=== PATIENT | female | born 1935 | race Caucasian/White ===

== ENCOUNTER 2017-09-11 10:07 | Observation (INO) ==
[2017-09-11] MEDS ORDERED: *HR* Atropine Sulfate 1 MG/10 ML SYRINGE IVP ONE (10:23)
[2017-09-11] MEDS ORDERED: *HR* Atropine Sulfate 1 MG/10 ML SYRINGE ONE (10:23)
[2017-09-11] MEDS ORDERED: 0.9 % Sodium Chloride 1,000 ML IVC ONE (10:27)
--- NOTE | 2017-09-11 10:33 | Emergency Department Note ---
Disposition Clinical Impression: Symptomatic bradycardia, Elevated serum creatinine, Transaminitis Disposition: Admitted As Inpatient Condition: Fair Referrals: Ray Finley Jr, MD [Primary Care Provider] - Forms: ED Satisfaction Letter Time of Disposition: 16:34 Weakness HPI - General Chief complaint: ED Weakness Stated complaint: weakness Time Seen by Provider: 09/11/17 10:11 Source: patient, EMS Mode of arrival: EMS Limitations: no limitations Nursing Notes Reviewed: Yes Vital Signs Reviewed: Yes - History of Present Illness HPI Narrative: Alert and oriented 82-year-old female arrives by EMS for evaluation of generalized fatigue/weakness and shortness of breath. Symptoms began earlier this morning and gradually worsened. She denies any associated chest pain, fever, abdominal pain, nausea, or vomiting. Pt Subjective Complaint: generalized weakness/fatigue Onset (ago): hour(s) Duration: gradually worsening Pain Scale: 0 Associated symptoms: Reports: shortness of breath - Related Data Home Medications Medication Instructions Recorded Confirmed Allopurinol [Zyloprim 100 MG] 100 mg PO DAILY 09/11/17 09/11/17 Dabigatran [Pradaxa] 75 mg PO BID 09/11/17 09/11/17 Diltiazem HCl [Diltiazem 24Hr Cd] 360 mg PO DAILY 09/11/17 09/11/17 Esomeprazole Magnesium [Nexium] 40 mg PO DAILY 09/11/17 09/11/17 Fluticasone Propionate Nasal 2 spr NS DAILY 09/11/17 09/11/17 [Flonase] Furosemide [Lasix] 40 mg PO BID 09/11/17 09/11/17 Insulin Glargine,Hum.rec.anlog 14 unit SQ DAILY 09/11/17 09/11/17 [Lantus Solostar] Isosorbide MONOnitrate [Isosorbide 120 mg PO QAM 09/11/17 09/11/17 Mononitrate ER] Linagliptin [Tradjenta] 5 mg PO DAILY 09/11/17 09/11/17 Lisinopril [Zestril] 20 mg PO DAILY 09/11/17 09/11/17 Metoprolol Succinate 100 mg PO BID 09/11/17 09/11/17 Rosuvastatin [Crestor] 20 mg PO HS 09/11/17 09/11/17 Allergies Allergy/AdvReac Type Severity Reaction Status Date / Time morphine Allergy Drowsy Verified 09/11/17 10:22 All systems ED: reviewed and negative except as stated. Constitutional: Reports: as per HPI, weakness (Generalized). Denies: fever, chills, weight change Eyes: Denies: eye pain, eye discharge, vision change ENT ED: Denies: ear pain, throat pain, dental pain, hearing loss, epistaxis, congestion, dysphagia Cardiovascular: Denies: chest pain, palpitations, dyspnea on exertion, edema, syncope Respiratory: Reports: as per HPI, dyspnea. Denies: cough, wheezes, hemoptysis, stridor Gastrointestinal: Denies: abdominal pain, nausea, vomiting, diarrhea, constipation, hematemesis, melena, hematochezia Genitourinary: Denies: dysuria, frequency, hematuria, discharge Musculoskeletal: Denies: back pain, neck pain, arthralgia, myalgia Integumentary: Denies: rash, abrasion, lesions Neurological: Denies: headache, weakness, numbness, paresthesias, confusion, abnormal gait, vertigo Psychiatric: Denies: anxiety, depression, suicidal thoughts, homicidal thoughts , auditory hallucinations, visual hallucinations Endocrine: Denies: fatigue Hematological/Lymphatic: Denies: easy bleeding, easy bruising Allergic/Immunologic: Denies: facial swelling, urticaria Past Medical History - Past Medical History Attestation: Yes The following information was validated with the patient. Source: patient, nursing notes reviewed Medical history: Reports: atrial fibrillation, diabetes, hypertension Psychiatric history: Reports: no psych history - Social History Smoking Status: Never smoker Alcohol use: Reports: none Drug use: Reports: none Physical Exam - General Limitations: no limitations General appearance: alert, in no apparent distress - Head Head exam: atraumatic, normocephalic, normal inspection - Eye Eye exam: Present: normal appearance, PERRL, EOMI. Absent: nystagmus - ENT ENT exam: mucous membranes moist - Neck Neck exam: Present: normal inspection, full ROM, trachea midline - Chest Chest inspection: Present: normal inspection, symmetric chest wall rise - Respiratory Respiratory exam: Present: normal lung sounds bilaterally. Absent: respiratory distress, wheezes, stridor, accessory muscle use, prolonged expiratory phase - Cardiovascular Cardiovascular exam: Present: bradycardia, irregular rhythm, normal heart sounds - Abdominal Exam Abdominal exam: Present: soft, Non-Tender, normal bowel sounds - Extremities Exam Extremities exam: Present: normal inspection, full ROM. Absent: tenderness, pedal edema - Neurological Exam Neurological exam: Present: alert, oriented X3 - Psychiatric Psychiatric exam: Present: normal affect, normal mood - Skin Skin exam: Present: warm, dry, intact, normal color Course Course Narrative: Dr. Covington, ED attending was at bedside during this patient's arrival. He recommends consultation with cardiology on-call regarding her bradycardia in the low 30s. The patient is on 100 mg of metoprolol twice a day. She is also on diltiazem, which was recently increased in dosage approximately one week ago. This was confirmed by calling the patient's pharmacy. She had originally been on 240 mg of diltiazem and this was increased to 360 mg daily. - Consultations Consultation #1: I spoke with Dr. Tressa Jones, cardiology military professional regarding this patient's bradycardia and EKG that shows atrial fibrillation with slow ventricular response and a right bundle-branch block. She recommends IV fluid hydration withholding glucagon at this time as long as the patient is maintaining normotensive pressure. She does state that she will review the patient's EKG was faxed to the Alternative Dispute Resolution Mediator. She also states that she was sent a it sales representative from the senior warehouse clerk to the emergency department to evaluate the patient at bedside. Time: 10:25 Consultation #2: Quirino Nagel METALWORKING INSTRUCTOR with [facility] at the patient's bedside. She recommends withholding the patient's metoprolol and Cardizem. The patient's heart rate has improved to 50 bpm after 0.5 mg of IV atropine. Quirino recommends admission to the hospitalist service with cardiology consultation for further monitoring and evaluation. Time: 10:40 Consultation #3: Per Dr. Covington's request, I consulted with Dr. Tressa Jones regarding laboratory results that show kidney dysfunction, abnormal liver enzymes, and elevated potassium levels. Dr. Jones recommends immediate correction of the patient's potassium. She states that the patient does have documented baseline renal dysfunction. She states that she still feels that there is no need for emergent pacemaker placement at this time. Time: 12:41 Additional Consultation(s): 1300: I spoke with Dr. Christina, assistant professor of surgery military professional. He recommends that the patient was heart rate be better stabilized prior to accepting the patient for admission into the ICU. He recommends the administration of IV glucagon in an attempt to correct her bradycardia. I discussed that this was against the senior warehouse clerk's recommendations however he requested to be given at this time. We will obtain an ultrasound of the right upper quadrant to evaluate the gallbladder in light of her elevated AST, ALT, and alkaline phosphatase. 1610: I spoke with Dr. Land, resident physician working with Dr. Christina in the ICU. I have notified Dr. Land at the patient's vital signs are much improved. Heart rate is now 72 bpm. Blood pressure 127/59. Her potassium has normalized to 5.1. I will contact the hospitalist for admission to the hospitalist service rather than ICU admission at this time. I discussed this plan with Dr. Covington as well as G agrees with this plan. 1630: I spoke with Dr. Garcia of the Hospital services accepted the patient under his services at this time. Vital Signs Temperature 94.5 F L 09/11/17 10:11 Pulse Rate 42 09/11/17 10:11 Respiratory Rate 14 09/11/17 10:11 Blood Pressure 119/46 09/11/17 10:11 O2 Sat by Pulse Oximetry 95 09/11/17 10:11 Temperature 96.8 F L 09/11/17 10:43 Pulse Rate 72 09/11/17 15:12 Respiratory Rate 22 09/11/17 15:12 Blood Pressure 127/59 09/11/17 15:12 O2 Sat by Pulse Oximetry 94 09/11/17 15:12 Oxygen Delivery Oxygen Delivery Room Air Weakness - Medical Records Medical records reviewed: Yes I reviewed the patient's medical records. - Lab Data Lab results reviewed: Yes I reviewed the patient's lab results. Lab results narrative: Laboratory Last Values WBC 15.8 K/mcL (4.3-11.1) H 09/11/17 11:12 RBC 3.37 M/mcL (3.82-4.97) L 09/11/17 11:12 Hgb 10.5 g/dL (11.5-15.4) L 09/11/17 11:12 Hct 33.8 % (35.3-44.9) L 09/11/17 11:12 MCV 100.3 fL (83.0-100.0) H 09/11/17 11:12 MCH 31.2 pg (28.0-33.3) 09/11/17 11:12 MCHC 31.1 g/dL (31.6-35.5) L 09/11/17 11:12 RDW 15.5 % (11.5-14.5) H 09/11/17 11:12 Plt Count 248 K/mcL (140-400) 09/11/17 11:12 MPV 12.1 fL (9.4-12.4) 09/11/17 11:12 Immature Gran % 2.5 % (0-4) 09/11/17 11:12 Seg Neutrophils % 86.2 % 09/11/17 11:12 Lymphocytes % 5.1 % 09/11/17 11:12 Monocytes % 5.8 % 09/11/17 11:12 Eosinophils % 0.1 % 09/11/17 11:12 Basophils % 0.3 % 09/11/17 11:12 Neutrophils # 13.6 K/mcL (1.6-8.9) H 09/11/17 11:12 Lymphocytes # 0.8 K/mcL (0.6-4.6) 09/11/17 11:12 Monocytes # 0.9 K/mcL (0.0-1.3) 09/11/17 11:12 Eosinophils # 0.0 K/mcL (0.0-0.6) 09/11/17 11:12 Basophils # 0.1 K/mcL (0.0-0.2) 09/11/17 11:12 Nucleated RBCs/100 WBC 0.8 /100 WBC (0) H 09/11/17 11:12 PT 16.0 Seconds (9.4-12.1) H 09/11/17 11:12 INR 1.5 09/11/17 11:12 APTT 48.7 Seconds (26.0-36.0) H 09/11/17 11:12 VBG pH 7.26 pH Units (7.32-7.42) L 09/11/17 13:19 VBG pCO2 41 mmHg (41-51) 09/11/17 13:19 VBG pO2 42 mmHg (25-50) 09/11/17 13: VBG HCO3 18 mEq/L (21-27) L 09/11/17 13:19 Sodium 136 mEq/L (136-145) 09/11/17 11:12 Potassium 5.1 mEq/L (3.5-5.1) 09/11/17 15:32 Chloride 110 mEq/L (98-107) H 09/11/17 11:12 Carbon Dioxide 16 mEq/L (23-29) L 09/11/17 11:12 BUN 69 mg/dL (8-23) H 09/11/17 11:12 Creatinine 3.61 mg/dL (0.60-1.20) H 09/11/17 11:12 Est GFR ( Amer) 15 (> 60) L 09/11/17 11:12 Est GFR (Non-Af Amer) 12 (> 60) L 09/11/17 11:12 BUN/Creatinine Ratio 19 (6-26) 09/11/17 11:12 Glucose 361 mg/dL (70-105) H 09/11/17 11:12 Calculated Osmolality 317 (280-300) H 09/11/17 11:12 Calcium 8.7 mg/dL (8.6-10.3) 09/11/17 11:12 Total Bilirubin 0.4 mg/dL (0.3-1.0) 09/11/17 11:12 AST 285 Units/L (13-39) H 09/11/17 11:12 ALT 156 Units/L (7-52) H 09/11/17 11:12 Alkaline Phosphatase 138 Units/L (34-104) H 09/11/17 11:12 Creatine Kinase 79 Units/L (30-223) 09/11/17 11:12 Troponin I < 0.03 ng/mL (< 0.04) 09/11/17 11:12 Serum Total Protein 6.7 g/dL (6.4-8.9) 09/11/17 11:12 Albumin 3.3 g/dL (3.5-5.7) L 09/11/17 11:12 Globulin 3.4 g/dL (2.4-3.5) 09/11/17 11:12 Albumin/Globulin Ratio 1.0 (1.1-2.2) L 09/11/17 11:12 Beta-Hydroxybutyric Acd 0.17 mmol/L (0.02-0.27) 09/11/17 13:09 Ur Specimen Adequacy See below A 09/11/17 10:57 Urine Color Yellow (Yellow) 09/11/17 10:57 Urine Clarity Slightly Hazy (Clear) 09/11/17 10:57 Urine pH 5.0 pH Units (5.0-8.0) 09/11/17 10:57 Ur Specific [place] 1.026 (1.010-1.025) H 09/11/17 10:57 Urine Protein 30 mg/dL (Neg-Trace) H 09/11/17 10:57 Urine Glucose (UA) Normal mg/dL (Normal) 09/11/17 10:57 Urine Ketones Negative mg/dL (Negative) 09/11/17 10:57 Urine Blood Negative (Negative) 09/11/17 10:57 Urine Nitrite Negative (Negative) 09/11/17 10:57 Urine Bilirubin Negative (Negative) 09/11/17 10:57 Urine Urobilinogen Normal mg/dL (Normal) 09/11/17 10:57 Ur Leukocyte Esterase Negative (Negative) 09/11/17 10:57 Urine Microscopic RBC 0-3 per hpf (0-3) 09/11/17 10:57 Urine Microscopic WBC 0-3 per hpf (0-3) 09/11/17 10:57 Ur Squamous Epith Cells Many per lpf (None-Few) H 09/11/17 10:57 Urine Bacteria None Seen per hpf (None-Few) 09/11/17 10:57 Hyaline Casts None Seen per lpf (None-Few) 09/11/17 10:57 Ur Culture Indicated? NO (NO) 09/11/17 10:57 Result diagrams: 09/11/17 11:12 09/11/17 15:32 Lab Results 09/11/17 09/11/17 09/11/17 Range/Units 10:57 11:12 11:12 WBC 15.8 H (4.3-11.1) K/mcL RBC 3.37 L (3.82-4.97) M/mcL Hgb 10.5 L (11.5-15.4) g/dL Hct 33.8 L (35.3-44.9) % MCV 100.3 H (83.0-100.0) fL MCH 31.2 (28.0-33.3) pg MCHC 31.1 L (31.6-35.5) g/dL RDW 15.5 H (11.5-14.5) % Plt Count 248 (140-400) K/mcL MPV 12.1 (9.4-12.4) fL Immature Gran % 2.5 (0-4) % Seg Neutrophils % 86.2 % Lymphocytes % 5.1 % Monocytes % 5.8 % Eosinophils % 0.1 % Basophils % 0.3 % Neutrophils # 13.6 H (1.6-8.9) K/mcL Lymphocytes # 0.8 (0.6-4.6) K/mcL Monocytes # 0.9 (0.0-1.3) K/mcL Eosinophils # 0.0 (0.0-0.6) K/mcL Basophils # 0.1 (0.0-0.2) K/mcL Nucleated RBCs/100 WBC 0.8 H (0) /100 WBC PT 16.0 H (9.4-12.1) Seconds INR 1.5 APTT 48.7 H (26.0-36.0) Seconds VBG pH (7.32-7.42) pH Units VBG pCO2 (41-51) mmHg VBG pO2 (25-50) mmHg VBG HCO3 (21-27) mEq/L Sodium (136-145) mEq/L Potassium (3.5-5.1) mEq/L Chloride (98-107) mEq/L Carbon Dioxide (23-29) mEq/L BUN (8-23) mg/dL Creatinine (0.60-1.20) mg/dL Est GFR ( Amer) (> 60) Est GFR (Non-Af Amer) (> 60) BUN/Creatinine Ratio (6-26) Glucose (70-105) mg/dL Calculated Osmolality (280-300) Calcium (8.6-10.3) mg/dL Total Bilirubin (0.3-1.0) mg/dL AST (13-39) Units/L ALT (7-52) Units/L Alkaline Phosphatase (34-104) Units/L Creatine Kinase (30-223) Units/L Troponin I (< 0.04) ng/mL Serum Total Protein (6.4-8.9) g/dL Albumin (3.5-5.7) g/dL Globulin (2.4-3.5) g/dL Albumin/Globulin Ratio (1.1-2.2) Beta-Hydroxybutyric Acd (0.02-0.27) mmol/L Ur Specimen Adequacy See below A Urine Color Yellow (Yellow) Urine Clarity Slightly Hazy (Clear) Urine pH 5.0 (5.0-8.0) pH Units Ur Specific [place] 1.026 H (1.010-1.025) Urine Protein 30 H (Neg-Trace) mg/dL Urine Glucose (UA) Normal (Normal) mg/dL Urine Ketones Negative (Negative) mg/dL Urine Blood Negative (Negative) Urine Nitrite Negative (Negative) Urine Bilirubin Negative (Negative) Urine Urobilinogen Normal (Normal) mg/dL Ur Leukocyte Esterase Negative (Negative) Urine Microscopic RBC 0-3 (0-3) per hpf Urine Microscopic WBC 0-3 (0-3) per hpf Ur Squamous Epith Cells Many H (None-Few) per lpf Urine Bacteria None Seen (None-Few) per hpf Hyaline Casts None Seen (None-Few) per lpf Ur Culture Indicated? NO (NO) 09/11/17 09/11/17 09/11/17 Range/Units 11:12 13:09 13:19 WBC (4.3-11.1) K/mcL RBC (3.82-4.97) M/mcL Hgb (11.5-15.4) g/dL Hct (35.3-44.9) % MCV (83.0-100.0) fL MCH (28.0-33.3) pg MCHC (31.6-35.5) g/dL RDW (11.5-14.5) % Plt Count (140-400) K/mcL MPV (9.4-12.4) fL Immature Gran % (0-4) % Seg Neutrophils % % Lymphocytes % % Monocytes % % Eosinophils % % Basophils % % Neutrophils # (1.6-8.9) K/mcL Lymphocytes # (0.6-4.6) K/mcL Monocytes # (0.0-1.3) K/mcL Eosinophils # (0.0-0.6) K/mcL Basophils # (0.0-0.2) K/mcL Nucleated RBCs/100 WBC (0) /100 WBC PT (9.4-12.1) Seconds INR APTT (26.0-36.0) Seconds VBG pH 7.26 L (7.32-7.42) pH Units VBG pCO2 41 (41-51) mmHg VBG pO2 42 (25-50) mmHg VBG HCO3 18 L (21-27) mEq/L Sodium 136 (136-145) mEq/L Potassium 6.1 H (3.5-5.1) mEq/L Chloride 110 H (98-107) mEq/L Carbon Dioxide 16 L (23-29) mEq/L BUN 69 H (8-23) mg/dL Creatinine 3.61 H (0.60-1.20) mg/dL Est GFR ( Amer) 15 L (> 60) Est GFR (Non-Af Amer) 12 L (> 60) BUN/Creatinine Ratio 19 (6-26) Glucose 361 H (70-105) mg/dL Calculated Osmolality 317 H (280-300) Calcium 8.7 (8.6-10.3) mg/dL Total Bilirubin 0.4 (0.3-1.0) mg/dL AST 285 H (13-39) Units/L ALT 156 H (7-52) Units/L Alkaline Phosphatase 138 H (34-104) Units/L Creatine Kinase 79 (30-223) Units/L Troponin I < 0.03 (< 0.04) ng/mL Serum Total Protein 6.7 (6.4-8.9) g/dL Albumin 3.3 L (3.5-5.7) g/dL Globulin 3.4 (2.4-3.5) g/dL Albumin/Globulin Ratio 1.0 L (1.1-2.2) Beta-Hydroxybutyric Acd 0.17 (0.02-0.27) mmol/L Ur Specimen Adequacy Urine Color (Yellow) Urine Clarity (Clear) Urine pH (5.0-8.0) pH Units Ur Specific [place] (1.010-1.025) Urine Protein (Neg-Trace) mg/dL Urine Glucose (UA) (Normal) mg/dL Urine Ketones (Negative) mg/dL Urine Blood (Negative) Urine Nitrite (Negative) Urine Bilirubin (Negative) Urine Urobilinogen (Normal) mg/dL Ur Leukocyte Esterase (Negative) Urine Microscopic RBC (0-3) per hpf Urine Microscopic WBC (0-3) per hpf Ur Squamous Epith Cells (None-Few) per lpf Urine Bacteria (None-Few) per hpf Hyaline Casts (None-Few) per lpf Ur Culture Indicated? (NO) 09/11/17 Range/Units 15:32 WBC (4.3-11.1) K/mcL RBC (3.82-4.97) M/mcL Hgb (11.5-15.4) g/dL Hct (35.3-44.9) % MCV (83.0-100.0) fL MCH (28.0-33.3) pg MCHC (31.6-35.5) g/dL RDW (11.5-14.5) % Plt Count (140-400) K/mcL MPV (9.4-12.4) fL Immature Gran % (0-4) % Seg Neutrophils % % Lymphocytes % % Monocytes % % Eosinophils % % Basophils % % Neutrophils # (1.6-8.9) K/mcL Lymphocytes # (0.6-4.6) K/mcL Monocytes # (0.0-1.3) K/mcL Eosinophils # (0.0-0.6) K/mcL Basophils # (0.0-0.2) K/mcL Nucleated RBCs/100 WBC (0) /100 WBC PT (9.4-12.1) Seconds INR APTT (26.0-36.0) Seconds VBG pH (7.32-7.42) pH Units VBG pCO2 (41-51) mmHg VBG pO2 (25-50) mmHg VBG HCO3 (21-27) mEq/L Sodium (136-145) mEq/L Potassium 5.1 (3.5-5.1) mEq/L Chloride (98-107) mEq/L Carbon Dioxide (23-29) mEq/L BUN (8-23) mg/dL Creatinine (0.60-1.20) mg/dL Est GFR ( Amer) (> 60) Est GFR (Non-Af Amer) (> 60) BUN/Creatinine Ratio (6-26) Glucose (70-105) mg/dL Calculated Osmolality (280-300) Calcium (8.6-10.3) mg/dL Total Bilirubin (0.3-1.0) mg/dL AST (13-39) Units/L ALT (7-52) Units/L Alkaline Phosphatase (34-104) Units/L Creatine Kinase (30-223) Units/L Troponin I (< 0.04) ng/mL Serum Total Protein (6.4-8.9) g/dL Albumin (3.5-5.7) g/dL Globulin (2.4-3.5) g/dL Albumin/Globulin Ratio (1.1-2.2) Beta-Hydroxybutyric Acd (0.02-0.27) mmol/L Ur Specimen Adequacy Urine Color (Yellow) Urine Clarity (Clear) Urine pH (5.0-8.0) pH Units Ur Specific [place] (1.010-1.025) Urine Protein (Neg-Trace) mg/dL Urine Glucose (UA) (Normal) mg/dL Urine Ketones (Negative) mg/dL Urine Blood (Negative) Urine Nitrite (Negative) Urine Bilirubin (Negative) Urine Urobilinogen (Normal) mg/dL Ur Leukocyte Esterase (Negative) Urine Microscopic RBC (0-3) per hpf Urine Microscopic WBC (0-3) per hpf Ur Squamous Epith Cells (None-Few) per lpf Urine Bacteria (None-Few) per hpf Hyaline Casts (None-Few) per lpf Ur Culture Indicated? (NO) - EKG Data EKG attestation: Yes I reviewed and interpreted this EKG. EKG results narrative: EKG reviewed by Dr. Covington as well. EKG shows atrial fibrillation with slow ventricular response and a right bundle-branch block at a rate of 34 bpm. QRS duration 121, QT/QTc interval 5-3/416. No ectopy noted. No appreciable ST elevation. EKG pending cardiology review at this time. Attestation Statement - Attestation Attestation: I examined this patient and my medical decision-making was reviewed with the Resident Physician. I agree with the documented findings, disposition and treatment plan as described except to the extent set forth below. I saw this patient in conjunction with the nurse practitioner. Patient has symptomatic bradycardia. Patient was given atropine on arrival. There is not an underlying heart block that I can decipher at this time. The mems integration engineer was paged immediately on the patient's arrival and recommended further monitoring and they would send 70 down to evaluate the patient. Her blood pressure is stable at this time. The weakness I do believe is stemming from her underlying heart rate. We will see her response from atropine, reevaluate, we did discuss the possibility of giving glucagon to reverse underlying beta maria elena but this was not recommended by the senior warehouse clerk. Patient will be admitted for further evaluation the intensive care unit. I spent greater than 35 minutes of critical care time resuscitating this acutely ill patient suffering from symptomatic bradycardia. This was excluding billable procedures.
--- NOTE | 2017-09-11 10:57 | Electrophysiology Consult Note ---
<Quirino Nagel R - Last Filed: 09/11/17 10:50> Date of Encounter: 09/11/17 Time of Encounter: 10:50 Assessment and Plan (1) Symptomatic bradycardia Current Visit: Yes Status: Acute Presented with new onset fatigue, weakness, dyspnea and chest pressure that started this AM. HR found to be 30s on presentation. Given atropine 0.5mg, HR now 40s-50s at bedside. Rhythm unclear due to artifact. Obtain another EKG. Cardizem was increased from 240mg daily to 360mg daily 5 days ago. Also on Lopressor 100mg BID. Last doses of both medications was last night. Stop BB and CCB. Will avoid AV rogers blockers at this time given her bradycardia. No urgent indication for temporary pacemaker or PPM. Continuous telemetry to monitor HR. TTE to evaluate structure and function. Will also request records from Dr. Hawkins' s office. Awaiting labs to result as well. Will monitor electrolytes. Check TSH. Further recommendations to follow once labs and TTE result. (2) PAF (paroxysmal atrial fibrillation) Current Visit: Yes Status: Acute Known PAF. As above, will hold AV rogers blockers given her bradycardia. Anticoagulated on Pradaxa. [id number] (Age, HTN, CAD, Female, DM). Pt does report rectal bleeding from frequent diarrhea secondary to reaction to colchicine. Will monitor H&H. Management per hospitalist team. Consider stool guaiac. (3) CAD (coronary artery disease) Current Visit: Yes Status: Chronic Per pt, known CAD, but no hx of PCI or CABG. Reports [facility] "somewhat recently" but unsure when. [place] Will request records. ASA, statin. No BB due to bradycardia. Qualifiers: Coronary Disease-Associated Artery/Lesion type: [place] artery [place] vs. transplanted heart: [place] heart Associated angina: without angina Qualified Code(s): I25.10 - Atherosclerotic heart disease of [place] coronary artery without angina pectoris Discussion w patient/family: The assessment and plan as outlined above was discussed with the patient and/or family members who expressed understanding and agreement. All questions were answered. Thank you for involving us in the care of your patient. Please call with any questions. I will discuss all the above with Dr. Victorino Jones and make changes as necessary. History of Present Illness Consult date: 03/13/18 Requesting physician: Renato Gill Consult reason: symptomatic bradycardia Chief complaint: dyspnea, fatigue, weakness History of present illness: Ms. Burciaga is a 82 year old female with PMH of CAD, HTN, PAF on Pradaxa, HLD, Type 2 DM, GERD, CKD stage 4, gout that presented to ED this AM with complaints of new onset of fatigue, weakness, dyspnea and chest pressure that started this AM. Per family at bedside, BP at home was 66/46 and they were unable to get a reading on HR. Upon presentation to ED HR was found to be in the 30s. EP consulted to determine if temporary PPM needs placed. Atropine 0.5mg was given. HR at bedside currently 40s-low 50s. Pt reports continued dyspnea and chest pressure, but has improved from this AM. Records reviewed from outside facility/ PCP office. She is on Lopressor 100mg BID and Cardizem 360mg daily at home. Her cardizem was increased from 240 to 360mg 5 days ago, last dose of BB and CCB was last night. PCP office visit reviewed from yesterday and HR was 73 at that time. She also reports being started on colchicine for gout recently, developed significant diarrhea and has had bright red bleeding per rectum since having frequent diarrhea. Aside from chest pressure starting this AM, denies chest pain. Reports hx of CAD with [facility] in recent years, but has never had PCI or CABG. Also reports knowing there is something abnormal with her mitral valve. She follows with Dr. Hawkins in [place] for her critical care specialist. No prior cardiac testing on file at [facility]. Labs still pending. Past Med Surg Social Fam HX - Past Medical History Medical history: atrial fibrillation, coronary artery disease, diabetes, hypertension Psychiatric history: no psych history - Social History Smoking Status: Never smoker Alcohol use: none Drug use: none Medications and Allergies Allopurinol [Zyloprim 100 MG] 100 mg PO DAILY 09/11/17 [History] Dabigatran [Pradaxa] 75 mg PO BID 09/11/17 [History] Diltiazem HCl [Diltiazem 24Hr Cd] 360 mg PO DAILY 09/11/17 [History] Esomeprazole Magnesium [Nexium] 40 mg PO DAILY 09/11/17 [History] Fluticasone Propionate Nasal [Flonase] 2 spr NS DAILY 09/11/17 [History] Furosemide [Lasix] 40 mg PO BID 09/11/17 [History] Insulin Glargine,Hum.rec.anlog [Lantus Solostar] 14 unit SQ DAILY 09/11/17 [ History] Isosorbide MONOnitrate [Isosorbide Mononitrate ER] 120 mg PO QAM 09/11/17 [ History] Linagliptin [Tradjenta] 5 mg PO DAILY 09/11/17 [History] Lisinopril [Zestril] 20 mg PO DAILY 09/11/17 [History] Metoprolol Succinate 100 mg PO BID 09/11/17 [History] Rosuvastatin [Crestor] 20 mg PO HS 09/11/17 [History] 3 Allergy/AdvReac Type Severity Reaction Status Date / Time morphine Allergy Drowsy Verified 09/11/17 10:22 All Systems Review: The remainder of the systems were reviewed and are negative - Constitutional Constitutional: fatigue, weakness - Cardiovascular Cardiovascular: as per HPI, chest pain at rest, dyspnea at rest, dyspnea on exertion, slow heart rate - Respiratory Respiratory: dyspnea Physical Examination Vital Signs, Last 4 Hours Temp Pulse Resp BP Pulse Ox 09/11/17 10:43 96.8 F L 48 20 112/85 97 09/11/17 10:28 31 20 107/57 97 09/11/17 10:11 94.5 F L 42 14 119/46 95 Vital Signs Temp Pulse Resp BP Pulse Ox 09/11/17 10:43 96.8 F L 48 20 112/85 97 09/11/17 10:28 31 20 107/57 97 09/11/17 10:11 94.5 F L 42 14 119/46 95 Intake and Output 09/10/17 09/11/17 09/11/17 23:59 07:59 15:59 Other: Stool Characteristics Normal for Patient Weight 74.843 kg Patient Weight 09/11/17 23:59 Weight 74.843 kg General: Conversant, No Apparent Distress HEENT: Atraumatic, Normocephaly, Mucus Membranes Moist Neck: No JVD, Normal carotid pulses Cardiac: Reg Rate and Rhythm, Other (2/6 murmur) Lungs: Other (diminished) Neuro: Alert and responsive, No focal deficits noted Abdomen: Soft, Non-Tender Skin: No rashes noted on visualized skin Musculoskeletal: No Chest Wall Tenderness Extremities: No Clubbing, No Cyanosis, No Edema, Normal Pulses Results - EKG Interpretation EKG results cardiology: personally reviewed (HR 34) Consult Discharge Plan - Plan Referrals: Ray Finley Jr, MD [Primary Care Provider] - <Victorino Jones - Last Filed: 09/11/17 11:42> Date of Encounter: 09/11/17 - Attending Attestation I have personally performed a face to face evaluation on this patient. I have reviewed and agree with the care plan. History and Exam by me shows: Known history of PAF. Presented with bradycardia with high dosed of AVN blockers which were recently increased. Would hold AVN blockers, check routine labs, get records form outside critical care specialist. Assessment and Plan Discussion w patient/family: The assessment and plan as outlined above was discussed with the patient and/or family members who expressed understanding and agreement. All questions were answered. Thank you for involving us in the care of your patient. Please call with any questions. History of Present Illness History of present illness: Ms. Burciaga is a 82 year old female All Systems Review: The remainder of the systems were reviewed and are negative Physical Examination Vital Signs, Last 4 Hours Temp Pulse Resp BP Pulse Ox 09/11/17 11:08 47 18 93/48 95 09/11/17 10:43 96.8 F L 48 20 112/85 97 09/11/17 10:28 31 20 107/57 97 09/11/17 10:11 94.5 F L 42 14 119/46 95 Results 09/11/17 11:12 Lab Results 09/11/17 09/11/17 11:12 11:12 WBC 15.8 H Hgb 10.5 L Hct 33.8 L Plt Count 248 INR 1.5 APTT 48.7 H
[2017-09-11 11:09] LABS: Bilirubin,Urine Negative (Negative); Blood,Urine Negative (Negative); Color,Urine Yellow (Yellow); Glucose,Urine (UA) Normal (Normal); Ketones,Urine Negative (Negative); Leukocyte Esterase,Urine Negative (Negative); Nitrite,Urine Negative (Negative); Protein,Urine 30 mg/dL (Neg-Trace); Specific Gravity,Urine 1.026 (1.010-1.025); Urobilinogen,Urine Normal (Normal)
[2017-09-11 11:10] LABS: Bacteria,Urine None Seen per hpf (None-Few); Hyaline Casts,Urine None Seen per lpf (None-Few); RBC,Urine 0-3 per hpf (0-3); Squamous Epithelial Cell,Urine Many per lpf (None-Few); WBC,Urine 0-3 per hpf (0-3)
[2017-09-11 11:11] LABS: Clarity,Urine Slightly Hazy (Clear)
[2017-09-11 11:26] LABS: Basophils # 0.1 K/mcL (0.0-0.2); Basophils % 0.3 %; Eosinophils % 0.1 %; Hematocrit 33.8 % (35.3-44.9); Hemoglobin 10.5 g/dL (11.5-15.4); Immature Granulocytes % 2.5 % (0-4); Lymphocytes # 0.8 K/mcL (0.6-4.6); Lymphocytes % 5.1 %; Mean Corpuscular HGB Conc 31.1 g/dL (31.6-35.5); Mean Corpuscular Hemoglobin 31.2 pg (28.0-33.3); Mean Corpuscular Volume 100.3 fL (83.0-100.0); Mean Platelet Volume 12.1 fL (9.4-12.4); Monocytes # 0.9 K/mcL (0.0-1.3); Monocytes % 5.8 %; Neutrophils # 13.6 K/mcL (1.6-8.9); Nucleated Red Blood Cells 0.8 /100 WBC (0); Platelet Count 248 K/mcL (140-400); Red Blood Count 3.37 M/mcL (3.82-4.97); Red Cell Distribution Width 15.5 % (11.5-14.5); Segmented Neutrophils % 86.2 %
[2017-09-11 11:33] LABS: INR 1.5
[2017-09-11 11:35] LABS: Activated Partial Thrombo Time 48.7 Seconds (26.0-36.0)
[2017-09-11 11:46] LABS: Troponin I < 0.03 ng/mL (< 0.04)
[2017-09-11 12:16] LABS: Alanine Aminotransferase 156 Units/L (7-52); Albumin 3.3 g/dL (3.5-5.7); Alkaline Phosphatase 138 Units/L (34-104); Aspartate Amino Transferase 285 Units/L (13-39); BUN/Creatinine Ratio 19 (6-26); Bilirubin,Total 0.4 mg/dL (0.3-1.0); Blood Urea Nitrogen 69 mg/dL (8-23); Calcium 8.7 mg/dL (8.6-10.3); Carbon Dioxide 16 mEq/L (23-29); Chloride 110 mEq/L (98-107); Creatine Kinase 79 Units/L (30-223); Globulin 3.4 g/dL (2.4-3.5); Glucose 361 mg/dL (70-105); Osmolality,Calculated 317 (280-300); Potassium 6.1 mEq/L (3.5-5.1); Sodium 136 mEq/L (136-145); Total Protein 6.7 g/dL (6.4-8.9); eGFR For African Americans 15 (> 60); eGFR For Non-African Americans 12 (> 60)
[2017-09-11] MEDS ORDERED: *HR* Dextrose 50 % in Water (Syg) 50 ML SYRINGE IVP ONE (12:28)
[2017-09-11] MEDS ORDERED: Albuterol 2.5 MG/3 ML NEBULIZER IH ONE (12:28)
[2017-09-11] MEDS ORDERED: Insulin Human Regular 10 UNIT in 0.9 % Sodium Chloride 10 ML IV ONE (12:28)
[2017-09-11 13:23] LABS: VBG HCO3 18 mEq/L (21-27); VBG PCO2 41 mmHg (41-51); VBG PH 7.26 pH Units (7.32-7.42); VBG PO2 42 mmHg (25-50)
--- NOTE | 2017-09-11 16:58 | Electrocardiograph Report ---
[place] [id number] Test Date: 2017-09-11 Pat Name: Ro Burciaga Department: 104 Room: Gender: F [place]: ELIO : 1935 Requested By: Renato Gill Order Number: [id number] Reading MD: Tressa Jones Measurements Intervals [place] Rate: 34 P: TX: 0 QRS: 36 QRSD: 121 T: -3 QT: 523 QTc: 416 Interpretive Statements ATRIAL FIBRILLATION WITH SLOW VENTRICULAR RESPONSE RIGHT BUNDLE BRANCH BLOCK [120+ ms QRS DURATION, UPRIGHT V1, 40+ ms S IN I/aVL/V4/V5/V6] Electronically Signed On 09-11-2017 16:57:00 EDT by Tressa Jones
--- NOTE | 2017-09-11 20:44 | Internal Med History&Physical ---
Date of Encounter: 09/11/17 Time of Encounter: 20:42 Assessment and Plan (1) Elevated serum creatinine Current visit: Yes Status: Acute Acute renal insufficiency. Patient on IV hydration and consult nephrology (2) PAF (paroxysmal atrial fibrillation) Current visit: Yes Status: Acute Patient being followed by cardiology please see consult for detail (3) Symptomatic bradycardia Current visit: Yes Status: Acute Resolved heart rate is now in the 80s (4) Transaminitis Current visit: Yes Status: Acute Probably due to shock liver we will repeat profile in a.m. (5) CAD (coronary artery disease) Current visit: Yes Status: Chronic Some chest pain with the bradycardia patient being seen and followed by cardiology Qualifiers: Coronary Disease-Associated Artery/Lesion type: [place] artery [place] vs. transplanted heart: [place] heart Associated angina: without angina Qualified Code(s): I25.10 - Atherosclerotic heart disease of [place] coronary artery without angina pectoris Internal Medicine - H&P: HPI Chief complaint: bradycardia Admitted From: Emergency Dept Plans for Post Hospital Care: Home History of present illness: Ms. Burciaga is a 82 year old female Patient with history of CAD, hypertension, high cholesterol, diabetes, CK D patient presented with fatigue and generalized weakness and shortness of breath and some chest pain and was found with heart rate of 30 patient is on beta maria elena has been seen by Dr. Jones clerk to justice patient heart rate is now in the 80s and resting comfortably no chest pain Past Med Surg Social Fam HX - Past Medical History Medical history: arthritis, atrial fibrillation, coronary artery disease, diabetes, hypertension Psychiatric history: no psych history - Past Surgical History Surgical History: colectomy, hysterectomy - Social History Smoking Status: Never smoker Alcohol use: none Drug use: none Internal Medicine - H&P: Meds Allopurinol [Zyloprim 100 MG] 100 mg PO DAILY 09/11/17 [History] Dabigatran [Pradaxa] 75 mg PO BID 09/11/17 [History] Diltiazem HCl [Diltiazem 24Hr Cd] 360 mg PO DAILY 09/11/17 [History] Esomeprazole Magnesium [Nexium] 40 mg PO DAILY 09/11/17 [History] Fluticasone Propionate Nasal [Flonase] 2 spr NS DAILY 09/11/17 [History] Furosemide [Lasix] 40 mg PO BID 09/11/17 [History] Insulin Glargine,Hum.rec.anlog [Lantus Solostar] 14 unit SQ DAILY 09/11/17 [ History] Isosorbide MONOnitrate [Isosorbide Mononitrate ER] 120 mg PO QAM 09/11/17 [ History] Linagliptin [Tradjenta] 5 mg PO DAILY 09/11/17 [History] Lisinopril [Zestril] 20 mg PO DAILY 09/11/17 [History] Metoprolol Succinate 100 mg PO BID 09/11/17 [History] Rosuvastatin [Crestor] 20 mg PO HS 09/11/17 [History] 3 Allergy/AdvReac Type Severity Reaction Status Date / Time morphine Allergy Drowsy Verified 09/11/17 10:22 All Systems PM: A 10-system review of systems was performed and is negative for pertinent findings except as documented above in the HPI. - Constitutional Constitutional: fatigue, weakness - EENT Eyes: no change in vision, no discharge, no pain, no photophobia Ears: no ear discharge, no ear pain, no tinnitus Nose, mouth and throat: no dysphagia, no nasal discharge, no neck pain, no sore throat - Cardiovascular Cardiovascular ROS IM: lightheadedness - Respiratory Respiratory: as per HPI, dyspnea, no cough, no excessive phlegm production - Gastrointestinal Gastrointestinal: no abdominal pain, no diarrhea, no hematemesis, no hematochezia, no melena, no nausea, no vomiting - Genitourinary Genitourinary: no change in urinary stream, no dysuria, no flank pain, no hematuria - Constitutional Vitals: Temp Pulse Resp BP Pulse Ox 98 F 81 16 150/68 92 09/11/17 17:58 09/11/17 17:58 09/11/17 17:58 09/11/17 17:58 09/11/17 17:58 - Head Head exam: Present: atraumatic, normocephalic - Eye Eye exam: Present: PERRL, conjuntiva pink, sclera anicteric Pupils: Present: PERRL - Neck Neck exam general surgery: Present: supple, trachea midline. Absent: lymphadenopathy - Respiratory Respiratory exam: Present: CTAB. Absent: accessory muscle use, rales, rhonchi, wheezes - Cardiovascular Cardiovascular exam: Present: RRR, +S1, +S2. Absent: diastolic murmur, gallop, rubs, systolic murmur - GI/Abdominal GI/Abdominal exam: Present: normal bowel sounds, soft, no peritoneal signs. Absent: distended, tenderness - Extremities Exam Extremities exam: Present: warm, radial pulses palpable and symmetrical. Absent : calf tenderness, cyanotic, pedal edema - Neurological Exam Neurological exam: Present: CN II-XII intact, oriented X3, no focal deficits. Absent: pronater drift, facial droop, speech deficit - Skin Skin exam: Present: dry, intact Internal Med - H&P Results - Labs CBC & Chem 7: 09/11/17 11:12 09/11/17 15:32
[2017-09-11] MEDS ORDERED: Naloxone 0.4 MG/ML INJ IVP PRN (20:46)
[2017-09-11] MEDS: 0.9 % Sodium Chloride 1,000 ML IVC SCH (21:57)
[2017-09-11] MEDS: *HR* Dabigatran 75 MG CAPSULE PO SCH (22:27)
[2017-09-12 03:49] LABS: Hematocrit 30.1 % (35.3-44.9); Hemoglobin 9.7 g/dL (11.5-15.4); Mean Corpuscular HGB Conc 32.2 g/dL (31.6-35.5); Mean Corpuscular Volume 96.2 fL (83.0-100.0); Mean Platelet Volume 12.4 fL (9.4-12.4); Platelet Count 235 K/mcL (140-400); Red Blood Count 3.13 M/mcL (3.82-4.97); Red Cell Distribution Width 15.3 % (11.5-14.5)
[2017-09-12 05:17] LABS: Albumin 3.2 g/dL (3.5-5.7); Bilirubin,Total 0.3 mg/dL (0.3-1.0); Calcium 8.6 mg/dL (8.6-10.3); Globulin 3.2 g/dL (2.4-3.5); Magnesium 1.2 mg/dL (1.6-2.6); Potassium 4.8 mEq/L (3.5-5.1); Total Protein 6.4 g/dL (6.4-8.9)
[2017-09-12] MEDS: Fluticasone Propionate Nasal 50 MCG/SPRAY BOTTLE NS SCH (08:34)
[2017-09-12] MEDS: *HR* Dabigatran 75 MG CAPSULE PO SCH ×2 (08:34→20:57)
[2017-09-12] MEDS: Insulin DETEMIR 100 UNIT/ML X5UNITS SQ SCH (08:41)
[2017-09-12] MEDS ORDERED: (Linagliptin [Tradjenta] 5 MG) PO SCH (09:00)
--- NOTE | 2017-09-12 09:32 | Electrophysiology ProgressNote ---
Date of Encounter: 09/12/17 Time of Encounter: 09:30 Assessment and Plan (1) Symptomatic bradycardia Current Visit: Yes Status: Acute Now resolved. Presented with new onset fatigue, weakness, dyspnea and chest pressure that started yesterday AM. HR found to be 30s on presentation. Given atropine 0.5mg, BB and CCB stopped. K found to be 6.9 yesterday, since corrected and K is 4.8 today. HR now 80s-low 100s A-Fib. Cardizem was increased from 240mg daily to 360mg daily 6 days ago by cardio [employer] at Dr. Hawkins's office, and was on Lopressor 100mg BID. Last doses of both medications was evening of 09/10/17. Per pt, Cardizem was increased due to HR being 101 at cardiology visit. Now that pt is becoming tachycardic, will add back lower dose BB--Lopressor 50mg BID. Mag 1.2--replacing. Continuous telemetry to monitor HR. TTE showed EF 65%, mild MR, borderline MS, mild-moderate OH. Also awaiting records from Dr. Hawkins's office. No need for PPM at this time. Recommend keeping another day since we are resuming back lower dose of BB. Will continue to follow and monitor HR. (2) PAF (paroxysmal atrial fibrillation) Current Visit: Yes Status: Acute Known PAF. As above, held AV rogers blockers given her bradycardia. Tachycardic this AM, so resuming Lopressor but at lower dose of 50mg BID. Anticoagulated on Pradaxa. [id number] (Age, HTN, CAD, Female, DM). Pt does report rectal bleeding from frequent diarrhea secondary to reaction to colchicine. HGB was 10.5 on admission, 9.7 today. Could be dilutional from IV fluids, but will order hemoccult. (3) CAD (coronary artery disease) Current Visit: Yes Status: Chronic Per pt, known CAD, but no hx of PCI or CABG. Reports [facility] "somewhat recently" but unsure when. Reports it was at [place]. Requested records. ASA, statin, BB. Qualifiers: Coronary Disease-Associated Artery/Lesion type: [place] artery [place] vs. transplanted heart: [place] heart Associated angina: without angina Qualified Code(s): I25.10 - Atherosclerotic heart disease of [place] coronary artery without angina pectoris Discussion w patient/family: The assessment and plan as outlined above was discussed with the patient and/or family members who expressed understanding and agreement. All questions were answered. Thank you for involving us in the care of your patient. Please call with any questions. I will discuss all the above with Dr. Victorino Jones and make changes as necessary. Subjective Principal diagnosis: bradycardia, dyspnea Interval history: Pt reports feeling better today, but has not ambulated yet. Dyspnea improved, but mild conversational dyspnea still noted. Denies chest pain overnight. HR has improved--80s-low 100s at bedside, A-Fib. TTE resulted--EF 65%, mild MR, borderline MS, mild-moderate OH, no phtn. Troponin negative x 3. K was 6.9 yesterday, has been corrected and is 4.8 today. Mag 1.2. Creatinine was 3.61 yesterday, 2.89 today. PCP note had listed stage IV CKD. Reports 4 episodes of diarrhea since admission with bright red blood per rectum. HGB 9.7 today, was 10.5 on admission. Objective Vital Signs, Last 4 Hours Temp Pulse Resp BP Pulse Ox 09/12/17 07:09 98.2 F 104 18 118/79 92 Vital Signs Temp Pulse Resp BP Pulse Ox 09/12/17 07:09 98.2 F 104 18 118/79 92 09/12/17 04:35 94 18 126/70 94 09/12/17 00:35 80 17 127/61 95 09/11/17 21:11 98.0 F 67 17 137/64 96 09/11/17 17:58 98 F 81 16 150/68 92 09/11/17 17:19 79 18 132/65 96 09/11/17 16:41 80 20 132/65 95 09/11/17 15:12 72 22 127/59 94 09/11/17 12:56 55 18 127/59 95 09/11/17 12:48 17 95 09/11/17 11:55 46 22 126/58 96 09/11/17 11:08 47 18 93/48 95 09/11/17 10:43 96.8 F L 48 20 112/85 97 09/11/17 10:28 31 20 107/57 97 09/11/17 10:11 94.5 F L 42 14 119/46 95 Intake and Output 09/11/17 09/12/17 09/12/17 23:59 07:59 15:59 Intake Total 0 / 0 Output Total 0 / 0 450 / 450 Balance 0 / 0 -450 / -450 0 / 0 Intake: Oral 0 / 0 Output: Urine 0 / 0 450 / 450 Other: Meal Breakfast Percent of Meal Consumed 0% Stool Size Moderate Small Stool Consistency soft liquid Stool Color Brown # Voids 1 2 # Bowel Movements 1 Weight 77 kg 77.4 kg Blood Glucose* 114 170 Patient Weight 09/12/17 23:59 Weight 77.4 kg General: Conversant, No Apparent Distress HEENT: Atraumatic, Normocephaly, Mucus Membranes Moist Neck: No JVD, Normal carotid pulses Cardiac: Other (irregularly irregular) Lungs: Other (diminished) Neuro: Alert and responsive, No focal deficits noted Abdomen: Soft, Non-Tender Skin: No rashes noted on visualized skin Musculoskeletal: No Chest Wall Tenderness Extremities: No Clubbing, No Cyanosis, No Edema, Normal Pulses Results 09/12/17 02:53 09/12/17 02:53 Lab Results 09/11/17 09/12/17 09/12/17 20:59 02:53 02:53 WBC 14.1 H Hgb 9.7 L Hct 30.1 L Plt Count 235 Sodium Potassium Chloride Carbon Dioxide BUN Creatinine Glucose Calcium Magnesium Total Bilirubin AST ALT Alkaline Phosphatase Troponin I < 0.03 < 0.03 09/12/17 02:53 WBC Hgb Hct Plt Count Sodium 139 Potassium 4.8 Chloride 113 H Carbon Dioxide 16 L BUN 63 H Creatinine 2.89 H Glucose 165 H Calcium 8.6 Magnesium 1.2 L Total Bilirubin 0.3 AST 141 H ALT 109 H Alkaline Phosphatase 112 H Troponin I Short CBC 09/12/17 09/11/17 Range/Units 02:53 11:12 WBC 14.1 H 15.8 H (4.3-11.1) K/mcL Hgb 9.7 L 10.5 L (11.5-15.4) g/dL Hct 30.1 L 33.8 L (35.3-44.9) % Plt Count 235 248 (140-400) K/mcL Neutrophils # 13.6 H (1.6-8.9) K/mcL BMP 09/12/17 09/11/17 09/11/17 Range/Units 02:53 15:32 11:12 Sodium 139 136 (136-145) mEq/L Potassium 4.8 5.1 6.1 H (3.5-5.1) mEq/L Chloride 113 H 110 H (98-107) mEq/L Carbon Dioxide 16 L 16 L (23-29) mEq/L BUN 63 H 69 H (8-23) mg/dL Creatinine 2.89 H 3.61 H (0.60-1.20) mg/dL Glucose 165 H 361 H (70-105) mg/dL Calcium 8.6 8.7 (8.6-10.3) mg/dL Cardiac Enzymes 09/12/17 09/11/17 09/11/17 Range/Units 02:53 20:59 11:12 Troponin I < 0.03 < 0.03 < 0.03 (< 0.04) ng/mL Liver Function 09/12/17 09/11/17 Range/Units 02:53 11:12 Total Bilirubin 0.3 0.4 (0.3-1.0) mg/dL AST 141 H 285 H (13-39) Units/L ALT 109 H 156 H (7-52) Units/L Alkaline Phosphatase 112 H 138 H (34-104) Units/L Albumin 3.2 L 3.3 L (3.5-5.7) g/dL Urine 09/11/17 Range/Units 10:57 Urine Color Yellow (Yellow) Urine Clarity Slightly Hazy (Clear) Urine pH 5.0 (5.0-8.0) pH Units Ur Specific [place] 1.026 H (1.010-1.025) Urine Protein 30 H (Neg-Trace) mg/dL Urine Glucose (UA) Normal (Normal) mg/dL Impressions Chest X-Ray 09/11/17 10:22 IMPRESSION: 1. Hypoinflated lungs and right basilar atelectasis. 2. Cardiomegaly without evidence of failure. D/ / Florecita Costello MD / Florecita Costello MD Interpreting Provider: Florecita Costello MD Echocardiogram 09/11/17 11:12 Impressions: LVEF 65%. Indeterminate diastolic function. Normal right ventricular structure and function. Mild mitral regurgitation. Borderline evidence for mitral stenosis, MG 3 mmHg at 60 bpm. Mild tricuspid regurgitation. Mild-moderate pulmonic regurgitation. No pulmonary hypertension. Left Ventricular Wall Motion: Rest Echo Findings All wall segments showed normal motion. Findings: Study Quality * Technically adequate exam. ECG Findings * Atrial fibrillation. Left Ventricle * LVEF 65%. * Normal LV chamber size, wall thickness and function. * Indeterminate diastolic function. Right Ventricle * Normal right ventricular structure and function. Left Atrium * Severely dilated left atrium. Right Atrium * Moderately dilated right atrium. Mitral Valve * Normal anterior mitral valve leaflet structure. PMVL not well visualized. * Mild mitral regurgitation. * Severe mitral annular calcification * Borderline evidence for mitral stenosis, MG 3 mmHg at 60 bpm. Aortic Valve * No aortic regurgitation. * Trileaflet aortic valve. * No aortic stenosis. Tricuspid Valve * Normal tricuspid valve structure. * Mild tricuspid regurgitation. * Estimated RA pressure is 3 mmHg. * Estimated RVSP is 24 mmHg. * No pulmonary hypertension. Pulmonic Valve * Pulmonic valve is not well visualized. * No pulmonic stenosis. * Mild-moderate pulmonic regurgitation. Pulmonary Artery * Pulmonary artery not well visualized. Aorta * Normally sized aortic root. Pericardium * There is no pericardial effusion present. Interatrial Septum * No evidence of PFO by color Doppler. IVC * The IVC is not dilated. Abdomen Ultrasound 09/11/17 16:13 IMPRESSION: Trace ascites. Otherwise unremarkable exam. D/ / Dewayne Bauer MD / Dewayne Bauer MD Interpreting Provider: Dewayne Bauer MD Active Medications Allopurinol (Zyloprim) 100 mg PO DAILY [facility] Stop: 03/14/18 09:01 Last Admin: 09/12/17 08:34 Dose: 100 mg Dabigatran (Pradaxa) 75 mg PO BID [facility] Stop: 03/13/18 21:01 Last Admin: 09/12/17 08:34 Dose: 75 mg Fluticasone Propionate (Flonase) 100 mcg NS DAILY [facility] PRN Reason: Protocol Stop: 03/14/18 09:01 Last Admin: 09/12/17 08:34 Dose: 100 mcg Sodium Chloride (0.9 % Sodium Chloride) 1,000 mls @ 75 mls/hr IVC .[id number] [facility] Stop: 09/12/17 23:39 Last Admin: 09/11/17 21:57 Dose: 75 mls/hr Insulin Detemir (Levemir) 14 unit SQ DAILY [facility] Stop: 03/14/18 09:01 Last Admin: 09/12/17 08:41 Dose: 14 unit Magnesium Oxide (Mag-Ox) 400 mg PO BID [facility] PRN Reason: Protocol Stop: 03/14/18 09:01 Naloxone HCl (Narcan) 0.4 mg IVP Q2MIN PRN PRN Reason: SEE COMMENTS Stop: 03/13/18 20:47 Omeprazole (Prilosec) 40 mg PO DAILY [facility] Stop: 03/14/18 09:01 Last Admin: 09/12/17 08:34 Dose: 40 mg Pharmacy Profile Note (Patient Taking Own Medication) 0 each PO DAILY [facility] Stop: 03/14/18 09:01 Last Admin: 09/12/17 08:34 Dose: Not Given Rosuvastatin Calcium (Crestor) 20 mg PO HS [facility] Stop: 03/13/18 21:01 Last Admin: 09/11/17 21:58 Dose: 20 mg - Imaging and Cardiology Echo: report reviewed - EKG Interpretation EKG results cardiology: other (24 hr tele AVG HR 89, A-FIb, no significant pauses or significant bradycardic events since being on 2NE.) Consult Discharge Plan - Plan Referrals: Ray Finley Jr, MD [Primary Care Provider] -
[2017-09-12] MEDS: 0.9 % Sodium Chloride 1,000 ML IVC SCH (09:45)
[2017-09-12] MEDS: Magnesium Oxide 400 MG TABLET PO SCH ×2 (09:45→20:57)
--- NOTE | 2017-09-12 11:47 | Nephrology Consult Note ---
Date of Encounter: 09/12/17 Time of Encounter: 11:47 Past Med Surg Social Fam HX - Past Medical History Medical history: arthritis, atrial fibrillation, coronary artery disease, diabetes, hypertension Psychiatric history: no psych history - Past Surgical History Surgical History: colectomy, hysterectomy - Social History Smoking Status: Never smoker Alcohol use: none Drug use: none Medications and Allergies Allopurinol [Zyloprim 100 MG] 100 mg PO DAILY 09/11/17 [History] Dabigatran [Pradaxa] 75 mg PO BID 09/11/17 [History] Diltiazem HCl [Diltiazem 24Hr Cd] 360 mg PO DAILY 09/11/17 [History] Esomeprazole Magnesium [Nexium] 40 mg PO DAILY 09/11/17 [History] Fluticasone Propionate Nasal [Flonase] 2 spr NS DAILY 09/11/17 [History] Furosemide [Lasix] 40 mg PO BID 09/11/17 [History] Insulin Glargine,Hum.rec.anlog [Lantus Solostar] 14 unit SQ DAILY 09/11/17 [ History] Isosorbide MONOnitrate [Isosorbide Mononitrate ER] 120 mg PO QAM 09/11/17 [ History] Linagliptin [Tradjenta] 5 mg PO DAILY 09/11/17 [History] Lisinopril [Zestril] 20 mg PO DAILY 09/11/17 [History] Metoprolol Succinate 100 mg PO BID 09/11/17 [History] Rosuvastatin [Crestor] 20 mg PO HS 09/11/17 [History] 3 Allergy/AdvReac Type Severity Reaction Status Date / Time morphine Allergy Drowsy Verified 09/11/17 10:22 Exam - Vital Signs Vital signs: Initial Vital Signs Temp Pulse Resp BP Pulse Ox 94.5 F L 42 14 119/46 95 09/11/17 10:11 09/11/17 10:11 09/11/17 10:11 09/11/17 10:11 09/11/17 10:11 Vital Signs - Last 8 Hours Temp Pulse Resp BP Pulse Ox 09/12/17 11:35 97.8 F 103 18 128/73 97 09/12/17 07:09 98.2 F 104 18 118/79 92 09/12/17 04:35 94 18 126/70 94 Intake and Output 09/11/17 09/12/17 09/12/17 23:59 07:59 15:59 Intake Total 1000 / 1000 Output Total 0 / 0 450 / 450 Balance 0 / 0 -450 / -450 1000 / 1000 Intake: IV Fluids 1000 / 1000 0.9 % Sodium Chloride 1,000 ML 1000 / 1000 @ 75 mls/hr IVC .[id number] FIL[facility] Rx #:[id number] Oral 0 / 0 Output: Urine 0 / 0 450 / 450 Other: Meal Breakfast Percent of Meal Consumed 0% Stool Size Moderate Small Stool Consistency soft liquid Stool Color Brown # Voids 1 2 # Bowel Movements 1 Weight 77 kg 77.4 kg Blood Glucose* 114 170 217 Patient Weight 09/12/17 23:59 Weight 77.4 kg Results - Lab Results 09/12/17 02:53 09/12/17 02:53 Most recent lab results Calcium 8.6 mg/dL (8.6-10.3) 09/12/17 02:53 Magnesium 1.2 mg/dL (1.6-2.6) L 09/12/17 02:53 Consult Discharge Plan - Plan Referrals: Ray Finley Jr, MD [Primary Care Provider] -
[2017-09-12] MEDS ORDERED: D5% in Water 1,000 ML IVC PRN (13:27)
[2017-09-12] MEDS ORDERED: Dextrose Gel 15 GM/37.5 ML TUBE PO PRN ×2 (13:27)
[2017-09-12] MEDS ORDERED: *HR* Dextrose 50 % in Water (Syg) 50 ML SYRINGE IVP PRN (13:27)
[2017-09-12] MEDS: Insulin LISPRO 300 UNITS/3 ML VIAL SQ SCH ×2 (16:15→20:57)
--- NOTE | 2017-09-12 22:57 | Internal Med Progress Note ---
Date of Encounter: 09/12/17 Time of Encounter: 22:56 - Assessment and plan (1) Symptomatic bradycardia Current Visit: Yes Status: Resolved Assessment and plan: Resolved. Cardiology consulted; appreciate input. TTE showed EF 65%, mild MR, borderline MS, mild-moderate NE. Also awaiting records from Dr. Hawkins's office. No need for PPM at this time. Metoprolol dose for Afib increased today as per below. Will monitor HR closely. (2) PAF (paroxysmal atrial fibrillation) Current Visit: Yes Status: Acute Assessment and plan: Improved. Cardiology consulted; appreciate input. Metoprolol dose increased today. Continue pradaxa. Will monitor HR. PT/OT consulted for generalized debility due to multiple illnesses over last few weeks. Plan for discharge home tomorrow if stable. Consider discharge home with home health PT/OT or acute rehab based on PT/OT recommendations. (3) CAD (coronary artery disease) Current Visit: Yes Status: Chronic Assessment and plan: Cardiology consulted; appreciate input. Continue aspirin, beta maria elena, and statin. Qualifiers: Coronary Disease-Associated Artery/Lesion type: [place] artery [place] vs. transplanted heart: [place] heart Associated angina: without angina Qualified Code(s): I25.10 - Atherosclerotic heart disease of [place] coronary artery without angina pectoris (4) Acute kidney injury superimposed on chronic kidney disease Current Visit: Yes Status: Acute Assessment and plan: Improving. Cr = 2.89. Nephrology consulted; appreciate input. Continue IVF. Avoid nephrotoxic agents. Repeat CMP in AM. (5) Transaminitis Current Visit: Yes Status: Acute Assessment and plan: Improving. Likely secondary to shock liver. Repeat CMP in AM. - Time Spent With Patient 25 - 35 minutes - Subjective Interval history: Patient had no acute events overnight. She states that she is feeling better this morning. Still with weakness and debility. She denies chest pain, palpitations, or SOB. - Constitutional Vitals: Temp Pulse Resp BP Pulse Ox 98.2 F 99 18 152/75 96 09/12/17 19:29 09/12/17 19:29 09/12/17 19:29 09/12/17 19:29 09/12/17 19:29 General appearance: Present: cooperative, A&O X 3, pleasant, answers questions appropriately. Absent: no acute distress - Respiratory Respiratory exam: Present: CTAB. Absent: accessory muscle use, rales, rhonchi, wheezes Additional comments: Normal WOB - Cardiovascular Cardiovascular exam: Present: RRR, +S1, +S2. Absent: gallop, rubs, systolic murmur Additional comments: No BLE edema - GI/Abdominal GI/Abdominal exam: Present: normal bowel sounds, soft. Absent: distended, hepatomegaly, mass, splenomegaly, tenderness - Psychiatric Psychiatric exam: Present: normal affect, normal mood. Absent: anxious, depressed - Skin Skin exam: Present: dry, intact, warm. Absent: cyanosis, rash Internal Medicine: Result - Labs CBC & Chem 7: 09/12/17 02:53 09/12/17 02:53 Labs: Short CBC 09/12/17 Range/Units 02:53 WBC 14.1 H (4.3-11.1) K/mcL Hgb 9.7 L (11.5-15.4) g/dL Hct 30.1 L (35.3-44.9) % Plt Count 235 (140-400) K/mcL BMP 09/12/17 02:53 Sodium 139 Potassium 4.8 Chloride 113 H Carbon Dioxide 16 L BUN 63 H Creatinine 2.89 H Glucose 165 H Calcium 8.6 Cardiac Enzymes 09/12/17 09/12/17 Range/Units 02:53 09:06 Troponin I < 0.03 0.01 (< 0.04) ng/mL Liver Function 09/12/17 Range/Units 02:53 Total Bilirubin 0.3 (0.3-1.0) mg/dL AST 141 H (13-39) Units/L ALT 109 H (7-52) Units/L Alkaline Phosphatase 112 H (34-104) Units/L Albumin 3.2 L (3.5-5.7) g/dL - ABG Interpretation ABG results: PT/INR, D-dimer PT 16.0 Seconds (9.4-12.1) H 09/11/17 11:12 - VTE Contraindication No Overlap Therapy: Admin of oral Factor Xa Inhibitor Consult Discharge Plan - Plan Referrals: Ray Finley Jr, MD [Primary Care Provider] -
[2017-09-13 06:19] LABS: Basophils # 0.1 K/mcL (0.0-0.2); Basophils % 0.5 %; Eosinophils # 0.3 K/mcL (0.0-0.6); Eosinophils % 2.6 %; Hematocrit 34.3 % (35.3-44.9); Immature Granulocytes % 0.5 % (0-4); Lymphocytes # 1.8 K/mcL (0.6-4.6); Mean Corpuscular HGB Conc 32.1 g/dL (31.6-35.5); Mean Corpuscular Volume 96.6 fL (83.0-100.0); Mean Platelet Volume 12.6 fL (9.4-12.4); Monocytes # 1.1 K/mcL (0.0-1.3); Monocytes % 8.3 %; Neutrophils # 9.6 K/mcL (1.6-8.9); Nucleated Red Blood Cells 0.2 /100 WBC (0); Platelet Count 271 K/mcL (140-400); Red Blood Count 3.55 M/mcL (3.82-4.97); Red Cell Distribution Width 15.5 % (11.5-14.5); Segmented Neutrophils % 74.1 %
[2017-09-13] MEDS: Magnesium Oxide 400 MG TABLET PO SCH ×2 (08:58→22:26)
[2017-09-13] MEDS: amLODIPine 5 MG TABLET PO SCH (08:58)
[2017-09-13] MEDS: *HR* Dabigatran 75 MG CAPSULE PO SCH ×2 (08:58→22:26)
[2017-09-13] MEDS: Fluticasone Propionate Nasal 50 MCG/SPRAY BOTTLE NS SCH (08:58)
[2017-09-13] MEDS: Insulin LISPRO 300 UNITS/3 ML VIAL SQ SCH ×4 (08:59→22:24)
[2017-09-13] MEDS: Insulin DETEMIR 100 UNIT/ML X5UNITS SQ SCH (09:01)
[2017-09-13 09:09] LABS: Albumin 3.2 g/dL (3.5-5.7); Albumin/Globulin Ratio 0.9 (1.1-2.2); Bilirubin,Total 0.4 mg/dL (0.3-1.0); Calcium 9.1 mg/dL (8.6-10.3); Globulin 3.5 g/dL (2.4-3.5); Potassium 4.4 mEq/L (3.5-5.1); Total Protein 6.7 g/dL (6.4-8.9)
--- NOTE | 2017-09-13 09:27 | Electrophysiology ProgressNote ---
Date of Encounter: 09/13/17 Time of Encounter: 09:21 Assessment and Plan (1) Symptomatic bradycardia Current Visit: Yes Status: Resolved Now resolved. Presented with new onset fatigue, weakness, dyspnea and chest pressure. HR found to be 30s on presentation. Was on Lopressor 100mg BID and Cardizem CD 360mg (increased 5 days prior to presentation). Given atropine 0.5mg , BB and CCB stopped initially, K was 6.9, since corrected. HR improved, no bradycardic episodes. BB was added back yesterday at lower dose- -Lopressor 50mg BID. HR 95-105 at beside. Will increase Lopressor to 100mg BID-- back to her home dose. 12 hr tele AVG HR 91, A-Fib. Mag 1.2 yesterday--replaced, will recheck. Continuous telemetry to monitor HR. TTE showed EF 65%, mild MR, borderline MS, mild-moderate ND. Also awaiting records from Dr. Hawkins's office. No need for PPM at this time. Continue to follow. (2) PAF (paroxysmal atrial fibrillation) Current Visit: Yes Status: Acute Known PAF. As above, initially held AV rogers blockers given her bradycardia, yesterday initiated Lopressor but at lower dose of 50mg BID. Increase today back to home dose of 100mg BID. Anticoagulated on Pradaxa. [id number] (Age, HTN, CAD, Female, DM). Pt does report rectal bleeding from frequent diarrhea secondary to reaction to colchicine. HGB was 10.5 on admission, 11 today. Hemoccult was ordered, not yet resulted. (3) CAD (coronary artery disease) Current Visit: Yes Status: Chronic Per pt, known CAD, but no hx of PCI or CABG. Reports [facility] "somewhat recently" but unsure when. Reports it was at [facility]. Requested records. ASA, statin, BB. Qualifiers: Coronary Disease-Associated Artery/Lesion type: [place] artery [place] vs. transplanted heart: [place] heart Associated angina: without angina Qualified Code(s): I25.10 - Atherosclerotic heart disease of [place] coronary artery without angina pectoris (4) Dyspnea Current Visit: Yes Status: Acute Pt reports continued dyspnea. CXR ordered. EF preserved on TTE. No fluid overload on exam. Right basilar airspace disease and small pleural effusion suspicious for pneumonia. Management per primary team. Qualifiers: Dyspnea type: unspecified Qualified Code(s): R06.00 - Dyspnea, unspecified (5) Hypertension Current Visit: Yes Status: Acute Hypertensive this AM--170s-180s systolic/90s-100s diastolic. One time dose of IV hydralazine given. Norvasc 5mg daily started. Increasing BB--Lopressor 100mg BID. Adjust Norvasc as necessary for BP control. Qualifiers: Hypertension type: essential hypertension Qualified Code(s): I10 - Essential (primary) hypertension Discussion w patient/family: The assessment and plan as outlined above was discussed with the patient and/or family members who expressed understanding and agreement. All questions were answered. Thank you for involving us in the care of your patient. Please call with any questions. I will discuss all the above with Dr. Victorino Jones and make changes as necessary. Subjective Principal diagnosis: bradycardia, dyspnea Interval history: Pt reports continued dyspnea. Denies chest pain overnight. 12 hr tele AVG HR 91 , A-Fib. Objective Vital Signs, Last 4 Hours Temp Pulse Resp BP Pulse Ox 09/13/17 06:44 97.5 F L 85 15 174/110 93 Vital Signs Temp Pulse Resp BP Pulse Ox 09/13/17 06:44 97.5 F L 85 15 174/110 93 09/13/17 05:06 73 16 182/91 97 09/12/17 19:29 98.2 F 99 18 152/75 96 09/12/17 15:49 97.8 F 88 18 127/68 92 09/12/17 11:35 97.8 F 103 18 128/73 97 Intake and Output 09/12/17 09/13/17 09/13/17 23:59 07:59 15:59 Intake Total 120 / 120 1000 / 1000 120 / 120 Output Total 800 / 800 Balance 120 / 120 200 / 200 120 / 120 Intake: IV Fluids 1000 / 1000 0.9 % Sodium Chloride 1,000 ML 1000 / 1000 @ 75 mls/hr IVC .[id number] FILI Rx #:[id number] Oral 120 / 120 120 / 120 Output: Urine 800 / 800 Other: Meal Dinner Breakfast Percent of Meal Consumed 50% 15% # Voids 0 Weight 76.9 kg Blood Glucose* 144 137 Patient Weight 09/13/17 23:59 Weight 76.9 kg General: Conversant, No Apparent Distress HEENT: Atraumatic, Normocephaly, Mucus Membranes Moist Neck: No JVD, Normal carotid pulses Cardiac: Other (irregularly irregular) Lungs: Other (diminished) Neuro: Alert and responsive, No focal deficits noted Abdomen: Soft, Non-Tender Skin: No rashes noted on visualized skin Musculoskeletal: No Chest Wall Tenderness Extremities: No Clubbing, No Cyanosis, No Edema, Normal Pulses Results 09/13/17 05:00 09/13/17 05:00 Lab Results 09/12/17 09/13/17 09/13/17 09:06 05:00 05:00 WBC Hgb Hct Plt Count Sodium 139 Potassium 4.4 Chloride 115 H Carbon Dioxide 17 L BUN 39 H Creatinine 1.80 H Glucose 135 H Calcium 9.1 Total Bilirubin 0.4 AST 73 H ALT 86 H Alkaline Phosphatase 108 H Troponin I 0.01 TSH 2.343 09/13/17 05:00 WBC 13.0 H Hgb 11.0 L Hct 34.3 L Plt Count 271 Sodium Potassium Chloride Carbon Dioxide BUN Creatinine Glucose Calcium Total Bilirubin AST ALT Alkaline Phosphatase Troponin I TSH - Imaging and Cardiology Echo: report reviewed - EKG Interpretation EKG results cardiology: other (12 hr tele AVG HR 91, A-Fib.) - VTE Contraindication No Overlap Therapy: Admin of oral Factor Xa Inhibitor Consult Discharge Plan - Plan Referrals: Ray Finley Jr, MD [Primary Care Provider] -
--- NOTE | 2017-09-13 10:44 | Nephrology Consult Note ---
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 Baseline creat 2.2-2.4. K+4.4. Renal fct improved, creat 1.80. Doc. urine output 400cc. Will resume gentle hydration 0.9NS at 50cc/hour. Avoid nephrotoxins, Accurate I&O's Will continue to monitor. is a 82 year old female well known to practice, last seen Jul 17, with stable CKD 4, in setting of diabetic nephropathy. Baseline creat 2.2-2.4. Other PMH-Parox. AFIB, CADMs. Patrica states she had "just not felt well with decreased appetite for two weeks, she also reports frequet diarrhea she relates to her colchcine. presenting to [place] on September 11 with complaints of generalized fatigue, weakness and shortness of breath. Heart rate on arrival in low 30's and Afib, most likely related to Metoprolol and recent increase in Diltiazem. K+ 6.1. Cardiology was consulted, IV fluid hydration. Heart rate in 50's following Atropine and IV Glucogon and K+ corrected to 5.1. Creat peaked at 3.61 on Sep 11, today 1.80. It was felt no immediate need for pacemaker placement at that time. BB and CCB on hold. AST, ALT and Alk phos elevated-Abd US unremarkable except for trace ascites. TTE showed EF 65%, mild MR, borderline MS, mild-moderate [place]. On September 12, tachycardic and lower dose Metoprolol 50 MG BID resumed. IV fluids appear to have been stopped yesterday. Today nursing states Hypertensive SBP 180's, given IV Hydralazine 5mg, and started on Amlodipine 5mg daily. SBP now in 150's. Patient states feeling better since BP down, states head felt fuzzy when elevated. Still states does not have much of an appetite but is drinking fair amount of fluids. Documented urine output 450cc. Past Med Surg Social Fam HX - Past Medical History Medical history: arthritis, atrial fibrillation, coronary artery disease, diabetes, hypertension Psychiatric history: no psych history - Past Surgical History Surgical History: colectomy, hysterectomy - Social History Smoking Status: Never smoker Alcohol use: none Drug use: none Medications and Allergies Allopurinol [Zyloprim 100 MG] 100 mg PO DAILY 09/11/17 [History] Dabigatran [Pradaxa] 75 mg PO BID 09/11/17 [History] Diltiazem HCl [Diltiazem 24Hr Cd] 360 mg PO DAILY 09/11/17 [History] Esomeprazole Magnesium [Nexium] 40 mg PO DAILY 09/11/17 [History] Fluticasone Propionate Nasal [Flonase] 2 spr NS DAILY 09/11/17 [History] Furosemide [Lasix] 40 mg PO BID 09/11/17 [History] Insulin Glargine,Hum.rec.anlog [Lantus Solostar] 14 unit SQ DAILY 09/11/17 [ History] Isosorbide MONOnitrate [Isosorbide Mononitrate ER] 120 mg PO QAM 09/11/17 [ History] Linagliptin [Tradjenta] 5 mg PO DAILY 09/11/17 [History] Lisinopril [Zestril] 20 mg PO DAILY 09/11/17 [History] Metoprolol Succinate 100 mg PO BID 09/11/17 [History] Rosuvastatin [Crestor] 20 mg PO HS 09/11/17 [History] 3 Allergy/AdvReac Type Severity Reaction Status Date / Time morphine Allergy Drowsy Verified 09/11/17 10:22 Review of Systems All Systems: reviewed and no additional remarkable complaints except as stated Exam - Vital Signs Vital signs: Initial Vital Signs Temp Pulse Resp BP Pulse Ox 94.5 F L 42 14 119/46 95 09/11/17 10:11 09/11/17 10:11 09/11/17 10:11 09/11/17 10:11 09/11/17 10:11 Vital Signs - Last 8 Hours Temp Pulse Resp BP Pulse Ox 09/13/17 06:44 97.5 F L 85 15 174/110 93 09/13/17 05:06 73 16 182/91 97 Intake and Output 09/12/17 09/13/17 09/13/17 23:59 07:59 15:59 Intake Total 120 / 120 1000 / 1000 120 / 120 Output Total 800 / 800 Balance 120 / 120 200 / 200 120 / 120 Intake: IV Fluids 1000 / 1000 0.9 % Sodium Chloride 1,000 ML 1000 / 1000 @ 75 mls/hr IVC .[id number] FILI Rx #:[id number] Oral 120 / 120 120 / 120 Output: Urine 800 / 800 Other: Meal Dinner Breakfast Percent of Meal Consumed 50% 15% # Voids 0 Weight 76.9 kg Blood Glucose* 144 137 Patient Weight 09/13/17 23:59 Weight 76.9 kg - General Appearance General appearance: well-developed, well-nourished, appears started age EENT: mucous membranes moist Neck: no JVD Respiratory: clear Cardiology: no edema, irregular rhythm Gastrointestinal: normoactive bowel sounds, no tenderness Integumentary: no rash, warm and dry Neurologic: alert and oriented x3 Results - Lab Results 09/13/17 05:00 09/13/17 05:00 Most recent lab results Calcium 9.1 mg/dL (8.6-10.3) 09/13/17 05:00 Magnesium 1.2 mg/dL (1.6-2.6) L 09/12/17 02:53 Consult Discharge Plan - Plan Referrals: Ray Finley Jr, MD [Primary Care Provider] -
[2017-09-13 11:24] LABS: Albumin 3.4 g/dL (3.5-5.7); Albumin/Globulin Ratio 0.9 (1.1-2.2); Bilirubin,Total 0.4 mg/dL (0.3-1.0); Calcium 9.3 mg/dL (8.6-10.3); Globulin 3.6 g/dL (2.4-3.5); Potassium 4.2 mEq/L (3.5-5.1)
[2017-09-13] MEDS: 0.9 % Sodium Chloride 1,000 ML IVC SCH (12:33)
--- NOTE | 2017-09-13 22:42 | Internal Med Progress Note ---
Date of Encounter: 09/13/17 Time of Encounter: 22:39 - Assessment and plan (1) Symptomatic bradycardia Current Visit: Yes Status: Resolved Assessment and plan: Resolved. Cardiology consulted; appreciate input. TTE showed EF 65%, mild MR, borderline MS, mild-moderate [place]. Also awaiting records from Dr. Hawkins's office. No need for PPM at this time. Cardiology controlling Afib as per below. Will monitor HR closely. (2) PAF (paroxysmal atrial fibrillation) Current Visit: Yes Status: Acute Assessment and plan: Unchanged. Cardiology consulted; appreciate input. Metoprolol dose increased today due to Afib and hypertension. Amlodipine also started for hypertension. Continue pradaxa. Will monitor HR. PT/OT consulted for generalized debility due to multiple illnesses over last few weeks; they were unable to evaluate her due to hypertension. Will try again tomorrow. Patient considering home with home health and PT, or acute rehab. (3) CAD (coronary artery disease) Current Visit: Yes Status: Chronic Assessment and plan: Cardiology consulted; appreciate input. Continue aspirin, beta maria elena, and statin. Qualifiers: Coronary Disease-Associated Artery/Lesion type: [place] artery [place] vs. transplanted heart: [place] heart Associated angina: without angina Qualified Code(s): I25.10 - Atherosclerotic heart disease of [place] coronary artery without angina pectoris (4) Acute kidney injury superimposed on chronic kidney disease Current Visit: Yes Status: Acute Assessment and plan: Improving. Cr = 1.72. Nephrology consulted; appreciate input. Continue IVF. Avoid nephrotoxic agents. Repeat CMP in AM. (5) Transaminitis Current Visit: Yes Status: Acute Assessment and plan: Improving. Likely secondary to shock liver. Repeat CMP in AM. (6) Debility Current Visit: Yes Status: Acute Assessment and plan: Continue PT/OT. Consider possible home PT/OT or acute rehab placement based on their recommendations. (7) Hypertension Current Visit: Yes Status: Acute Assessment and plan: BP elevated this AM. Will defer to cardiology to optimize medications at this time due to them actively titrating Afib medications for rate control. Amlodipine 5 mg QD started today. Will monitor vitals closely. Qualifiers: Hypertension type: essential hypertension Qualified Code(s): I10 - Essential (primary) hypertension - Time Spent With Patient less than 15 minutes - Subjective Interval history: Patient had no acute events overnight. She states that she is feeling better this morning. Still with significant weakness and debility. She denies chest pain, palpitations, or SOB. We discussed benefits of inpatient rehab; she wants to go home but will think about it overnight and consult with family. Nursing staff reports BP elevated today. PT/OT unable to evaluate today due to this. She has no new complaints. - Constitutional Vitals: Temp Pulse Resp BP Pulse Ox 98.6 F 102 19 163/97 94 09/13/17 19:50 09/13/17 19:50 09/13/17 19:50 09/13/17 19:50 09/13/17 19:50 General appearance: Present: cooperative, A&O X 3, pleasant, answers questions appropriately. Absent: no acute distress - Respiratory Respiratory exam: Present: CTAB. Absent: accessory muscle use, rales, rhonchi, wheezes Additional comments: Normal WOB - Cardiovascular Cardiovascular exam: Present: +S1, +S2, tachycardia. Absent: diastolic murmur, gallop, rubs, systolic murmur Additional comments: Irregularly irregular rhythm - GI/Abdominal GI/Abdominal exam: Present: normal bowel sounds, soft. Absent: distended, hepatomegaly, mass, splenomegaly, tenderness - Psychiatric Psychiatric exam: Present: normal affect, normal mood. Absent: anxious, depressed - Skin Skin exam: Present: dry, intact, warm. Absent: cyanosis, rash Internal Medicine: Result - Labs CBC & Chem 7: 09/13/17 05:00 09/13/17 10:33 Labs: Short CBC 09/13/17 Range/Units 05:00 WBC 13.0 H (4.3-11.1) K/mcL Hgb 11.0 L (11.5-15.4) g/dL Hct 34.3 L (35.3-44.9) % Plt Count 271 (140-400) K/mcL Neutrophils # 9.6 H (1.6-8.9) K/mcL BMP 09/13/17 09/13/17 05:00 10:33 Sodium 139 139 Potassium 4.4 4.2 Chloride 115 H 113 H Carbon Dioxide 17 L 18 L BUN 39 H 38 H Creatinine 1.80 H 1.72 H Glucose 135 H 181 H Calcium 9.1 9.3 Liver Function 03/15/18 03/15/18 Range/Units 05:00 10:33 Total Bilirubin 0.4 0.4 (0.3-1.0) mg/dL AST 73 H 67 H (13-39) Units/L ALT 86 H 82 H (7-52) Units/L Alkaline Phosphatase 108 H 114 H (34-104) Units/L Albumin 3.2 L 3.4 L (3.5-5.7) g/dL - ABG Interpretation ABG results: PT/INR, D-dimer PT 16.0 Seconds (9.4-12.1) H 09/11/17 11:12 - Impressions Impressions Chest X-Ray 09/13/17 09:14 IMPRESSION: Right basilar airspace disease and small pleural effusion suspicious for pneumonia. Minimal discoid atelectasis also noted. D/ / Omar Lam MD / Omar Lam MD Interpreting Provider: Omar Lam MD - VTE Contraindication No Overlap Therapy: Admin of oral Factor Xa Inhibitor Consult Discharge Plan - Plan Referrals: Ray Finley Jr, MD [Primary Care Provider] -
[2017-09-14 04:28] LABS: Albumin 3.2 g/dL (3.5-5.7); Bilirubin,Total 0.3 mg/dL (0.3-1.0); Calcium 8.8 mg/dL (8.6-10.3); Globulin 3.3 g/dL (2.4-3.5); Potassium 4.1 mEq/L (3.5-5.1); Total Protein 6.5 g/dL (6.4-8.9)
[2017-09-14] MEDS: 0.9 % Sodium Chloride 1,000 ML IVC SCH (07:34)
[2017-09-14] MEDS: Magnesium Oxide 400 MG TABLET PO SCH (08:10)
[2017-09-14] MEDS: amLODIPine 5 MG TABLET PO SCH (08:10)
[2017-09-14] MEDS: *HR* Dabigatran 75 MG CAPSULE PO SCH (08:10)
[2017-09-14] MEDS: Insulin LISPRO 300 UNITS/3 ML VIAL SQ SCH ×3 (08:11→16:44)
[2017-09-14] MEDS ORDERED: amLODIPine 5 MG TABLET PO ONE (09:35)
--- NOTE | 2017-09-14 09:35 | Nephrology Progress Note ---
Date of Encounter: 09/14/17 Time of Encounter: 09:05 - Assessment and Plan (1) Acute kidney injury superimposed on chronic kidney disease Current Visit: Yes Status: Acute DAKOTAH in setting most likely related to hemodynamic instability, GI losses contributing, superimposed on CKD 4 in setting of diabetic nephropathy. Baseline creat 2.2-2.4. K+4.1. Renal fct improved, creat 1.50. Doc. urine output 800cc. Will stop IV fluids. Avoid nephrotoxins, Accurate I&O's Will continue to monitor. Subjective Principal diagnosis: bradycardia, dyspnea Interval history: Sitting up in chair, eating breakfast. States feeling better. No new complaints. Objective - Vital Signs Vital signs: Vital Signs Temp Pulse Resp BP Pulse Ox 09/14/17 07:00 98 F 98 18 189/99 98 09/14/17 04:19 98.1 F 101 19 165/94 96 09/13/17 23:54 98.9 F 90 16 131/74 96 09/13/17 19:50 98.6 F 102 19 163/97 94 09/13/17 15:00 98.3 F 94 18 160/82 96 09/13/17 11:32 98.1 F 104 18 166/92 96 Intake and Output 09/13/17 09/14/17 09/14/17 23:59 07:59 15:59 Intake Total 240 / 240 1000 / 1000 Balance 240 / 240 1000 / 1000 Intake: IV Fluids 1000 / 1000 0.9 % Sodium Chloride 1,000 ML 1000 / 1000 @ 50 mls/hr IVC .Q20H [facility] Rx#: [id number] Oral 240 / 240 Other: Meal Dinner Percent of Meal Consumed 100% Stool Size Moderate Stool Consistency soft Stool Color Brown Pale # Voids 1 Weight 77.9 kg Blood Glucose* 196 171 Patient Weight 09/14/17 23:59 Weight 77.9 kg - General Appearance General appearance: Present: well-developed, well-nourished, appears started age EENT: Present: mucous membranes moist Neck: Present: no JVD Respiratory: Present: clear Cardiology: Present: no edema, irregular rhythm Gastrointestinal: Present: normoactive bowel sounds, no tenderness Integumentary: Present: warm and dry Neurologic: Present: alert and oriented x3 - Lab 09/13/17 05:00 09/14/17 03:28 Most recent lab results Calcium 8.8 mg/dL (8.6-10.3) 09/14/17 03:28 Magnesium 1.2 mg/dL (1.6-2.6) L 09/12/17 02:53 - VTE Contraindication No Overlap Therapy: Admin of oral Factor Xa Inhibitor Consult Discharge Plan - Plan Referrals: Ray Finley Jr, MD [Primary Care Provider] -
--- NOTE | 2017-09-14 09:59 | Electrophysiology ProgressNote ---
Date of Encounter: 09/14/17 Time of Encounter: 10:00 Assessment and Plan (1) Symptomatic bradycardia Current Visit: Yes Status: Resolved Per Cardiology: Now resolved. Presented with new onset fatigue, weakness, dyspnea and chest pressure. HR found to be 30s on presentation. Was on Lopressor 100mg BID and Cardizem CD 360mg (increased 5 days prior to presentation). Given atropine 0.5mg , BB and CCB stopped initially, K was 6.9, since corrected. HR improved, no bradycardic episodes. BB was added back. No need for PPM at this time per previous discussions with Dr. Victorino Jones. Continue to monitor telemetry. (2) PAF (paroxysmal atrial fibrillation) Current Visit: Yes Status: Acute Per Cardiology: Known PAF. As above, initially held AV rogers blockers given her bradycardia. Currently A. fib in the 90s to 100s, avg HR past 12 hrs 99. Mag 1.2 yesterday-- replaced, repeat pending (replete as needed). Will increase Lopressor to 150mg PO BID for HR optimization and BP optimization. Monitor tele. Cardiology will s/ o, re-consult PRN, patient desires to f/u with [facility], appt to be arranged. Anticoagulated on Pradaxa. [id number] (Age, HTN, CAD, Female, DM). Pt reported rectal bleeding from frequent diarrhea secondary to reaction to colchicine. HGB stable. Hemoccult was ordered, not yet resulted. Denies any current active bleeding or blood loss. Continue to monitor. (3) Acute kidney injury superimposed on chronic kidney disease Current Visit: Yes Status: Acute Per Cardiology: Improving. Avoid nephrotoxins. (4) Hypertension Current Visit: Yes Status: Acute Per Cardiology: Hypertensive this AM. Norvasc already increased. Back on home dose BB (remains off previous dose CCB). Will make slight adjustments to BB to optimize HR and BP as well. Qualifiers: Hypertension type: essential hypertension Qualified Code(s): I10 - Essential (primary) hypertension (5) CAD (coronary artery disease) Current Visit: Yes Status: Chronic Per Cardiology: Reported hx of CAD, but no hx of PCI or CABG. Reports [facility] "somewhat recently" but unsure when. Reports it was at [place]. No medical records received from outside facility. TTE showed EF 65%, mild MR, borderline MS, mild-moderate [place]. Trops negative. On ASA, statin (LFTs improved), BB. Qualifiers: Coronary Disease-Associated Artery/Lesion type: [place] artery [place] vs. transplanted heart: [place] heart Associated angina: without angina Qualified Code(s): I25.10 - Atherosclerotic heart disease of [place] coronary artery without angina pectoris (6) Dyspnea Current Visit: Yes Status: Acute Per Cardiology: CXR: IMPRESSION: Right basilar airspace disease and small pleural effusion suspicious for pneumonia. Minimal discoid atelectasis also noted. EF preserved on TTE. No fluid overload on exam. Management per primary team. Qualifiers: Dyspnea type: unspecified Qualified Code(s): R06.00 - Dyspnea, unspecified Discussion w patient/family: The assessment and plan as outlined above was discussed with the patient who expressed understanding and agreement. All questions were answered. Thank you for involving us in the care of your patient. Please call with any questions. Subjective Principal diagnosis: bradycardia, dyspnea Interval history: Patient denies any new concerns or complaints. She reports overall she feels remarkably improved since admission. She does report some baseline shortness of breath at rest. She denies any active bleeding or blood loss. Reports occasional chest pressure with exertion, however unchanged from baseline. She denies any palpitations. Objective Vital Signs, Last 4 Hours Temp Pulse Resp BP Pulse Ox 09/14/17 07:00 98 F 98 18 189/99 98 Selected Entries 09/13/17 23:54 09/14/17 04:19 09/14/17 07:00 Blood Pressure 131/74 165/94 189/99 General: Conversant, No Apparent Distress HEENT: Atraumatic, Normocephaly, Mucus Membranes Moist Neck: No JVD, Normal carotid pulses Cardiac: No Murmur, Other (Irregularly irregular) Lungs: Normal Breath Sounds, No Wheeze, Rales, Rhonchi Neuro: Alert and responsive, No focal deficits noted Abdomen: Soft, Non-Tender Skin: No rashes noted on visualized skin Musculoskeletal: No Chest Wall Tenderness, Other (Up out of bed to chair today) Extremities: No Clubbing, No Cyanosis, No Edema, Normal Pulses Results 09/13/17 05:00 09/14/17 03:28 Lab Results Laboratory Tests 09/11/17 09/11/17 09/12/17 11:12 20:59 02:53 Creatinine 3.61 H Est GFR (Non-Af Amer) Magnesium AST 285 H ALT 156 H Troponin I < 0.03 < 0.03 < 0.03 TSH 09/12/17 09/12/17 09/13/17 02:53 09:06 05:00 Creatinine Est GFR (Non-Af Amer) Magnesium 1.2 L AST ALT Troponin I 0.01 TSH 2.343 09/14/17 03:28 Creatinine 1.50 H Est GFR (Non-Af Amer) 33 L Magnesium AST 39 ALT 61 H Troponin I TSH ITS Impressions Chest X-Ray 09/11/17 10:22 IMPRESSION: 1. Hypoinflated lungs and right basilar atelectasis. 2. Cardiomegaly without evidence of failure. D/ / Florecita Costello MD / Florecita Costello MD Interpreting Provider: Florecita Costello MD Echocardiogram 09/11/17 11:12 Impressions: LVEF 65%. Indeterminate diastolic function. Normal right ventricular structure and function. Mild mitral regurgitation. Borderline evidence for mitral stenosis, MG 3 mmHg at 60 bpm. Mild tricuspid regurgitation. Mild-moderate pulmonic regurgitation. No pulmonary hypertension. Left Ventricular Wall Motion: Rest Echo Findings All wall segments showed normal motion. Findings: Study Quality * Technically adequate exam. ECG Findings * Atrial fibrillation. Left Ventricle * LVEF 65%. * Normal LV chamber size, wall thickness and function. * Indeterminate diastolic function. Right Ventricle * Normal right ventricular structure and function. Left Atrium * Severely dilated left atrium. Right Atrium * Moderately dilated right atrium. Mitral Valve * Normal anterior mitral valve leaflet structure. PMVL not well visualized. * Mild mitral regurgitation. * Severe mitral annular calcification * Borderline evidence for mitral stenosis, MG 3 mmHg at 60 bpm. Aortic Valve * No aortic regurgitation. * Trileaflet aortic valve. * No aortic stenosis. Tricuspid Valve * Normal tricuspid valve structure. * Mild tricuspid regurgitation. * Estimated RA pressure is 3 mmHg. * Estimated RVSP is 24 mmHg. * No pulmonary hypertension. Pulmonic Valve * Pulmonic valve is not well visualized. * No pulmonic stenosis. * Mild-moderate pulmonic regurgitation. Pulmonary Artery * Pulmonary artery not well visualized. Aorta * Normally sized aortic root. Pericardium * There is no pericardial effusion present. Interatrial Septum * No evidence of PFO by color Doppler. IVC * The IVC is not dilated. Abdomen Ultrasound 09/11/17 16:13 IMPRESSION: Trace ascites. Otherwise unremarkable exam. D/ / Dewayne Bauer MD / Dewayne Bauer MD Interpreting Provider: Dewayne Bauer MD Chest X-Ray 09/13/17 09:14 IMPRESSION: Right basilar airspace disease and small pleural effusion suspicious for pneumonia. Minimal discoid atelectasis also noted. D/ / Omar Lam MD / Omar Lam MD Interpreting Provider: Omar Lam MD Intake & Output 09/11/17 09/12/17 09/13/17 09/14/17 23:59 23:59 23:59 23:59 Intake Total 1240 / 1240 1480 / 1480 1000 / 1000 Output Total 0 / 0 450 / 450 800 / 800 Balance 0 / 0 790 / 790 680 / 680 1000 / 1000 Weight 77 kg 77.4 kg 76.9 kg 77.9 kg Active Medications Allopurinol (Zyloprim) 100 mg PO DAILY FILI Stop: 03/14/18 09:01 Last Admin: 09/14/17 08:10 Dose: 100 mg Amlodipine Besylate (Norvasc) 10 mg PO DAILY FILI PRN Reason: Protocol Stop: 03/17/18 09:01 Dabigatran (Pradaxa) 75 mg PO BID FILI Stop: 03/13/18 21:01 Last Admin: 09/14/17 08:10 Dose: 75 mg Dextrose/Water (Dextrose 50% (Syg)) 25 ml IVP AD PRN PRN Reason: Hypoglycemia Stop: 03/14/18 13:28 Fluticasone Propionate (Flonase) 100 mcg NS DAILY FILI PRN Reason: Protocol Stop: 03/14/18 09:01 Last Admin: 09/13/17 08:58 Dose: 100 mcg Glucagon (Glucagen) 1 mg IM ONCE PRN PRN Reason: Hypoglycemia Stop: 03/14/18 13:28 Glucose (Gluctose) 15 gm PO ONCE PRN PRN Reason: Hypoglycemia Stop: 03/14/18 13:28 Glucose (Gluctose) 30 gm PO ONCE PRN PRN Reason: Hypoglycemia Stop: 03/14/18 13:28 Dextrose (Dextrose 5%) 1,000 mls @ 100 mls/hr IVC .Q10H PRN PRN Reason: HYPOGLYCEMIA Stop: 03/14/18 13:28 Insulin Detemir (Levemir) 14 unit SQ DAILY [facility] Stop: 03/14/18 09:01 Last Admin: 09/13/17 09:01 Dose: 14 unit Insulin Human Lispro (Humalog) 0 units SQ TIDAC [facility] PRN Reason: Protocol Stop: 03/14/18 16:31 Last Admin: 09/14/17 08:11 Dose: 2 units Insulin Human Lispro (Humalog) 0 units SQ HS [facility] PRN Reason: Protocol Stop: 03/14/18 21:01 Last Admin: 09/13/17 22:24 Dose: Not Given Magnesium Oxide (Mag-Ox) 400 mg PO BID [facility] PRN Reason: Protocol Stop: 03/14/18 09:01 Last Admin: 09/14/17 08:10 Dose: 400 mg Metoprolol Tartrate (Lopressor) 100 mg PO BID [facility] Stop: 03/15/18 21:01 Last Admin: 09/14/17 08:10 Dose: 100 mg Naloxone HCl (Narcan) 0.4 mg IVP Q2MIN PRN PRN Reason: SEE COMMENTS Stop: 03/13/18 20:47 Omeprazole (Prilosec) 40 mg PO DAILY [facility] Stop: 03/14/18 09:01 Last Admin: 09/14/17 08:10 Dose: 40 mg Rosuvastatin Calcium (Crestor) 20 mg PO HS [facility] Stop: 03/13/18 21:01 Last Admin: 09/13/17 22:26 Dose: 20 mg - Imaging and Cardiology Echo: report reviewed - EKG Interpretation EKG results cardiology: other (Telemetry reviewed with average heart rate 99, currently A. fib in the low 100s, no significant events noted) - VTE Contraindication No Overlap Therapy: Admin of oral Factor Xa Inhibitor Consult Discharge Plan - Plan Referrals: Ray Finley Jr, MD [Primary Care Provider] -
[2017-09-14] MEDS: Fluticasone Propionate Nasal 50 MCG/SPRAY BOTTLE NS SCH (11:16)
[2017-09-14] MEDS: Insulin DETEMIR 100 UNIT/ML X5UNITS SQ SCH (11:16)
[2017-09-14] MEDS ORDERED: Isosorbide MONOnitrate (24 HR) 60 MG TAB.ER.24H PO SCH (12:00)
--- NOTE | 2017-09-14 16:30 | Discharge Summary ---
- NOTES TO OUTPATIENT PROVIDER Notes to Outpatient Provider: Follow up with PCP in 2-3 days after discharge. Recheck BMP and CBC at follow up to monitor renal function and anemia. Recheck magnesium at follow up; determine if magnesium oxide needs to be continued. Follow up with cardiology as directed in 1-2 weeks (new establish with [facility]). Follow up with recovery manager Dr. Burnham in 1-2 weeks after discharge. Orders not resulted at time of discharge: Pending orders 09/12/17 10:34 Stool guiac [Occult Blood,Stool] [BF] Routine 09/13/17 09:35 Magnesium Routine 09/15/17 04:00 BMP [Basic Metabolic Panel] AM 0400 Date of Encounter: 09/14/17 Time of Encounter: 16:28 - Discharge Diagnosis (1) Symptomatic bradycardia Priority: Primary Status: Resolved (2) PAF (paroxysmal atrial fibrillation) Priority: Secondary Status: Chronic (3) CAD (coronary artery disease) Priority: Secondary Status: Chronic Qualifiers: Coronary Disease-Associated Artery/Lesion type: [place] artery [place] vs. transplanted heart: [place] heart Associated angina: without angina Qualified Code(s): I25.10 - Atherosclerotic heart disease of [place] coronary artery without angina pectoris (4) Acute kidney injury superimposed on chronic kidney disease Priority: Secondary Status: Acute (5) Transaminitis Priority: Secondary Status: Resolved (6) Debility Priority: Secondary Status: Acute (7) Hypertension Priority: Secondary Status: Chronic Qualifiers: Hypertension type: essential hypertension Qualified Code(s): I10 - Essential (primary) hypertension Hospital course: Ms. Burciaga is a 82 year old female admitted for symptomatic bradycardia. Patient was admitted to general medical floor with telemetry. Cardiology was consulted. TE showed EF 65%, mild MR, borderline MS, mild-moderate [place]. Patient 's home metoprolol and cardizem, which was recently increased 5 days prior to admission, were discontinued. She was given atropine. HR improved. She went back in to Afib, of which she has a history. Cardiology restarted home metoprolol. HR normalized. Home pradaxa was continued for anticoagulation. BP increased, so home metoprolol was increased. Amlodipine was also started and increased. BP nearly normalized on day of discharge. I anticipate it to continue to improve as home lisinopril, imdur, and lasix will be restarted at discharge. BP medications can be adjusted at follow up with PCP in 2-3 days after discharge. She also had acute kidney injury during this hospitalization. Her recovery manager Dr. Burnham was consulted and followed patient. She initially received some gentle hydration. Creatinine continued to improve daily and was below baseline on day of discharge. She will follow up with recovery manager in 1-2 weeks after discharge. She had transaminitis upon admission that normalized on day of discharge. She had generalized weakness due to multiple illnesses over the past 1-2 months. PT/OT was consulted and recommended home health with home PT/OT. She will follow up as new patient with [facility] in 1-2 weeks after discharge. She had some decreased magnesium, and was started on magnesium oxide. She will follow up with PCP in 2 -3 days after discharge, at which time BMP, CBC, and Magnesium can be rechecked. Magnesium supplement can be discontinued at that time if magnesium level normal. Patient has met maximum benefit of this hospitalization and will be discharged home in stable condition. Discharge discussed with: patient, family, nurse, case management, exchange underwriting consultant ( Sales Analyst), other (Pharmacist) - Time Spent with Patient Total time spent providing and/or coordinating discharge services: Greater than 30 minutes - Discharge Medications Prescriptions: RX: amLODIPine [Norvasc] 10 mg PO DAILY 14 Days #14 tablet RX: Magnesium Oxide [Mag-Ox] 400 mg PO BID 14 Days #28 tablet RX: Metoprolol [Lopressor] 150 mg PO BID 14 Days #28 tablet Home Medications: RX: Allopurinol [Zyloprim 100 MG] 100 mg PO DAILY 09/11/17 [History] RX: Dabigatran [Pradaxa] 75 mg PO BID 09/11/17 [History] RX: Esomeprazole Magnesium [Nexium] 40 mg PO DAILY 09/11/17 [History] RX: Fluticasone Propionate Nasal [Flonase] 2 spr NS DAILY 09/11/17 [History] RX: Furosemide [Lasix] 40 mg PO BID 09/11/17 [History] RX: Insulin Glargine,Hum.rec.anlog [Lantus Solostar] 14 unit SQ DAILY 09/11/17 [ History] RX: Isosorbide MONOnitrate [Isosorbide Mononitrate ER] 120 mg PO QAM 09/11/17 [ History] RX: Linagliptin [Tradjenta] 5 mg PO DAILY 09/11/17 [History] RX: Lisinopril [Zestril] 20 mg PO DAILY 09/11/17 [History] RX: Rosuvastatin [Crestor] 20 mg PO HS 09/11/17 [History] RX: Magnesium Oxide [Mag-Ox] 400 mg PO BID 14 Days #28 tablet 09/14/17 [Rx] RX: Metoprolol [Lopressor] 150 mg PO BID 14 Days #28 tablet 09/14/17 [Rx] RX: amLODIPine [Norvasc] 10 mg PO DAILY 14 Days #14 tablet 09/14/17 [Rx] Allergies/Adverse Reactions: 3 Allergy/AdvReac Type Severity Reaction Status Date / Time morphine Allergy Drowsy Verified 09/11/17 10:22 Date of admission: 09/11/17 16:57 Primary care physician: Ray Finley Jr, MD Consults: 09/11/17 10:47 Consult to Electrophysiology (EP) [CONS] Routine Consulting Provider: Electrophysiology [facility] Reason for Consult: bradycardia Call Completed: Yes 09/12/17 12:34 Consult to Nephrology [CONS] Routine Consulting Provider: [facility] Reason for Consult: DAKOTAH Time Notified: 12:40 Call Completed: Yes 09/12/17 23:07 Consult to Case Management [CONS] Stat Comment: Consider home PT/OT or acute rehab Consult to Dynamite Packing Machine Operator [CONS] Stat Reason for SW Consult: Generalized Debility, PT/OT consulted, consider home health with PT/OT or acute rehab. 09/14/17 09:29 Consult to Occupational Therapy [CONS] Stat Comment: Evaluate, develop and implement POC Reason for Consult: Generalized debility Does patient have active BEDREST order?: No Is patient medically & hemodynamically stable?: Yes Consult to Physical Therapy [CONS] Stat Comment: Evaluate, develop and implement POC Reason for Consult: Generalized debility. Does patient have active BEDREST order?: No Is patient medically & hemodynamically stable?: Yes Discharging clinician: Juan Dempsey Anticipated date of discharge: 09/14/17 - Constitutional Vitals: Temp Pulse Resp BP Pulse Ox 98 F 104 18 167/84 97 09/14/17 07:00 09/14/17 11:00 09/14/17 11:00 09/14/17 11:00 09/14/17 11:00 General appearance: Present: cooperative, A&O X 3, pleasant, answers questions appropriately. Absent: no acute distress - Respiratory Respiratory exam: Present: CTAB. Absent: accessory muscle use, rales, rhonchi, wheezes Additional comments: Normal WOB - Cardiovascular Cardiovascular exam: Present: +S1, +S2. Absent: diastolic murmur, gallop, rubs , systolic murmur Additional comments: Irregularly irregular rhythm - GI/Abdominal GI/Abdominal exam: Present: normal bowel sounds, soft. Absent: distended, hepatomegaly, mass, splenomegaly, tenderness - Psychiatric Psychiatric exam: Present: normal affect, normal mood. Absent: anxious, depressed - Skin Skin exam: Present: dry, intact, warm. Absent: cyanosis, rash - Patient Status Disposition: Home Health Service Condition: Good Overall status at discharge: patient is progressing back to baseline - Discharge Instructions Follow Up With: Victoriano Rodriguez MD [Partnered Physician] - 09/20/17 8:30 am Ray Finley Jr, MD [Primary Care Provider] - 09/18/17 1:00 pm Additional Instructions: Follow up with PCP in 2-3 days after discharge. Recheck BMP and CBC at follow up to monitor renal function and anemia. Recheck magnesium at follow up; determine if magnesium oxide needs to be continued. Follow up with cardiology as directed in 1-2 weeks (new establish with [facility]). Follow up with recovery manager Dr. Burnham in 1-2 weeks after discharge. - Diet and Activity Activity: as per physical therapy Diet: other (Cardiac) - VTE Contraindication No Overlap Therapy: Admin of oral Factor Xa Inhibitor
[2017-09-14 16:33] VITALS: BP 145/91
--- NOTE | 2017-09-14 17:35 | Physician Discharge Referral ---
Home Health/Hosp Referral Info Transfer to: Home Health Provider in Charge Post Discharge: PCP - Diagnosis (1) Symptomatic bradycardia Priority: Primary Status: Resolved (2) PAF (paroxysmal atrial fibrillation) Priority: Secondary Status: Chronic (3) CAD (coronary artery disease) Priority: Secondary Status: Chronic (4) Acute kidney injury superimposed on chronic kidney disease Priority: Secondary Status: Acute (5) Transaminitis Priority: Secondary Status: Resolved (6) Debility Priority: Secondary Status: Acute (7) Hypertension Priority: Secondary Status: Chronic - Respiratory Orders Smoking Cessation: Smoking cessation has been advised. For more information, call the [place] Tobacco Quit Line at 6-386-ABHY-NOW. - Diet/Nutrition Diet/Nutrition Orders: Cardiac - Activity Activity: List: Per physical therapy - Services Needed Following services are medically necessary services: Nursing, Physical Therapy, Occupational Therapy - Transfer Medications Prescriptions: amLODIPine [Norvasc] 10 mg PO DAILY 14 Days #14 tablet Magnesium Oxide [Mag-Ox] 400 mg PO BID 14 Days #28 tablet Metoprolol [Lopressor] 150 mg PO BID 14 Days #28 tablet Home Medications: Allopurinol [Zyloprim 100 MG] 100 mg PO DAILY 09/11/17 [History] Dabigatran [Pradaxa] 75 mg PO BID 09/11/17 [History] Esomeprazole Magnesium [Nexium] 40 mg PO DAILY 09/11/17 [History] Fluticasone Propionate Nasal [Flonase] 2 spr NS DAILY 09/11/17 [History] Furosemide [Lasix] 40 mg PO BID 09/11/17 [History] Insulin Glargine,Hum.rec.anlog [Lantus Solostar] 14 unit SQ DAILY 09/11/17 [ History] Isosorbide MONOnitrate [Isosorbide Mononitrate ER] 120 mg PO QAM 09/11/17 [ History] Linagliptin [Tradjenta] 5 mg PO DAILY 09/11/17 [History] Lisinopril [Zestril] 20 mg PO DAILY 09/11/17 [History] Rosuvastatin [Crestor] 20 mg PO HS 09/11/17 [History] Magnesium Oxide [Mag-Ox] 400 mg PO BID 14 Days #28 tablet 09/14/17 [Rx] Metoprolol [Lopressor] 150 mg PO BID 14 Days #28 tablet 09/14/17 [Rx] amLODIPine [Norvasc] 10 mg PO DAILY 14 Days #14 tablet 09/14/17 [Rx] Allergies/Adverse Reactions: 3 Allergy/AdvReac Type Severity Reaction Status Date / Time morphine Allergy Drowsy Verified 09/11/17 10:22 Certification: Further, I certify that my clinical findings support that this patient is homebound (i.e. absences from home require considerable and taxing effort and are for medical reasons or jehovah's witness services or infrequently or short duration when for other reasons) because: generalized debility, CAD, AFib, and CKD. Homebound Reason: Patient requires assistance of a person or device to safely leave home, Leaving home requires considerable and taxing effort due to condition Attestation: My signature below is to certify that this patient is under my care and that I, or nurse practitioner, or a physician's pastoral assistant working with me, has a face-to -face encounter with this patient.
[2017-09-14] MEDS ORDERED: Metoprolol 100 MG TABLET PO SCH (21:00)
[2017-09-15] MEDS ORDERED: amLODIPine 5 MG TABLET PO SCH (09:00)
== END 2017-09-14 19:12 | disposition home health service (06) ==
LOC: EMEROO 10:07 → 2NENU 16:57 → INTOOBSV 16:57 → 2NENU 17:30
PROVIDERS: ADMIT Student in an Organized Health Care Education/Training Program; ATTEND Family Medicine

== ENCOUNTER 2019-03-12 13:12 | Inpatient (IN) ==
[2019-03-12] MEDS ORDERED: 0.9 % Sodium Chloride 1,000 ML IVC ONE (13:19)
--- NOTE | 2019-03-12 14:00 | Emergency Department Note ---
Disposition Clinical Impression: Hyperglycemia without ketosis Disposition: Home, Self-Care Condition: Fair Reasons to Return/Additional Instructions: Return for increased symptoms, vomiting, focal weakness or numbness or for any other new concerns including significantly elevated blood sugar. Referrals: NONE,PCP [Primary Care Provider] - [facility]erral [facility] [Outside] Forms: ED Satisfaction Letter, Work/School Release Time of Disposition: 16:18 General Adult HPI - General Chief complaint: ED General Medical Stated complaint: hyperglycemia Time Seen by Provider: 03/12/19 13:18 Source: patient Limitations: no limitations - History of Present Illness HPI Narrative: Patient is a 83-year-old female presents to the emergency room with complaints of elevated blood sugar. Patient currently had a fall out of bed this morning. The patient The ground for at least 1 or 2 hours. The patient then was helped up with family members. The patient states that she did not hit her head, she denies any loss of consciousness, she has had no vomiting. She was able to get up and have some breakfast according to the family. Family. Her blood sugar this morning was over 500, the patient is recently had her blood sugar checked it was just over 400. The patient has not had nausea vomiting, constipation or diarrhea. The patient has not had recent illness, no fevers or chills. The patient denies any abdominal pain, chest pain, palpitations. The patient denies any syncopal or near syncopal events. She has no dizziness. The patient states that she has had some urinary frequency. The patient denies any focal arm or leg weakness. The patient denies any rash. Patient may not be taking her insulin medication as prescribed. The patient denies any pain, she denies any headache. Pain Scale: 0 - Related Data Home Medications Medication Instructions Recorded Confirmed Allopurinol [Zyloprim 100 MG] 100 mg PO DAILY 09/11/17 12/03/18 Esomeprazole Magnesium [Nexium] 40 mg PO DAILY 09/11/17 12/03/18 Furosemide [Lasix] 40 mg PO DAILY 09/11/17 12/03/18 Insulin Glargine,Hum.rec.anlog 0 unit SQ DAILY 09/11/17 12/03/18 [Lantus Solostar] Lisinopril [Zestril] 10 mg PO DAILY 09/11/17 12/03/18 Rosuvastatin [Crestor] 20 mg PO HS 09/11/17 12/03/18 Apixaban [Eliquis] 2.5 mg PO BID 12/03/18 12/03/18 Hydralazine HCl 50 mg PO Q8H 12/03/18 12/03/18 Isosorbide MONOnitrate [Isosorbide 120 mg PO DAILY 12/03/18 12/03/18 Mononitrate ER] Metoprolol Tartrate 200 mg PO BID 12/03/18 12/03/18 Sitagliptin Phosphate [Januvia] 50 mg PO DAILY 12/03/18 12/03/18 Previous Rx's Medication Instructions Recorded Magnesium Oxide [Mag-Ox] 400 mg PO BID 14 Days #28 tablet 09/14/17 amLODIPine [Norvasc] 10 mg PO DAILY 14 Days #14 tablet 09/14/17 Allergies Allergy/AdvReac Type Severity Reaction Status Date / Time morphine Allergy Drowsy Verified 09/06/18 17:12 Review of Systems: As mentioned per history of present illness and as follows. Constitutional: Negative for chills or fever HENT: Negative for sore throat. Eyes: Negative for visual disturbance Respiratory: Negative for shortness of breath. Cardiovascular: Negative for palpitations. Gastrointestinal: Negative for abdominal pain Genitourinary: Negative for dysuria Musculoskeletal: Negative for back pain. Skin: Negative for rash. Neurological: Negative for focal weakness Psychiatric/Behavioral: Negative for depression Past Medical History - Past Medical History Medical history: Reports: arthritis, atrial fibrillation, diabetes, hypertension Surgical history: Reports: colectomy, hysterectomy Psychiatric history: Reports: no psych history - Social History Smoking Status: Never smoker Smokeless Tobacco Status: No Alcohol use: Reports: none Drug use: Reports: none Physical Exam PHYSICAL EXAM Constitutional: Well developed, Well nourished, No acute distress, Non-toxic appearance. HENT: Normocephalic, Atraumatic, Bilateral external ears normal, Oropharynx moist, No oral exudates, Nose normal. Neck- Normal range of motion, No tenderness, Supple. Eyes: PERRL, EOMI, Conjunctiva normal,. Cardiovascular: Normal rate with irregular rhythm without clicks, rubs, gallops or murmurs. Respiratory: Normal breath sounds, No respiratory distress, No wheezing, rho nchi, or crackles. GI: Soft, nontender, no evidence of guarding or peritoneal signs. Bowel sounds are active. Musculoskeletal: Good range of motion in all major joints. No tenderness to palpation or major deformities noted. + Equal strength is noted to the upper lower extremities. Integument: Warm, Dry, No erythema, No rash. No edema. Neurologic: Alert, Normal sensory function, No focal deficits noted. CN II-XII grossly intact. - General Limitations: no limitations General appearance: alert, in no apparent distress Course Vital Signs Temperature 98.0 F 03/12/19 13:15 Pulse Rate 94 03/12/19 13:15 Respiratory Rate 18 03/12/19 13:15 Blood Pressure 156/91 03/12/19 13:15 O2 Sat by Pulse Oximetry 97 03/12/19 13:15 Temperature 98.0 F 03/12/19 13:15 Pulse Rate 96 03/12/19 15:16 Respiratory Rate 16 03/12/19 15:16 Blood Pressure 149/77 03/12/19 15:16 O2 Sat by Pulse Oximetry 96 03/12/19 15:16 Oxygen Delivery Oxygen Delivery Room Air Medical Decision Making - MDM Narrative Medical decision making narrative: Patient has no evidence of injury from her fall. The patient has no evidence of head injury. The patient has no complaint of headache. The patient at this point in time is resting quite comfortably here in the emergency room. The patient did have a significantly elevated blood sugar without evidence of DKA, CO2 was normal. The patient did have slight acidosis on her venous blood gas. Patient however was given IV fluids, patient was given IV insulin here in the emergency room. The patient is able to tolerate liquids. The patient at this point in time I do feel is safe for disposition to home. Patient is in need of possible sliding scale insulin or long-acting insulin adjustment. The patient however is noted to be very noncompliant with her current insulin regimen. Family did have elementary school social worker discussed with him about possible home health care nurse. I do believe that the patient was somewhat more compliant with her hailey betic medications that her blood sugars would be better controlled. Patient at this point in time will be discharged in stable condition. The patient is to return for increasing symptoms, increasing blood sugars, vomiting, or for any other new concerns. Final impression 1. Hyperglycemia - Lab Data Result diagrams: 03/12/19 13:45 03/12/19 13:45 Lab Results 03/12/19 03/12/19 03/12/19 Range/Units 13:45 13:45 14:14 WBC 13.7 H (4.3-11.1) K/mcL RBC 4.69 (3.82-4.97) M/mcL Hgb 15.1 (11.5-15.4) g/dL Hct 46.8 H (35.3-44.9) % MCV 99.8 (83.0-100.0) fL MCH 32.2 (28.0-33.3) pg MCHC 32.3 (31.6-35.5) g/dL RDW 14.2 (11.5-14.5) % Plt Count 244 (140-400) K/mcL MPV 13.4 H (9.4-12.4) fL Immature Gran % 0.6 (0-4) % Seg Neutrophils % 76.2 % Lymphocytes % 14.0 % Monocytes % 8.3 % Eosinophils % 0.5 % Basophils % 0.4 % Neutrophils # 10.4 H (1.6-8.9) K/mcL Lymphocytes # 1.9 (0.6-4.6) K/mcL Monocytes # 1.1 (0.0-1.3) K/mcL Eosinophils # 0.1 (0.0-0.6) K/mcL Basophils # 0.1 (0.0-0.2) K/mcL VBG pH 7.28 L (7.32-7.42) pH Units VBG pCO2 51 (41-51) mmHg VBG pO2 55 H (25-50) mmHg VBG HCO3 24 (21-27) mEq/L Sodium 134 L (136-145) mEq/L Potassium 4.6 (3.5-5.1) mEq/L Chloride 100 (98-107) mEq/L Carbon Dioxide 24 (23-29) mEq/L BUN 37 H (8-23) mg/dL Creatinine 1.87 H (0.60-1.20) mg/dL Est GFR ( Amer) 31 L (> 60) Est GFR (Non-Af Amer) 26 L (> 60) BUN/Creatinine Ratio 20 (6-26) Glucose 444 H (70-105) mg/dL Calculated Osmolality 306 H (280-300) Calcium 9.2 (8.6-10.3) mg/dL Creatine Kinase 73 (30-223) Units/L Urine Color (Yellow) Urine Clarity (Clear) Urine pH (5.0-8.0) pH Units Ur Specific [place] (1.010-1.025) Urine Protein (Neg-Trace) mg/dL Urine Glucose (UA) (Normal) mg/dL Urine Ketones (Negative) mg/dL Urine Blood (Negative) Urine Nitrite (Negative) Urine Bilirubin (Negative) Urine Urobilinogen (Normal) mg/dL Ur Leukocyte Esterase (Negative) Urine Microscopic RBC (0-3) per hpf Urine Microscopic WBC (0-3) per hpf Ur Squamous Epith Cells (None-Few) per lpf Urine Bacteria (None-Few) per hpf Hyaline Casts (None-Few) per lpf Ur Culture Indicated? (NO) 03/12/19 Range/Units 14:25 WBC (4.3-11.1) K/mcL RBC (3.82-4.97) M/mcL Hgb (11.5-15.4) g/dL Hct (35.3-44.9) % MCV (83.0-100.0) fL MCH (28.0-33.3) pg MCHC (31.6-35.5) g/dL RDW (11.5-14.5) % Plt Count (140-400) K/mcL MPV (9.4-12.4) fL Immature Gran % (0-4) % Seg Neutrophils % % Lymphocytes % % Monocytes % % Eosinophils % % Basophils % % Neutrophils # (1.6-8.9) K/mcL Lymphocytes # (0.6-4.6) K/mcL Monocytes # (0.0-1.3) K/mcL Eosinophils # (0.0-0.6) K/mcL Basophils # (0.0-0.2) K/mcL VBG pH (7.32-7.42) pH Units VBG pCO2 (41-51) mmHg VBG pO2 (25-50) mmHg VBG HCO3 (21-27) mEq/L Sodium (136-145) mEq/L Potassium (3.5-5.1) mEq/L Chloride (98-107) mEq/L Carbon Dioxide (23-29) mEq/L BUN (8-23) mg/dL Creatinine (0.60-1.20) mg/dL Est GFR ( Amer) (> 60) Est GFR (Non-Af Amer) (> 60) BUN/Creatinine Ratio (6-26) Glucose (70-105) mg/dL Calculated Osmolality (280-300) Calcium (8.6-10.3) mg/dL Creatine Kinase (30-223) Units/L Urine Color Yellow (Yellow) Urine Clarity Clear (Clear) Urine pH 6.5 (5.0-8.0) pH Units Ur Specific [place] 1.012 (1.010-1.025) Urine Protein 100 H (Neg-Trace) mg/dL Urine Glucose (UA) 500 H (Normal) mg/dL Urine Ketones Negative (Negative) mg/dL Urine Blood Trace H (Negative) Urine Nitrite Negative (Negative) Urine Bilirubin Negative (Negative) Urine Urobilinogen Normal (Normal) mg/dL Ur Leukocyte Esterase Negative (Negative) Urine Microscopic RBC 0-3 (0-3) per hpf Urine Microscopic WBC 0-3 (0-3) per hpf Ur Squamous Epith Cells Moderate H (None-Few) per lpf Urine Bacteria None Seen (None-Few) per hpf Hyaline Casts None Seen (None-Few) per lpf Ur Culture Indicated? NO (NO)
[2019-03-12 14:17] LABS: VBG HCO3 24 mEq/L (21-27); VBG PCO2 51 mmHg (41-51); VBG PH 7.28 pH Units (7.32-7.42); VBG PO2 55 mmHg (25-50)
[2019-03-12 14:26] LABS: Basophils # 0.1 K/mcL (0.0-0.2); Basophils % 0.4 %; Eosinophils # 0.1 K/mcL (0.0-0.6); Eosinophils % 0.5 %; Hematocrit 46.8 % (35.3-44.9); Hemoglobin 15.1 g/dL (11.5-15.4); Immature Granulocytes % 0.6 % (0-4); Lymphocytes # 1.9 K/mcL (0.6-4.6); Mean Corpuscular HGB Conc 32.3 g/dL (31.6-35.5); Mean Corpuscular Hemoglobin 32.2 pg (28.0-33.3); Mean Corpuscular Volume 99.8 fL (83.0-100.0); Mean Platelet Volume 13.4 fL (9.4-12.4); Monocytes # 1.1 K/mcL (0.0-1.3); Monocytes % 8.3 %; Neutrophils # 10.4 K/mcL (1.6-8.9); Platelet Count 244 K/mcL (140-400); Red Blood Count 4.69 M/mcL (3.82-4.97); Red Cell Distribution Width 14.2 % (11.5-14.5); Segmented Neutrophils % 76.2 %; White Blood Count 13.7 K/mcL (4.3-11.1)
[2019-03-12 14:38] LABS: Bilirubin,Urine Negative (Negative); Blood,Urine Trace (Negative); Clarity,Urine Clear (Clear); Color,Urine Yellow (Yellow); Glucose,Urine (UA) 500 mg/dL (Normal); Ketones,Urine Negative (Negative); Leukocyte Esterase,Urine Negative (Negative); Nitrite,Urine Negative (Negative); PH,Urine 6.5 pH Units (5.0-8.0); Protein,Urine 100 mg/dL (Neg-Trace); Specific Gravity,Urine 1.012 (1.010-1.025); Urobilinogen,Urine Normal (Normal)
[2019-03-12 14:40] LABS: Bacteria,Urine None Seen per hpf (None-Few); Hyaline Casts,Urine None Seen per lpf (None-Few); RBC,Urine 0-3 per hpf (0-3); Squamous Epithelial Cell,Urine Moderate per lpf (None-Few); WBC,Urine 0-3 per hpf (0-3)
[2019-03-12 14:43] LABS: Calcium 9.2 mg/dL (8.6-10.3); Potassium 4.6 mEq/L (3.5-5.1)
[2019-03-12] MEDS ORDERED: Insulin Human Regular 10 UNIT in 0.9 % Sodium Chloride 10 ML IV ONE (14:46)
[2019-03-12] MEDS ORDERED: Acetaminophen 325 MG TABLET PO PRN (18:03)
[2019-03-12] MEDS ORDERED: Naloxone 0.4 MG/ML INJ IVP PRN (18:03)
[2019-03-12] MEDS ORDERED: Ondansetron ODT 4 MG TAB.RAPDIS SL PRN (18:03)
[2019-03-12] MEDS ORDERED: *HR* Dextrose 50 % in Water (Syg) 50 ML SYRINGE IVP PRN (18:08)
[2019-03-12] MEDS ORDERED: D5% in Water 1,000 ML IVC PRN (18:08)
[2019-03-12] MEDS ORDERED: Dextrose Gel 15 GM/37.5 ML TUBE PO PRN ×2 (18:08)
[2019-03-12] MEDS ORDERED: 0.9 % Sodium Chloride 1,000 ML IVC SCH (18:15)
--- NOTE | 2019-03-12 18:15 | Internal Med History&Physical ---
Date of Encounter: 03/12/19 Time of Encounter: 19:00 Internal Medicine - H&P: HPI Chief complaint: Weakness and falling Admitted From: Emergency Dept Plans for Post Hospital Care: Transfer [facility]p Rehab Fac History of present illness: Ms. Burciaga is a 83 year old female past medical history of atrial fibrillation hypertension cKD coronary artery disease. Information has been obtained from staff as well as family members who are at bedside due to patient's altered mental state. According to the the patient has been declining over the past 4 months however the past 3-4 days her mentation and mobility has declined significantly. Asians states since Sunday patient has become less talkative and become withdrawn having some difficulty getting around and falling. He reports that patient has difficulty following conversation and at times has problems finding words. They deny any facial droop or slurred speech however they do note a change in her behavior patient becoming more aggressive at times striking out. The states that he leaves her alone frequently because he works and is out of the home. He is concerned she has not been taking her medications and her blood glucose was elevated today to 500. reports that he found the patient on the floor this a.m. that she was sitting next to her bed he was unable to lift her so he gave her a pillow and made her back on the floor where she lay for 3 hours until son came and assisted patient back to bed. states that she did not strike her head however fall was not witnessed. His behavior falls and elevated glucose was concerning to the patient's son and she was brought to the ER. In the ER glucose was 444 on arriv al normal anionic gap slightly elevation in white count at 13-patient was admitted per ER for hyperglycemia however due to patient's noncompliance of medications Stat CT of head without contrast has been ordered as well as MRI of cervical spine and lumbar dt unwitnessed fall I did discuss CODE STATUS with the patient and family they would like to discuss it among themselves before making a decision patient will continue as a full code until decision made Past Med Surg Social Fam HX - Past Medical History Medical history: arthritis, atrial fibrillation, diabetes, hypertension Additional medical history: Gout L Foot Psychiatric history: no psych history - Past Surgical History Surgical History: colectomy, hysterectomy - Social History Smoking Status: Never smoker Smokeless Tobacco Status: No Alcohol use: none Drug use: none - Family History Mother Hx Family Cardiac Disorders: Yes Father Hx Family Cardiac Disorders: Yes Internal Medicine - H&P: Meds Allopurinol [Zyloprim 100 MG] 100 mg PO DAILY 09/11/17 [History] Esomeprazole Magnesium [Nexium] 40 mg PO DAILY 09/11/17 [History] Furosemide [Lasix] 40 mg PO DAILY 09/11/17 [History] Insulin Glargine,Hum.rec.anlog [Lantus Solostar] 0 unit SQ DAILY 09/11/17 [History] Lisinopril [Zestril] 10 mg PO DAILY 09/11/17 [History] Rosuvastatin [Crestor] 20 mg PO HS 09/11/17 [History] Magnesium Oxide [Mag-Ox] 400 mg PO BID 14 Days #28 tablet 09/14/17 [Rx] amLODIPine [Norvasc] 10 mg PO DAILY 14 Days #14 tablet 09/14/17 [Rx] Apixaban [Eliquis] 2.5 mg PO BID 12/03/18 [History] Hydralazine HCl 50 mg PO Q8H 12/03/18 [History] Isosorbide MONOnitrate [Isosorbide Mononitrate ER] 120 mg PO DAILY 12/03/18 [History] Metoprolol Tartrate 200 mg PO BID 12/03/18 [History] Sitagliptin Phosphate [Januvia] 50 mg PO DAILY 12/03/18 [History] Allergy/AdvReac Type Severity Reaction Status Date / Time morphine Allergy Drowsy Verified 09/06/18 17:12 ROS unobtainable: due to mental status All Systems PM: A 10-system review of systems was performed and is negative for pertinent findings except as documented above in the HPI. - Constitutional Vitals: Temp Pulse Resp BP Pulse Ox 98.0 F 96 16 149/77 96 03/12/19 13:15 03/12/19 15:16 03/12/19 15:16 03/12/19 15:16 03/12/19 15:16 General appearance: Present: disheveled, A&O X 2 Exam: . - Head Head exam: Present: atraumatic, normocephalic - Eye Eye exam: Present: PERRL, conjuntiva pink, sclera anicteric Pupils: Present: PERRL - Neck Neck exam general surgery: Present: supple, trachea midline. Absent: lymphadenopathy - Respiratory Respiratory exam: Present: CTAB. Absent: accessory muscle use, rales, rhonchi, wheezes - Cardiovascular Cardiovascular exam: Present: RRR, +S1, +S2. Absent: diastolic murmur, gallop, rubs, systolic murmur - GI/Abdominal GI/Abdominal exam: Present: normal bowel sounds, soft, no peritoneal signs. Absent: distended, tenderness - Extremities Exam Extremities exam: Present: warm, radial pulses palpable and symmetrical. Absent: calf tenderness, cyanotic, pedal edema - Neurological Exam Neurological exam: Present: CN II-XII intact, oriented X3. Absent: pronater drift, facial droop, speech deficit - Expanded Neurological Exam Patient oriented to: Present: person, place Cranial Nerves: EOM's intact PM: Normal, gag reflex PM: Normal, nystagmus PM: Normal, tongue deviation PM: Normal Sensory exam: LE 2 point discrimination: Normal, lower extremity light touch: Normal, lower extremity pin prick: Normal, lower extremity temperature: Normal, UE 2 point discrimination: Normal, upper extremity light touch: Normal, upper extremity pin prick: Normal, upper extremity temperature: Normal Neuro motor strength exam: LUE: 5, RUE: 5, LLE: 2/1, RLE: 2/1 Coma Scale Eye Opening: Spontaneous Coma Scale Motor Response: Obeys Commands Coma Scale Verbal Response: Confused Coma Scale Total: 14 - Skin Skin exam: Present: dry, intact Internal Med - H&P Results - Labs CBC & Chem 7: 03/12/19 13:45 03/12/19 13:45 Labs: Short CBC 03/12/19 Range/Units 13:45 WBC 13.7 H (4.3-11.1) K/mcL Hgb 15.1 (11.5-15.4) g/dL Hct 46.8 H (35.3-44.9) % Plt Count 244 (140-400) K/mcL Neutrophils # 10.4 H (1.6-8.9) K/mcL BMP 03/12/19 13:45 Sodium 134 L Potassium 4.6 Chloride 100 Carbon Dioxide 24 BUN 37 H Creatinine 1.87 H Glucose 444 H Calcium 9.2 Urine 03/12/19 Range/Units 14:25 Urine Color Yellow (Yellow) Urine Clarity Clear (Clear) Urine pH 6.5 (5.0-8.0) pH Units Ur Specific [place] 1.012 (1.010-1.025) Urine Protein 100 H (Neg-Trace) mg/dL Urine Glucose (UA) 500 H (Normal) mg/dL - ABG Interpretation ABG results: 03/12/19 14:14 VBG pH 7.28 L VBG pCO2 51 VBG pO2 55 H VBG HCO3 24 - Assessment and Plan (1) Altered mental status Current Visit: Yes Status: Acute Assessment and plan: According to the patient's patient has been experiencing change in b ehavior in the past 4 days she is not speaking and at times she is having difficulty finding words-she has been combative and aggressive She is unable to perform ADLs as well as not taking medications-patient appears disheveled/with body odor and does have yeast in her folds of skin Experiencing frequent falls He reports history of TIAs in the past? Upon assessment patient is oriented to name and place she has some difficulty identifying family members in the room. She is not cooperative during neuro exam and becomes agitated easily. Upper extremity strength is equal bilaterally however patient is unable to lift lower extremities off the bed as well as stand. She has been experiencing frequent falls and is on a blood thinner and sure if patient is been taking this as prescribed we will obtain CT of head/brain without contrast We will check TSH B1 B12 ammonia Urinalysis without infection We will check chest x-ray Consult neurology May need to consult psychiatry concern for possible underlying dementia We will given aspirin and continue with statin Qualifiers: Altered mental status type: unspecified Qualified Code(s): R41.82 - Altered mental status, unspecified (2) CKD (chronic kidney disease) stage 4, GFR 15-29 ml/min Current Visit: Yes Status: Acute Assessment and plan: Patient has a history CK D stage IV currently creatinine is 1.87 we will give some gentle IV hydration and monitor Avoid nephrotoxins Monitor intake output daily weights (3) Failure to thrive in adult Current Visit: Yes Status: Acute Assessment and plan: Patient is unable to perform own ADLs she is disheveled and has body odor as well as yeast in her body folds. She has not been taking her medications at home there is no one in the home to assist with her ADLs. phlebotomy services technician has been consulted Check pre-albumin We will give some IV fluids overnight and monitor electrolytes (4) Hyperglycemia without ketosis Current Visit: Yes Status: Acute (5) DVT prophylaxis Current Visit: No Status: Acute Assessment and plan: Eliquis (6) Hypertension Current Visit: No Status: Chronic Assessment and plan: We will resume home medications once verified Patient has not been taking home medications Qualifiers: Hypertension type: unspecified Qualified Code(s): I10 - Essential (primary) hypertension (7) PAF (paroxysmal atrial fibrillation) Current Visit: No Status: Chronic Assessment and plan: History of proximal atrial fibrillation appears patient is not taking her medications as prescribed she is currently on Eliquis for anticoagulation We will obtain EKG Continuous cardiac monitoring Resume home medications once verified (8) Diabetes Current Visit: Yes Status: Acute Assessment and plan: Patient has not been taking medications as prescribed glucose was 500 at home and 444 presentation-placed on sliding scale insulin We will check hemoglobin A1c Patient has some cognitive deficit and unable to check on blood glucose-family is not educated on how to use glucometer or insulin phlebotomy services technician has been consulted patient may require either home health or ECF Qualifiers: Diabetes mellitus type: type 2 Diabetes mellitus halfway insulin use: with halfway use Diabetes mellitus complication status: with kidney complications Diabetes mellitus complication detail: with chronic kidney disease Chronic kidney disease stage: stage 4 (severe) Qualified Code(s): E11.22 - Type 2 diabetes mellitus with diabetic chronic kidney disease; N18.4 - Chronic kidney disease, stage 4 (severe); 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 Patient was found this morning next to bed unwitnessed fall has been attempted to assist patient back to bed however patient was unable to stand and he could not lift her. states that she did not hit her head. Patient was left on the floor for approximately 3 hours until son arrived in assisted patient back to bed. CK within normal limits Placed on fall precautions Patient is unable to lift legs off the bed-I witnessed patient attempted to get out of bed and unable to bear weight on legs -she is assisted 2-no urinary or bowel incontinence however we will obtain MRI of cervical spine and lumbar as well as obtain CT of head since fall was unwitnessed-patient history of anticoagulation Eliquis Consult PT OT-patient may need rehabilitation - Time Spent With Patient Total time spent is greater than 50% in coordination of care (as documented) at patient's floor/unit and/or counseling patient:
[2019-03-12 20:20] LABS: Thyroid Stimulating Hormone 3.215 mcIU/mL (0.340-5.600)
[2019-03-12] MEDS ORDERED: Aspirin 325 MG TABLET PO ONE (20:21)
[2019-03-12] MEDS ORDERED: Nystatin POWDER 30 GM BOTTLE TP SCH (21:00)
[2019-03-12] MEDS: Insulin LISPRO 300 UNITS/3 ML VIAL SQ SCH (23:03)
[2019-03-13] MEDS: Insulin LISPRO 300 UNITS/3 ML VIAL SQ SCH ×5 (00:49→20:17)
[2019-03-13] MEDS ORDERED: hydrALAZINE 25 MG TABLET PO SCH (03:45)
[2019-03-13 03:52] LABS: Basophils # 0.1 K/mcL (0.0-0.2); Basophils % 0.4 %; Eosinophils # 0.2 K/mcL (0.0-0.6); Eosinophils % 1.7 %; Hematocrit 43.9 % (35.3-44.9); Hemoglobin 14.3 g/dL (11.5-15.4); Immature Granulocytes % 0.3 % (0-4); Lymphocytes # 3.5 K/mcL (0.6-4.6); Lymphocytes % 24.8 %; Mean Corpuscular HGB Conc 32.6 g/dL (31.6-35.5); Mean Corpuscular Hemoglobin 32.8 pg (28.0-33.3); Mean Corpuscular Volume 100.7 fL (83.0-100.0); Mean Platelet Volume 12.6 fL (9.4-12.4); Monocytes # 1.5 K/mcL (0.0-1.3); Monocytes % 10.6 %; Neutrophils # 8.7 K/mcL (1.6-8.9); Platelet Count 218 K/mcL (140-400); Red Blood Count 4.36 M/mcL (3.82-4.97); Red Cell Distribution Width 14.2 % (11.5-14.5); Segmented Neutrophils % 62.2 %
[2019-03-13 04:07] LABS: Calcium 8.7 mg/dL (8.6-10.3); Magnesium 1.1 mg/dL (1.6-2.6); Potassium 3.8 mEq/L (3.5-5.1)
[2019-03-13 07:14] LABS: Estimated Average Glucose 235 mg/dl
[2019-03-13] MEDS ORDERED: Furosemide 40 MG TABLET PO SCH (09:00)
[2019-03-13] MEDS ORDERED: Isosorbide MONOnitrate (24 HR) 60 MG TAB.ER.24H PO SCH (09:00)
[2019-03-13] MEDS ORDERED: Apixaban 2.5 MG TABLET PO SCH (09:00)
[2019-03-13] MEDS ORDERED: Magnesium Oxide 400 MG TABLET PO SCH (09:00)
[2019-03-13] MEDS ORDERED: amLODIPine 5 MG TABLET PO SCH (09:00)
[2019-03-13] MEDS ORDERED: Metoprolol 100 MG TABLET PO SCH (09:00)
[2019-03-13] MEDS ORDERED: Ondansetron 4 MG/2 ML VIAL IVP PRN ×2 (09:42→11:52)
[2019-03-13] MEDS ORDERED: 0.9 % Sodium Chloride 1,000 ML IVC SCH ×2 (10:15→13:45)
--- NOTE | 2019-03-13 10:19 | Internal Med Progress Note ---
Hospitalist Progress Note - Encounter Date of Encounter: 03/13/19 Time of Encounter: 10:19 - Subjective Interval History: I examined the patient at bedside. Prior to my arrival, patient had an episode of vomiting per nursing. While I was examining, O2 sat was found to be 85% on room air. Patient was started on 4L NC and this improved to 92%. Patient was unable to provide any answers to questions or follow commands. She did respond to stimulus. Patient's breathing appeared slightly labored with coarse upper breath sounds. She continued to appear nauseated. Per family, patient had not had any breakfast in the morning. Patient's family was at bedside. I discussed her plan of care and answered their questions. - Exam Vitals: Temp Pulse Resp BP Pulse Ox 95.9 F L 78 18 185/84 94 03/13/19 09:03 03/13/19 09:03 03/13/19 09:03 03/13/19 10:01 03/13/19 03:58 Exam: GENERAL APPEARANCE: Poorly nourished; unable answer questions; and mild distress HEENT: Normocephalic/atraumatic, PERRLA. NECK: Supple, nontender without lymphadenopathy. CARDIOVASCULAR: Irregularly irregular rhythm; no murmurs RESPIRATORY: Coarse upper airway sounds; bilateral air entry present; no wheezing ABDOMEN: Soft, nondistended, nontender; bowel sounds present. MUSKULOSKELETAL: No limitations in range of motion. EXTREMITIES: No edema, clubbing. NEUROLOGICAL: Unable to assess due to altered mental status; patient unable to answer any questions PSYCHIATRIC: Unable to assess - Assessment and Plan (1) Acute respiratory failure Current Visit: Yes Status: Acute Assessment and Plan: 03/13/2019: Patient had episode of aspiration at bedside; following this, breath sounds were very coarse and junky; O2 sat dropped to 85% on room air and improved to 92% with 4L NC O2; O2 requirement may be secondary to recent vomiting; patient not having any cough; Temp was measured at 95.9 but rectal was 98.8. Plan: - CBC, CMP, procal, lactic, CXR, ABG stat to rule out infection ie. aspiration PNA -transfer patient to stepdown unit -patient to be made NPO and ST consulted to evaluate swallow -Neurology has already been consulted -continuous pulse oximtery; Supplemental O2 via nasal cannula; titrate to maintain sat 92-95% (2) Vomiting Current Visit: Yes Status: Acute Assessment and Plan: See above -IV zofran (3) Altered mental status Current Visit: Yes Status: Acute Assessment and Plan: -Patient initially presenting with acute AMS per family; Family mentions steady decline over last several months with acute decline in last 4 days and patient no longer communicating; family says such acute episodes have happened multiple times and are associated with episodes of hyperglycemia -No overt signs of infection on admission: UA without sign of infection, CXR unremarkable, WBC only slightly elevated, afebrile, -Cr was elevated suggesting dehydration; patient has been eating poorly -Patient's mentition has not improved overnight and is still unable to communicate verbally -Cr has improved slightly -Mg is low Plan: -Neurology has been consulted -Look for and treat any underlying cause for AMS, see above -Patient's condition may represent chronic decline but acute cause must be ruled out first (4) PAF (paroxysmal atrial fibrillation) Current Visit: No Status: Chronic Assessment and Plan: History of proximal atrial fibrillation appears patient is not taking her medications as prescribed she is currently on Eliquis for anticoagulation We will obtain EKG Continuous cardiac monitoring Hold apixiban secondary to vomiting; start lovenox until patient is able to swallow (5) Hypertension Current Visit: No Status: Chronic Assessment and Plan: Patient has not been taking home medications Will hold until patient is able to swallow; monitor BP in mean time and add IV meds as needed (6) DVT prophylaxis Current Visit: No Status: Acute Assessment and Plan: Change eliquis to lovenox until patient able to swallow (7) CKD (chronic kidney disease) stage 4, GFR 15-29 ml/min Current Visit: Yes Status: Acute Assessment and Plan: Patient has a history CK D stage IV; creatinine was 1.87 on admission; IV hydration and monitor Avoid nephrotoxins Monitor intake output daily weights (8) Failure to thrive in adult Current Visit: Yes Status: Acute Assessment and Plan: Patient is unable to perform own ADLs she is disheveled and has body odor as well as yeast in her body folds. She has not been taking her medications at home there is no one in the home to assist with her ADLs. visitor services technician has been consulted Check pre-albumin (9) Diabetes Current Visit: Yes Status: Acute Assessment and Plan: Patient has not been taking medications as prescribed glucose was 500 at home and 444 presentation-placed on sliding scale insulin We will check hemoglobin A1c Patient has some cognitive deficit and unable to check on blood glucose-family is not educated on how to use glucometer or insulin visitor services technician has been consulted patient may require either home health or ECF (10) Frequent falls Current Visit: Yes Status: Acute Assessment and Plan: According to the family patient has been experiencing frequent falls occurring over the past few months but worsening over the past few days. Patient was found this morning next to bed unwitnessed fall has been attempted to assist patient back to bed however patient was unable to stand and he could not lift her. states that she did not hit her head. Patient was left on the floor for approximately 3 hours until son arrived in assisted patient back to bed. CK within normal limits Placed on fall precautions Patient is unable to lift legs off the bed-I witnessed patient attempted to get out of bed and unable to bear weight on legs -she is assisted 2-no urinary or bowel incontinence however we will obtain MRI of cervical spine and lumbar as well as obtain CT of head since fall was unwitnessed-patient history of anticoagulation Eliquis Consult PT OT-patient may need rehabilitation - Time Spent with Patient Total time spent is greater than 50% in coordination of care (as documented) at patient's floor/unit and/or counseling patient: 40 minutes Plan of Care Discussed with: family Internal Medicine: Result - Labs CBC & Chem 7: 03/13/19 03:31 03/13/19 03:31 Labs: Short CBC 03/12/19 03/13/19 Range/Units 13:45 03:31 WBC 13.7 H 14.0 H (4.3-11.1) K/mcL Hgb 15.1 14.3 (11.5-15.4) g/dL Hct 46.8 H 43.9 (35.3-44.9) % Plt Count 244 218 (140-400) K/mcL Neutrophils # 10.4 H 8.7 (1.6-8.9) K/mcL BMP 03/12/19 03/13/19 13:45 03:31 Sodium 134 L 141 Potassium 4.6 3.8 Chloride 100 109 H Carbon Dioxide 24 22 L BUN 37 H 33 H Creatinine 1.87 H 1.68 H Glucose 444 H 68 L Calcium 9.2 8.7 Urine 03/12/19 Range/Units 14:25 Urine Color Yellow (Yellow) Urine Clarity Clear (Clear) Urine pH 6.5 (5.0-8.0) pH Units Ur Specific [place] 1.012 (1.010-1.025) Urine Protein 100 H (Neg-Trace) mg/dL Urine Glucose (UA) 500 H (Normal) mg/dL - Impressions Impressions Head CT 03/12/19 18:52 IMPRESSION: No acute intracranial abnormality. Mild chronic small vessel ischemic disease. D/ / Vinicius Gilmore / Vinicius Gilmore Interpreting Provider: Vinicius Gilmore Cervical Spine MRI 03/12/19 19:37 IMPRESSION: Cervical spine: Multilevel degenerative disc disease in the cervical spine as described. See above for details of each level. Lumbar spine: Multilevel degenerative disc disease in the lower thoracic spine and the lumbar spine as described. See above for details of each level D/ / Valentin Montero / Valentin Montero Interpreting Provider: Valentin Montero Lumbar Spine MRI 03/12/19 19:37 IMPRESSION: Cervical spine: Multilevel degenerative disc disease in the cervical spine as described. See above for details of each level. Lumbar spine: Multilevel degenerative disc disease in the lower thoracic spine and the lumbar spine as described. See above for details of each level D/ / Valentin Montero / Valentin Montero Interpreting Provider: Valentin Montero Chest X-Ray 03/12/19 19:54 IMPRESSION: Stable study. D/ / Anne-Marie Lo Cha, MD / Anne-Marie Lo Cha, MD Interpreting Provider: Anne-Marie Lo Cha, MD Brain MRI 03/12/19 21:27 IMPRESSION: Mild chronic small ischemic disease age-related involutional change. No acute stroke, midline shift or mass effect. Abnormal signal right intradural vertebral artery may related to chronic occlusion versus slow flow related to stenosis D/ / Vinicius Gilmore / Vinicius Gilmore Interpreting Provider: Vinicius Gilmore Consult Discharge Plan - Plan Referrals: Ray Finley Jr, MD [Non-Partnered Physician] - (1) Acute respiratory failure Qualifiers: Respiratory failure complication: hypoxia Qualified Code(s): J96.01 - Acute respiratory failure with hypoxia (2) Vomiting Qualifiers: Vomiting type: unspecified Vomiting Intractability: non-intractable Nausea presence: with nausea Qualified Code(s): R11.2 - Nausea with vomiting, unspecified (3) Altered mental status Qualifiers: Altered mental status type: unspecified Qualified Code(s): R41.82 - Altered mental status, unspecified (5) Hypertension Qualifiers: Hypertension type: unspecified Qualified Code(s): I10 - Essential (primary) hypertension (9) Diabetes Qualifiers: Diabetes mellitus type: type 2 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
--- NOTE | 2019-03-13 10:40 | Neurology - Consult Note ---
<Berhane Madrid - Last Filed: 03/13/19 16:54> Date of Encounter: 03/13/19 Time of Encounter: 10:32 Assessment and Plan (1) Altered mental status Current Visit: Yes Status: Acute Neurology see consultation for altered mental status and weakness Symptoms ongoing for approximately the last 4 days and progressing Etiology remains unclear at this time however I am suspicious for possible seizure etiology Family reporting staring spells followed by urinary incontinence and then prolonged episodes of agitation and combativeness and confusion thereafter No personal history of seizures no family history of seizures however we will proceed with seizure workup and obtain EEG now Defer to primary team team to workup other underlying etiology for encephalopathy; patient noted to have leukocytosis of unknown etiology. Of note, she did have some wincing to abdominal palpitation, consider abdominopelvic etiology and consider imaging. Also, additional metabolic derangement persists such as acute kidney injury and hypomagnesemia; again defer to IMC for further workup We will continue to hold eliquis for now and plan for XR guided LP in the morning; r/o REPLANTING MACHINE CREW infectious cause of AMS, vs vasculitis, vs inflammatory etiology Send CSF for study including culture, gram stain, cell count with diff, protein, glucose -In the meantime we will start prophylactic treatment with IV Vancomycin, Acyclovir and Zosyn We will get an MRA of the head and neck to evaluate for intra/extracranial stenosis, and vasculitis Continue with frequent neurological assessments With CKD III and on prophylactic Vancomycin and Acyclovir consider nephrology c/s for daily renal monitoring Neurological continue to follow; further recommendations pending w/u Qualifiers: Altered mental status type: unspecified Qualified Code(s): R41.82 - Altered mental status, unspecified (2) Generalized weakness Current Visit: Yes Status: Acute as above History of Present Illness Chief complaint: Weakness, unresponsive/staring spells, altered mental status HPI: Ms. Burciaga is a 83 year old female with a PMH of arthritis, atrial fibrillation on eliquis, DM, HTN, CKD 3, CAD. All information obtained from chart review and provider to provider report as the patient is an altered mental state and family unable to provide great detail regarding her current state. According to the and [id number] the patient has had a four-day decline in mental status as well as functional status. They report that for approximately the last 4 days she has been having staring spells followed by urinary incontinence, generalized overall weakness thereafter and combative behavior. At baseline she is alert to self, family and somewhat place and able to participate in self-care. However, they note that she is weak overall S/P previous CVA with chronic left-sided weakness and due to bilateral knee arthritis requires a walker for ambulation. The family denies any facial droop, focal weakness, patient complained of headache, head or neck pain, flulike symptoms, fevers, chills, weight loss. Family mentions that she has had multiple recent events or blood glucose is elevated around 500. During these events she becomes very confused and agitated and they note that the confusion persisted for a few days thereafter. On admission she was found to have a blood glucose of 444. Additionally, she appears to have an acute kidney injury and hypomagnesemia with serum mag of 1.1. He is also found to have leukocytosis of unclear etiology with WBCs of 14. Review of vital signs reveals hypertension with SBP ranging from the 150s to-180s. She has been afebrile since admission. A mild respiratory acidosis was found on VBG. TSH 3.125, CK 73, ammonia 27. Liver function tests were not performed. Urinalysis does not appear to reveal urinary tract infection. Chest x-ray unremarkable. A head CT was completed finding no acute intracranial abnormality showing only mild chronic small vessel ischemic disease. Cervical spine MRI shows no fractures, or vertebral body edema, no vertebral body lesions. No abnormal cord signal seen. No obvious spinal canal stenosis seen on cervical spine. Lumbar spine MRI with no acute fracture or canal stenosis seen. MRI of the brain showing mild chronic small ischemic disease and age related involutional changes. No acute stroke, midline shift or mass effect. Abnormal signal within the right intradural vertebral artery may b e related to chronic occlusion versus low-flow secondary to stenosis. Past Med Surg Social Fam HX - Past Medical History Medical history: arthritis, atrial fibrillation, diabetes, hypertension Additional medical history: Gout L Foot Psychiatric history: no psych history - Past Surgical History Surgical History: colectomy, hysterectomy - Social History Smoking Status: Never smoker Smokeless Tobacco Status: No Alcohol use: none Drug use: none - Family History Mother Hx Family Cardiac Disorders: Yes Father Hx Family Cardiac Disorders: Yes Medications and Allergies Allopurinol [Zyloprim 100 MG] 100 mg PO DAILY 09/11/17 [History] Esomeprazole Magnesium [Nexium] 40 mg PO DAILY 09/11/17 [History] Insulin Glargine,Hum.rec.anlog [Lantus Solostar] 0 unit SQ DAILY 09/11/17 [History] Lisinopril [Zestril] 10 mg PO DAILY 09/11/17 [History] Rosuvastatin [Crestor] 20 mg PO HS 09/11/17 [History] Magnesium Oxide [Mag-Ox] 400 mg PO BID 14 Days #28 tablet 09/14/17 [Rx] Apixaban [Eliquis] 2.5 mg PO BID 12/03/18 [History] Metoprolol Tartrate 200 mg PO BID 12/03/18 [History] Sitagliptin Phosphate [Januvia] 50 mg PO DAILY 12/03/18 [History] Allergy/AdvReac Type Severity Reaction Status Date / Time morphine Allergy Drowsy Verified 09/06/18 17:12 ROS unobtainable: due to mental status All Systems: The remainder of the systems were reviewed and are negative Physical Examination - Vital Signs Vital Signs: Initial Vital Signs Temp Pulse Resp BP Pulse Ox 98.0 F 94 18 156/91 97 03/12/19 13:15 03/12/19 13:15 03/12/19 13:15 03/12/19 13:15 03/12/19 13:15 - Exam Exam: Examination: Limited due to patient's altered mental state; she is unable to follow commands General Examination: *CONSTITUTIONAL: lethargic; arouses to noxious stimulus but unable to maintain attention and concentration for prolonged periods of time *GENERAL APPEARANCE OF PATIENT ill appearing elderly female *EYES: pupils equal, round, reactive to light and accommodation, conju nctiva clear without masses or ulcerations, fundi normal. *CARDIOVASCULAR: no peripheral edema, distal temperature normal, dorsalis pedis pulses normal. Refer to vital signs * MUSCULOSKELETAL: *GAIT AND STATION: Deferred; falls risk *ASSESSMENT OF MUSCLE STRENGTH IN THE UPPER AND LOWER EXTREMITIES moves, right arm, and b/l legs spontaneously, does not move left arm (family reporting chronic left arm weakness s/p remote CVA) *MUSCLE TONE IN THE UPPER AND LOWER EXTREMITIES No abnormal movements, rigid tone in b/l legs Neurological: *ORIENTATION lethargic *ATTENTION AND CONCENTRATION are abnormal and she is unable to maintain attention or follow commands *CN II optic fundi were normal, no papilledema noted. *CN III,IV, PERRLA, doll's eyes intact *SENSORY EXAMINATION does not withdrawal to noxious stimulus *REFLEXES: deep tendon reflexes were absent diffusely, no pathological reflexes were noted. Results - Laboratory Findings CBC and BMP: 03/13/19 10:05 03/13/19 10:05 Abnormal lab findings: Abnormal lab results WBC 14.0 K/mcL (4.3-11.1) H 03/13/19 03:31 Hct 46.8 % (35.3-44.9) H 03/12/19 13:45 MCV 100.7 fL (83.0-100.0) H 03/13/19 03:31 MPV 12.6 fL (9.4-12.4) H 03/13/19 03:31 Neutrophils # 10.4 K/mcL (1.6-8.9) H 03/12/19 13:45 Monocytes # 1.5 K/mcL (0.0-1.3) H 03/13/19 03:31 VBG pH 7.28 pH Units (7.32-7.42) L 03/12/19 14:14 VBG pO2 55 mmHg (25-50) H 03/12/19 14:14 Sodium 134 mEq/L (136-145) L 03/12/19 13:45 Chloride 109 mEq/L (98-107) H 03/13/19 03:31 Carbon Dioxide 22 mEq/L (23-29) L 03/13/19 03:31 BUN 33 mg/dL (8-23) H 03/13/19 03:31 Creatinine 1.68 mg/dL (0.60-1.20) H 03/13/19 03:31 Est GFR ( Amer) 35 (> 60) L 03/13/19 03:31 Est GFR (Non-Af Amer) 29 (> 60) L 03/13/19 03:31 Glucose 68 mg/dL (70-105) L 03/13/19 03:31 POC Glucose 141 mg/dL (70-99) H 03/13/19 00:47 Hemoglobin A1c 9.8 % (-5.6) H 03/13/19 03:31 Calculated Osmolality 306 (280-300) H 03/12/19 13:45 Magnesium 1.1 mg/dL (1.6-2.6) L 03/13/19 03:31 Prealbumin 15.2 mg/dL (17.0-34.0) L 03/13/19 03:31 Urine Protein 100 mg/dL (Neg-Trace) H 03/12/19 14:25 Urine Glucose (UA) 500 mg/dL (Normal) H 03/12/19 14:25 Urine Blood Trace (Negative) H 03/12/19 14:25 Ur Squamous Epith Cells Moderate per lpf (None-Few) H 03/12/19 14:25 Consult Discharge Plan - Plan Referrals: Ray Finley Jr, MD [Non-Partnered Physician] - <Otilio Beltrán - Last Filed: 03/13/19 18:07> Date of Encounter: 03/13/19 Assessment and Plan (1) Altered mental status Current Visit: Yes Status: Acute I have personally performed a caol-da-dbax assessment of the patient and have reviewed the PA/CHAMBER WALKER note. My impressions are as follows: Case was discussed with the BUSINESS ADMINISTRATION TEACHER. I agree with the assessment and plan as stated above. I also reviewed the EEG which does reveal bilateral lateralized epileptiform discharges. This arouses suspicions for either an anoxic event versus a central nervous system infectious process. We will start empiric antibiotics anticipate LP within the next 2 days or so. Patient was on anticoagulation which has to be held. We will continue to follow. Qualifiers: Altered mental status type: unspecified Qualified Code(s): R41.82 - Altered mental status, unspecified (2) Generalized weakness Current Visit: Yes Status: Acute History of Present Illness HPI: The chart was reviewed, the patient was seen and examined independently. Case was discussed with the BUSINESS ADMINISTRATION TEACHER. I agree with his documentation of the history of present illness as stated above. Patient at this time is lethargic however will open her eyes to tactile and verbal stimuli, however will not verbalize. Multiple family members at bedside to provide additional history. ROS unobtainable: due to mental status All Systems: The remainder of the systems were reviewed and are negative Physical Examination - Vital Signs Vital Signs: Initial Vital Signs Temp Pulse Resp BP Pulse Ox 98.0 F 94 18 156/91 97 03/12/19 13:15 03/12/19 13:15 03/12/19 13:15 03/12/19 13:15 03/12/19 13:15 - Exam Exam: I have personally performed a [id number]-[id number] assessment of the patient and have reviewed the PA/CHAMBER WALKER note. My impressions are as follows: Patient seems to have normal tone in the upper and lower extremities. She does withdraw the lower extremities to vigorous plantar stimulation. No involuntary movements identified. Otherwise I agree with the neurologic examination as do cumented above. Results - Laboratory Findings CBC and BMP: 03/13/19 10:05 03/13/19 10:05 Abnormal lab findings: Abnormal lab results WBC 22.2 K/mcL (4.3-11.1) H D 03/13/19 10:05 Hgb 15.5 g/dL (11.5-15.4) H 03/13/19 10:05 Hct 49.2 % (35.3-44.9) H 03/13/19 10:05 MCV 103.6 fL (83.0-100.0) H 03/13/19 10:05 MCHC 31.5 g/dL (31.6-35.5) L 03/13/19 10:05 MPV 12.6 fL (9.4-12.4) H 03/13/19 10:05 Neutrophils # 20.1 K/mcL (1.6-8.9) H 03/13/19 10:05 Monocytes # 1.5 K/mcL (0.0-1.3) H 03/13/19 03:31 PT 13.0 Seconds (9.4-12.1) H 03/13/19 13:50 ABG pCO2 33 mmHg (35-45) L 03/13/19 11:36 ABG HCO3 18 mEq/L (21-27) L 03/13/19 11:36 ABG Total CO2 19 mEq/L (20-26) L 03/13/19 11:36 ABG Base Excess -6 mEq/L (-2 to 3) L 03/13/19 11:36 VBG pH 7.28 pH Units (7.32-7.42) L 03/12/19 14:14 VBG pO2 55 mmHg (25-50) H 03/12/19 14:14 Sodium 134 mEq/L (136-145) L 03/12/19 13:45 Chloride 109 mEq/L (98-107) H 03/13/19 03:31 Carbon Dioxide 15 mEq/L (23-29) L 03/13/19 10:05 BUN 32 mg/dL (8-23) H 03/13/19 10:05 Creatinine 1.68 mg/dL (0.60-1.20) H 03/13/19 10:05 Est GFR ( Amer) 35 (> 60) L 03/13/19 10:05 Est GFR (Non-Af Amer) 29 (> 60) L 03/13/19 10:05 Glucose 239 mg/dL (70-105) H 03/13/19 10:05 POC Glucose 141 mg/dL (70-99) H 03/13/19 00:47 Hemoglobin A1c 9.8 % (-5.6) H 03/13/19 03:31 Calculated Osmolality 306 (280-300) H 03/12/19 13:45 Lactic Acid 2.3 mmol/L (0.5-2.2) H 03/13/19 13:50 Magnesium 1.5 mg/dL (1.6-2.6) L 03/13/19 13:50 Prealbumin 15.2 mg/dL (17.0-34.0) L 03/13/19 03:31 Urine Protein >=300 mg/dL (Neg-Trace) H 03/13/19 16:30 Urine Glucose (UA) 250 mg/dL (Normal) H 03/13/19 16:30 Urine Ketones Trace mg/dL (Negative) H 03/13/19 16:30 Urine Blood Small (Negative) H 03/13/19 16:30 Ur Squamous Epith Cells Many per lpf (None-Few) H 03/13/19 16:30
[2019-03-13] MEDS ORDERED: *HR* Enoxaparin 80 MG/0.8 ML SYRINGE SQ SCH (11:00)
[2019-03-13 11:03] LABS: Basophils # 0.1 K/mcL (0.0-0.2); Basophils % 0.3 %; Hematocrit 49.2 % (35.3-44.9); Hemoglobin 15.5 g/dL (11.5-15.4); Immature Granulocytes % 0.5 % (0-4); Lymphocytes # 0.8 K/mcL (0.6-4.6); Lymphocytes % 3.7 %; Mean Corpuscular HGB Conc 31.5 g/dL (31.6-35.5); Mean Corpuscular Hemoglobin 32.6 pg (28.0-33.3); Mean Corpuscular Volume 103.6 fL (83.0-100.0); Mean Platelet Volume 12.6 fL (9.4-12.4); Monocytes # 1.1 K/mcL (0.0-1.3); Monocytes % 4.8 %; Neutrophils # 20.1 K/mcL (1.6-8.9); Platelet Count 248 K/mcL (140-400); Red Blood Count 4.75 M/mcL (3.82-4.97); Segmented Neutrophils % 90.7 %
[2019-03-13 11:07] LABS: White Blood Count 22.2 K/mcL (4.3-11.1)
[2019-03-13] MEDS ORDERED: Isovue-370 500 ML BOTTLE IVP ONE (11:29)
[2019-03-13 11:39] LABS: ABG Base Excess -6 mEq/L (-2 to 3); ABG HCO3 18 mEq/L (21-27); ABG Oxygen Saturation 97 % (95-98); ABG PCO2 33 mmHg (35-45); ABG PH 7.35 pH Units (7.32-7.45); ABG PO2 93 mmHg (85-104); ABG TCO2 19 mEq/L (20-26)
[2019-03-13 11:47] LABS: Albumin 3.8 g/dL (3.5-5.7); Albumin/Globulin Ratio 1.1 (1.1-2.2); Bilirubin,Total 0.6 mg/dL (0.3-1.0); Calcium 8.8 mg/dL (8.6-10.3); Globulin 3.4 g/dL (2.4-3.5); Potassium 4.5 mEq/L (3.5-5.1); Total Protein 7.2 g/dL (6.4-8.9)
[2019-03-13] MEDS ORDERED: *HR* Dextrose 50 % in Water (Syg) 50 ML SYRINGE IVP PRN (11:52)
[2019-03-13] MEDS ORDERED: Naloxone 0.4 MG/ML INJ IVP PRN (11:52)
[2019-03-13] MEDS ORDERED: Dextrose Gel 15 GM/37.5 ML TUBE PO PRN ×2 (11:52)
[2019-03-13] MEDS ORDERED: Insulin LISPRO 300 UNITS/3 ML VIAL SQ ONE (12:18)
[2019-03-13] MEDS ORDERED: *HR* Metoprolol 5 MG/5 ML VIAL IVP ONE ×2 (13:15→15:40)
[2019-03-13] MEDS ORDERED: 0.9 % Sodium Chloride 1,000 ML IV ONE (13:42)
[2019-03-13] MEDS ORDERED: 0.9 % Sodium Chloride 1,000 ML ONE (13:49)
[2019-03-13] MEDS ORDERED: Vancomycin (wt based) 1,000 MG VIAL IVPB SCH (14:00)
[2019-03-13 14:24] LABS: INR 1.1
[2019-03-13 14:26] LABS: Activated Partial Thrombo Time 31.6 Seconds (26.0-36.0)
[2019-03-13 15:04] LABS: Albumin 3.7 g/dL (3.5-5.7); Albumin/Globulin Ratio 1.1 (1.1-2.2); Bilirubin,Direct 0.2 mg/dL (0.0-0.2); Bilirubin,Indirect 0.4 mg/dL (0.0-1.2); Bilirubin,Total 0.6 mg/dL (0.3-1.0); Globulin 3.3 g/dL (2.4-3.5); Magnesium 1.5 mg/dL (1.6-2.6)
--- NOTE | 2019-03-13 15:44 | Event Note ---
Date of Encounter: 03/13/19 Time of Encounter: 15:41 Follow up on patient from this morning. Patient seen and examined. Patient appears to be less restless and more comfortable. Breathing less labored. O2 sat now 99% on 4L NC. Will wean as tolerated. Hr up to 130s earlier. Patient given 5mg one time does of metoprolol as she missed her morning oral metoprolol. She does have documented Afib. HR down to 110s. Patient still recieving bolus of IVF. Will order repeat 12 lead EKG. If elevated HR persists, will consider diltiazem drip. WBC were elevated on repeat and patient did have fever of 101.3. Zosyn and vancomycin have been started to cover for CAP and aspiration PNA as patient has had multiple admissions recently and vomitted this morning. Procal was unimpressive and LA was only mildly elevated. CXR did not show any overt infiltrate. Continue to monitor patient's status. Continue abx for now but consider deescalation as condition improves.
[2019-03-13] MEDS ORDERED: Gadolinium Contrast Agent (WT Based) IV PRN (16:14)
--- NOTE | 2019-03-13 17:03 | EEG/EMG/Oth Biometrics Report ---
EEG Procedure Report EEG Procedure: Routine EEG Procedure Note: This is a report of a 21 channel bipolar and referential montage EEG. There is no posterior dominant alpha rhythm identified at any time during the recording. The resting rhythm consists of mixed theta and delta frequencies ranging between 4-6 Hz bi-hemispherically. However, superimposed bilateral periodic independent epileptiform discharges are identified throughout the recording. Hyperventilation is not performed during the study. There is no normal sleep architecture identified. Photic stimulations performed and does not produce a driving response. The EKG rhythm strip reveals sinus tachycardia with a bundle branch block with a rate of 120 bpm. Impressions: This EEG recording is abnormal, revealing evidence of diffuse generalized severe encephalopathy. Comment: In this particular case. There are bilateral periodic epileptiform discharges, I am very concerned about the possibility of an anoxic episode versus infection. Please correlate clinically.
[2019-03-13 17:04] LABS: Bilirubin,Urine Negative (Negative); Blood,Urine Small (Negative); Clarity,Urine Clear (Clear); Color,Urine Yellow (Yellow); Glucose,Urine (UA) 250 mg/dL (Normal); Ketones,Urine Trace mg/dL (Negative); Leukocyte Esterase,Urine Negative (Negative); Nitrite,Urine Negative (Negative); Protein,Urine >=300 mg/dL (Neg-Trace); Specific Gravity,Urine 1.018 (1.010-1.025); Urobilinogen,Urine Normal (Normal)
[2019-03-13 17:08] LABS: Hyaline Casts,Urine None Seen per lpf (None-Few); RBC,Urine 0-3 per hpf (0-3); Squamous Epithelial Cell,Urine Many per lpf (None-Few); WBC,Urine 0-3 per hpf (0-3)
[2019-03-13 17:21] LABS: Bacteria,Urine Few per hpf (None-Few)
[2019-03-13] MEDS: Piperacillin/Tazobactam 3.375 GM in 0.9 % Sodium Chloride Mini Bag 100 ML IVPB SCH (17:43)
[2019-03-13] MEDS: Acyclovir 500 MG in D5% in Water 250 ML IVPB SCH (17:57)
[2019-03-13] MEDS: Nystatin POWDER 30 GM BOTTLE TP SCH (20:22)
[2019-03-13] MEDS ORDERED: Perflutren Lipid Microsphere 1.3 ML in 0.9 % Sodium Chloride 8.7 ML IVP ONE (22:32)
[2019-03-14] MEDS: Insulin LISPRO 300 UNITS/3 ML VIAL SQ SCH ×6 (00:01→21:23)
[2019-03-14] MEDS: Piperacillin/Tazobactam 3.375 GM in 0.9 % Sodium Chloride Mini Bag 100 ML IVPB SCH ×3 (00:02→21:47)
[2019-03-14] MEDS: Acyclovir 500 MG in D5% in Water 250 ML IVPB SCH (00:02)
[2019-03-14 09:26] LABS: Red Blood Cell,CSF < 0.002 M/mcL
[2019-03-14 09:27] LABS: Appearance,CSF Clear (Clear)
[2019-03-14 09:42] LABS: Glucose,CSF 115 mg/dL (40-70); Total Protein,CSF 65 mg/dL (15-45)
[2019-03-14] MEDS: Nystatin POWDER 30 GM BOTTLE TP SCH ×2 (10:08→20:22)
--- NOTE | 2019-03-14 10:16 | Neurology Progress Note ---
<Berhane Madrid - Last Filed: 03/14/19 11:23> Date of Encounter: 03/14/19 Time of Encounter: 10:13 Assessment and Plan (1) Altered mental status Current Visit: Yes Status: Acute The patient was seen in follow-up for altered mental state. Today she is alert to self somewhat conversational but remains confused and uncooperative with exam. However, overall per my assessment in for family as evaluation she does appear to have improved since initiating antiviral therapy. As noted yesterday the EEG revealed bilateral lateralized epileptiform discharges. This can be seen in SLAT BASKET MAKER infection or anoxia. 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 An LP was performed this morning; it was clear in appearance, colorless, total nucleated cells are 9, Glucose is 115, and total protein 65. -As stated previously she is on antiviral tx MRA head and neck shows occlusion of the right vertebral artery starting from its origin with retro-fill at the distal v4 segment. 50% narrowing in the proximal right internal carotid artery. No additional flow limiting stenosis or acute abnormality in the remainder of the major arteries of the head and neck. Plan: ID has been consulted; recommendations appreciated f/u on CSF studies including gram stain and cultures c/w abx and antiviral coverage continue with frequent neurological assessments Qualifiers: Altered mental status type: unspecified Qualified Code(s): R41.82 - Altered mental status, unspecified (2) Generalized weakness Current Visit: Yes Status: Acute as above Subjective Principal diagnosis: Altered mental state suspected SLAT BASKET [employer]KER infection Interval history: Chart was reviewed, the patient was seen and examined at bedside today. She is awake and alert today and engaging in conversation however, she is still confused and does not follow commands. Family is present at the bedside and note that she appears to have significantly improved today. Clinically she is stable without any further neurological deficits. I discussed the POC today. Objective - Constitutional Vitals: Temp Pulse Resp BP Pulse Ox 97.9 F 103 17 125/74 100 03/14/19 03:52 03/14/19 03:52 03/14/19 03:52 03/14/19 03:52 03/14/19 03:52 Exam: Examination: Limited by altered mental state General Examination: *CONSTITUTIONAL: Alert to self only, calm with no acute distress *GENERAL APPEARANCE OF PATIENT generally ill appearing elderly female *EYES: pupils equal, round, reactive to light and accommodation, conjunctiva clear without masses or ulcerations, fundi normal. *CARDIOVASCULAR: no peripheral edema, distal temperature normal, dorsalis pedis pulses normal. Refer to vital signs * MUSCULOSKELETAL: *GAIT AND STATION: Deferred *ASSESSMENT OF MUSCLE STRENGTH IN THE UPPER AND LOWER EXTREMITIES: WOULD not follow commands; moves all 4 extremities spontaneously *MUSCLE TONE IN THE UPPER AND LOWER EXTREMITIES normal. No abnormal movements, fasciculations or atrophy identified. Neurological: *ORIENTATION to person only *LANGUAGE AND FUNCTION no significant aphasia or dysarthia was noted. *ATTENTION AND CONCENTRATION are abnormal, requires redirection, does not follow commands *LANGUAGE FUNCTION no significant aphasia or dysarthia was noted. *FUND OF KNOWLEDGE aware of current events, past history, vocabulary *MENTAL attention span and concentration normal. *CN II optic fundi were normal, no papilledema noted. *CN III,IV, PERRLA extraocular eye movements were full, no nystagmus and no ptosis noted. *CN V shows normal sensation and jaw opens symmetrically. *CN VII shows normal facial movement symmetrically, upper and lower bilaterally. *CN VIII shows no significant hearing loss on exam *CN IX-X palate elevated symmetrically *CN XI normal strength in the sternocleidomastoid muscles, symmetrical shoulder shrugging. *CN XII tongue protruded in the midline, with normal strength and movement. *SENSORY EXAMINATION light touch intact *REFLEXES: deep tendon reflexes were absent diffusely, no pathological reflexes were noted. *CEREBELLAR TESTING normal finger to nose, heel/knee/sampson *PAIN LEVEL 0/10 Results - Laboratory Findings CBC and BMP: 03/14/19 09:40 03/14/19 09:40 Abnormal lab findings: Abnormal lab results WBC 22.2 K/mcL (4.3-11.1) H D 03/13/19 10:05 Hgb 15.5 g/dL (11.5-15.4) H 03/13/19 10:05 Hct 49.2 % (35.3-44.9) H 03/13/19 10:05 MCV 103.6 fL (83.0-100.0) H 03/13/19 10:05 MCHC 31.5 g/dL (31.6-35.5) L 03/13/19 10:05 MPV 12.6 fL (9.4-12.4) H 03/13/19 10:05 Neutrophils # 20.1 K/mcL (1.6-8.9) H 03/13/19 10:05 Monocytes # 1.5 K/mcL (0.0-1.3) H 03/13/19 03:31 PT 13.0 Seconds (9.4-12.1) H 03/13/19 13:50 ABG pCO2 33 mmHg (35-45) L 03/13/19 11:36 ABG HCO3 18 mEq/L (21-27) L 03/13/19 11:36 ABG Total CO2 19 mEq/L (20-26) L 03/13/19 11:36 ABG Base Excess -6 mEq/L (-2 to 3) L 03/13/19 11:36 VBG pH 7.28 pH Units (7.32-7.42) L 03/12/19 14:14 VBG pO2 55 mmHg (25-50) H 03/12/19 14:14 Sodium 134 mEq/L (136-145) L 03/12/19 13:45 Chloride 109 mEq/L (98-107) H 03/13/19 03:31 Carbon Dioxide 15 mEq/L (23-29) L 03/13/19 10:05 BUN 32 mg/dL (8-23) H 03/13/19 10:05 Creatinine 1.68 mg/dL (0.60-1.20) H 03/13/19 10:05 Est GFR ( Amer) 35 (> 60) L 03/13/19 10:05 Est GFR (Non-Af Amer) 29 (> 60) L 03/13/19 10:05 Glucose 239 mg/dL (70-105) H 03/13/19 10:05 POC Glucose 202 mg/dL (70-99) H 03/14/19 04:02 Hemoglobin A1c 9.8 % (-5.6) H 03/13/19 03:31 Calculated Osmolality 306 (280-300) H 03/12/19 13:45 Lactic Acid 2.3 mmol/L (0.5-2.2) H 03/13/19 13:50 Magnesium 1.5 mg/dL (1.6-2.6) L 03/13/19 13:50 Prealbumin 15.2 mg/dL (17.0-34.0) L 03/13/19 03:31 Urine Protein >=300 mg/dL (Neg-Trace) H 03/13/19 16:30 Urine Glucose (UA) 250 mg/dL (Normal) H 03/13/19 16:30 Urine Ketones Trace mg/dL (Negative) H 03/13/19 16:30 Urine Blood Small (Negative) H 03/13/19 16:30 Ur Squamous Epith Cells Many per lpf (None-Few) H 03/13/19 16:30 CSF Tot Nucleated Cells 9 TNC/mcL (0-5) H 03/14/19 08:21 CSF Glucose 115 mg/dL (40-70) H 03/14/19 08:21 CSF Total Protein 65 mg/dL (15-45) H 03/14/19 08:21 Consult Discharge Plan - Plan Referrals: Ray Finley Jr, MD [Non-Partnered Physician] - 03/24/19 11:00 am <Otilio Beltrán - Last Filed: 03/14/19 15:39> Date of Encounter: 03/14/19 Assessment and Plan (1) Altered mental status Current Visit: Yes Status: Acute I have personally performed a [id number] assessment of the patient and have reviewed the PA/ULTRASOUND TECHNOL note. My impressions are as follows: Chart was reviewed, patient was seen and examined independently. Case was discussed with the VIBRATORY PILE DRIVER. Patient is less encephalopathic than she was yesterday as today she is able to say her name, she is following simple commands. However she is still not to wake more alert. I would recommend maintaining the antibiotic therapy until the cultures are finalized. Gram stain on the CSF was negative for bacteria. I did order HSV titers on the CSF. The MRA abnormality has no bearing on this case. No additional treatment beyond antiplatelet therapy is recommended for this. Ca se will be signed out to Dr. Carolina this weekend for ongoing follow. Time spent with patient and family today was 25 minutes of which greater than 50% of that time was spent in [id number] contact and consisted of counseling and coordinating care. Qualifiers: Altered mental status type: unspecified Qualified Code(s): R41.82 - Altered mental status, unspecified (2) Generalized weakness Current Visit: Yes Status: Acute Subjective Interval history: Chart was reviewed, patient was seen and examined independently. Case was discussed with the CMP. I agree with his assessment of the subjective history as stated above. Objective - Constitutional Vitals: Temp Pulse Resp BP Pulse Ox 98.2 F 103 18 105/51 93 03/14/19 11:20 03/14/19 11:20 03/14/19 11:20 03/14/19 11:20 03/14/19 11:20 Exam: Examination: Limited by altered mental state General Examination: *CONSTITUTIONAL: Alert to self only, calm with no acute distress *GENERAL APPEARANCE OF PATIENT generally ill appearing elderly female *EYES: pupils equal, round, reactive to light and accommodation, conjunctiva clear without masses or ulcerations, fundi normal. *CARDIOVASCULAR: no peripheral edema, distal temperature normal, dorsalis pedis pulses normal. Refer to vital signs * MUSCULOSKELETAL: *GAIT AND STATION: Deferred *ASSESSMENT OF MUSCLE STRENGTH IN THE UPPER AND LOWER EXTREMITIES: WOULD not follow commands; moves all 4 extremities spontaneously *MUSCLE TONE IN THE UPPER AND LOWER EXTREMITIES normal. No abnormal movements, fasciculations or atrophy identified. Neurological: *ORIENTATION patient is able to state her own name but is not conversive. *LANGUAGE AND FUNCTION patient does follow some simple commands however for the most part is not speaking intelligibility. *ATTENTION AND CONCENTRATION are abnormal, requires redirection, does not follow commands *FUND OF KNOWLEDGE unable to assess patient confused encephalopathic. *MENTAL attention span inattentive confused *CN II optic fundi were normal, no papilledema noted. *CN III,IV, PERRLA extraocular eye movements were full, no nystagmus and no ptosis noted. *CN V shows normal sensation and jaw opens symmetrically. *CN VII shows normal facial movement symmetrically, upper and lower bilaterally. *CN VIII shows no significant hearing loss on exam *CN IX-X palate elevated symmetrically *CN XI normal strength in the sternocleidomastoid muscles, symmetrical shoulder shrugging. *CN XII tongue protruded in the midline, with normal strength and movement. *SENSORY EXAMINATION light touch intact *REFLEXES: deep tendon reflexes were absent diffusely, no pathological reflexes were noted. *CEREBELLAR TESTING normal finger to nose, heel/knee/sampson *PAIN LEVEL 0/10 Results - Laboratory Findings CBC and BMP: 03/14/19 09:40 03/14/19 09:40 Abnormal lab findings: Abnormal lab results WBC 22.5 K/mcL (4.3-11.1) H 03/14/19 09:40 RBC 3.79 M/mcL (3.82-4.97) L 03/14/19 09:40 Hgb 15.5 g/dL (11.5-15.4) H 03/13/19 10:05 Hct 49.2 % (35.3-44.9) H 03/13/19 10:05 MCV 103.6 fL (83.0-100.0) H 03/13/19 10:05 MCHC 31.5 g/dL (31.6-35.5) L 03/13/19 10:05 MPV 13.3 fL (9.4-12.4) H 03/14/19 09:40 Neutrophils # 20.1 K/mcL (1.6-8.9) H 03/13/19 10:05 Monocytes # 1.5 K/mcL (0.0-1.3) H 03/13/19 03:31 PT 13.0 Seconds (9.4-12.1) H 03/13/19 13:50 ABG pCO2 33 mmHg (35-45) L 03/13/19 11:36 ABG HCO3 18 mEq/L (21-27) L 03/13/19 11:36 ABG Total CO2 19 mEq/L (20-26) L 03/13/19 11:36 ABG Base Excess -6 mEq/L (-2 to 3) L 03/13/19 11:36 VBG pH 7.28 pH Units (7.32-7.42) L 03/12/19 14:14 VBG pO2 55 mmHg (25-50) H 03/12/19 14:14 Sodium 134 mEq/L (136-145) L 03/12/19 13:45 Chloride 108 mEq/L (98-107) H 03/14/19 09:40 Carbon Dioxide 20 mEq/L (23-29) L 03/14/19 09:40 BUN 30 mg/dL (8-23) H 03/14/19 09:40 Creatinine 1.90 mg/dL (0.60-1.20) H 03/14/19 09:40 Est GFR ( Amer) 31 (> 60) L 03/14/19 09:40 Est GFR (Non-Af Amer) 25 (> 60) L 03/14/19 09:40 Glucose 122 mg/dL (70-105) H 03/14/19 09:40 POC Glucose 144 mg/dL (70-99) H 03/14/19 11:27 Hemoglobin A1c 9.8 % (-5.6) H 03/13/19 03:31 Calculated Osmolality 306 (280-300) H 03/12/19 13:45 Lactic Acid 2.3 mmol/L (0.5-2.2) H 03/13/19 13:50 Calcium 8.2 mg/dL (8.6-10.3) L 03/14/19 09:40 Magnesium 1.5 mg/dL (1.6-2.6) L 03/13/19 13:50 Prealbumin 15.2 mg/dL (17.0-34.0) L 03/13/19 03:31 Urine Protein >=300 mg/dL (Neg-Trace) H 03/13/19 16:30 Urine Glucose (UA) 250 mg/dL (Normal) H 03/13/19 16:30 Urine Ketones Trace mg/dL (Negative) H 03/13/19 16:30 Urine Blood Small (Negative) H 03/13/19 16:30 Ur Squamous Epith Cells Many per lpf (None-Few) H 03/13/19 16:30 CSF Tot Nucleated Cells 9 TNC/mcL (0-5) H 03/14/19 08:21 CSF Glucose 115 mg/dL (40-70) H 03/14/19 08:21 CSF Total Protein 65 mg/dL (15-45) H 03/14/19 08:21
[2019-03-14 10:30] LABS: Calcium 8.2 mg/dL (8.6-10.3); Potassium 3.8 mEq/L (3.5-5.1)
[2019-03-14 10:39] LABS: Hematocrit 37.8 % (35.3-44.9); Mean Corpuscular HGB Conc 33.1 g/dL (31.6-35.5); Mean Corpuscular Volume 99.7 fL (83.0-100.0); Mean Platelet Volume 13.3 fL (9.4-12.4); Platelet Count 207 K/mcL (140-400); Red Blood Count 3.79 M/mcL (3.82-4.97); Red Cell Distribution Width 14.5 % (11.5-14.5); White Blood Count 22.5 K/mcL (4.3-11.1)
[2019-03-14 10:46] LABS: Basophils,CSF 0 %; Eosinophils,CSF 0 %; Lymphocytes,CSF 16.1 %; Monocytes,CSF 8.9 %
[2019-03-14 10:51] LABS: Hemoglobin 12.5 g/dL (11.5-15.4)
[2019-03-14] MEDS ORDERED: Piperacillin/Tazobactam 3.375 GM in 0.9 % Sodium Chloride Mini Bag 100 ML IVPB SCH (12:00)
--- NOTE | 2019-03-14 14:34 | Internal Med Progress Note ---
Hospitalist Progress Note - Encounter Date of Encounter: 03/14/19 Time of Encounter: 14:32 - Subjective Interval History: Patient seen and examined. Patient appears more conversational this morning but still confused and AAOx0. Per family, patient does look better. Breathing is no longer labored. Patient does not complain of any acute issues. - Exam Vitals: Temp Pulse Resp BP Pulse Ox 98.2 F 103 18 105/51 93 03/14/19 11:20 03/14/19 11:20 03/14/19 11:20 03/14/19 11:20 03/14/19 11:20 Exam: GENERAL APPEARANCE: Poorly nourished; unable answer questions; and mild distress HEENT: Normocephalic/atraumatic, PERRLA. NECK: Supple, nontender without lymphadenopathy. CARDIOVASCULAR: Irregularly irregular rhythm; no murmurs RESPIRATORY: Coarse upper airway sounds; bilateral air entry present; no wheezing ABDOMEN: Soft, nondistended, nontender; bowel sounds present. MUSKULOSKELETAL: No limitations in range of motion. EXTREMITIES: No edema, clubbing. NEUROLOGICAL: Unable to assess due to altered mental status; patient unable to answer any questions PSYCHIATRIC: Unable to assess - Assessment and Plan (1) Acute respiratory failure Current Visit: Yes Status: Acute Assessment and Plan: 03/13/2019: Patient had episode of aspiration at bedside; following this, breath sounds were very coarse and junky; O2 sat dropped to 85% on room air and improved to 92% with 4L NC O2; O2 requirement may be secondary to recent vomiting; patient not having any cough; Temp was measured at 95.9 but rectal was 98.8. 03/14/2019: Patient is now more stable on 2L NC. She is still confused but breathing is no longer labored and breath sounds are more clear. Plan: -Continue treatment for aspiration PNA -See below tx for altered mental status -Continue NPO until ST can evaluate -continuous pulse oximtery; Supplemental O2 via nasal cannula; titrate to maintain sat 92-95% (2) Altered mental status Current Visit: Yes Status: Acute Assessment and Plan: -Patient initially presenting with acute AMS per family; Family mentions steady decline over last several months with acute decline in last 4 days and patient no longer communicating; family says such acute episodes have happened multiple times and are associated with episodes of hyperglycemia -No overt signs of infection on admission: UA without sign of infection, CXR unremarkable, WBC only slightly elevated, afebrile, -Cr was elevated suggesting dehydration; patient has been eating poorly -Patient's mentition has not improved overnight and is still unable to communicate verbally -Cr has improved slightly -Mg is low Plan: -Neurology has been consulted: EEG showed bilateral lateralized epileptiform discharges suggesting PLODDING OPERATOR infection vs anoxia, LP showed 9 nucleated cells, glucose 115, protein 65 -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, vanc, acyclovir for encephalitis -f/u completed LP studies and cultures -Patient's condition may represent chronic decline but acute cause must be ruled out first (3) PAF (paroxysmal atrial fibrillation) Current Visit: No Status: Chronic Assessment and Plan: History of proximal atrial fibrillation appears patient is not taking her medications as prescribed she is currently on Eliquis for anticoagulation HR increased overnight to 130s; patient was started on diltiazem drip and HR has improved Plan: Continuous cardiac monitoring Continue diltiazem as patient is NPO; wean as tolerated; consider transition to PO if needed when possible Hold apixiban secondary to vomiting; start lovenox until patient is able to swallow (4) Hypertension Current Visit: No Status: Chronic Assessment and Plan: Patient has not been taking home medications Will hold until patient is able to swallow; monitor BP in mean time and add IV meds as needed (5) DVT prophylaxis Current Visit: No Status: Acute Assessment and Plan: Change eliquis to lovenox until patient able to swallow (6) CKD (chronic kidney disease) stage 4, GFR 15-29 ml/min Current Visit: Yes Status: Acute Assessment and Plan: Patient has a history CK D stage IV; creatinine was 1.87 on admission; IV hydration and monitor Avoid nephrotoxins Monitor intake output daily weights (7) Failure to thrive in adult Current Visit: Yes Status: Acute Assessment and Plan: Patient is unable to perform own ADLs she is disheveled and has body odor as well as yeast in her body folds. She has not been taking her medications at home there is no one in the home to assist with her ADLs. emergency services dispatcher has been consulted Check pre-albumin (8) Diabetes Current Visit: Yes Status: Acute Assessment and Plan: Patient has not been taking medications as prescribed glucose was 500 at home and 444 presentation-placed on sliding scale insulin We will check hemoglobin A1c Patient has some cognitive deficit and unable to check on blood glucose-family is not educated on how to use glucometer or insulin emergency services dispatcher has been consulted patient may require either home health or ECF (9) Frequent falls Current Visit: Yes Status: Acute Assessment and Plan: According to the family patient has been experiencing frequent falls occurring over the past few months but worsening over the past few days. Patient was found this morning next to bed unwitnessed fall has been attempted to assist patient back to bed however patient was unable to stand and he could not lift her. states that she did not hit her head. Patient was left on the floor for approximately 3 hours until son arrived in assisted patient back to bed. CK within normal limits Placed on fall precautions Patient is unable to lift legs off the bed-I witnessed patient attempted to get out of bed and unable to bear weight on legs -she is assisted 2-no urinary or bowel incontinence however we will obtain MRI of cervical spine and lumbar as well as obtain CT of head since fall was unwitnessed-patient history of anticoagulation Eliquis Consult PT OT-patient may need rehabilitation - Time Spent with Patient Total time spent is greater than 50% in coordination of care (as documented) at patient's floor/unit and/or counseling patient: 40 minutes Plan of Care Discussed with: family Internal Medicine: Result - Labs CBC & Chem 7: 03/14/19 09:40 03/14/19 09:40 Labs: Short CBC 03/14/19 Range/Units 09:40 WBC 22.5 H (4.3-11.1) K/mcL Hgb 12.5 D (11.5-15.4) g/dL Hct 37.8 (35.3-44.9) % Plt Count 207 (140-400) K/mcL BMP 03/14/19 09:40 Sodium 139 Potassium 3.8 Chloride 108 H Carbon Dioxide 20 L BUN 30 H Creatinine 1.90 H Glucose 122 H Calcium 8.2 L Liver Function 03/13/19 Range/Units 13:50 Total Bilirubin 0.6 (0.3-1.0) mg/dL Direct Bilirubin 0.2 (0.0-0.2) mg/dL AST 21 (13-39) Units/L ALT 23 (7-52) Units/L Alkaline Phosphatase 94 (34-104) Units/L Albumin 3.7 (3.5-5.7) g/dL Urine 03/13/19 Range/Units 16:30 Urine Color Yellow (Yellow) Urine Clarity Clear (Clear) Urine pH 6.0 (5.0-8.0) pH Units Ur Specific [place] 1.018 (1.010-1.025) Urine Protein >=300 H (Neg-Trace) mg/dL Urine Glucose (UA) 250 H (Normal) mg/dL - ABG Interpretation ABG results: ABG ABG pH 7.35 pH Units (7.32-7.45) 03/13/19 11:36 ABG pCO2 33 mmHg (35-45) L 03/13/19 11:36 ABG pO2 93 mmHg (85-104) 03/13/19 11:36 ABG O2 Saturation 97 % (95-98) 03/13/19 11:36 PT/INR, D-dimer PT 13.0 Seconds (9.4-12.1) H 03/13/19 13:50 - Impressions Impressions Head MRA 03/13/19 16:42 IMPRESSION: 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 50% narrowing in the proximal right internal carotid artery. No additional flow limiting stenosis or acute abnormality in the remainder of the major arteries of the head and neck. 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 50% narrowing in the proximal right internal carotid artery. No additional flow limiting stenosis or acute abnormality in the remainder of the major arteries of the head and neck. D/ / Orlando Martinez MD / Orlando Martinez MD Interpreting Provider: Orlando Martinez MD Echocardiogram Limited Views 03/13/19 17:09 Impressions: LVEF 70%. Normal LV chamber size and function. Mild concentric left ventricular hypertrophy. Left Ventricular Wall Motion: Rest Echo Findings All wall segments showed normal motion. Findings: Study Quality * Technically adequate exam. Left Ventricle * LVEF 70%. * Normal LV chamber size and function. * Mild concentric left ventricular hypertrophy. Right Ventricle * Normal right ventricular structure and function. Aorta * Normally sized aortic root. Pericardium * The pericardium appears normal. IVC * Normal IVC dimensions and inspiratory collapse. Lumbar Puncture Fluoroscopy 03/14/19 09:00 IMPRESSION: Successful fluoroscopic-guided lumbar puncture. D/ / Orlando Martinez MD / Orlando Martinez MD Interpreting Provider: Orlando Martinez MD Consult Discharge Plan - Plan Referrals: Ray Finley Jr, MD [Non-Partnered Physician] - 03/24/19 11:00 am (1) Acute respiratory failure Qualifiers: Respiratory failure complication: hypoxia Qualified Code(s): J96.01 - Acute respiratory failure with hypoxia (2) Altered mental status Qualifiers: Altered mental status type: unspecified Qualified Code(s): R41.82 - Altered mental status, unspecified (4) Hypertension Qualifiers: Hypertension type: unspecified Qualified Code(s): I10 - Essential (primary) hypertension (8) Diabetes Qualifiers: Diabetes mellitus type: type 2 Diabetes mellitus halfway insulin use: with intermodal customer service use Diabetes mellitus complication status: with kidney complications Diabetes mellitus complication detail: with chronic kidney disease Chronic kidney disease stage: stage 4 (severe) Qualified Code(s): E11.22 - Type 2 diabetes mellitus with diabetic chronic kidney disease; N18.4 - Chronic kidney disease, stage 4 (severe); 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
[2019-03-14] MEDS ORDERED: Vancomycin 500 MG in 0.9 % Sodium Chloride Mini Bag 100 ML IVPB ONE (14:55)
[2019-03-14 15:34] LABS: Adenovirus Not Detected (Not Detect); Bordetella Pertussis Not Detected (Not Detect); Chlamydophila pneumoniae Not Detected (Not Detect); Coronavirus 229E Not Detected (Not Detect); Coronavirus HKU1 Not Detected (Not Detect); Coronavirus NL63 Not Detected (Not Detect); Coronavirus OC43 Not Detected (Not Detect); Human Metapneumovirus Not Detected (Not Detect); Human Rhinovirus/Enterovirus Not Detected (Not Detect); Influenza A Subtype 2009 H1 Not Detected (Not Detect); Influenza A Untypeable Not Detected (Not Detect); Influenza B Not Detected (Not Detect); Mycoplasma pneumoniae Not Detected (Not Detect); Parainfluenza Virus 1 Not Detected (Not Detect); Parainfluenza Virus 2 Not Detected (Not Detect); Parainfluenza Virus 3 Not Detected (Not Detect); Parainfluenza Virus 4 Not Detected (Not Detect); Respiratory Syncytial Virus Not Detected (Not Detect)
[2019-03-14] MEDS ORDERED: *HR* Metoprolol 5 MG/5 ML VIAL IVP ONE (22:55)
[2019-03-15] MEDS: Acyclovir 500 MG in D5% in Water 250 ML IVPB SCH (00:29)
[2019-03-15 07:12] LABS: Hematocrit 37.7 % (35.3-44.9); Hemoglobin 12.2 g/dL (11.5-15.4); Mean Corpuscular HGB Conc 32.4 g/dL (31.6-35.5); Mean Corpuscular Hemoglobin 32.7 pg (28.0-33.3); Mean Corpuscular Volume 101.1 fL (83.0-100.0); Mean Platelet Volume 12.9 fL (9.4-12.4); Platelet Count 211 K/mcL (140-400); Red Blood Count 3.73 M/mcL (3.82-4.97); Red Cell Distribution Width 14.5 % (11.5-14.5); White Blood Count 24.1 K/mcL (4.3-11.1)
[2019-03-15 07:14] LABS: Calcium 8.8 mg/dL (8.6-10.3); Potassium 4.1 mEq/L (3.5-5.1)
[2019-03-15] MEDS ORDERED: 0.9 % Sodium Chloride 1,000 ML IV ONE (07:52)
[2019-03-15] MEDS: Insulin LISPRO 300 UNITS/3 ML VIAL SQ SCH ×6 (08:30→23:48)
[2019-03-15] MEDS: Nystatin POWDER 30 GM BOTTLE TP SCH ×2 (08:31→20:10)
[2019-03-15] MEDS: 0.9 % Sodium Chloride 1,000 ML IVC SCH ×2 (09:53→18:02)
[2019-03-15] MEDS: Piperacillin/Tazobactam 3.375 GM in 0.9 % Sodium Chloride Mini Bag 100 ML IVPB SCH ×2 (11:26→22:31)
--- NOTE | 2019-03-15 11:55 | Internal Med Progress Note ---
Hospitalist Progress Note - Encounter Date of Encounter: 03/15/19 Time of Encounter: 11:53 - Subjective Interval History: Patient seen and examined. Patient appears to be doing better. She is able to identify herself and her sister but is still not able to provide meaningful responses to questions. She is now off of oxygen and appears to be breathing we ll. Patient is still not able to follow commands and ST has not been able to evaluate patient. - Exam Vitals: Temp Pulse Resp BP Pulse Ox 99.2 F 115 16 152/85 92 03/15/19 11:36 03/15/19 11:36 03/15/19 11:36 03/15/19 11:36 03/15/19 11:36 Exam: GENERAL APPEARANCE: Poorly nourished; Alert to self and family; not able to provide meaningful answers to questions HEENT: Normocephalic/atraumatic, PERRLA. NECK: Supple, nontender without lymphadenopathy. CARDIOVASCULAR: Irregularly irregular rhythm; no murmurs RESPIRATORY: bilateral air entry present; no wheezing; poor inspiratory effort ABDOMEN: Soft, nondistended, nontender; bowel sounds present. MUSKULOSKELETAL: No limitations in range of motion. EXTREMITIES: No edema, clubbing. NEUROLOGICAL: Unable to assess due to altered mental status; patient unable to answer any questions PSYCHIATRIC: Unable to assess - Assessment and Plan (1) Altered mental status Current Visit: Yes Status: Acute Assessment and Plan: -Patient initially presenting with acute AMS per family; Family mentions steady decline over last several months with acute decline in last 4 days and patient no longer communicating; family says such acute episodes have happened multiple times and are associated with episodes of hyperglycemia -No overt signs of infection on admission: UA without sign of infection, CXR unremarkable, WBC only slightly elevated, afebrile, -Patient's mentition has improved slightly but still not close to baseline per family Plan: -Neurology has been consulted: EEG showed bilateral lateralized epileptiform discharges suggesting OFFLINE EDITOR infection vs anoxia, LP showed 9 nucleated cells, glucose 115, protein 65 -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, vanc, acyclovir for encephalitis -f/u completed LP studies and cultures -Patient's condition may represent chronic decline but acute cause must be ruled out first (2) Acute respiratory failure Current Visit: Yes Status: Acute Assessment and Plan: 03/13/2019: Patient had episode of aspiration at bedside; following this, breath sounds were very coarse and junky; O2 sat dropped to 85% on room air and improved to 92% with 4L NC O2; O2 requirement may be secondary to recent vomiting; patient not having any cough; Temp was measured at 95.9 but rectal was 98.8. 03/14/2019: Patient is now more stable on 2L NC. She is still confused but breathing is no longer labored and breath sounds are more clear. TODAY: patient is now off of oxygen and in no respiratory distress Plan: -Continue treatment for aspiration PNA -See below tx for altered mental status -Continue NPO until ST can evaluate -continuous pulse oximtery; Supplemental O2 via nasal cannula; titrate to maintain sat 92-95% (3) PAF (paroxysmal atrial fibrillation) Current Visit: No Status: Chronic Assessment and Plan: History of proximal atrial fibrillation appears patient is not taking her medications as prescribed she is currently on Eliquis for anticoagulation HR increased this morning to 120s; diltiazem was increased Elevation in HR potentially secondary to acute illness Plan: Continuous cardiac monitoring Continue diltiazem as patient is NPO; wean as tolerated; consider transition to PO if needed when possible Hold apixiban secondary to vomiting; start lovenox until patient is able to swallow (4) Acute kidney injury superimposed on chronic kidney disease Current Visit: No Status: Acute Assessment and Plan: Patient's Cr has increased during admission; likely 2/2 patient being NPO Plan: start IVF and monitor (5) Hypertension Current Visit: No Status: Chronic Assessment and Plan: Patient has not been taking home medications Will hold until patient is able to swallow; monitor BP in mean time and add IV meds as needed (6) DVT prophylaxis Current Visit: No Status: Acute Assessment and Plan: Change eliquis to lovenox until patient able to swallow (7) CKD (chronic kidney disease) stage 4, GFR 15-29 ml/min Current Visit: Yes Status: Acute Assessment and Plan: Patient has a history CK D stage IV; creatinine was 1.87 on admission; IV hydration and monitor Avoid nephrotoxins Monitor intake output daily weights (8) Failure to thrive in adult Current Visit: Yes Status: Acute Assessment and Plan: Patient is unable to perform own ADLs she is disheveled and has body odor as well as yeast in her body folds. She has not been taking her medications at home there is no one in the home to assist with her ADLs. emergency services professional has been consulted Check pre-albumin (9) Diabetes Current Visit: Yes Status: Acute Assessment and Plan: Patient has not been taking medications as prescribed glucose was 500 at home and 444 presentation-placed on sliding scale insulin We will check hemoglobin A1c Patient has some cognitive deficit and unable to check on blood glucose-family is not educated on how to use glucometer or insulin emergency services professional has been consulted patient may require either home health or ECF (10) Frequent falls Current Visit: Yes Status: Acute Assessment and Plan: According to the family patient has been experiencing frequent falls occurring over the past few months but worsening over the past few days. Patient was found this morning next to bed unwitnessed fall has been attempted to assist patient back to bed however patient was unable to stand and he could not lift her. states that she did not hit her head. Patient was left on the f andre for approximately 3 hours until son arrived in assisted patient back to bed. CK within normal limits Placed on fall precautions Patient is unable to lift legs off the bed-I witnessed patient attempted to get out of bed and unable to bear weight on legs -she is assisted 2-no urinary or bowel incontinence however we will obtain MRI of cervical spine and lumbar as well as obtain CT of head since fall was unwitnessed-patient history of anticoagulation Eliquis Consult PT OT-patient may need rehabilitation - Time Spent with Patient Total time spent is greater than 50% in coordination of care (as documented) at patient's floor/unit and/or counseling patient: 38 minutes Plan of Care Discussed with: family Internal Medicine: Result - Labs CBC & Chem 7: 03/15/19 06:30 03/15/19 06:30 Labs: Short CBC 03/15/19 Range/Units 06:30 WBC 24.1 H (4.3-11.1) K/mcL Hgb 12.2 (11.5-15.4) g/dL Hct 37.7 (35.3-44.9) % Plt Count 211 (140-400) K/mcL BMP 03/15/19 06:30 Sodium 139 Potassium 4.1 Chloride 106 Carbon Dioxide 20 L BUN 31 H Creatinine 1.92 H Glucose 229 H Calcium 8.8 - ABG Interpretation ABG results: ABG ABG pH 7.35 pH Units (7.32-7.45) 03/13/19 11:36 ABG pCO2 33 mmHg (35-45) L 03/13/19 11:36 ABG pO2 93 mmHg (85-104) 03/13/19 11:36 ABG O2 Saturation 97 % (95-98) 03/13/19 11:36 PT/INR, D-dimer PT 13.0 Seconds (9.4-12.1) H 03/13/19 13:50 Consult Discharge Plan - Plan Referrals: Ray Finley Jr, MD [Non-Partnered Physician] - 03/24/19 11:00 am (1) Altered mental status Qualifiers: Altered mental status type: unspecified Qualified Code(s): R41.82 - Altered mental status, unspecified (2) Acute respiratory failure Qualifiers: Respiratory failure complication: hypoxia Qualified Code(s): J96.01 - Acute respiratory failure with hypoxia (5) Hypertension Qualifiers: Hypertension type: unspecified Qualified Code(s): I10 - Essential (primary) hypertension (9) Diabetes Qualifiers: Diabetes mellitus type: type 2 Diabetes mellitus rat exterminator insulin use: with rat exterminator use Diabetes mellitus complication status: with kidney complications Diabetes mellitus complication detail: with chronic kidney disease Chronic kidney disease stage: stage 4 (severe) Qualified Code(s): E11.22 - Type 2 diabetes mellitus with diabetic chronic kidney disease; N18.4 - Chronic kidney disease, stage 4 (severe); 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
[2019-03-15] MEDS ORDERED: Vancomycin 500 MG in 0.9 % Sodium Chloride Mini Bag 100 ML IVPB ONE (13:13)
--- NOTE | 2019-03-15 13:28 | Neurology Progress Note ---
Date of Encounter: 03/15/19 Time of Encounter: 13:25 Assessment and Plan (1) Altered mental status Current Visit: Yes Status: Acute Patient with subacute onset of mental status changes with rapid worsening in the last few days and now slowly improving with the use of broad spectrum antibiotic therapy along with antiviral agent. MRI of brain however showed no acute intracranial abnormality. 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 CSF HSV PCR not available yet. Still have elevated WBC and renal failure which contribute to her mental status changes. Clinically she is improving therefore would suggest continuing current antibiotic/antiviral therap. Please continue medical and supportive care. EEG can be repeat on Sunday. Will follow Qualifiers: Altered mental status type: unspecified Qualified Code(s): R41.82 - Altered mental status, unspecified (2) Generalized weakness Current Visit: Yes Status: Acute Subjective Principal diagnosis: Altered mental state suspected TRAFFIC SIGNAL MECHANIC infection Interval history: Patient is seen today and examined at the bedside. She is seen today as a follow-up for suspected TRAFFIC SIGNAL MECHANIC infection causing altered mental status. Patient was seen by Dr. Otilio Beltrán yesterday. I did discuss with the patient's sister who reports that the patient is doing slightly better today compared to yesterday. Per medical records, the patient has been responding to current antibiotic/anti-viral regimen since the last few days. The patient appears wide awake and responsive and is following commands with fluent speech. She does report headaches but would not specify where exactly the headache hurts. She does appear to have a slight neutral rigidity but negative Kernig sign. MRI of the brain, EEG and CSF studies are reviewed. Objective - Constitutional Vitals: Temp Pulse Resp BP Pulse Ox 99.2 F 123 16 152/85 92 03/15/19 11:36 03/15/19 12:03 03/15/19 11:36 03/15/19 11:36 03/15/19 11:36 - Neurological Exam Sensorimotor examination: Present: other (Grossly intact. Patient not totally cooperative) Motor Examination: Present: other (Grossly intact. Patient is not fully cooperative. There is no gross focal weakness seen) Sensation intact: Present: other (Grossly intact) Posture: Present: other (None) Reflexes: Biceps: 2+, Triceps: 2+, Brachioradialis: 2+, Patella: 2+, Achilles: 2+ Mental Status Examination: Present: awake, alert, oriented to person, follows c ommands appropriately, answers questions appropriately, no agnosia Cranial nerve examination: Present: PERRL, EOMI, visual francois intact (Unable to assess), corneal reflexes brisk symmetrically, sensory to face intact, mastication intact, no facial asymmetry is present, no dysarthria, hearing is intact symmetrically Results - Laboratory Findings CBC and BMP: 03/15/19 06:30 03/15/19 06:30 Abnormal lab findings: Abnormal lab results WBC 24.1 K/mcL (4.3-11.1) H 03/15/19 06:30 RBC 3.73 M/mcL (3.82-4.97) L 03/15/19 06:30 Hgb 15.5 g/dL (11.5-15.4) H 03/13/19 10:05 Hct 49.2 % (35.3-44.9) H 03/13/19 10:05 MCV 101.1 fL (83.0-100.0) H 03/15/19 06:30 MCHC 31.5 g/dL (31.6-35.5) L 03/13/19 10:05 MPV 12.9 fL (9.4-12.4) H 03/15/19 06:30 Neutrophils # 20.1 K/mcL (1.6-8.9) H 03/13/19 10:05 Monocytes # 1.5 K/mcL (0.0-1.3) H 03/13/19 03:31 PT 13.0 Seconds (9.4-12.1) H 03/13/19 13:50 ABG pCO2 33 mmHg (35-45) L 03/13/19 11:36 ABG HCO3 18 mEq/L (21-27) L 03/13/19 11:36 ABG Total CO2 19 mEq/L (20-26) L 03/13/19 11:36 ABG Base Excess -6 mEq/L (-2 to 3) L 03/13/19 11:36 VBG pH 7.28 pH Units (7.32-7.42) L 03/12/19 14:14 VBG pO2 55 mmHg (25-50) H 03/12/19 14:14 Sodium 134 mEq/L (136-145) L 03/12/19 13:45 Chloride 108 mEq/L (98-107) H 03/14/19 09:40 Carbon Dioxide 20 mEq/L (23-29) L 03/15/19 06:30 BUN 31 mg/dL (8-23) H 03/15/19 06:30 Creatinine 1.92 mg/dL (0.60-1.20) H 03/15/19 06:30 Est GFR ( Amer) 30 (> 60) L 03/15/19 06:30 Est GFR (Non-Af Amer) 25 (> 60) L 03/15/19 06:30 Glucose 229 mg/dL (70-105) H 03/15/19 06:30 POC Glucose 187 mg/dL (70-99) H 03/15/19 01:05 Hemoglobin A1c 9.8 % (-5.6) H 03/13/19 03:31 Calculated Osmolality 302 (280-300) H 03/15/19 06:30 Lactic Acid 2.3 mmol/L (0.5-2.2) H 03/13/19 13:50 Calcium 8.2 mg/dL (8.6-10.3) L 03/14/19 09:40 Magnesium 1.5 mg/dL (1.6-2.6) L 03/13/19 13:50 Prealbumin 15.2 mg/dL (17.0-34.0) L 03/13/19 03:31 Procalcitonin 3.22 ng/mL (0.00-0.15) H 03/15/19 12:15 Urine Protein >=300 mg/dL (Neg-Trace) H 03/13/19 16:30 Urine Glucose (UA) 250 mg/dL (Normal) H 03/13/19 16:30 Urine Ketones Trace mg/dL (Negative) H 03/13/19 16:30 Urine Blood Small (Negative) H 03/13/19 16:30 Ur Squamous Epith Cells Many per lpf (None-Few) H 03/13/19 16:30 CSF Tot Nucleated Cells 9 TNC/mcL (0-5) H 03/14/19 08:21 CSF Glucose 115 mg/dL (40-70) H 03/14/19 08:21 CSF Total Protein 65 mg/dL (15-45) H 03/14/19 08:21 Consult Discharge Plan - Plan Referrals: Ray Finley Jr, MD [Non-Partnered Physician] - 03/24/19 11:00 am
[2019-03-15 15:21] LABS: Calcium 8.4 mg/dL (8.6-10.3); Potassium 3.7 mEq/L (3.5-5.1)
[2019-03-15] MEDS ORDERED: Furosemide 20 MG/2 ML VIAL IVP ONE (18:02)
[2019-03-15] MEDS: Apixaban 5 MG TABLET PO SCH (19:58)
[2019-03-15] MEDS: Magnesium Oxide 400 MG TABLET PO SCH (19:58)
[2019-03-15] MEDS ORDERED: Acetaminophen IV 1,000 MG/100 ML INFUS..BTL IVPB ONE (23:17)
[2019-03-16] MEDS: Acyclovir 500 MG in D5% in Water 250 ML IVPB SCH (00:26)
[2019-03-16 04:45] LABS: Hematocrit 40.9 % (35.3-44.9); Hemoglobin 13.2 g/dL (11.5-15.4); Mean Corpuscular HGB Conc 32.3 g/dL (31.6-35.5); Mean Corpuscular Hemoglobin 32.6 pg (28.0-33.3); Mean Platelet Volume 12.3 fL (9.4-12.4); Platelet Count 229 K/mcL (140-400); Red Blood Count 4.05 M/mcL (3.82-4.97); Red Cell Distribution Width 14.5 % (11.5-14.5); White Blood Count 25.7 K/mcL (4.3-11.1)
[2019-03-16 05:03] LABS: Calcium 9.4 mg/dL (8.6-10.3); Potassium 3.5 mEq/L (3.5-5.1)
[2019-03-16] MEDS: Insulin LISPRO 300 UNITS/3 ML VIAL SQ SCH ×5 (06:29→21:21)
[2019-03-16] MEDS: Apixaban 5 MG TABLET PO SCH ×2 (08:02→21:23)
[2019-03-16] MEDS: Magnesium Oxide 400 MG TABLET PO SCH ×2 (08:02→21:22)
[2019-03-16] MEDS: Nystatin POWDER 30 GM BOTTLE TP SCH ×2 (08:03→21:24)
[2019-03-16] MEDS ORDERED: 0.9 % Sodium Chloride 1,000 ML IVC SCH (09:15)
--- NOTE | 2019-03-16 09:19 | Internal Med Progress Note ---
Hospitalist Progress Note - Encounter Date of Encounter: 03/16/19 Time of Encounter: 09:16 - Subjective Interval History: Patient seen and examined. Patient appears more improved. Speech is more fluent however content still not clear. Patient voices no acute complaints. Breathing much improved and patient is now off of oxygen - Exam Vitals: Temp Pulse Resp BP Pulse Ox 97.7 F 108 18 170/86 97 03/16/19 07:05 03/16/19 07:05 03/16/19 03:13 03/16/19 07:05 03/16/19 08:19 Exam: GENERAL APPEARANCE: Poorly nourished; Alert to self and family; not able to provide meaningful answers to questions HEENT: Normocephalic/atraumatic, PERRLA. NECK: Supple, nontender without lymphadenopathy. CARDIOVASCULAR: Irregularly irregular rhythm; no murmurs RESPIRATORY: bilateral air entry present; no wheezing; poor inspiratory effort ABDOMEN: Soft, nondistended, nontender; bowel sounds present. MUSKULOSKELETAL: No limitations in range of motion. EXTREMITIES: No edema, clubbing. NEUROLOGICAL: Unable to assess due to altered mental status; patient unable to answer any questions PSYCHIATRIC: Unable to assess - Assessment and Plan (1) Altered mental status Current Visit: Yes Status: Acute Assessment and Plan: -Patient initially presenting with acute AMS per family; Family mentions steady decline over last several months with acute decline in last 4 days and patient no longer communicating; family says such acute episodes have happened multiple times and are associated with episodes of hyperglycemia -No overt signs of infection on admission: UA without sign of infection, CXR unremarkable, WBC only slightly elevated, afebrile, -Patient's mentition continues to improve but still not baseline per family Plan: -Neurology has been consulted: EEG showed bilateral lateralized epileptiform discharges suggesting 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 infection vs anoxia, LP showed 9 nucleated cells, glucose 115, protein 65 -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, vanc, acyclovir for encephalitis -f/u completed LP studies and cultures -Patient's condition may represent chronic decline but acute cause must be ruled out first (2) Acute respiratory failure Current Visit: Yes Status: Acute Assessment and Plan: 03/13/2019: Patient had episode of aspiration at bedside; following this, breath sounds were very coarse and junky; O2 sat dropped to 85% on room air and improved to 92% with 4L NC O2; O2 requirement may be secondary to recent vomiting; patient not having any cough; Temp was measured at 95.9 but rectal was 98.8. 03/14/2019: Patient is now more stable on 2L NC. She is still confused but breathing is no longer labored and breath sounds are more clear. Patient initially improved and was taken off oxygen; after IVF for DAKOTAH, patient developed vascular congestion and mild respiratory distress; IVF were stopped and patient was given IV lasix and improved; O2 sat stable off of oxygen Plan: -Continue treatment for aspiration PNA -See below tx for altered mental status -Continue NPO until ST can evaluate -continuous pulse oximtery; Supplemental O2 via nasal cannula; titrate to maintain sat 92-95% (3) PAF (paroxysmal atrial fibrillation) Current Visit: No Status: Chronic Assessment and Plan: History of proximal atrial fibrillation appears patient is not taking her medications as prescribed she is currently on Eliquis for anticoagulation Elevation in HR potentially secondary to acute illness HR still 110s despite 15 mg/hr IV diltiazem as well as PO metoprolol Plan: Continuous cardiac monitoring Cardiology consulted Hold apixiban secondary to vomiting; start lovenox until patient is able to swallow (4) Acute kidney injury superimposed on chronic kidney disease Current Visit: No Status: Acute Assessment and Plan: Patient's Cr has increased during admission; likely 2/2 patient being NPO Patient initially responded to IVF; however due to vascular congestion this was stopped and after lasix, Cr has come up again Plan: restart light IVF and monitor for volume overload (5) Hypertension Current Visit: No Status: Chronic Assessment and Plan: continue home meds (6) DVT prophylaxis Current Visit: No Status: Acute Assessment and Plan: Continue home meds (7) CKD (chronic kidney disease) stage 4, GFR 15-29 ml/min Current Visit: Yes Status: Acute (8) Failure to thrive in adult Current Visit: Yes Status: Acute Assessment and Plan: Patient is unable to perform own ADLs she is disheveled and has body odor as well as yeast in her body folds. She has not been taking her medications at home there is no one in the home to assist with her ADLs. client services vice president has been consulted (9) Diabetes Current Visit: Yes Status: Acute (10) Frequent falls Current Visit: Yes Status: Acute Assessment and Plan: According to the family patient has been experiencing frequent falls occurring over the past few months but worsening over the past few days. Patient was found this morning next to bed unwitnessed fall has been attempted to assist patient back to bed however patient was unable to stand and he could not lift her. states that she did not hit her head. Patient was left on the floor for approximately 3 hours until son arrived in assisted patient back to bed. CK within normal limits Placed on fall precautions Patient is unable to lift legs off the bed-I witnessed patient attempted to get out of bed and unable to bear weight on legs -she is assisted 2-no urinary or bowel incontinence however we will obtain MRI of cervical spine and lumbar as well as obtain CT of head since fall was unwitnessed-patient history of anticoagulation Eliquis Consult PT OT-patient may need rehabilitation (11) Leukocytosis Current Visit: Yes Status: Acute Assessment and Plan: Patient continues to have leukocytosis trending up since admission Clinical status improving, LA normal, Procalcitonin trending down Patient overall appears to be improving despite worsening leukocytosis Plan: ID on board - Time Spent with Patient Total time spent is greater than 50% in coordination of care (as documented) at patient's floor/unit and/or counseling patient: 40 minutes Plan of Care Discussed with: patient Internal Medicine: Result - Labs CBC & Chem 7: 03/16/19 04:10 03/16/19 04:10 Labs: Short CBC 03/16/19 Range/Units 04:10 WBC 25.7 H (4.3-11.1) K/mcL Hgb 13.2 (11.5-15.4) g/dL Hct 40.9 (35.3-44.9) % Plt Count 229 (140-400) K/mcL BMP 03/15/19 03/16/19 14:00 04:10 Sodium 141 143 Potassium 3.7 3.5 Chloride 110 H 107 Carbon Dioxide 18 L 18 L BUN 27 H 29 H Creatinine 1.74 H 1.98 H Glucose 207 H 242 H Calcium 8.4 L 9.4 - ABG Interpretation ABG results: ABG ABG pH 7.35 pH Units (7.32-7.45) 03/13/19 11:36 ABG pCO2 33 mmHg (35-45) L 03/13/19 11:36 ABG pO2 93 mmHg (85-104) 03/13/19 11:36 ABG O2 Saturation 97 % (95-98) 03/13/19 11:36 PT/INR, D-dimer PT 13.0 Seconds (9.4-12.1) H 03/13/19 13:50 - Impressions Impressions Chest X-Ray 03/15/19 16:49 IMPRESSION: Findings likely related to mild congestive heart failure. D/ / Hazel Pressley MD / Hazel Pressley MD Interpreting Provider: Hazel Pressley MD Consult Discharge Plan - Plan Referrals: Ray Finley Jr, MD [Non-Partnered Physician] - 03/24/19 11:00 am (1) Altered mental status Qualifiers: Altered mental status type: unspecified Qualified Code(s): R41.82 - Altered mental status, unspecified (2) Acute respiratory failure Qualifiers: Respiratory failure complication: hypoxia Qualified Code(s): J96.01 - Acute respiratory failure with hypoxia (5) Hypertension Qualifiers: Hypertension type: unspecified Qualified Code(s): I10 - Essential (primary) hypertension (9) Diabetes Qualifiers: Diabetes mellitus type: type 2 Diabetes mellitus intermediate insulin use: with watermelon harvesting supervisor use Diabetes mellitus complication status: with kidney complications Diabetes mellitus complication detail: with chronic kidney disease Chronic kidney disease stage: stage 4 (severe) Qualified Code(s): E11.22 - Type 2 diabetes mellitus with diabetic chronic kidney disease; N18.4 - Chronic kidney disease, stage 4 (severe); Z79.4 - terminal gauger supervisor (current) use of insulin (11) Leukocytosis Qualifiers: Leukocytosis type: unspecified Qualified Code(s): D72.829 - Elevated white blood cell count, unspecified
[2019-03-16] MEDS: Piperacillin/Tazobactam 3.375 GM in 0.9 % Sodium Chloride Mini Bag 100 ML IVPB SCH ×2 (10:21→21:25)
--- NOTE | 2019-03-16 11:54 | Infectious Disease Consult ---
Infectious Disease-Consult - Encounter Date/Time Date of Encounter: 03/14/19 Time of Encounter: 14:00 - Data of Consult Patient: new to practice Reason for consult: AMS, concern for GAME ADVISOR infection Consult date: 03/14/19 Requesting Physician: Ryan Edmond MD Primary Care Provider: PCP NONE - HPI HPI: Patient is an 83 year old woman who presented to [facility] on 03/12 after sustaining a fall and having AMS, we are consulted on 03/14 for AMS and concern for GAME ADVISOR infection. Patient is an 83 year old woman with PMH mentioned below including atrial fibrillation hypertension cKD coronary artery disease who family at bedside tells me that she has been having mental decline and confustion that has been getting progressively worse for the last 6 months. Her confusion and AMS waxes and wanes. Patient still resides at home with her and she is wheelchair bound due to "knee problems". Most of the information on this patient was gathered from medical records and from sister and family who are at bedside. 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 On the day of admission, patient sustained a fall and was on the floor for 3 hours. Family denies any recent travel for the patient, denies any sick contacts, deny any URI symptoms or complaints that the patient might have had. Patient does not have a history of tick bite or rash. She is always home and does not go outside much. Since admission, patient has been febrile with a Tmax of 101.3F. Patient also had tachycardia and tachypnea. Presenting WBC of 13.7 with 76%N no bands. BUN/Cr 37/1.89. Lactic acid of 2.3. Negative Urinalysis and negative MRSA sc reen. Blood cultures 03/13 NGT. CSF with pleocytosis at 9 with Neutrophilic predominance. Gram stain and culture on the CSF are negative so far. MRI's of the brain, cervical, thoracic and lumbar spine reveal: Mild chronic small ischemic disease age-related involutional change. No acute stroke, midline shift or mass effect. Abnormal signal right intradural vertebral artery may related to chronic occlusion versus slow flow related to stenosis. Spine only reveals chronic vertebral changes with no infection or mass. A CXR reveals vascular congestion with no pneumonia. Currently, patient is laying in bed. eyes open but does not follow commands or answer questions. Does not follow me around with her gaze. NAD. PE is limited but no obvious infection noted. - ROS Review of Systems: 10 point ROS unable to obtain due to Altered mentation. - Results CBC & Chem 7: 03/16/19 04:10 03/16/19 04:10 - Exam Vitals: Temp Pulse Resp BP Pulse Ox 97.7 F 108 18 170/86 97 03/16/19 07:05 03/16/19 07:05 03/16/19 03:13 03/16/19 07:05 03/16/19 08:19 Exam: GENERAL APPEARANCE: Poorly nourished; unable answer questions; and mild distress HEENT: Normocephalic/atraumatic, PERRLA. NECK: Supple, nontender without lymphadenopathy. CARDIOVASCULAR: Irregularly irregular rhythm; no murmurs RESPIRATORY: Coarse upper airway sounds; bilateral air entry present; no wheezing ABDOMEN: Soft, nondistended, nontender; bowel sounds present. MUSKULOSKELETAL: No limitations in range of motion. EXTREMITIES: No edema, clubbing. NEUROLOGICAL: Unable to assess due to altered mental status; patient unable to answer any questions. NO neck stiffness Skin: no rash or decubitus ulcers PSYCHIATRIC: Unable to assess Allopurinol [Zyloprim 100 MG] 100 mg PO DAILY 09/11/17 [History] Esomeprazole Magnesium [Nexium] 40 mg PO DAILY 09/11/17 [History] Insulin Glargine,Hum.rec.anlog [Lantus Solostar] 0 unit SQ DAILY 09/11/17 [History] Lisinopril [Zestril] 10 mg PO DAILY 09/11/17 [History] Rosuvastatin [Crestor] 20 mg PO HS 09/11/17 [History] Magnesium Oxide [Mag-Ox] 400 mg PO BID 14 Days #28 tablet 09/14/17 [Rx] Apixaban [Eliquis] 2.5 mg PO BID 12/03/18 [History] Metoprolol Tartrate 200 mg PO BID 12/03/18 [History] Sitagliptin Phosphate [Januvia] 50 mg PO DAILY 12/03/18 [History] Allergy/AdvReac Type Severity Reaction Status Date / Time morphine Allergy Drowsy Verified 09/06/18 17:12 - Assessment and Plan (1) Severe sepsis Current Visit: Yes Status: Acute patient had 4 SIRS criteria on admission with End organ damage and lactic acidosis etiology not clear (GAME ADVISOR infection vs other infection vs non infectious causes) SNOMED Code(s): 11212148 (2) Altered mental status Current Visit: Yes Status: Acute etiology not clear [place]/MRA reveal no acute process clinically deteriorating over months EEG results noted family deny knowledge of patient having cold sores or shingles in the past CSF with mild pleocytosis (WBC 9, N75%L16%, protein 115 and glucose 65) gram stain negative, cultures NGT Neurology input appreciated Qualifiers: Altered mental status type: unspecified Qualified Code(s): R41.82 - Altered mental status, unspecified SNOMED Code(s): 175584131 (3) Acute kidney injury superimposed on chronic kidney disease Current Visit: No Status: Acute SNOMED Code(s): 90598481 (4) Generalized weakness Current Visit: Yes Status: Acute SNOMED Code(s): 64255298 (5) PAF (paroxysmal atrial fibrillation) Current Visit: No Status: Chronic SNOMED Code(s): 336521466 (6) Diabetes Current Visit: Yes Status: Acute hb A1c 9.8 Qualifiers: Diabetes mellitus type: type 2 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 use: with terminal make up operator use Diabetes mellitus complication status: with kidney complications Diabetes mellitus complication detail: with chronic kidney disease Chronic kidney disease stage: stage 4 (severe) Qualified Code(s): E11.22 - Type 2 diabetes mellitus with diabetic chronic kidney disease; N18.4 - Chronic kidney disease, stage 4 (severe); Z79.4 - correction (current) use of insulin SNOMED Code(s): 68118810 (7) Frequent falls Current Visit: Yes Status: Acute CK within normal limit no signs of rhabdo SNOMED Code(s): 221659490 (8) CAD (coronary artery disease) Current Visit: No Status: Chronic Qualifiers: Coronary Disease-Associated Artery/Lesion type: [place] artery [place] vs. transplanted heart: [place] heart Associated angina: without angina Qualified Code(s): I25.10 - Atherosclerotic heart disease of [place] coronary artery without angina pectoris SNOMED Code(s): 24974612 - Recommendations Recommendations: At this point I'm not sure what' is causing the patients symptoms and clinical picture patient with severe sepsis and AMS not sure if there is an underlying infection causing her AMS or if the AMS is due to GAME ADVISOR infection viral meningitis is on my diff non infectious etiology is also a concern but MRI/MRA non revealing other systemic infections i'm concerned for include aspiration pneumonia, intra abdominal process or bacteremia for now I will continue antibiotics even though CSF is suggesting viral exanthem check HSV PCR, VZV PCR on the CSF, Respiratory infectious panel. await CSF cultures and blood cultures (low index of suspicion for bacterial meningitis or listeria) repeat CXR if no improvement, consider CT chest abdomen and pelvis also consider check inflammatory markers (ESR, CRP, ABIODUN, RF) monitor kidney function closely goal vanc trough around 10 Past Med Surg Social Fam HX - Past Medical History Medical history: arthritis, atrial fibrillation, diabetes, hypertension Additional medical history: Gout L Foot Psychiatric history: no psych history - Past Surgical History Surgical History: colectomy, hysterectomy - Social History Smoking Status: Never smoker Smokeless Tobacco Status: No Alcohol use: none Drug use: none - Family History Mother Hx Family Cardiac Disorders: Yes Father Hx Family Cardiac Disorders: Yes Consult Discharge Plan - Plan Referrals: Ray Finley Jr, MD [Non-Partnered Physician] - 03/24/19 11:00 am
--- NOTE | 2019-03-16 13:52 | Neurology Progress Note ---
Date of Encounter: 03/16/19 Time of Encounter: 13:49 Assessment and Plan (1) Altered mental status Current Visit: Yes Status: Acute Patient with subacute onset of mental status changes with rapid worsening in the last few days and now slowly improving with the use of broad spectrum antibiotic therapy along with antiviral agent. MRI of brain however showed no acute intracranial abnormality. 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 CSF HSV PCR not available yet. Still have elevated WBC and renal failure which contribute to her mental status changes. Clinically she is improving therefore would suggest continuing current antibiotic/antiviral therap. Please continue medical and supportive care. Will obtain EEG tomorrow AM. Qualifiers: Altered mental status type: unspecified Qualified Code(s): R41.82 - Altered mental status, unspecified (2) Generalized weakness Current Visit: Yes Status: Acute Patient has generalized weakness, mostly in the proximal limbs both upper and lower extremities. 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 This likely is related to general medical condition and appears improving. Will monitor closely. The presence of elevated WBC in CSF with only slightly elevated protein would argue against diagnosis of Guillain [place] syndrome Please continue medical and supportive care Subjective Principal diagnosis: Altered mental state suspected REPAIRER SWITCHGEAR infection Interval history: Patient is seen today and examined at the bedside. She is doing better today and she is more communicative today and is oriented to place and person although she called her niece her mother's name. She reports no headaches today. No neck pain and is moving all extremities Objective - Constitutional Vitals: Temp Pulse Resp BP Pulse Ox 98.8 F 105 17 158/80 96 03/16/19 11:54 03/16/19 11:54 03/16/19 11:54 03/16/19 11:54 03/16/19 11:54 - Neurological Exam Sensorimotor examination: Present: other (Grossly intact. Patient not totally cooperative) Motor Examination: Present: grossly full strength in all extremities, other (She is overall mildly weak but able to dock operations supervisor after encouragement equally. ) Motor examination - right side: 4/5: deltoids, biceps, triceps, wrist flexion, wrist extension, dock operations supervisor, hip flexors, tibialis Anterior, quadriceps, toe extension (EHL), plantarflexion Motor examination - left side: 4/5: deltoids, biceps, triceps, wrist flexion, wrist extension, hip flexors, dock operations supervisor, quadriceps, tibialis Anterior, toe extension (EHL), plantarflexion Sensation intact: Present: other (Grossly intact) Posture: Present: other (None) Reflex and gait examination: other (Gait not assessed) Reflexes: Biceps: 1+, Triceps: 1+, Brachioradialis: 1+, Patella: 1+, Achilles: 1+ Mental Status Examination: Present: awake, alert, oriented to person, oriented to place, follows commands appropriately, answers questions appropriately, no agnosia Cranial nerve examination: Present: PERRL, EOMI, visual fracnois intact (Unable to assess), corneal reflexes brisk symmetrically, sensory to face intact, mastication intact, no facial asymmetry is present, no dysarthria, hearing is intact symmetrically Results - Laboratory Findings CBC and BMP: 03/16/19 04:10 03/16/19 04:10 Abnormal lab findings: Abnormal lab results WBC 25.7 K/mcL (4.3-11.1) H 03/16/19 04:10 RBC 3.73 M/mcL (3.82-4.97) L 03/15/19 06:30 Hgb 15.5 g/dL (11.5-15.4) H 03/13/19 10:05 Hct 49.2 % (35.3-44.9) H 03/13/19 10:05 MCV 101.0 fL (83.0-100.0) H 03/16/19 04:10 MCHC 31.5 g/dL (31.6-35.5) L 03/13/19 10:05 MPV 12.9 fL (9.4-12.4) H 03/15/19 06:30 Neutrophils # 20.1 K/mcL (1.6-8.9) H 03/13/19 10:05 Monocytes # 1.5 K/mcL (0.0-1.3) H 03/13/19 03:31 PT 13.0 Seconds (9.4-12.1) H 03/13/19 13:50 ABG pCO2 33 mmHg (35-45) L 03/13/19 11:36 ABG HCO3 18 mEq/L (21-27) L 03/13/19 11:36 ABG Total CO2 19 mEq/L (20-26) L 03/13/19 11:36 ABG Base Excess -6 mEq/L (-2 to 3) L 03/13/19 11:36 VBG pH 7.28 pH Units (7.32-7.42) L 03/12/19 14:14 VBG pO2 55 mmHg (25-50) H 03/12/19 14:14 Sodium 134 mEq/L (136-145) L 03/12/19 13:45 Chloride 110 mEq/L (98-107) H 03/15/19 14:00 Carbon Dioxide 18 mEq/L (23-29) L 03/16/19 04:10 BUN 29 mg/dL (8-23) H 03/16/19 04:10 Creatinine 1.98 mg/dL (0.60-1.20) H 03/16/19 04:10 Est GFR ( Amer) 29 (> 60) L 03/16/19 04:10 Est GFR (Non-Af Amer) 24 (> 60) L 03/16/19 04:10 Glucose 242 mg/dL (70-105) H 03/16/19 04:10 POC Glucose 150 mg/dL (70-99) H 03/16/19 11:58 Hemoglobin A1c 9.8 % (-5.6) H 03/13/19 03:31 Calculated Osmolality 310 (280-300) H 03/16/19 04:10 Lactic Acid 2.3 mmol/L (0.5-2.2) H 03/13/19 13:50 Calcium 8.4 mg/dL (8.6-10.3) L 03/15/19 14:00 Magnesium 1.5 mg/dL (1.6-2.6) L 03/13/19 13:50 B-Natriuretic Peptide 535 pg/mL (Less than 100) H 03/15/19 16:54 Prealbumin 15.2 mg/dL (17.0-34.0) L 03/13/19 03:31 Procalcitonin 2.67 ng/mL (0.00-0.15) H 03/16/19 04:10 Urine Protein >=300 mg/dL (Neg-Trace) H 03/13/19 16:30 Urine Glucose (UA) 250 mg/dL (Normal) H 03/13/19 16:30 Urine Ketones Trace mg/dL (Negative) H 03/13/19 16:30 Urine Blood Small (Negative) H 03/13/19 16:30 Ur Squamous Epith Cells Many per lpf (None-Few) H 03/13/19 16:30 CSF Tot Nucleated Cells 9 TNC/mcL (0-5) H 03/14/19 08:21 CSF Glucose 115 mg/dL (40-70) H 03/14/19 08:21 CSF Total Protein 65 mg/dL (15-45) H 03/14/19 08:21 Vancomycin Trough 12 mcg/mL (5-10) H 03/16/19 12:11 Consult Discharge Plan - Plan Referrals: Ray Finley Jr, MD [Non-Partnered Physician] - 03/24/19 11:00 am
[2019-03-16] MEDS ORDERED: Haloperidol Lactate 5 MG/ML VIAL IVP ONE (20:28)
[2019-03-16] MEDS ORDERED: *HR* Promethazine 25 MG/ML VIAL IVP ONE (20:28)
[2019-03-17] MEDS: Insulin LISPRO 300 UNITS/3 ML VIAL SQ SCH ×6 (01:05→21:09)
[2019-03-17] MEDS: Acyclovir 500 MG in D5% in Water 250 ML IVPB SCH (01:18)
[2019-03-17 04:37] LABS: Hemoglobin 11.7 g/dL (11.5-15.4); Mean Corpuscular HGB Conc 32.5 g/dL (31.6-35.5); Mean Corpuscular Hemoglobin 32.4 pg (28.0-33.3); Mean Corpuscular Volume 99.7 fL (83.0-100.0); Mean Platelet Volume 12.2 fL (9.4-12.4); Platelet Count 241 K/mcL (140-400); Red Blood Count 3.61 M/mcL (3.82-4.97); Red Cell Distribution Width 14.6 % (11.5-14.5); White Blood Count 19.3 K/mcL (4.3-11.1)
[2019-03-17 04:58] LABS: Calcium 8.1 mg/dL (8.6-10.3); Potassium 3.2 mEq/L (3.5-5.1)
[2019-03-17] MEDS ORDERED: 0.9 % Sodium Chloride 500 ML IVC ONE (07:35)
[2019-03-17] MEDS ORDERED: 0.9 % Sodium Chloride 1,000 ML IVC SCH (07:45)
[2019-03-17] MEDS ORDERED: dilTIAZem HCl 60 MG TABLET PO SCH (09:00)
[2019-03-17] MEDS ORDERED: Pantoprazole 40 MG VIAL IVP SCH (09:00)
[2019-03-17] MEDS: Magnesium Oxide 400 MG TABLET PO SCH ×2 (09:16→21:09)
[2019-03-17] MEDS: Apixaban 5 MG TABLET PO SCH ×2 (09:16→21:08)
[2019-03-17] MEDS: Nystatin POWDER 30 GM BOTTLE TP SCH ×2 (09:17→21:10)
[2019-03-17] MEDS: Piperacillin/Tazobactam 3.375 GM in 0.9 % Sodium Chloride Mini Bag 100 ML IVPB SCH ×2 (09:17→21:50)
--- NOTE | 2019-03-17 09:34 | Neurology Progress Note ---
Date of Encounter: 03/17/19 Time of Encounter: 09:32 Assessment and Plan (1) Altered mental status Current Visit: Yes Status: Acute Neurology seeing in follow-up for acute HAND SAMPLE MAKER infection Presented with subacute onset of mental status change and rapidly declining condition MRI of the brain negative for acute intracranial abnormality EEG on admission showing BIPLEDS concerning for HAND SAMPLE MAKER infection LP completed showing mild elevation in WBC and protein; antiviral and anti- biotic therapy implemented Patient's mental status has improved, clinically she remained stable without any further neurological deficits Today exam is negative for any focal findings. Confusion persists somewhat but family reports that she is at her baseline At this time HSV PCR still pending; continue with ABX/antiviral therapy, continue medical and supportive care Plan for EEG today; further recommendations pending EEG Qualifiers: Altered mental status type: unspecified Qualified Code(s): R41.82 - Altered mental status, unspecified (2) Generalized weakness Current Visit: Yes Status: Acute Generalized weakness persists but is improving overall. Recommending PT/OT consultation. Otherwise continue medical and supportive care. Subjective Principal diagnosis: Altered mental state suspected HAND SAMPLE MAKER infection Interval history: The chart was reviewed, the patient was seen and examined at bedside today. She is doing much better today in regards to communication. She is alert and oriented to person and place, able to recognize family and is conversational. She denies any headaches, neck pain or stiffness. She is able to move all extremities. Objective - Constitutional Vitals: Temp Pulse Resp BP Pulse Ox 100.6 F H 105 17 148/72 94 03/17/19 07:11 03/17/19 07:11 03/17/19 07:11 03/17/19 07:11 03/17/19 07:11 Exam: Examination: General Examination: *CONSTITUTIONAL: Alert and oriented x2 to person and place *GENERAL APPEARANCE OF PATIENT generally ill appearing 83-year-old elderly female *EYES: pupils equal, round, reactive to light and accommodation, conjunctiva clear without masses or ulcerations, fundi normal. *CARDIOVASCULAR: no peripheral edema, distal temperature normal, dorsalis pedis pulses normal. Refer to vital signs * MUSCULOSKELETAL: *GAIT AND STATION: Deferred *ASSESSMENT OF MUSCLE STRENGTH IN THE UPPER AND LOWER EXTREMITIES moves all 4 extremities spontaneously, bilateral deltoids, biceps, triceps, wrist flexion, wrist extension, foundry technician 4/5, bilateral quadriceps, tibialis anterior 3/5 *MUSCLE TONE IN THE UPPER AND LOWER EXTREMITIES normal. No abnormal movements, fasciculations or atrophy identified. Neurological: *ORIENTATION to person, and place only *LANGUAGE AND FUNCTION no significant aphasia or dysarthia was noted. *ATTENTION AND CONCENTRATION are abnormal but reorients easily *LANGUAGE FUNCTION no significant aphasia or dysarthia was noted. *FUND OF KNOWLEDGE aware of current events, past history, vocabulary *MENTAL attention span and concentration abnormal and patient still having episodes of confusion but reorients easily *CN II optic fundi were normal, no papilledema noted. *CN III,IV, PERRLA extraocular eye movements were full, no nystagmus and no ptosis noted. *CN V shows normal sensation and jaw opens symmetrically. *CN VII shows normal facial movement symmetrically, upper and lower bilaterally. *CN VIII shows no significant hearing loss on exam *CN IX-X palate elevated symmetrically *CN XI normal strength in the sternocleidomastoid muscles, symmetrical shoulder shrugging. *CN XII tongue protruded in the midline, with normal strength and movemen t. *SENSORY EXAMINATION light touch intact *REFLEXES: deep tendon reflexes were normal and symmetrical , grade 1/4 diffusely, no pathological reflexes were noted. *CEREBELLAR TESTING patient would not perform finger to nose or heel to sampson *PAIN LEVEL 0/10 - Neurological Exam Sensorimotor examination: Present: other (Grossly intact. Patient not totally cooperative) Motor Examination: Present: grossly full strength in all extremities, other (She is overall mildly weak but able to foundry technician after encouragement equally. ) Motor examination - left side: 4/5: deltoids, biceps, triceps, wrist flexion, wrist extension, hip flexors, foundry technician, quadriceps, tibialis Anterior, toe extension (EHL), plantarflexion Sensation intact: Present: other (Grossly intact) Posture: Present: other (None) Reflex and gait examination: other (Gait not assessed) Mental Status Examination: Present: awake, alert, oriented to person, oriented to place, follows commands appropriately, answers questions appropriately, no agnosia Cranial nerve examination: Present: PERRL, EOMI, visual francois intact (Unable to assess), corneal reflexes brisk symmetrically, sensory to face intact, ma stication intact, no facial asymmetry is present, no dysarthria, hearing is intact symmetrically Results - Laboratory Findings CBC and BMP: 03/17/19 04:18 03/17/19 04:18 Abnormal lab findings: Abnormal lab results WBC 19.3 K/mcL (4.3-11.1) H 03/17/19 04:18 RBC 3.61 M/mcL (3.82-4.97) L 03/17/19 04:18 Hgb 15.5 g/dL (11.5-15.4) H 03/13/19 10:05 Hct 49.2 % (35.3-44.9) H 03/13/19 10:05 MCV 101.0 fL (83.0-100.0) H 03/16/19 04:10 MCHC 31.5 g/dL (31.6-35.5) L 03/13/19 10:05 RDW 14.6 % (11.5-14.5) H 03/17/19 04:18 MPV 12.9 fL (9.4-12.4) H 03/15/19 06:30 Neutrophils # 20.1 K/mcL (1.6-8.9) H 03/13/19 10:05 Monocytes # 1.5 K/mcL (0.0-1.3) H 03/13/19 03:31 PT 13.0 Seconds (9.4-12.1) H 03/13/19 13:50 ABG pCO2 33 mmHg (35-45) L 03/13/19 11:36 ABG HCO3 18 mEq/L (21-27) L 03/13/19 11:36 ABG Total CO2 19 mEq/L (20-26) L 03/13/19 11:36 ABG Base Excess -6 mEq/L (-2 to 3) L 03/13/19 11:36 VBG pH 7.28 pH Units (7.32-7.42) L 03/12/19 14:14 VBG pO2 55 mmHg (25-50) H 03/12/19 14:14 Sodium 134 mEq/L (136-145) L 03/12/19 13:45 Potassium 3.2 mEq/L (3.5-5.1) L 03/17/19 04:18 Chloride 111 mEq/L (98-107) H 03/17/19 04:18 Carbon Dioxide 19 mEq/L (23-29) L 03/17/19 04:18 BUN 30 mg/dL (8-23) H 03/17/19 04:18 Creatinine 2.01 mg/dL (0.60-1.20) H 03/17/19 04:18 Est GFR ( Amer) 29 (> 60) L 03/17/19 04:18 Est GFR (Non-Af Amer) 24 (> 60) L 03/17/19 04:18 Glucose 212 mg/dL (70-105) H 03/17/19 04:18 POC Glucose 195 mg/dL (70-99) H 03/16/19 16:12 Hemoglobin A1c 9.8 % (-5.6) H 03/13/19 03:31 Calculated Osmolality 306 (280-300) H 03/17/19 04:18 Lactic Acid 2.3 mmol/L (0.5-2.2) H 03/13/19 13:50 Calcium 8.1 mg/dL (8.6-10.3) L 03/17/19 04:18 Magnesium 1.5 mg/dL (1.6-2.6) L 03/13/19 13:50 B-Natriuretic Peptide 535 pg/mL (Less than 100) H 03/15/19 16:54 Prealbumin 15.2 mg/dL (17.0-34.0) L 03/13/19 03:31 Procalcitonin 2.67 ng/mL (0.00-0.15) H 03/16/19 04:10 Urine Protein >=300 mg/dL (Neg-Trace) H 03/13/19 16:30 Urine Glucose (UA) 250 mg/dL (Normal) H 03/13/19 16:30 Urine Ketones Trace mg/dL (Negative) H 03/13/19 16:30 Urine Blood Small (Negative) H 03/13/19 16:30 Ur Squamous Epith Cells Many per lpf (None-Few) H 03/13/19 16:30 CSF Tot Nucleated Cells 9 TNC/mcL (0-5) H 03/14/19 08:21 CSF Glucose 115 mg/dL (40-70) H 03/14/19 08:21 CSF Total Protein 65 mg/dL (15-45) H 03/14/19 08:21 Vancomycin Trough 12 mcg/mL (5-10) H 03/16/19 12:11 Consult Discharge Plan - Plan Referrals: Ray Finley Jr, MD [Non-Partnered Physician] - 03/24/19 11:00 am
[2019-03-17] MEDS: Acetaminophen 325 MG TABLET PO PRN (11:50)
--- NOTE | 2019-03-17 11:56 | Cardiology Consult Note ---
Date of Encounter: 03/17/19 Time of Encounter: 11:50 Assessment and Plan (1) Altered mental status Current Visit: Yes Status: Acute Per Cardiology: Presented with reported status changes. Neurology following-- EEG pending today. Qualifiers: Altered mental status type: unspecified Qualified Code(s): R41.82 - Altered mental status, unspecified (2) Severe sepsis Current Visit: Yes Status: Acute Per Cardiology: Being followed by ID. On antibiotics and antivirals. (3) PAF (paroxysmal atrial fibrillation) Current Visit: No Status: Chronic Per Cardiology: Has known history of atrial fibrillation. Currently in A. fib in the 80s to 90s on Cardizem drip 10 mg per hour. On home dose of Lopressor 100 mg by mouth twice a day. Systolic blood pressure in the 110s to 140s. We will attempt to wean IV Cardizem drip to off and start Cardizem by mouth 30 mg by mouth every 6 hours and titrate as heart rate and blood pressure allows. We will decrease lisinopril from 10 mg by mouth daily to 2.5 mg by mouth daily and monitor. Echo showed EF preserved 70%. Check Mag-- was low earlier during hospital say. On Mag oxide. Regarding long-term anticoagulation, on Eliquis 2.5mg PO BID. Has known CKD IV. Overall H&H overall slightly downward trend, monitor closely. Discussed and reviewed with Dr. Pagan. Discussion w patient/family: The assessment and plan as outlined above was discussed with the patient and/or family members who expressed understanding and agreement. All questions were answered. Thank you for involving us in the care of your patient. Please call with any questions. History of Present Illness Consult date: 03/17/19 Consult reason: afib Chief complaint: Patient confused History of present illness: Ms. Burciaga is a 83 year old female with a relevant past medical history of CAD, HTN, PAF on anticoagulation, HLD, DM 2, GERD, CK D stage IV. Last seen by Dr. Victorino Jones (EP) November 2017. Cardiology consult for A. fib with RVR. Seen with family at bedside. Unable to obtain medical information from patient. She is currently alert to person and location of [facility], however she thought she was at home. Additionally, she thought the year was 1964. Speech is somewhat garbled and difficult to understand. Family reports she is not returned to baseline mental status. They deny any awareness to any chest pain, short of breath, palpitations prior to her mental status changes precipitating admission. Past Med Surg Social Fam HX - Past Medical History Source: old records reviewed, obtained from family Medical history: arthritis, atrial fibrillation, diabetes, hypertension Additional medical history: Gout L Foot Psychiatric history: no psych history - Past Surgical History Surgical History: colectomy, hysterectomy - Social History Smoking Status: Never smoker Smokeless Tobacco Status: No Alcohol use: none Drug use: none - Family History Mother Hx Family Cardiac Disorders: Yes Father Hx Family Cardiac Disorders: Yes Medications and Allergies Allopurinol [Zyloprim 100 MG] 100 mg PO DAILY 09/11/17 [History] Esomeprazole Magnesium [Nexium] 40 mg PO DAILY 09/11/17 [History] Insulin Glargine,Hum.rec.anlog [Lantus Solostar] 0 unit SQ DAILY 09/11/17 [History] Lisinopril [Zestril] 10 mg PO DAILY 09/11/17 [History] Rosuvastatin [Crestor] 20 mg PO HS 09/11/17 [History] Magnesium Oxide [Mag-Ox] 400 mg PO BID 14 Days #28 tablet 09/14/17 [Rx] Apixaban [Eliquis] 2.5 mg PO BID 12/03/18 [History] Metoprolol Tartrate 200 mg PO BID 12/03/18 [History] Sitagliptin Phosphate [Januvia] 50 mg PO DAILY 12/03/18 [History] Allergy/AdvReac Type Severity Reaction Status Date / Time morphine Allergy Drowsy Verified 09/06/18 17:12 ROS unobtainable: due to mental status All Systems Review: The remainder of the systems were reviewed and are negative - Cardiovascular Cardiovascular: as per HPI Physical Examination Vital Signs, Last 4 Hours Temp Pulse Resp BP Pulse Ox 03/17/19 11:29 97.3 F L 85 19 116/87 96 General: Conversant, No Apparent Distress HEENT: Atraumatic, Normocephaly, Mucus Membranes Moist Neck: No JVD, Normal carotid pulses Cardiac: No Murmur, Other (Irregularly irregular) Lungs: Normal Breath Sounds, No Wheeze, Rales, Rhonchi Neuro: Other (Alert to person, speech garbled) Abdomen: Soft, Non-Tender Skin: No rashes noted on visualized skin Musculoskeletal: No Chest Wall Tenderness Extremities: No Clubbing, No Cyanosis, No Edema, Normal Pulses Results 03/17/19 04:18 03/17/19 04:18 Lab Results Laboratory Tests 03/12/19 03/12/19 03/13/19 13:45 13:45 03:31 WBC 13.7 H Hgb 15.1 Hct 46.8 H INR Creatinine 1.87 H Magnesium 1.1 L AST ALT B-Natriuretic Peptide 03/13/19 03/13/19 03/13/19 10:05 13:50 13:50 WBC Hgb Hct INR 1.1 Creatinine Magnesium 1.5 L AST 24 ALT 23 B-Natriuretic Peptide 03/15/19 03/16/19 03/17/19 16:54 04:10 04:18 WBC 25.7 H 19.3 H Hgb 11.7 D Hct 36.0 INR Creatinine Magnesium AST ALT B-Natriuretic Peptide 535 H 03/17/19 04:18 WBC Hgb Hct INR Creatinine 2.01 H Magnesium AST ALT B-Natriuretic Peptide ITS Impressions Head CT 03/12/19 18:52 IMPRESSION: No acute intracranial abnormality. Mild chronic small vessel ischemic disease. D/ / Vinicius Gilmore / Vinicius Gilmore Interpreting Provider: Vinicius Gilmore Cervical Spine MRI 03/12/19 19:37 IMPRESSION: Cervical spine: Multilevel degenerative disc disease in the cervical spine as described. See above for details of each level. Lumbar spine: Multilevel degenerative disc disease in the lower thoracic spine and the lumbar spine as described. See above for details of each level D/ / Valentin Montero / Valentin Montero Interpreting Provider: Valentin Montero Lumbar Spine MRI 03/12/19 19:37 IMPRESSION: Cervical spine: Multilevel degenerative disc disease in the cervical spine as described. See above for details of each level. Lumbar spine: Multilevel degenerative disc disease in the lower thoracic spine and the lumbar spine as described. See above for details of each level D/ / Valentin Montero / Valentin Montero Interpreting Provider: Valentin Montero Chest X-Ray 03/12/19 19:54 IMPRESSION: Stable study. D/ / Anne-Marie Lo Cha, MD / Anne-Marie Lo Cha, MD Interpreting Provider: Anne-Marie Lo Cha, MD Brain MRI 03/12/19 21:27 IMPRESSION: Mild chronic small ischemic disease age-related involutional change. No acute stroke, midline shift or mass effect. Abnormal signal right intradural vertebral artery may related to chronic occlusion versus slow flow related to stenosis D/ / Vinicius Gilmore / Vinicius Gilmore Interpreting Provider: Vinicius Gilmore Chest X-Ray 03/13/19 10:05 IMPRESSION: Mild pulmonary vascular congestion. 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 50% narrowing in the proximal right internal carotid artery. No additional flow limiting stenosis or acute abnormality in the remainder of the major arteries of the head and neck. 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 50% narrowing in the proximal right internal carotid artery. No additional flow limiting stenosis or acute abnormality in the remainder of the major arteries of the head and neck. D/ / Orlando Martinez MD / Orlando Martinez MD Interpreting Provider: Orlando Martinez MD Echocardiogram Limited Views 03/13/19 17:09 Impressions: LVEF 70%. Normal LV chamber size and function. Mild concentric left ventricular hypertrophy. Left Ventricular Wall Motion: Rest Echo Findings All wall segments showed normal motion. Findings: Study Quality * Technically adequate exam. Left Ventricle * LVEF 70%. * Normal LV chamber size and function. * Mild concentric left ventricular hypertrophy. Right Ventricle * Normal right ventricular structure and function. Aorta * Normally sized aortic root. Pericardium * The pericardium appears normal. IVC * Normal IVC dimensions and inspiratory collapse. Lumbar Puncture Fluoroscopy 03/14/19 09:00 IMPRESSION: Successful fluoroscopic-guided lumbar puncture. D/ / Orlando Martinez MD / Orlando Martinez MD Interpreting Provider: Orlando Martinez MD Chest X-Ray 03/15/19 16:49 IMPRESSION: Findings likely related to mild congestive heart failure. D/ / Hazel Pressley MD / Hazel Pressley MD Interpreting Provider: Hazel Pressley MD Active Medications Acetaminophen (Tylenol) 325 mg PO Q6HR PRN PRN Reason: Fever Stop: 09/16/19 10:12 Last Admin: 03/17/19 11:50 Dose: 325 mg Documented by: Allopurinol (Zyloprim) 100 mg PO DAILY FILI Stop: 09/15/19 09:01 Last Admin: 03/17/19 09:16 Dose: 100 mg Documented by: Apixaban (Eliquis) 2.5 mg PO BID FILI; Protocol Stop: 09/14/19 21:01 Last Admin: 03/17/19 09:16 Dose: 2.5 mg Documented by: Dextrose/Water (Dextrose 50% (Syg)) 25 ml IVP AD PRN PRN Reason: Hypoglycemia Stop: 09/11/19 18:09 Glucagon (Glucagen) 1 mg IM ONCE PRN PRN Reason: Hypoglycemia Stop: 09/11/19 18:09 Glucose (Gluctose) 15 gm PO ONCE PRN PRN Reason: Hypoglycemia Stop: 09/11/19 18:09 Glucose (Gluctose) 30 gm PO ONCE PRN PRN Reason: Hypoglycemia Stop: 09/11/19 18:09 Diltiazem HCl 50 mg/ Sodium (Chloride) 50 mls @ 2.5 mls/hr IVC CONT [facility]; Protocol Stop: 09/12/19 21:24 Last Infusion: 03/17/19 11:33 Dose: 12.5 mg/hr, 12.5 mls/hr Documented by: Acyclovir 500 mg/ Dextrose 260 mls @ 245.283 mls/hr IVPB Q24H [facility] Stop: 09/14/19 00:01 Last Infusion: 03/17/19 06:28 Dose: Infused Documented by: Piperacillin Sod/Tazobactam (Sod 3.375 gm/ Sodium Chloride) 100 mls @ 25 mls/hr IVPB Q12H [facility] Stop: 09/13/19 22:01 Last Admin: 03/17/19 09:17 Dose: 25 mls/hr Documented by: Sodium Chloride (0.9 % Sodium Chloride) 1,000 mls @ 75 mls/hr IVC .[id number] [facility] Stop: 03/17/19 21:04 Last Admin: 03/17/19 09:14 Dose: 75 mls/hr Documented by: Vancomycin HCl 500 mg/ Sodium (Chloride) 100 mls @ 100 mls/hr IVPB Q24H [facility] Stop: 09/16/19 12:01 Insulin Human Lispro (Humalog) 0 units SQ Q4HR [facility]; Protocol Stop: 09/11/19 20:01 Last Admin: 03/17/19 09:15 Dose: 4 units Documented by: Lisinopril (Zestril) 10 mg PO DAILY [facility]; Protocol Stop: 09/15/19 09:01 Last Admin: 03/17/19 09:17 Dose: 10 mg Documented by: Magnesium Oxide (Mag-Ox) 400 mg PO BID [facility]; Protocol Stop: 09/14/19 21:01 Last Admin: 03/17/19 09:16 Dose: 400 mg Documented by: Metoprolol Tartrate (Lopressor) 100 mg PO BID [facility] Stop: 09/16/19 21:01 Naloxone HCl (Narcan) 0.4 mg IVP Q2MPRN PRN PRN Reason: SEE COMMENTS Stop: 09/11/19 18:04 Nystatin (Nystop) 1 appl TP BID [facility] Stop: 09/11/19 21:01 Last Admin: 03/17/19 09:17 Dose: 1 appl Documented by: Omeprazole (Prilosec) 40 mg PO DAILY@0730 [facility]; Protocol Stop: 09/17/19 07:31 Rosuvastatin Calcium (Crestor) 20 mg PO HS [facility] Stop: 09/14/19 21:01 Last Admin: 03/16/19 21:22 Dose: 20 mg Documented by: - Imaging and Cardiology Echo: report reviewed - EKG Interpretation EKG results cardiology: other (Atrial fibrillation in the 80s to 90s on telemetry) Consult Discharge Plan - Plan Referrals: Ray Finley Jr, MD [Non-Partnered Physician] - 03/24/19 11:00 am
[2019-03-17] MEDS: Vancomycin 500 MG in 0.9 % Sodium Chloride Mini Bag 100 ML IVPB SCH (12:47)
--- NOTE | 2019-03-17 12:52 | Internal Med Progress Note ---
Hospitalist Progress Note - Encounter Date of Encounter: 03/17/19 Time of Encounter: 12:50 - Subjective Interval History: Patient seen and examined. No acute events overnight. Patient is much more active today. Nursing notes that she is talking a lot. She is still very confused and unable to provide any meaningful responses to any questions. - Exam Vitals: Temp Pulse Resp BP Pulse Ox 97.3 F L 85 19 116/87 96 03/17/19 11:29 03/17/19 11:03/17/19 11:03/17/19 11:03/17/19 11:29 Exam: GENERAL APPEARANCE: Poorly nourished; AAOx0; not able to provide meaningful answers to questions HEENT: Normocephalic/atraumatic, PERRLA. NECK: Supple, nontender without lymphadenopathy. CARDIOVASCULAR: Irregularly irregular rhythm; no murmurs RESPIRATORY: bilateral air entry present; no wheezing; poor inspiratory effort ABDOMEN: Soft, nondistended, nontender; bowel sounds present. MUSKULOSKELETAL: No limitations in range of motion. EXTREMITIES: No edema, clubbing. NEUROLOGICAL: Patient talking loudly and nonsensically PSYCHIATRIC: Unable to assess - Assessment and Plan (1) Altered mental status Current Visit: Yes Status: Acute Assessment and Plan: -Patient initially presenting with acute AMS per family; Family mentions steady decline over last several months with acute decline in last 4 days and patient no longer communicating; family says such acute episodes have happened multiple times and are associated with episodes of hyperglycemia -No overt signs of infection on admission: UA without sign of infection, CXR unremarkable, WBC only slightly elevated, afebrile, -Patient's mentition no longer improving; she is far more active but still very confused Plan: -Neurology has been consulted: EEG showed bilateral lateralized epileptiform discharges suggesting ROLL WINDER infection vs anoxia, LP showed 9 nucleated cells, glucose 115, protein 65 -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, vanc, acyclovir for encephalitis -f/u completed LP studies and cultures -Patient's condition may represent chronic decline but acute cause must be ruled out first (2) Acute respiratory failure Current Visit: Yes Status: Acute Assessment and Plan: 03/13/2019: Patient had episode of aspiration at bedside; following this, breath sounds were very coarse and junky; O2 sat dropped to 85% on room air and improved to 92% with 4L NC O2; O2 requirement may be secondary to recent vomitin g; patient not having any cough; Temp was measured at 95.9 but rectal was 98.8. 03/14/2019: Patient is now more stable on 2L NC. She is still confused but breathing is no longer labored and breath sounds are more clear. Patient initially improved and was taken off oxygen; after IVF for DAKOTAH, patient developed vascular congestion and mild respiratory distress; IVF were stopped and patient was given IV lasix and improved; O2 sat stable off of oxygen Patient's respiratory status is now stable Plan: -Continue abx and antivirals -continuous pulse oximtery; Supplemental O2 via nasal cannula; titrate to maintain sat 92-95% -Monitor for volume overload with IVF (3) PAF (paroxysmal atrial fibrillation) Current Visit: No Status: Chronic Assessment and Plan: Patient with persistent tachycardia during admission; combined with NPO patient was started on diltiazem drip and 25 mg BID metoprolol Review of patient's home meds by pharmacy revealed that she is taking 300 mg of metoprolol daily at home We have been giving 25 BID which would explain the fast heart rate Plan: Cardiology is consulted Increase metoprolol to 100 mg BID; wean diltiazem as tolerated and further increase metoprolol to home dose as tolerated (4) Acute kidney injury superimposed on chronic kidney disease Current Visit: No Status: Acute Assessment and Plan: Patient's Cr has increased during admission; likely 2/2 patient being NPO Patient initially responded to IVF; however due to vascular congestion this was stopped and after lasix, Cr has come up again Plan: 500 cc bolus and 75 cc/hr IVF; monitor for volume overload If no improvement, consult nephrology (5) Hypertension Current Visit: No Status: Chronic Assessment and Plan: continue home meds (6) DVT prophylaxis Current Visit: No Status: Acute Assessment and Plan: Continue home meds (7) CKD (chronic kidney disease) stage 4, GFR 15-29 ml/min Current Visit: Yes Status: Acute Assessment and Plan: see DAKOTAH above (8) Failure to thrive in adult Current Visit: Yes Status: Acute Assessment and Plan: Patient is unable to perform own ADLs she is disheveled and has body odor as well as yeast in her body folds. She has not been taking her medications at home there is no one in the home to assist with her ADLs. dean of student services has been consulted (9) Diabetes Current Visit: Yes Status: Acute Assessment and Plan: Patient has not been taking medications as prescribed glucose was 500 at home and 444 presentation-placed on sliding scale insulin We will check hemoglobin A1c Patient has some cognitive deficit and unable to check on blood glucose-family is not educated on how to use glucometer or insulin dean of student services has been consulted patient may require either home health or ECF (10) Frequent falls Current Visit: Yes Status: Acute Assessment and Plan: According to the family patient has been experiencing frequent falls occurring over the past few months but worsening over the past few days. Patient was found this morning next to bed unwitnessed fall has been attempted to assist patient back to bed however patient was unable to stand and he could not lift her. states that she did not hit her head. Patient was left on the floor for approximately 3 hours until son arrived in assisted patient back to bed. CK within normal limits Placed on fall precautions Patient is unable to lift legs off the bed-I witnessed patient attempted to get out of bed and unable to bear weight on legs -she is assisted 2-no urinary or bowel incontinence however we will obtain MRI of cervical spine and lumbar as well as obtain CT of head since fall was unwitnessed-patient history of anticoagulation Eliquis Consult PT OT-patient may need rehabilitation (11) Leukocytosis Current Visit: Yes Status: Acute Assessment and Plan: Patient continues to have leukocytosis trending up since admission Clinical status improving, LA normal, Procalcitonin trending down Patient overall appears to be improving despite worsening leukocytosis Today, WBC is lower than yesterday Plan: ID on board (12) Hypokalemia Current Visit: Yes Status: Acute Assessment and Plan: Potassium down to 3.2 today Plan: replace and monitor - Time Spent with Patient Total time spent is greater than 50% in coordination of care (as documented) at patient's floor/unit and/or counseling patient: 40 minutes Plan of Care Discussed with: family Internal Medicine: Result - Labs CBC & Chem 7: 03/17/19 04:18 03/17/19 04:18 Labs: Short CBC 03/17/19 Range/Units 04:18 WBC 19.3 H (4.3-11.1) K/mcL Hgb 11.7 D (11.5-15.4) g/dL Hct 36.0 (35.3-44.9) % Plt Count 241 (140-400) K/mcL BMP 03/17/19 04:18 Sodium 142 Potassium 3.2 L Chloride 111 H Carbon Dioxide 19 L BUN 30 H Creatinine 2.01 H Glucose 212 H Calcium 8.1 L - ABG Interpretation ABG results: ABG ABG pH 7.35 pH Units (7.32-7.45) 03/13/19 11:36 ABG pCO2 33 mmHg (35-45) L 03/13/19 11:36 ABG pO2 93 mmHg (85-104) 03/13/19 11:36 ABG O2 Saturation 97 % (95-98) 03/13/19 11:36 PT/INR, D-dimer PT 13.0 Seconds (9.4-12.1) H 03/13/19 13:50 Consult Discharge Plan - Plan Referrals: Ray Finley Jr, MD [Non-Partnered Physician] - 03/24/19 11:00 am (1) Altered mental status Qualifiers: Altered mental status type: unspecified Qualified Code(s): R41.82 - Altered mental status, unspecified (2) Acute respiratory failure Qualifiers: Respiratory failure complication: hypoxia Qualified Code(s): J96.01 - Acute respiratory failure with hypoxia (5) Hypertension Qualifiers: Hypertension type: unspecified Qualified Code(s): I10 - Essential (primary) hypertension (9) Diabetes Qualifiers: Diabetes mellitus type: type 2 Diabetes mellitus senior living insulin use: with senior living use Diabetes mellitus complication status: with kidney complications Diabetes mellitus complication detail: with chronic kidney disease Chronic kidney disease stage: stage 4 (severe) Qualified Code(s): E11.22 - Type 2 diabetes mellitus with diabetic chronic kidney disease; N18.4 - Chronic kidney disease, stage 4 (severe); Z79.4 - detention (current) use of insulin (11) Leukocytosis Qualifiers: Leukocytosis type: unspecified Qualified Code(s): D72.829 - Elevated white blood cell count, unspecified
--- NOTE | 2019-03-17 14:37 | Infectious Disease Progress No ---
ID Progress Note Date of Encounter: 03/17/19 Time of Encounter: 14:34 - Subjective Subjective: Patient seen and examined. More awake, alert or oriented. She knew her name and she knew who her son was. She does have some regressive behavior. She is playing with the breezy bear. She denies pain anywhere. I asked if she is having a headache that she is having any chest pain or shortness of breath if she is having any abdominal pain and she kept saying now. Vital signs noted continues to be febrile MAXIMUM TEMPERATURE 100.6 labs reviewed - Objective CBC & Chem 7: 03/17/19 04:18 03/17/19 04:18 - Exam Vitals: Temp Pulse Resp BP Pulse Ox 97.3 F L 85 19 116/87 96 03/17/19 11:29 03/17/19 11:29 03/17/19 11:29 03/17/19 11:29 03/17/19 11:29 Exam: GENERAL: Comfortable. Laying in bed NAD HEENT: TED, EOMI LUNGS: Good air sounds bilaterally, no wheezing or rhonchi CV: RRR, S1 S2 ABDOMEN: Soft, nontender, + bowel sounds EXT: Adequate perfusion. No edema NEURO: Alert. Oriented to person. - Assessment and Plan (1) Severe sepsis Current Visit: Yes Status: Acute patient had 4 SIRS criteria on admission with End organ damage and lactic acidosis etiology not clear (VINYL WELDER AND FABRICATOR infection vs other infection vs non infectious causes) SNOMED Code(s): 94635810 (2) Altered mental status Current Visit: Yes Status: Acute etiology not clear [place]/MRA reveal no acute process clinically deteriorating over months EEG results noted family deny knowledge of patient having cold sores or shingles in the past CSF with mild pleocytosis (WBC 9, N75%L16%, protein 115 and glucose 65) gram s tain negative, cultures NGT Neurology input appreciated Qualifiers: Altered mental status type: unspecified Qualified Code(s): R41.82 - Altered mental status, unspecified SNOMED Code(s): 226328858 (3) Acute kidney injury superimposed on chronic kidney disease Current Visit: No Status: Acute SNOMED Code(s): 08468956 (4) Generalized weakness Current Visit: Yes Status: Acute SNOMED Code(s): 46613781 (5) PAF (paroxysmal atrial fibrillation) Current Visit: No Status: Chronic SNOMED Code(s): 074787926 (6) Diabetes Current Visit: Yes Status: Acute hb A1c 9.8 Qualifiers: Diabetes mellitus type: type 2 Diabetes mellitus group home insulin use: 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 Diabetes mellitus complication status: with kidney complications Diabetes mellitus complication detail: with chronic kidney disease Chronic kidney disease stage: stage 4 (severe) Qualified Code(s): E11.22 - Type 2 diabetes mellitus with diabetic chronic kidney disease; N18.4 - Chronic kidney disease, stage 4 (severe); 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 transplanted heart: [place] heart Associated angina: without angina Qualified Code(s): I25.10 - Atherosclerotic heart disease of [place] coronary artery withou t angina pectoris SNOMED Code(s): 28236198 - Recommendations Recommendations: I still do not know with the infectious etiology if any on this patient. CSF really not that impressive pleocytosis only 9. Gram stain and cultures are negative. I think definitely this was not a bacterial meningitis. I am not sure if aspiration pneumonia or intra-abdominal process is better. Check CT chest, abdomen and pelvis Check ESR, CRP, ABIODUN, rheumatoid factor Please add differential to WBC in the a.m. Continue current antibiotics for now. Based on the findings from imaging and labs tomorrow will make further recommendations. Goal vancomycin trough around 10 Monitor labs and for drug toxicity Consult Discharge Plan - Plan Referrals: Ray Finley Jr, MD [Non-Partnered Physician] - 03/24/19 11:00 am
--- NOTE | 2019-03-17 15:22 | EEG/EMG/Oth Biometrics Report ---
EEG Procedure Report Date of procedure: 03/17/19 EEG Procedure: Routine EEG Procedure Note: Report: This EEG was acquired with standard international 10-20 electrode placement system with EKG recording. The background activity during this EEG was replaced by a low amplitude, featureless activity. The background activity was reactive. Sleep structures not present during the study. There are no electrographic seizures identified during this tracing. There are no epileptiform discharges or focal slowing noted during this recording. Photic stimulation produced no abnormalities. HV not performed during this study. EKG tracing showed no significant cardiac dysarrhythmia. Impression: This is an abnormal EEG due to presence of mild to moderate diffuse background slowing. No electrographic seizures, no EDs, no focal slowing. EEG activity was reactive. The previously reported BPLEDs were no longer present now. Clinical Correlation: This EEG is consistent with mild to moderate cerebral dysfunction that can be seen in patients with encephalopathy, metabolic/toxic, electrolyte derangement, anoxic/ischemic or effects from the use of sedatives. Clinical correlation suggested.
[2019-03-17 15:31] LABS: Calcium 8.7 mg/dL (8.6-10.3); Potassium 3.5 mEq/L (3.5-5.1)
[2019-03-17 16:30] LABS: Magnesium 1.5 mg/dL (1.6-2.6)
[2019-03-17] MEDS ORDERED: Haloperidol Lactate 5 MG/ML VIAL IVP ONE (20:07)
[2019-03-17 20:27] LABS: Bilirubin,Urine Negative (Negative); Blood,Urine Moderate (Negative); Clarity,Urine Cloudy (Clear); Color,Urine Yellow (Yellow); Glucose,Urine (UA) Normal (Normal); Ketones,Urine Negative (Negative); Leukocyte Esterase,Urine Moderate (Negative); Nitrite,Urine Negative (Negative); Protein,Urine 100 mg/dL (Neg-Trace); Specific Gravity,Urine 1.018 (1.010-1.025); Urobilinogen,Urine Normal (Normal)
[2019-03-17 20:29] LABS: Bacteria,Urine None Seen per hpf (None-Few); Squamous Epithelial Cell,Urine Moderate per lpf (None-Few); WBC,Urine TNTC per hpf (0-3)
[2019-03-17 20:44] LABS: Yeast,Urine Many per hpf (None Seen)
[2019-03-17 20:45] LABS: Hyaline Casts,Urine None Seen per lpf (None-Few)
[2019-03-17] MEDS: Metoprolol 100 MG TABLET PO SCH (21:08)
[2019-03-18] MEDS: Insulin LISPRO 300 UNITS/3 ML VIAL SQ SCH ×6 (00:23→22:07)
[2019-03-18] MEDS: Acyclovir 500 MG in D5% in Water 250 ML IVPB SCH (00:24)
[2019-03-18 04:42] LABS: Basophils # 0.1 K/mcL (0.0-0.2); Basophils % 0.3 %; Eosinophils # 0.3 K/mcL (0.0-0.6); Eosinophils % 2.2 %; Hematocrit 35.5 % (35.3-44.9); Hemoglobin 11.4 g/dL (11.5-15.4); Immature Granulocytes % 0.7 % (0-4); Lymphocytes # 1.2 K/mcL (0.6-4.6); Lymphocytes % 7.9 %; Mean Corpuscular HGB Conc 32.1 g/dL (31.6-35.5); Mean Corpuscular Hemoglobin 32.7 pg (28.0-33.3); Mean Corpuscular Volume 101.7 fL (83.0-100.0); Mean Platelet Volume 12.2 fL (9.4-12.4); Monocytes # 1.6 K/mcL (0.0-1.3); Monocytes % 10.3 %; Neutrophils # 11.9 K/mcL (1.6-8.9); Platelet Count 240 K/mcL (140-400); Red Blood Count 3.49 M/mcL (3.82-4.97); Red Cell Distribution Width 14.7 % (11.5-14.5); Segmented Neutrophils % 78.6 %; White Blood Count 15.1 K/mcL (4.3-11.1)
[2019-03-18 05:02] LABS: Calcium 8.2 mg/dL (8.6-10.3); Potassium 3.6 mEq/L (3.5-5.1)
[2019-03-18] MEDS: Metoprolol 100 MG TABLET PO SCH ×2 (08:36→20:47)
[2019-03-18] MEDS: Nystatin POWDER 30 GM BOTTLE TP SCH ×2 (08:37→21:08)
[2019-03-18] MEDS: Apixaban 5 MG TABLET PO SCH ×2 (08:37→20:46)
[2019-03-18] MEDS: Magnesium Oxide 400 MG TABLET PO SCH ×2 (08:37→20:47)
[2019-03-18] MEDS ORDERED: D5% in Water 1,000 ML IVC PRN (09:49)
[2019-03-18] MEDS: Piperacillin/Tazobactam 3.375 GM in 0.9 % Sodium Chloride Mini Bag 100 ML IVPB SCH ×2 (09:51→20:47)
--- NOTE | 2019-03-18 10:21 | Neurology Progress Note ---
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 Renal function stable. CT yesterday revealed a multifocal PNA and UA indicated UTI; urine cultures sent 03/17 blood cultures x2 sets send and preliminary NGTD, CSF cultures NGTD HSV PCR still pending In the meantime c/w ABX and antiviral; ID following in consultation; recommendations appreciated Defer to ID in regards to duration of ABX and acyclovir otherwise c/w medical and supportive care and treatment of underlying infectious sources per ID and Hospitalist's Qualifiers: Altered mental status type: unspecified Qualified Code(s): R41.82 - Altered mental status, unspecified (2) Generalized weakness Current Visit: Yes Status: Acute Recommending PT/OT consultation. Otherwise continue medical and supportive care. Subjective Principal diagnosis: Altered mental state suspected FOOD ORDER DELIVERY RUNNER infection Interval history: The chart was reviewed, the patient was seen and examined at bedside today. This morning the patient is alert and oriented to self, place and somewhat situation. She notes that she feels much better today. However, she does mention some neck pain and a mild posterior headache. Otherwise she is reporting no other concerns. Objective - Constitutional Vitals: Temp Pulse Resp BP Pulse Ox 97.5 F L 97 16 163/93 93 03/18/19 03:19 03/18/19 07:48 03/18/19 07:48 03/18/19 07:48 03/18/19 07:48 Exam: Examination: General Examination: *CONSTITUTIONAL: Alert and oriented x2 to person and place *GENERAL APPEARANCE OF PATIENT generally ill appearing 83-year-old elderly female *EYES: pupils equal, round, reactive to light and accommodation, conjunctiva clear without masses or ulcerations, fundi normal. *CARDIOVASCULAR: no peripheral edema, distal temperature normal, dorsalis pedis pulses normal. Refer to vital signs * MUSCULOSKELETAL: *GAIT AND STATION: Deferred *ASSESSMENT OF MUSCLE STRENGTH IN THE UPPER AND LOWER EXTREMITIES moves all 4 extremities spontaneously, bilateral deltoids, biceps, triceps, wrist flexion, wrist extension, od grinder operator 4/5, bilateral quadriceps, tibialis anterior 3/5 *MUSCLE TONE IN THE UPPER AND LOWER EXTREMITIES normal. No abnormal movements, fasciculations or atrophy identified. Neurological: *ORIENTATION to person, and place, recognizes family *LANGUAGE AND FUNCTION no significant aphasia or dysarthia was noted. *ATTENTION AND CONCENTRATION are abnormal but reorients easily *LANGUAGE FUNCTION no significant aphasia or dysarthia was noted. *FUND OF KNOWLEDGE can recall some of the events surrounding admission and recollection of remote hx improving as well *MENTAL attention span and concentration abnormal with intermittent episodes of confusion *CN II optic fundi were normal, no papilledema noted. *CN III,IV, PERRLA extraocular eye movements were full, no nystagmus and no ptosis noted. *CN V shows normal sensation and jaw opens symmetrically. *CN VII shows normal facial movement symmetrically, upper and lower bilaterally. *CN VIII shows no significant hearing loss on exam *CN IX-X palate elevated symmetrically *CN XI normal strength in the sternocleidomastoid muscles, symmetrical s houlder shrugging. *CN XII tongue protruded in the midline, with normal strength and movement . *SENSORY EXAMINATION light touch intact *REFLEXES: deep tendon reflexes were normal and symmetrical , grade 1/4 diffusely, no pathological reflexes were noted. *CEREBELLAR TESTING patient would not perform finger to nose or heel to sampson *PAIN LEVEL 0/10 - Neurological Exam Sensorimotor examination: Present: other (Grossly intact. Patient not totally cooperative) Motor Examination: Present: grossly full strength in all extremities, other (She is overall mildly weak but able to od grinder operator after encouragement equally. ) Motor examination - left side: 4/5: deltoids, biceps, triceps, wrist flexion, wrist extension, hip flexors, od grinder operator, quadriceps, tibialis Anterior, toe extension (EHL), plantarflexion Sensation intact: Present: other (Grossly intact) Posture: Present: other (None) Reflex and gait examination: other (Gait not assessed) Mental Status Examination: Present: awake, alert, oriented to person, oriented to place, follows commands appropriately, answers questions appropriately, no agnosia Cranial nerve examination: Present: PERRL, EOMI, visual francois intact (Unable to assess), corneal reflexes brisk symmetrically, sensory to face intact, mas tication intact, no facial asymmetry is present, no dysarthria, hearing is intact symmetrically Results - Laboratory Findings CBC and BMP: 03/18/19 04:19 03/18/19 04:19 Abnormal lab findings: Abnormal lab results WBC 15.1 K/mcL (4.3-11.1) H 03/18/19 04:19 RBC 3.49 M/mcL (3.82-4.97) L 03/18/19 04:19 Hgb 11.4 g/dL (11.5-15.4) L 03/18/19 04:19 Hct 49.2 % (35.3-44.9) H 03/13/19 10:05 MCV 101.7 fL (83.0-100.0) H 03/18/19 04:19 MCHC 31.5 g/dL (31.6-35.5) L 03/13/19 10:05 RDW 14.7 % (11.5-14.5) H 03/18/19 04:19 MPV 12.9 fL (9.4-12.4) H 03/15/19 06:30 Neutrophils # 11.9 K/mcL (1.6-8.9) H 03/18/19 04:19 Monocytes # 1.6 K/mcL (0.0-1.3) H 03/18/19 04:19 ESR 124 mm/hr (0-15) H 03/17/19 15:03 PT 13.0 Seconds (9.4-12.1) H 03/13/19 13:50 ABG pCO2 33 mmHg (35-45) L 03/13/19 11:36 ABG HCO3 18 mEq/L (21-27) L 03/13/19 11:36 ABG Total CO2 19 mEq/L (20-26) L 03/13/19 11:36 ABG Base Excess -6 mEq/L (-2 to 3) L 03/13/19 11:36 VBG pH 7.28 pH Units (7.32-7.42) L 03/12/19 14:14 VBG pO2 55 mmHg (25-50) H 03/12/19 14:14 Sodium 134 mEq/L (136-145) L 03/12/19 13:45 Potassium 3.2 mEq/L (3.5-5.1) L 03/17/19 04:18 Chloride 114 mEq/L (98-107) H 03/18/19 04:19 Carbon Dioxide 18 mEq/L (23-29) L 03/18/19 04:19 BUN 29 mg/dL (8-23) H 03/18/19 04:19 Creatinine 1.99 mg/dL (0.60-1.20) H 03/18/19 04:19 Est GFR ( Amer) 29 (> 60) L 03/18/19 04:19 Est GFR (Non-Af Amer) 24 (> 60) L 03/18/19 04:19 Glucose 168 mg/dL (70-105) H 03/18/19 04:19 POC Glucose 143 mg/dL (70-99) H 03/18/19 04:35 Hemoglobin A1c 9.8 % (-5.6) H 03/13/19 03:31 Calculated Osmolality 308 (280-300) H 03/18/19 04:19 Lactic Acid 2.3 mmol/L (0.5-2.2) H 03/13/19 13:50 Calcium 8.2 mg/dL (8.6-10.3) L 03/18/19 04:19 Magnesium 1.5 mg/dL (1.6-2.6) L 03/17/19 04:18 C-Reactive Protein 160 mg/L (Less than 10) H 03/17/19 15:03 B-Natriuretic Peptide 535 pg/mL (Less than 100) H 03/15/19 16:54 Prealbumin 15.2 mg/dL (17.0-34.0) L 03/13/19 03:31 Procalcitonin 2.67 ng/mL (0.00-0.15) H 03/16/19 04:10 Urine Clarity Cloudy (Clear) A 03/17/19 20:03 Urine Protein 100 mg/dL (Neg-Trace) H 03/17/19 20:03 Urine Glucose (UA) 250 mg/dL (Normal) H 03/13/19 16:30 Urine Ketones Trace mg/dL (Negative) H 03/13/19 16:30 Urine Blood Moderate (Negative) H 03/17/19 20:03 Ur Leukocyte Esterase Moderate (Negative) H 03/17/19 20:03 Urine Microscopic RBC 3-5 per hpf (0-3) H 03/17/19 20:03 Urine Microscopic WBC TNTC per hpf (0-3) H 03/17/19 20:03 Ur Squamous Epith Cells Moderate per lpf (None-Few) H 03/17/19 20:03 Urine Yeast Many per hpf (None Seen) H 03/17/19 20:03 Ur Culture Indicated? YES (NO) A 03/17/19 20:03 CSF Tot Nucleated Cells 9 TNC/mcL (0-5) H 03/14/19 08:21 CSF Glucose 115 mg/dL (40-70) H 03/14/19 08:21 CSF Total Protein 65 mg/dL (15-45) H 03/14/19 08:21 Vancomycin Trough 12 mcg/mL (5-10) H 03/16/19 12:11 Consult Discharge Plan - Plan Referrals: Ray Finley Jr, MD [Non-Partnered Physician] - 03/24/19 11:00 am
[2019-03-18] MEDS: Vancomycin 500 MG in 0.9 % Sodium Chloride Mini Bag 100 ML IVPB SCH (12:05)
--- NOTE | 2019-03-18 12:46 | Cardiology Progress Note ---
Date of Encounter: 03/18/19 Time of Encounter: 09:40 Assessment and Plan (1) PAF (paroxysmal atrial fibrillation) Current Visit: No Status: Chronic Per Cardiology: Has known history of atrial fibrillation. Currently in A. fib in the 80s to 90s on oral Cardizem 30 mg Q6hr. Weaned off Cardizem gtt. On home dose of Lopressor 100 mg by mouth twice a day. lisinopril decreased from 10 mg by mouth daily to 2.5 mg to allow for addition of cardizem. Will change to long acting cardizem tomorrow. Echo showed EF preserved 70%. Continue treatment of low magnesium. Regarding long-term anticoagulation, on Eliquis 2.5mg PO BID. Has known CKD IV. Overall H&H overall slightly downward trend, monitor closely. Currently stable. If Kidney function continues to worsen may need to consider changing to coumadin Continue eliquis at this time. Cardiology will sign off and coordinate out-pt f/u. Please call with questions or changes. (2) Severe sepsis Current Visit: Yes Status: Acute Per Cardiology: Being followed by ID. On antibiotics and antivirals. Discussion w patient/family: The assessment and plan as outlined above was discussed with the patient and/or family members who expressed understanding and agreement. All questions were answered. Thank you for involving us in the care of your patient. Please call with any questions. Subjective Principal diagnosis: atrial fibrillation with RVR Interval history: Patient resting in bed with no distress. Continued confusion noted. Family states confusion improved. Objective Vital Signs, Last 4 Hours Temp Pulse Resp BP Pulse Ox 03/18/19 12:02 98.4 F 91 16 152/69 93 General: Conversant, No Apparent Distress, Other (confused.) HEENT: Atraumatic, Normocephaly, Mucus Membranes Moist Neck: No JVD, Normal carotid pulses Cardiac: Other (irregualr) Lungs: Normal Breath Sounds, No Wheeze, Rales, Rhonchi Neuro: Alert and responsive, No focal deficits noted Abdomen: Soft, Non-Tender Skin: No rashes noted on visualized skin Musculoskeletal: No Chest Wall Tenderness Extremities: No Clubbing, No Cyanosis, No Edema, Normal Pulses Results 03/18/19 04:19 03/18/19 04:19 Lab Results 03/17/19 03/17/19 03/18/19 04:18 14:43 04:19 WBC Hgb Hct Plt Count Sodium 142 144 144 Potassium 3.2 L 3.5 3.6 Chloride 111 H 115 H 114 H Carbon Dioxide 19 L 22 L 18 L BUN 30 H 30 H 29 H Creatinine 2.01 H 2.04 H 1.99 H Glucose 212 H 124 H 168 H Calcium 8.1 L 8.7 8.2 L Magnesium 1.5 L 03/18/19 04:19 WBC 15.1 H Hgb 11.4 L Hct 35.5 Plt Count 240 Sodium Potassium Chloride Carbon Dioxide BUN Creatinine Glucose Calcium Magnesium - Imaging and Cardiology Echo: report reviewed - EKG Interpretation EKG results cardiology: personally reviewed Consult Discharge Plan - Plan Referrals: Ray Finley Jr, MD [Non-Partnered Physician] - 03/24/19 11:00 am
--- NOTE | 2019-03-18 12:46 | Internal Med Progress Note ---
Hospitalist Progress Note - Encounter Date of Encounter: 03/18/19 Time of Encounter: 12:44 - Subjective Interval History: Patient seen and examined. Patient's mentition much better today. Patient is AAOx 3. She is eating well and communicating well. Family notes that she is not completely at baseline but looks very much improved. Patient did have episode of confusion last night. She was given one dose of haloperidol and slept through the night without any problems. - Exam Vitals: Temp Pulse Resp BP Pulse Ox 98.4 F 91 16 152/69 93 03/18/19 12:02 03/18/19 12:02 03/18/19 12:02 03/18/19 12:02 03/18/19 12:02 Exam: GENERAL APPEARANCE: Poorly nourished; AAOx3 HEENT: Normocephalic/atraumatic, PERRLA. NECK: Supple, nontender without lymphadenopathy. CARDIOVASCULAR: Irregularly irregular rhythm; no murmurs RESPIRATORY: bilateral air entry present; no wheezing; poor inspiratory effort ABDOMEN: Soft, nondistended, nontender; bowel sounds present. MUSKULOSKELETAL: No limitations in range of motion. EXTREMITIES: No edema, clubbing. NEUROLOGICAL: no focal deficits PSYCHIATRIC: Unable to assess - Assessment and Plan (1) Altered mental status Current Visit: Yes Status: Acute Assessment and Plan: -Patient initially presenting with acute AMS per family; Family mentions steady decline over last several months with acute decline in last 4 days and patient no longer communicating; family says such acute episodes have happened multiple times and are associated with episodes of hyperglycemia -No overt signs of infection on admission: UA without sign of infection, CXR unremarkable, WBC only slightly elevated, afebrile, -Patient's mentition improved significantly; communicating clearly; close to baseline per family Plan: -Neurology has been consulted: EEG showed bilateral lateralized epileptiform discharges suggesting [employer] infection vs anoxia, LP showed 9 nucleated cells, glucose 115, protein 65 -CT chest showed multifocal bronchopulmonary pneumonia -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, vanc, acyclovir for encephalitis -f/u completed LP studies and cultures -Patient's condition may represent chronic decline but acute cause must be ruled out first (2) Acute respiratory failure Current Visit: Yes Status: Acute Assessment and Plan: 03/13/2019: Patient had episode of aspiration at bedside; following this, breath sounds were very coarse and junky; O2 sat dropped to 85% on room air and improved to 92% with 4L NC O2; O2 requirement may be secondary to recent vomiting; patient not having any cough; Temp was measured at 95.9 but rectal was 98.8. 03/14/2019: Patient is now more stable on 2L NC. She is still confused but breathing is no longer labored and breath sounds are more clear. Patient initially improved and was taken off oxygen; after IVF for DAKOTAH, patient developed vascular congestion and mild respiratory distress; IVF were stopped and patient was given IV lasix and improved; O2 sat stable off of oxygen Patient's respiratory status is now stable Plan: -Continue abx and antivirals -continuous pulse oximtery; Supplemental O2 via nasal cannula; titrate to maintain sat 92-95% -Monitor for volume overload with IVF (3) PAF (paroxysmal atrial fibrillation) Current Visit: No Status: Chronic Assessment and Plan: Patient with persistent tachycardia during admission; combined with NPO patient was started on diltiazem drip and 25 mg BID metoprolol Review of patient's home meds by pharmacy revealed that she is taking 300 mg of metoprolol daily at home We have been giving 25 BID which would explain the fast heart rate Plan: Cardiology is consulted: oral diltiazem started and drip weaned off Increase metoprolol to 100 mg BID (4) Acute kidney injury superimposed on chronic kidney disease Current Visit: No Status: Acute Assessment and Plan: Patient's Cr has increased during admission; likely 2/2 patient being NPO Patient initially responded to IVF; however due to vascular congestion this was stopped and after lasix, Cr has come up again Review of previous records suggest that Cr may be closer to baseline Plan: continue to monitor for further decline (5) Hypertension Current Visit: No Status: Chronic Assessment and Plan: continue home meds: lisinopril dose reduced to account for addition of diltiazem (6) Failure to thrive in adult Current Visit: Yes Status: Acute Assessment and Plan: Patient is unable to perform own ADLs she is disheveled and has body odor as well as yeast in her body folds. She has not been taking her medications at home there is no one in the home to assist with her ADLs. visitor services specialist has been consulted (7) Diabetes Current Visit: Yes Status: Acute Assessment and Plan: Patient has not been taking medications as prescribed glucose was 500 at home and 444 presentation-placed on sliding scale insulin We will check hemoglobin A1c Patient has some cognitive deficit and unable to check on blood glucose-family is not educated on how to use glucometer or insulin visitor services specialist has been consulted patient may require either home health or ECF (8) Leukocytosis Current Visit: Yes Status: Acute Assessment and Plan: Patient continues to have leukocytosis trending up since admission Clinical status improving, LA normal, Procalcitonin trending down Patient overall appears to be improving despite worsening leukocytosis Today, WBC is lower than yesterday Plan: ID on board (9) DVT prophylaxis Current Visit: No Status: Acute Assessment and Plan: Continue home meds (10) Abnormal urinalysis Current Visit: Yes Status: Acute Assessment and Plan: UA done last night showing TNTC WBC and moderate leukocyte esterase, as well as yeast despite patient being on vanc and zosyn Plan: Follow culture - Time Spent with Patient Total time spent is greater than 50% in coordination of care (as documented) at patient's floor/unit and/or counseling patient: 35 minutes Plan of Care Discussed with: family Internal Medicine: Result - Labs CBC & Chem 7: 03/18/19 04:19 03/18/19 04:19 Labs: Short CBC 03/18/19 Range/Units 04:19 WBC 15.1 H (4.3-11.1) K/mcL Hgb 11.4 L (11.5-15.4) g/dL Hct 35.5 (35.3-44.9) % Plt Count 240 (140-400) K/mcL Neutrophils # 11.9 H (1.6-8.9) K/mcL BMP 03/17/19 03/17/19 03/18/19 04:18 14:43 04:19 Sodium 142 144 144 Potassium 3.2 L 3.5 3.6 Chloride 111 H 115 H 114 H Carbon Dioxide 19 L 22 L 18 L BUN 30 H 30 H 29 H Creatinine 2.01 H 2.04 H 1.99 H Glucose 212 H 124 H 168 H Calcium 8.1 L 8.7 8.2 L Urine 03/17/19 Range/Units 20:03 Urine Color Yellow (Yellow) Urine Clarity Cloudy A (Clear) Urine pH 6.0 (5.0-8.0) pH Units Ur Specific [place] 1.018 (1.010-1.025) Urine Protein 100 H (Neg-Trace) mg/dL Urine Glucose (UA) Normal (Normal) mg/dL - ABG Interpretation ABG results: ABG ABG pH 7.35 pH Units (7.32-7.45) 03/13/19 11:36 ABG pCO2 33 mmHg (35-45) L 03/13/19 11:36 ABG pO2 93 mmHg (85-104) 03/13/19 11:36 ABG O2 Saturation 97 % (95-98) 03/13/19 11:36 PT/INR, D-dimer PT 13.0 Seconds (9.4-12.1) H 03/13/19 13:50 - Impressions Impressions Abdomen/Pelvis CT 03/17/19 15:49 IMPRESSION: 1. Motion artifact degrades evaluation of the exams. 2. Bibasilar patchy consolidation more prominent on the right concerning for multifocal bronchopneumonia. 3. Mild right and trace left pleural effusions. 4. Cardiomegaly with coronary and aortic atherosclerosis. Extensive mitral valve annular calcifications. 5. No acute abdominal/pelvic process. D/ : / 03/17/2019 16:44:42 Derrick Mancera MD / faizan Interpreting Provider: Derrick Mancera MD Chest CT 03/17/19 15:49 IMPRESSION: 1. Motion artifact degrades evaluation of the exams. 2. Bibasilar patchy consolidation more prominent on the right concerning for multifocal bronchopneumonia. 3. Mild right and trace left pleural effusions. 4. Cardiomegaly with coronary and aortic atherosclerosis. Extensive mitral valve annular calcifications. 5. No acute abdominal/pelvic process. D/ : / 03/17/2019 16:44:42 Derrick Mancera MD / faizan Interpreting Provider: Derrick Mancera MD Consult Discharge Plan - Plan Referrals: Ray Finley Jr, MD [Non-Partnered Physician] - 03/24/19 11:00 am (1) Altered mental status Qualifiers: Altered mental status type: unspecified Qualified Code(s): R41.82 - Altered mental status, unspecified (2) Acute respiratory failure Qualifiers: Respiratory failure complication: hypoxia Qualified Code(s): J96.01 - Acute respiratory failure with hypoxia (5) Hypertension Qualifiers: Hypertension type: unspecified Qualified Code(s): I10 - Essential (primary) hypertension (7) Diabetes Qualifiers: Diabetes mellitus type: type 2 Diabetes mellitus long-term insulin use: with assistant terminal manager use Diabetes mellitus complication status: with kidney complications Diabetes mellitus complication detail: with chronic kidney disease Chronic kidney disease stage: stage 4 (severe) Qualified Code(s): E11.22 - Type 2 diabetes mellitus with diabetic chronic kidney disease; N18.4 - Chronic kidney disease, stage 4 (severe); Z79.4 - terminal press operator (current) use of insulin (8) Leukocytosis Qualifiers: Leukocytosis type: unspecified Qualified Code(s): D72.829 - Elevated white blood cell count, unspecified
--- NOTE | 2019-03-18 12:51 | Electrocardiograph Report ---
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
[2019-03-18] MEDS ORDERED: Furosemide 20 MG/2 ML VIAL IVP ONE (15:23)
--- NOTE | 2019-03-18 22:50 | Infectious Disease Progress No ---
ID Progress Note Date of Encounter: 03/18/19 Time of Encounter: 13:00 - Subjective Subjective: Patient seen and examined. continues to do significantly better. more awake and alert and oriented. NO chest pain no shortness of breath no headache no urinary symptoms no abdominal pain Vital signs noted continues to be febrile MAXIMUM TEMPERATURE 100.2 labs reviewed - Objective CBC & Chem 7: 03/18/19 04:19 03/18/19 04:19 - Exam Vitals: Temp Pulse Resp BP Pulse Ox 98.0 F 89 18 143/89 96 03/18/19 20:06 03/18/19 20:06 03/18/19 20:06 03/18/19 20:06 03/18/19 20:06 Exam: GENERAL: Comfortable. Laying in bed NAD HEENT: TED, EOMI LUNGS: Good air sounds bilaterally, no wheezing or rhonchi CV: RRR, S1 S2 ABDOMEN: Soft, nontender, + bowel sounds EXT: Adequate perfusion. No edema NEURO: Alert. Oriented to person. - Assessment and Plan (1) Severe sepsis Current Visit: Yes Status: Acute patient had 4 SIRS criteria on admission with End organ damage and lactic acidosis etiology not clear (CERAMIC CHEMIST infection vs other infection vs non infectious causes) SNOMED Code(s): 49748996 (2) Altered mental status Current Visit: Yes Status: Acute etiology not clear [place]/MRA reveal no acute process clinically deteriorating over months EEG results noted family deny knowledge of patient having cold sores or shingles in the past CSF with mild pleocytosis (WBC 9, N75%L16%, protein 115 and glucose 65) gram stain negative, cultures NGT Neurology input appreciated Qualifiers: Altered mental status type: unspecified Qualified Code(s): R41.82 - Altered mental status, unspecified SNOMED Code(s): 556866035 (3) Acute kidney injury superimposed on chronic kidney disease Current Visit: No Status: Acute SNOMED Code(s): 21939268 (4) Generalized weakness Current Visit: Yes Status: Acute SNOMED Code(s): 41869474 (5) PAF (paroxysmal atrial fibrillation) Current Visit: No Status: Chronic SNOMED Code(s): 076440221 (6) Diabetes Current Visit: Yes Status: Acute hb A1c 9.8 Qualifiers: Diabetes mellitus type: type 2 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 use: with senior care use Diabetes mellitus complication status: with kidney complications Diabetes mellitus complication detail: with chronic kidney disease Chronic kidney disease stage: stage 4 (severe) Qualified Code(s): E11.22 - Type 2 diabetes mellitus with diabetic chronic kidney disease; N18.4 - Chronic kidney disease, stage 4 (severe); Z79.4 - prison (current) use of insulin SNOMED Code(s): 02212400 (7) Frequent falls Current Visit: Yes Status: Acute CK within normal limit no signs of rhabdo SNOMED Code(s): 752612062 (8) CAD (coronary artery disease) Current Visit: No Status: Chronic Qualifiers: Coronary Disease-Associated Artery/Lesion type: [place] artery [place] vs. transplanted heart: [place] heart Associated angina: without angina Qualified Code(s): I25.10 - Atherosclerotic heart disease of [place] coronary artery without angina pectoris SNOMED Code(s): 39958103 - Recommendations Recommendations: HSV PCR not back yet continues to be on vancomycin, zosny and acyclovir clinically doing much better maxi source of her sepsis is bronchopneumonia check urine legionella and strep antigen urine culture ordered, results pending monitor labs and for drug toxicity will consider to deescalate antibiotics in am if patient continues to improve Consult Discharge Plan - Plan Referrals: Ray Finley Jr, MD [Non-Partnered Physician] - 03/24/19 11:00 am
[2019-03-19] MEDS: Acyclovir 500 MG in D5% in Water 250 ML IVPB SCH (00:55)
[2019-03-19 09:11] LABS: Hematocrit 36.2 % (35.3-44.9); Hemoglobin 11.6 g/dL (11.5-15.4); Mean Corpuscular Hemoglobin 32.2 pg (28.0-33.3); Mean Corpuscular Volume 100.6 fL (83.0-100.0); Mean Platelet Volume 12.2 fL (9.4-12.4); Platelet Count 257 K/mcL (140-400); Red Cell Distribution Width 14.6 % (11.5-14.5); White Blood Count 17.1 K/mcL (4.3-11.1)
--- NOTE | 2019-03-19 09:25 | Neurology Progress Note ---
Date of Encounter: 03/19/19 Time of Encounter: 09:22 Assessment and Plan (1) Altered mental status Current Visit: Yes Status: Acute Clinically, patient remained stable without any significant focal neurological deficits She is alert and oriented 3 today We are recommending completing total course of antiviral therapy HSV PCR pending Treat underlying infectious sources and continued medical and supportive care Neurology will follow peripherally Qualifiers: Altered mental status type: unspecified Qualified Code(s): R41.82 - Altered mental status, unspecified (2) Generalized weakness Current Visit: Yes Status: Acute Subjective Principal diagnosis: Altered mental status Interval history: The chart was reviewed, the patient was seen and examined at bedside today. The patient was afebrile overnight but upon vitals review it was noted that she had a fever yesterday afternoon. MAXIMUM TEMPERATURE 100.2. Otherwise, patient remained stable without any further deficits. She reports that her headache has resolved this morning. Again, she notes that she feels much better today. Discussed plan of care including continuing antiviral therapy. Objective - Constitutional Vitals: Temp Pulse Resp BP Pulse Ox 97.8 F 94 18 159/93 94 03/19/19 07:59 03/19/19 07:59 03/19/19 07:59 03/19/19 07:59 03/19/19 07:59 Exam: Examination: General Examination: *CONSTITUTIONAL: Alert and oriented x3 to person, situation and place, no acute distress *GENERAL APPEARANCE OF PATIENT generally ill appearing 83-year-old elderly female *EYES: pupils equal, round, reactive to light and accommodation, conjunctiva clear without masses or ulcerations, fundi normal. *CARDIOVASCULAR: no peripheral edema, distal temperature normal, dorsalis pedis pulses normal. Refer to vital signs * MUSCULOSKELETAL: *GAIT AND STATION: Deferred *ASSESSMENT OF MUSCLE STRENGTH IN THE UPPER AND LOWER EXTREMITIES moves a ll 4 extremities spontaneously, bilateral deltoids, biceps, triceps, wrist flexion, wrist extension, office support specialist 4/5, bilateral quadriceps, tibialis anterior 3/5 *MUSCLE TONE IN THE UPPER AND LOWER EXTREMITIES normal. No abnormal movements, fasciculations or atrophy identified. Neurological: *ORIENTATION to person, and place, situation and recognizes family *LANGUAGE AND FUNCTION no significant aphasia or dysarthia was noted. *ATTENTION AND CONCENTRATION are normal *LANGUAGE FUNCTION no significant aphasia or dysarthia was noted. *FUND OF KNOWLEDGE can recall some of the events surrounding admission and recollection of remote hx improving as well *MENTAL concentration has improved and she appears less confused today. Attention span is appropriate *CN II optic fundi were normal, no papilledema noted. *CN III,IV, PERRLA extraocular eye movements were full, no nystagmus and no ptosis noted. *CN V shows normal sensation and jaw opens symmetrically. *CN VII shows normal facial movement symmetrically, upper and lower bi laterally. *CN VIII shows no significant hearing loss on exam *CN IX-X palate elevated symmetrically *CN XI normal strength in the sternocleidomastoid muscles, symmetrical shoulder shrugging. *CN XII tongue protruded in the midline, with normal strength and movement. *SENSORY EXAMINATION light touch intact *REFLEXES: deep tendon reflexes were normal and symmetrical , grade 1/4 diffusely, no pathological reflexes were noted. *CEREBELLAR TESTING patient would not perform finger to nose or heel to sampson *PAIN LEVEL 0/10 - Neurological Exam Sensorimotor examination: Present: other (Grossly intact. Patient not totally cooperative) Motor Examination: Present: grossly full strength in all extremities, other (She is overall mildly weak but able to office support specialist after encouragement equally. ) Motor examination - left side: 4/5: deltoids, biceps, triceps, wrist flexion, wrist extension, hip flexors, office support specialist, quadriceps, tibialis Anterior, toe extension (EHL), plantarflexion Sensation intact: Present: other (Grossly intact) Posture: Present: other (None) Reflex and gait examination: other (Gait not assessed) Mental Status Examination: Present: awake, alert, oriented to person, oriented to place, follows commands appropriately, answers questions appropriately, no agnosia Cranial nerve examination: Present: PERRL, EOMI, visual francois intact (Unable to assess), corneal reflexes brisk symmetrically, sensory to face intact, masticat ion intact, no facial asymmetry is present, no dysarthria, hearing is intact symmetrically Results - Laboratory Findings CBC and BMP: 03/19/19 09:03 03/18/19 04:19 Abnormal lab findings: Abnormal lab results WBC 17.1 K/mcL (4.3-11.1) H 03/19/19 09:03 RBC 3.60 M/mcL (3.82-4.97) L 03/19/19 09:03 Hgb 11.4 g/dL (11.5-15.4) L 03/18/19 04:19 Hct 49.2 % (35.3-44.9) H 03/13/19 10:05 MCV 100.6 fL (83.0-100.0) H 03/19/19 09:03 MCHC 31.5 g/dL (31.6-35.5) L 03/13/19 10:05 RDW 14.6 % (11.5-14.5) H 03/19/19 09:03 MPV 12.9 fL (9.4-12.4) H 03/15/19 06:30 Neutrophils # 11.9 K/mcL (1.6-8.9) H 03/18/19 04:19 Monocytes # 1.6 K/mcL (0.0-1.3) H 03/18/19 04:19 ESR 124 mm/hr (0-15) H 03/17/19 15:03 PT 13.0 Seconds (9.4-12.1) H 03/13/19 13:50 ABG pCO2 33 mmHg (35-45) L 03/13/19 11:36 ABG HCO3 18 mEq/L (21-27) L 03/13/19 11:36 ABG Total CO2 19 mEq/L (20-26) L 03/13/19 11:36 ABG Base Excess -6 mEq/L (-2 to 3) L 03/13/19 11:36 VBG pH 7.28 pH Units (7.32-7.42) L 03/12/19 14:14 VBG pO2 55 mmHg (25-50) H 03/12/19 14:14 Sodium 134 mEq/L (136-145) L 03/12/19 13:45 Potassium 3.2 mEq/L (3.5-5.1) L 03/17/19 04:18 Chloride 114 mEq/L (98-107) H 03/18/19 04:19 Carbon Dioxide 18 mEq/L (23-29) L 03/18/19 04:19 BUN 29 mg/dL (8-23) H 03/18/19 04:19 Creatinine 1.99 mg/dL (0.60-1.20) H 03/18/19 04:19 Est GFR ( Amer) 29 (> 60) L 03/18/19 04:19 Est GFR (Non-Af Amer) 24 (> 60) L 03/18/19 04:19 Glucose 168 mg/dL (70-105) H 03/18/19 04:19 POC Glucose 157 mg/dL (70-99) H 03/18/19 21:40 Hemoglobin A1c 9.8 % (-5.6) H 03/13/19 03:31 Calculated Osmolality 308 (280-300) H 03/18/19 04:19 Lactic Acid 2.3 mmol/L (0.5-2.2) H 03/13/19 13:50 Calcium 8.2 mg/dL (8.6-10.3) L 03/18/19 04:19 Magnesium 1.5 mg/dL (1.6-2.6) L 03/17/19 04:18 C-Reactive Protein 160 mg/L (Less than 10) H 03/17/19 15:03 B-Natriuretic Peptide 907 pg/mL (Less than 100) H 03/18/19 14:10 Prealbumin 15.2 mg/dL (17.0-34.0) L 03/13/19 03:31 Procalcitonin 2.67 ng/mL (0.00-0.15) H 03/16/19 04:10 Urine Clarity Cloudy (Clear) A 03/17/19 20:03 Urine Protein 100 mg/dL (Neg-Trace) H 03/17/19 20:03 Urine Glucose (UA) 250 mg/dL (Normal) H 03/13/19 16:30 Urine Ketones Trace mg/dL (Negative) H 03/13/19 16:30 Urine Blood Moderate (Negative) H 03/17/19 20:03 Ur Leukocyte Esterase Moderate (Negative) H 03/17/19 20:03 Urine Microscopic RBC 3-5 per hpf (0-3) H 03/17/19 20:03 Urine Microscopic WBC TNTC per hpf (0-3) H 03/17/19 20:03 Ur Squamous Epith Cells Moderate per lpf (None-Few) H 03/17/19 20:03 Urine Yeast Many per hpf (None Seen) H 03/17/19 20:03 Ur Culture Indicated? YES (NO) A 03/17/19 20:03 CSF Tot Nucleated Cells 9 TNC/mcL (0-5) H 03/14/19 08:21 CSF Glucose 115 mg/dL (40-70) H 03/14/19 08:21 CSF Total Protein 65 mg/dL (15-45) H 03/14/19 08:21 Vancomycin Trough 12 mcg/mL (5-10) H 03/16/19 12:11 Consult Discharge Plan - Plan Referrals: Ray Finley Jr, MD [Non-Partnered Physician] - 03/24/19 11:00 am
[2019-03-19] MEDS: Insulin LISPRO 300 UNITS/3 ML VIAL SQ SCH ×4 (09:28→21:08)
[2019-03-19] MEDS: Piperacillin/Tazobactam 3.375 GM in 0.9 % Sodium Chloride Mini Bag 100 ML IVPB SCH ×2 (09:29→21:00)
[2019-03-19] MEDS: Diltiazem CD (24hr) 120 MG CAPSULE PO SCH (09:30)
[2019-03-19] MEDS: Apixaban 5 MG TABLET PO SCH ×2 (09:30→21:00)
[2019-03-19] MEDS: Metoprolol 100 MG TABLET PO SCH ×2 (09:31→21:00)
[2019-03-19] MEDS: Nystatin POWDER 30 GM BOTTLE TP SCH ×2 (09:31→21:01)
[2019-03-19] MEDS: Magnesium Oxide 400 MG TABLET PO SCH ×2 (09:31→21:00)
[2019-03-19 09:36] LABS: Calcium 8.5 mg/dL (8.6-10.3); Magnesium 1.5 mg/dL (1.6-2.6); Potassium 3.8 mEq/L (3.5-5.1)
[2019-03-19] MEDS: Vancomycin 500 MG in 0.9 % Sodium Chloride Mini Bag 100 ML IVPB SCH (11:43)
--- NOTE | 2019-03-19 14:26 | Internal Med Progress Note ---
Hospitalist Progress Note - Encounter Date of Encounter: 03/19/19 Time of Encounter: 14:23 - Subjective Interval History: Pt awake and oriented to person and place, conversant and able to answer some questions but still having difficulty with complex tasks like putting dentures in mouth or answering 2+ step questions. Family at bedside says she's much i mproved from admission, hopeful to get her to SNF soon. Pt denies CP, SOB, cough, abd pain, N/V/D. - Exam Vitals: Temp Pulse Resp BP Pulse Ox 98.0 F 79 17 161/76 96 03/19/19 11:34 03/19/19 11:34 03/19/19 11:34 03/19/19 11:34 03/19/19 11:34 Exam: GENERAL APPEARANCE: Poorly nourished; elderly, AAOx2 CARDIOVASCULAR: Irregularly irregular rhythm; no murmurs RESPIRATORY: bilateral air entry present; no wheezing; poor inspiratory effort ABDOMEN: Soft, nontender EXTREMITIES: No edema, clubbing. NEUROLOGICAL: no focal deficits - Summary of Assessment and Plan Summary of Assessment and Plan: Ro Burciaga is an 83 F w hx DM2, CKD4, HTN, A-Fib on AC, who p/w altered mental status, SIRS 4/4, CT chest showing infiltrates, and elevated lactate and procal, concerning for pneumonia causing severe sepsis and acute encephalopathy but with concern for encephalitis. Acute metabolic encephalopathy: suspect 2/2 pneumonia, concern initially for encephalitis with abnormal EEG (bilateral periodic epileptiform discharges c/f anoxia or infection) and CSF showing 9 WBCs w elevated glucose and protein. Pt is improving. - continue empiric acyclovir to complete course, per Neuro - HSV viral PCR pending - ID following, on empiric vanc/cefepime Pneumonia: seen on CT, RVP negative, elevated procal and crp/esr - empiric vanc and cefepime as above - check UAg's, MRSA nasal swab - ID following as noted above Severe sepsis: resolved Failure to thrive: PT/OT, nutrition, speech, and SW consults - [facility] [place] since failed swallow study A-Fib: AC on eliquis 2.5 bid, now rate controlled on dilt 120 daily and metoprolol 100 bid DM2: w hyperglycemia CKD4: noted, renally dose as needed HTN: uncontrolled, resume home BP meds PPx: eliquis Tele: will remove Activity: up w assist FEN: ADA, stop MIVF Lines: PIV, remove randall Consults: ID, Neuro Code: Full Dispo: patient requires inpatient eval and management at this time, anticipate 1-2 days, will go to SNF Internal Medicine: Result - Labs CBC & Chem 7: 03/19/19 09:03 03/19/19 09:03 Labs: Short CBC 03/19/19 Range/Units 09:03 WBC 17.1 H (4.3-11.1) K/mcL Hgb 11.6 (11.5-15.4) g/dL Hct 36.2 (35.3-44.9) % Plt Count 257 (140-400) K/mcL BMP 03/19/19 09:03 Sodium 141 Potassium 3.8 Chloride 108 H Carbon Dioxide 24 BUN 29 H Creatinine 2.01 H Glucose 226 H Calcium 8.5 L - ABG Interpretation ABG results: ABG ABG pH 7.35 pH Units (7.32-7.45) 03/13/19 11:36 ABG pCO2 33 mmHg (35-45) L 03/13/19 11:36 ABG pO2 93 mmHg (85-104) 03/13/19 11:36 ABG O2 Saturation 97 % (95-98) 03/13/19 11:36 PT/INR, D-dimer PT 13.0 Seconds (9.4-12.1) H 03/13/19 13:50 Consult Discharge Plan - Plan Referrals: Ray Finley Jr, MD [Non-Partnered Physician] - 03/24/19 11:00 am
--- NOTE | 2019-03-19 15:14 | Infectious Disease Progress No ---
ID Progress Note Date of Encounter: 03/19/19 Time of Encounter: 15:12 - Subjective Subjective: Patient seen and examined. continues to do significantly better. more awake and alert and oriented. NO chest pain. Patient tells me that she has significant shortness of breath which is worse than his baseline. Patient denies abdominal pain no constipation or diarrhea and no urinary symptoms. Vital signs noted continues to be febrile MAXIMUM TEMPERATURE 100.2 labs reviewed - Objective CBC & Chem 7: 03/19/19 09:03 03/19/19 09:03 - Exam Vitals: Temp Pulse Resp BP Pulse Ox 98.0 F 79 17 161/76 96 03/19/19 11:34 03/19/19 11:34 03/19/19 11:34 03/19/19 11:34 03/19/19 11:34 Exam: GENERAL: Comfortable. Laying in bed NAD HEENT: TED, EOMI LUNGS: Good air sounds bilaterally, no wheezing or rhonchi CV: RRR, S1 S2 ABDOMEN: Soft, nontender, + bowel sounds EXT: Adequate perfusion. No edema NEURO: A&OX3; no focal deficit - Assessment and Plan (1) Severe sepsis Current Visit: Yes Status: Acute patient had 4 SIRS criteria on admission with End organ damage and lactic acidos is etiology not clear ([employer]CENTRATION infection vs other infection vs non infectious causes) SNOMED Code(s): 67878626 (2) Altered mental status Current Visit: Yes Status: Acute etiology not clear [place]/MRA reveal no acute process clinically deteriorating over months EEG results noted family deny knowledge of patient having cold sores or shingles in the past CSF with mild pleocytosis (WBC 9, N75%L16%, protein 115 and glucose 65) gram stain negative, cultures NGT Neurology input appreciated Qualifiers: Altered mental status type: unspecified Qualified Code(s): R41.82 - Altered mental status, unspecified SNOMED Code(s): 601477486 (3) Acute kidney injury superimposed on chronic kidney disease Current Visit: No Status: Acute SNOMED Code(s): 06638175 (4) Generalized weakness Current Visit: Yes Status: Acute SNOMED Code(s): 58399095 (5) PAF (paroxysmal atrial fibrillation) Current Visit: No Status: Chronic SNOMED Code(s): 228786056 (6) Diabetes Current Visit: Yes Status: Acute hb A1c 9.8 Qualifiers: Diabetes mellitus type: type 2 Diabetes mellitus chcf insulin use: with chcf use Diabetes mellitus complication status: with kidney complications Diabetes mellitus complication detail: with chronic kidney disease Chronic kidney disease stage: stage 4 (severe) Qualified Code(s): E11.22 - Type 2 diabetes mellitus with diabetic chronic kidney disease; N18.4 - Chronic kidney disease, stage 4 (severe); Z79.4 - senior living (current) use of insulin SNOMED Code(s): 97297411 (7) Frequent falls Current Visit: Yes Status: Acute CK within normal limit no signs of rhabdo SNOMED Code(s): 990468742 (8) CAD (coronary artery disease) Current Visit: No Status: Chronic Qualifiers: Coronary Disease-Associated Artery/Lesion type: [place] artery [place] vs. transplanted heart: [place] heart Associated angina: without angina Qualified Code(s): I25.10 - Atherosclerotic heart disease of [place] coronary artery without angina pectoris SNOMED Code(s): 10140239 (9) Candiduria Current Visit: Yes Status: Acute SNOMED Code(s): 131914644 - Recommendations Recommendations: Patient clinically continues to improve. Mentation significantly improved. Fever curve also improved. WBC did go up slightly. Continue IV Zosyn Continue IV vancomycin Duration of treatment probably 10 days as for the asymptomatic candiduria, no recommendation for treatment at this time Consider de-escalating to an oral option once clinically doing better. Possible oral option includes levofloxacin plus doxycycline. Treatment course through 03/24/2019 Consult Discharge Plan - Plan Referrals: Ray Finley Jr, MD [Non-Partnered Physician] - 03/24/19 11:00 am
[2019-03-19] MEDS ORDERED: Aminoglycoside Consult 1 EACH MC ONE (16:11)
[2019-03-20] MEDS: Acyclovir 500 MG in D5% in Water 250 ML IVPB SCH (00:51)
[2019-03-20 04:06] LABS: Calcium 8.2 mg/dL (8.6-10.3); Magnesium 2.4 mg/dL (1.6-2.6); Potassium 3.7 mEq/L (3.5-5.1)
[2019-03-20 04:07] LABS: Hematocrit 34.5 % (35.3-44.9); Hemoglobin 11.1 g/dL (11.5-15.4); Mean Corpuscular HGB Conc 32.2 g/dL (31.6-35.5); Mean Corpuscular Hemoglobin 31.7 pg (28.0-33.3); Mean Corpuscular Volume 98.6 fL (83.0-100.0); Platelet Count 260 K/mcL (140-400); Red Cell Distribution Width 14.5 % (11.5-14.5); White Blood Count 16.1 K/mcL (4.3-11.1)
--- NOTE | 2019-03-20 07:44 | Internal Med Progress Note ---
Hospitalist Progress Note - Encounter Date of Encounter: 03/20/19 Time of Encounter: 07:44 - Subjective Interval History: Patient feels relatively well today, except for soreness in her legs and thighs. Eating well. Denies CARBALLO, CP, palpitations, SOB, cough, N/V/D. - Exam Vitals: Temp Pulse Resp BP Pulse Ox 97.6 F 93 16 178/92 93 03/20/19 07:00 03/20/19 07:00 03/20/19 07:00 03/20/19 07:00 03/20/19 07:00 Exam: GENERAL APPEARANCE: Poorly nourished; elderly, AAOx2, is sitting in bedside chair smiling pleasantly CARDIOVASCULAR: Irregularly irregular rhythm; no murmurs RESPIRATORY: bilateral air entry present; no wheezing; poor inspiratory effort ABDOMEN: Soft, nontender EXTREMITIES: No edema, clubbing. NEUROLOGICAL: no focal deficits - Summary of Assessment and Plan Summary of Assessment and Plan: Ro Burciaga is an 83 F w hx DM2, CKD4, HTN, A-Fib on AC, who p/w altered mental status, SIRS 4/4, CT chest showing infiltrates, and elevated lactate and procal, concerning for pneumonia causing severe sepsis and acute encephalopathy but with concern for encephalitis. Acute metabolic encephalopathy: suspect 2/2 pneumonia, concern initially for encephalitis with abnormal EEG (bilateral periodic epileptiform discharges c/f anoxia or infection) and CSF showing 9 WBCs w elevated glucose and protein. This has resolved. - continue empiric acyclovir to complete course, per Neuro, will treat total 10 days, will switch to PO - HSV viral PCR pending Pneumonia: seen on CT, RVP negative, elevated procal and crp/esr - d/c empiric vanc and cefepime as above - per ID, start empiric levaquin 750 q48h and doxy 100 bid, last doses 03/24 - her UAg's and MRSA nasal swab not collected Severe sepsis: resolved Failure to thrive: PT/OT, nutrition, speech, and SW consults. Passed MBS and is cleared for regular textures/thin liquids. A-Fib: AC on eliquis 2.5 bid, now rate controlled on dilt 120 daily and metoprolol 100 bid DM2: w hyperglycemia CKD4: noted, renally dose as needed HTN: uncontrolled, resume home BP meds PPx: eliquis Tele: will remove Activity: up w assist FEN: ADA, stop MIVF Lines: PIV, remove randall Consults: ID, Neuro Code: Full Dispo: patient medically ready at this time, anticipate today or tomorrow, will go to [facility] Internal Medicine: Result - Labs CBC & Chem 7: 03/20/19 03:29 03/20/19 03:29 Labs: Short CBC 03/19/19 03/20/19 Range/Units 09:03 03:29 WBC 17.1 H 16.1 H (4.3-11.1) K/mcL Hgb 11.6 11.1 L (11.5-15.4) g/dL Hct 36.2 34.5 L (35.3-44.9) % Plt Count 257 260 (140-400) K/mcL BMP 03/19/19 03/20/19 09:03 03:29 Sodium 141 139 Potassium 3.8 3.7 Chloride 108 H 106 Carbon Dioxide 24 23 BUN 29 H 25 H Creatinine 2.01 H 1.89 H Glucose 226 H 269 H Calcium 8.5 L 8.2 L - ABG Interpretation ABG results: ABG ABG pH 7.35 pH Units (7.32-7.45) 03/13/19 11:36 ABG pCO2 33 mmHg (35-45) L 03/13/19 11:36 ABG pO2 93 mmHg (85-104) 03/13/19 11:36 ABG O2 Saturation 97 % (95-98) 03/13/19 11:36 PT/INR, D-dimer PT 13.0 Seconds (9.4-12.1) H 03/13/19 13:50 - Impressions Impressions Videofluoroscopic Swallow 03/19/19 15:48 IMPRESSION: Single episode of flash penetration with thin liquids. Otherwise unremarkable study. Please see separate speech pathology report for full discussion of findings and recommendations. D/ / Yuriy Rose / Yuriy Rose Interpreting Provider: Yuriy Rose Consult Discharge Plan - Plan Referrals: Ray Finley Jr, MD [Non-Partnered Physician] - 03/24/19 11:00 am
--- NOTE | 2019-03-20 08:52 | Neurology Progress Note ---
Date of Encounter: 03/20/19 Time of Encounter: 08:49 Assessment and Plan (1) Altered mental status Current Visit: Yes Status: Acute Stable clinically, no new deficits overnight Patient back to baseline mental state and improving daily Recommending continuing antiviral therapy to conclusion of treatment course Otherwise, continue medical and supportive care and continue treatment of underlying infectious sources Neurology will sign off Qualifiers: Altered mental status type: unspecified Qualified Code(s): R41.82 - Altered mental status, unspecified (2) Generalized weakness Current Visit: Yes Status: Acute Weakness in bilateral legs at baseline; walker dependent Severely diminished activity tolerance per family and patient Continue with PT/OT Subjective Principal diagnosis: Altered mental status Interval history: The chart was reviewed, the patient was seen and examined at bedside today. Denies complaints of headache, neck pain and/or stiffness, denies any new neurological complaints. She she is alert and oriented 3, maintenance and concentration. She is insisting upon discharge today. Vital signs are reviewed and patient is hemodynamically stable and afebrile overnight. Objective - Constitutional Vitals: Temp Pulse Resp BP Pulse Ox 97.6 F 93 16 178/92 93 03/20/19 07:00 03/20/19 07:00 03/20/19 07:00 03/20/19 07:00 03/20/19 07:00 Exam: Exam: Examination: General Examination: *CONSTITUTIONAL: Alert and oriented x3 to person, situation and place, no acute distress *GENERAL APPEARANCE OF PATIENT frail appearing 83-year-old elderly female *EYES: pupils equal, round, reactive to light and accommodation, conjunctiva clear without masses or ulcerations, fundi normal. *CARDIOVASCULAR: no peripheral edema, distal temperature normal, dorsalis pedis pulses normal. Refer to vital signs * MUSCULOSKELETAL: *GAIT AND STATION: Requires assistance with gait with bilateral leg weakness which is chronic. Sitting upright unsupported in chair at bedside *ASSESSMENT OF MUSCLE STRENGTH IN THE UPPER AND LOWER EXTREMITIES moves all 4 extremities spontaneously, bilateral deltoids, biceps, triceps, wrist flexion, wrist extension, paste mixer 4/5, bilateral quadriceps, tibialis anterior 3/5 *MUSCLE TONE IN THE UPPER AND LOWER EXTREMITIES normal. No abnormal movements, fasciculations or atrophy identified. Neurological: *ORIENTATION to person, and place, situation and recognizes family *LANGUAGE AND FUNCTION no significant aphasia or dysarthia was noted. *ATTENTION AND CONCENTRATION are normal *LANGUAGE FUNCTION no significant aphasia or dysarthia was noted. *FUND OF KNOWLEDGE can recall some of the events surrounding admission and recollection of remote hx improving as well *MENTAL concentration has improved and she appears less confused today. Attention span is appropriate *CN II optic fundi were normal, no papilledema noted. *CN III,IV, PERRLA extraocular eye movements were full, no nystagmus and no ptosis noted. *CN V shows normal sensation and jaw opens symmetrically. *CN VII shows normal facial movement symmetrically, upper and lower bilaterally. *CN VIII shows no significant hearing loss on exam *CN IX-X palate elevated symmetrically *CN XI normal strength in the sternocleidomastoid muscles, symmetrical shoulder shrugging. *CN XII tongue protruded in the midline, with normal strength and movement. *SENSORY EXAMINATION light touch intact *REFLEXES: deep tendon reflexes were normal and symmetrical , grade 1/4 diffusely, no pathological reflexes were noted. *CEREBELLAR TESTING patient would not perform finger to nose or heel to sampson *PAIN LEVEL 0/10 - Neurological Exam Sensorimotor examination: Present: other (Grossly intact. Patient not totally cooperative) Motor Examination: Present: grossly full strength in all extremities, other (She is overall mildly weak but able to paste mixer after encouragement equally. ) Motor examination - left side: 4/5: deltoids, biceps, triceps, wrist flexion, wrist extension, hip flexors, paste mixer, quadriceps, tibialis Anterior, toe extension (EHL), plantarflexion Sensation intact: Present: other (Grossly intact) Posture: Present: other (None) Reflex and gait examination: other (Gait not assessed) Mental Status Examination: Present: awake, alert, oriented to person, oriented to place, follows commands appropriately, answers questions appropriately, no agnosia Cranial nerve examination: Present: PERRL, EOMI, visual francois intact (Unable to assess), corneal reflexes brisk symmetrically, sensory to face intact, mastication intact, no facial asymmetry is present, no dysarthria, hearing is intact symmetrically Results - Laboratory Findings CBC and BMP: 03/20/19 03:29 03/20/19 03:29 Abnormal lab findings: Abnormal lab results WBC 16.1 K/mcL (4.3-11.1) H 03/20/19 03:29 RBC 3.50 M/mcL (3.82-4.97) L 03/20/19 03:29 Hgb 11.1 g/dL (11.5-15.4) L 03/20/19 03:29 Hct 34.5 % (35.3-44.9) L 03/20/19 03:29 MCV 100.6 fL (83.0-100.0) H 03/19/19 09:03 MCHC 31.5 g/dL (31.6-35.5) L 03/13/19 10:05 RDW 14.6 % (11.5-14.5) H 03/19/19 09:03 MPV 12.9 fL (9.4-12.4) H 03/15/19 06:30 Neutrophils # 11.9 K/mcL (1.6-8.9) H 03/18/19 04:19 Monocytes # 1.6 K/mcL (0.0-1.3) H 03/18/19 04:19 ESR >= 130 mm/hr (0-15) H 03/20/19 03:29 PT 13.0 Seconds (9.4-12.1) H 03/13/19 13:50 ABG pCO2 33 mmHg (35-45) L 03/13/19 11:36 ABG HCO3 18 mEq/L (21-27) L 03/13/19 11:36 ABG Total CO2 19 mEq/L (20-26) L 03/13/19 11:36 ABG Base Excess -6 mEq/L (-2 to 3) L 03/13/19 11:36 VBG pH 7.28 pH Units (7.32-7.42) L 03/12/19 14:14 VBG pO2 55 mmHg (25-50) H 03/12/19 14:14 Sodium 134 mEq/L (136-145) L 03/12/19 13:45 Potassium 3.2 mEq/L (3.5-5.1) L 03/17/19 04:18 Chloride 108 mEq/L (98-107) H 03/19/19 09:03 Carbon Dioxide 18 mEq/L (23-29) L 03/18/19 04:19 BUN 25 mg/dL (8-23) H 03/20/19 03:29 Creatinine 1.89 mg/dL (0.60-1.20) H 03/20/19 03:29 Est GFR ( Amer) 31 (> 60) L 03/20/19 03:29 Est GFR (Non-Af Amer) 25 (> 60) L 03/20/19 03:29 Glucose 269 mg/dL (70-105) H 03/20/19 03:29 POC Glucose 259 mg/dL (70-99) H 03/19/19 19:14 Hemoglobin A1c 9.8 % (-5.6) H 03/13/19 03:31 Calculated Osmolality 302 (280-300) H 03/20/19 03:29 Lactic Acid 2.3 mmol/L (0.5-2.2) H 03/13/19 13:50 Calcium 8.2 mg/dL (8.6-10.3) L 03/20/19 03:29 Magnesium 1.5 mg/dL (1.6-2.6) L 03/19/19 09:03 C-Reactive Protein 110 mg/L (Less than 10) H 03/20/19 03:29 B-Natriuretic Peptide 907 pg/mL (Less than 100) H 03/18/19 14:10 Prealbumin 15.2 mg/dL (17.0-34.0) L 03/13/19 03:31 Procalcitonin 2.67 ng/mL (0.00-0.15) H 03/16/19 04:10 Urine Clarity Cloudy (Clear) A 03/17/19 20:03 Urine Protein 100 mg/dL (Neg-Trace) H 03/17/19 20:03 Urine Glucose (UA) 250 mg/dL (Normal) H 03/13/19 16:30 Urine Ketones Trace mg/dL (Negative) H 03/13/19 16:30 Urine Blood Moderate (Negative) H 03/17/19 20:03 Ur Leukocyte Esterase Moderate (Negative) H 03/17/19 20:03 Urine Microscopic RBC 3-5 per hpf (0-3) H 03/17/19 20:03 Urine Microscopic WBC TNTC per hpf (0-3) H 03/17/19 20:03 Ur Squamous Epith Cells Moderate per lpf (None-Few) H 03/17/19 20:03 Urine Yeast Many per hpf (None Seen) H 03/17/19 20:03 Ur Culture Indicated? YES (NO) A 03/17/19 20:03 CSF Tot Nucleated Cells 9 TNC/mcL (0-5) H 03/14/19 08:21 CSF Glucose 115 mg/dL (40-70) H 03/14/19 08:21 CSF Total Protein 65 mg/dL (15-45) H 03/14/19 08:21 Vancomycin Trough 12 mcg/mL (5-10) H 03/16/19 12:11 Consult Discharge Plan - Plan Referrals: Ray Finley Jr, MD [Non-Partnered Physician] - 03/24/19 11:00 am
[2019-03-20] MEDS: Metoprolol 100 MG TABLET PO SCH (10:18)
[2019-03-20] MEDS: Apixaban 5 MG TABLET PO SCH (10:18)
[2019-03-20] MEDS: Magnesium Oxide 400 MG TABLET PO SCH (10:18)
[2019-03-20] MEDS: Diltiazem CD (24hr) 120 MG CAPSULE PO SCH (10:18)
[2019-03-20] MEDS: Insulin LISPRO 300 UNITS/3 ML VIAL SQ SCH ×2 (10:20→12:23)
[2019-03-20] MEDS: Nystatin POWDER 30 GM BOTTLE TP SCH (10:20)
[2019-03-20] MEDS ORDERED: Doxycycline 100 MG CAPSULE PO SCH (10:22)
[2019-03-20] MEDS ORDERED: levoFLOXacin 750 MG TABLET PO SCH (10:30)
[2019-03-20 11:14] LABS: ANA IgG by ELISA NONE DETECTED (None Detected)
[2019-03-20] MEDS: Acetaminophen 325 MG TABLET PO PRN (11:23)
--- NOTE | 2019-03-20 13:27 | Discharge Summary ---
- NOTES TO OUTPATIENT PROVIDER Notes to Outpatient Provider: Came in with sepsis and AMS, found to have likely pneumonia, and improved with empiric abx. D/c to SNF. Orders not resulted at time of discharge: Pending orders 03/14/19 08:21 HSV 1 Glycoprotein G IgG CSF Stat Date of Encounter: 03/20/19 Time of Encounter: 13:27 Hospital course: Dear Doctors, I recently had the opportunity to care for this patient during their recent hospital stay at [facility]. Ro Burciaga is an 83 F w hx likely dementia, DM2, CKD4, HTN, A-Fib on AC, who presented at time of admission with altered mental status. She was found to be SIRS 4/4, with CT chest showing infiltrates, and elevated lactate and procal, concerning for bacterial pneumonia causing severe sepsis and acute encephalopathy. Due to mental status changes, LP was obtained to rule out meningitis/encephalitis which was equivocal. In the hospital, patient underwent EEG which was abnormal (bilateral periodic epileptiform discharges c/f anoxia or infection) and CSF showing 9 WBCs w elevated glucose and protein. Thus, in addition to empiric vanc and cefepime, acyclovir was added to treatment regimen. The patient improved markedly after a few days abx. Thus, she will be discharged to complete PO course of doxy and levaquin for empiric PNA coverage, as well as continue acyclovir to complete 10 day course. Due to weakness, she will be discharged to SNF. 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 Please contact me with any questions or concerns regarding their hospital stay. Sincerely, Hayden Montes MD - Discharge Medications Prescriptions: New Diltiazem CD (24hr) [Cardizem CD] 120 mg PO DAILY #30 cap.er.24h Doxycycline 100 mg PO BID #10 capsule levoFLOXacin [Levaquin] 750 mg PO Q48H #3 tablet Lisinopril [Zestril] 2.5 mg PO DAILY #15 tablet Acyclovir [Zovirax] 800 mg PO BID #12 tablet Continued Allopurinol [Zyloprim 100 MG] 100 mg PO DAILY Rosuvastatin [Crestor] 20 mg PO HS Insulin Glargine,Hum.rec.anlog [Lantus Solostar] 0 unit SQ DAILY Esomeprazole Magnesium [Nexium] 40 mg PO DAILY Magnesium Oxide [Mag-Ox] 400 mg PO BID 14 Days #28 tablet Apixaban [Eliquis] 2.5 mg PO BID Sitagliptin Phosphate [Januvia] 50 mg PO DAILY Changed Metoprolol Tartrate 100 mg PO BID #0 Discontinued Lisinopril [Zestril] 10 mg PO DAILY Home Medications: Allopurinol [Zyloprim 100 MG] 100 mg PO DAILY 09/11/17 [History] Esomeprazole Magnesium [Nexium] 40 mg PO DAILY 09/11/17 [History] Insulin Glargine,Hum.rec.anlog [Lantus Solostar] 0 unit SQ DAILY 09/11/17 [History] Rosuvastatin [Crestor] 20 mg PO HS 09/11/17 [History] Magnesium Oxide [Mag-Ox] 400 mg PO BID 14 Days #28 tablet 09/14/17 [Rx] Apixaban [Eliquis] 2.5 mg PO BID 12/03/18 [History] Sitagliptin Phosphate [Januvia] 50 mg PO DAILY 12/03/18 [History] Acyclovir [Zovirax] 800 mg PO BID #12 tablet 03/20/19 [Rx] Diltiazem CD (24hr) [Cardizem CD] 120 mg PO DAILY #30 cap.er.24h 03/20/19 [Rx] Doxycycline 100 mg PO BID #10 capsule 03/20/19 [Rx] Lisinopril [Zestril] 2.5 mg PO DAILY #15 tablet 03/20/19 [Rx] Metoprolol Tartrate 100 mg PO BID #0 03/20/19 [Rx] levoFLOXacin [Levaquin] 750 mg PO Q48H #3 tablet 03/20/19 [Rx] Allergies/Adverse Reactions: Allergy/AdvReac Type Severity Reaction Status Date / Time morphine Allergy Drowsy Verified 09/06/18 17:12 Date of admission: 03/14/19 10:28 Primary care physician: PCP NONE Consults: 03/12/19 18:06 Consult to Occupational Therapy [CONS] Routine Comment: Evaluate, develop and implement POC Reason for Consult: falls Does patient have active BEDREST order?: No Is patient medically & hemodynamically stable?: Yes Patient assessed for mobility or mobilized this visit?: No Consult to Physical Therapy [CONS] Routine Comment: Evaluate, develop and implement POC Reason for Consult: falls Does patient have active BEDREST order?: No Is patient medically & hemodynamically stable?: Yes Patient assessed for mobility or mobilized this visit?: No 03/12/19 18:54 Consult to Traffic Attendant [CONS] Routine Reason for SW Consult: discharge planning 03/12/19 19:58 Consult to Neurology [CONS] Routine Consulting Provider: Neu[facility] Reason for Consult: weakness confusion Time Notified: 19:59 Call Completed: Yes 03/13/19 16:41 Consult to Interpret Exam [CONS] Routine Consulting Provider: Otilio Beltrán Consult to Interpret Exam: Interpret EEG 03/13/19 16:51 Consult to Infectious Diseases [CONS] Routine Consulting Provider: Infectious Disease Jay[facility] Reason for Consult: AMS, BIpleds on EEG; concern for PRODUCT DEVELOPMENT MANAGER infection Time Notified: 16:52 Call Completed: Yes 03/16/19 09:17 Consult to Cardiology [CONS] Routine Comment: cardiology paged w/o response Consulting Provider: Cardiology Jaye Reason for Consult: afib w/ RVR Call Completed: No 03/17/19 14:51 Consult to Interpret Exam [CONS] Routine Consulting Provider: Ghassan [place] Consult to Interpret Exam: Interpret EEG - Constitutional Vitals: Temp Pulse Resp BP Pulse Ox 97.6 F 97 16 165/90 91 03/20/19 11:05 03/20/19 11:05 03/20/19 11:05 03/20/19 11:05 03/20/19 11:05 Exam: GENERAL APPEARANCE: Poorly nourished; elderly, AAOx2, is sitting in bedside chair smiling pleasantly CARDIOVASCULAR: Irregularly irregular rhythm; no murmurs RESPIRATORY: bilateral air entry present; no wheezing; poor inspiratory effort ABDOMEN: Soft, nontender EXTREMITIES: No edema, clubbing. NEUROLOGICAL: no focal deficits - Patient Status Disposition: Transfer SNF Condition: Fair Functional capacity at discharge: uses cane/walker Overall status at discharge: patient is progressing back to baseline - Discharge Instructions Follow Up With: Ray Finley Jr, MD [Non-Partnered Physician] - 03/24/19 11:00 am - Diet and Activity Activity: resume usual activities as tolerated Diet: advance to your usual diet
--- NOTE | 2019-03-20 13:38 | Physician Discharge Referral ---
ExtendedCare Referral Info Transfer To: SNF Provider in Charge after Transfer: PCP Institutional Level of Care: Skilled Prognosis: Good - Transfer Medications Prescriptions: Diltiazem CD (24hr) [Cardizem CD] 120 mg PO DAILY #30 cap.er.24h Transmission Status: Pending to [facility] Doxycycline 100 mg PO BID #10 capsule Transmission Status: Pending to [facility] levoFLOXacin [Levaquin] 750 mg PO Q48H #3 tablet Transmission Status: Pending to [facility] Lisinopril [Zestril] 2.5 mg PO DAILY #15 tablet Transmission Status: Pending to [facility] Acyclovir [Zovirax] 800 mg PO BID #12 tablet Transmission Status: Pending to [facility] Home Medications: Allopurinol [Zyloprim 100 MG] 100 mg PO DAILY 09/11/17 [History] Esomeprazole Magnesium [Nexium] 40 mg PO DAILY 09/11/17 [History] Insulin Glargine,Hum.rec.anlog [Lantus Solostar] 0 unit SQ DAILY 09/11/17 [History] Rosuvastatin [Crestor] 20 mg PO HS 09/11/17 [History] Magnesium Oxide [Mag-Ox] 400 mg PO BID 14 Days #28 tablet 09/14/17 [Rx] Apixaban [Eliquis] 2.5 mg PO BID 12/03/18 [History] Sitagliptin Phosphate [Januvia] 50 mg PO DAILY 12/03/18 [History] Acyclovir [Zovirax] 800 mg PO BID #12 tablet 03/20/19 [Rx] Diltiazem CD (24hr) [Cardizem CD] 120 mg PO DAILY #30 cap.er.24h 03/20/19 [Rx] Doxycycline 100 mg PO BID #10 capsule 03/20/19 [Rx] Lisinopril [Zestril] 2.5 mg PO DAILY #15 tablet 03/20/19 [Rx] Metoprolol Tartrate 100 mg PO BID #0 03/20/19 [Rx] levoFLOXacin [Levaquin] 750 mg PO Q48H #3 tablet 03/20/19 [Rx] Allergies/Adverse Reactions: Allergy/AdvReac Type Severity Reaction Status Date / Time morphine Allergy Drowsy Verified 09/06/18 17:12 - Respiratory Orders Smoking Cessation: Smoking cessation has been advised. For more information, call the [place] Tobacco Quit Line at 2-370-BSOX-NOW. - Ancillary Orders May use pressure relief devices daily prn, May go on CHECO w/family/respon libertarian w/meds at nurse discretion PRN, May consult with Dentist, Laundrette Owner, Lining Printer PRN - Advance Directives Code Status: Full Code - Mobility Orders Ambulate - Rehabiliation Orders Rehab Potential: Good Rehab Orders: Evaluation for Physical Therapy, Evaluation for Occupational Therapy - Diet Orders Regular CERTIFICATION: I certify that the transfer of the above named patient to an Extended Care Facility is necessary for the continuing treatment of the diagnosis listed. The above information is true and accurate reflection of patient's current condi tion. Confidential - Redisclosure prohibited without a patient's written consent.
[2019-03-20] MEDS ORDERED: FLU Vac QV 19-20 (6Month+)/PF 0.5 ML SYRINGE IM ONE (15:37)
[2019-03-20 15:43] VITALS: BP 154/75
[2019-03-20] MEDS ORDERED: Magnesium Oxide 400 MG TABLET PO SCH (22:00)
== END 2019-03-20 16:12 | DRG 871 ==
LOC: EMEROOARM 13:12 → 3ANU 13:12 → SUATTDRO 18:36 → 3ANU 20:00 → 2NNU 03-13 11:20 → SUATTDRO 03-14 10:28 → 2ANU 03-15 14:20
PROVIDERS: ADMIT Internal Medicine; ATTEND Internal Medicine

== ENCOUNTER 2019-05-04 00:12 | Inpatient (IN) ==
[2019-05-04 00:50] LABS: Bilirubin,Urine Negative (Negative); Blood,Urine Moderate (Negative); Clarity,Urine Clear (Clear); Color,Urine Yellow (Yellow); Glucose,Urine (UA) Normal (Normal); Ketones,Urine Negative (Negative); Leukocyte Esterase,Urine Negative (Negative); Nitrite,Urine Negative (Negative); PH,Urine 6.5 pH Units (5.0-8.0); Protein,Urine 100 mg/dL (Neg-Trace); Specific Gravity,Urine 1.013 (1.010-1.025); Urobilinogen,Urine Normal (Normal)
[2019-05-04 00:52] LABS: Hyaline Casts,Urine None Seen per lpf (None-Few); Squamous Epithelial Cell,Urine Many per lpf (None-Few)
[2019-05-04 01:00] LABS: Bacteria,Urine Few per hpf (None-Few)
[2019-05-04 01:02] LABS: Basophils # 0.1 K/mcL (0.0-0.2); Basophils % 0.6 %; Eosinophils # 0.2 K/mcL (0.0-0.6); Eosinophils % 1.5 %; Hematocrit 39.7 % (35.3-44.9); Hemoglobin 12.9 g/dL (11.5-15.4); Immature Granulocytes % 0.4 % (0-4); Lymphocytes # 1.5 K/mcL (0.6-4.6); Lymphocytes % 13.3 %; Mean Corpuscular HGB Conc 32.5 g/dL (31.6-35.5); Mean Corpuscular Hemoglobin 33.4 pg (28.0-33.3); Mean Corpuscular Volume 102.8 fL (83.0-100.0); Monocytes % 8.4 %; Neutrophils # 8.5 K/mcL (1.6-8.9); Platelet Count 281 K/mcL (140-400); Red Blood Count 3.86 M/mcL (3.82-4.97); Red Cell Distribution Width 15.5 % (11.5-14.5); Segmented Neutrophils % 75.8 %; White Blood Count 11.3 K/mcL (4.3-11.1)
[2019-05-04 01:11] LABS: INR 1.3; Prothrombin Time 14.6 Seconds (9.4-12.1)
[2019-05-04 01:14] LABS: Activated Partial Thrombo Time 33.7 Seconds (26.0-36.0)
[2019-05-04 01:23] LABS: Albumin 3.7 g/dL (3.5-5.7); Albumin/Globulin Ratio 1.1 (1.1-2.2); Bilirubin,Direct 0.1 mg/dL (0.0-0.2); Bilirubin,Indirect 0.5 mg/dL (0.0-1.0); Bilirubin,Total 0.6 mg/dL (0.3-1.0); Globulin 3.5 g/dL (2.4-3.5); Magnesium 1.2 mg/dL (1.6-2.6); Total Protein 7.2 g/dL (6.4-8.9)
[2019-05-04 01:29] LABS: Troponin I 0.04 ng/mL (< 0.04)
[2019-05-04] MEDS ORDERED: Ondansetron 4 MG/2 ML VIAL IVP PRN (04:34)
[2019-05-04] MEDS ORDERED: Naloxone 0.4 MG/ML INJ IVP PRN (04:34)
[2019-05-04] MEDS ORDERED: 0.9 % Sodium Chloride 500 ML IVC ONE (05:16)
[2019-05-04 06:47] LABS: Hematocrit 37.8 % (35.3-44.9); Hemoglobin 12.4 g/dL (11.5-15.4); Immature Platelets 8.8 % (1.1-6.1); Mean Corpuscular HGB Conc 32.8 g/dL (31.6-35.5); Mean Corpuscular Hemoglobin 33.5 pg (28.0-33.3); Mean Corpuscular Volume 102.2 fL (83.0-100.0); Mean Platelet Volume 11.9 fL (9.4-12.4); Red Blood Count 3.7 M/mcL (3.82-4.97); Red Cell Distribution Width 15.3 % (11.5-14.5); White Blood Count 10.3 K/mcL (4.3-11.1)
[2019-05-04] MEDS ORDERED: D5% in Water 1,000 ML IVC PRN (06:48)
[2019-05-04] MEDS ORDERED: Dextrose Gel 15 GM/37.5 ML TUBE PO PRN ×2 (06:48)
[2019-05-04] MEDS ORDERED: *HR* Dextrose 50 % in Water (Syg) 50 ML SYRINGE IVP PRN (06:48)
[2019-05-04 07:22] LABS: Albumin 3.6 g/dL (3.5-5.7); Albumin/Globulin Ratio 1.1 (1.1-2.2); Bilirubin,Total 0.6 mg/dL (0.3-1.0); Chol/HDL Ratio 7.2 (0-4.9); Globulin 3.3 g/dL (2.4-3.5); Magnesium 1.2 mg/dL (1.6-2.6); Phosphorous 2.6 mg/dL (2.7-4.5); Potassium 4.4 mEq/L (3.5-5.1); Total Protein 6.9 g/dL (6.4-8.9); Troponin I 0.04 ng/mL (< 0.04)
[2019-05-04] MEDS ORDERED: Diltiazem CD (24hr) 120 MG CAPSULE PO SCH (09:00)
[2019-05-04] MEDS: D5% in 0.9% NACL 1,000 ML IVC SCH (09:01)
[2019-05-04] MEDS: Apixaban 5 MG TABLET PO SCH ×2 (09:02→20:26)
[2019-05-04] MEDS: cefTRIAXone 1,000 MG in Water for inj. (sterile) 10 ML IVP SCH (13:55)
[2019-05-04] MEDS: Insulin LISPRO 300 UNITS/3 ML VIAL SQ SCH ×2 (14:11→17:30)
[2019-05-05] MEDS: Insulin LISPRO 300 UNITS/3 ML VIAL SQ SCH ×4 (00:29→18:45)
[2019-05-05 08:38] LABS: Calcium 8.5 mg/dL (8.6-10.3); Magnesium 1.3 mg/dL (1.6-2.6); Phosphorous 3.7 mg/dL (2.7-4.5); Potassium 3.7 mEq/L (3.5-5.1)
[2019-05-05] MEDS: cefTRIAXone 1,000 MG in Water for inj. (sterile) 10 ML IVP SCH (10:18)
[2019-05-05] MEDS: Apixaban 5 MG TABLET PO SCH ×2 (10:19→20:18)
[2019-05-05] MEDS: Metoprolol 100 MG TABLET PO SCH ×2 (10:19→20:18)
[2019-05-05] MEDS: D5% in 0.9% NACL 1,000 ML IVC SCH (12:14)
[2019-05-06] MEDS: Insulin LISPRO 300 UNITS/3 ML VIAL SQ SCH ×5 (00:39→20:28)
[2019-05-06 07:31] LABS: Calcium 9.1 mg/dL (8.6-10.3); Magnesium 1.5 mg/dL (1.6-2.6); Phosphorous 2.5 mg/dL (2.7-4.5); Potassium 3.8 mEq/L (3.5-5.1)
[2019-05-06] MEDS: Apixaban 5 MG TABLET PO SCH ×2 (08:57→20:27)
[2019-05-06] MEDS: Magnesium Oxide 400 MG TABLET PO SCH ×3 (08:58→20:27)
[2019-05-06] MEDS: Metoprolol 100 MG TABLET PO SCH ×2 (08:58→20:28)
[2019-05-07] MEDS ORDERED: hydrALAZINE 25 MG TABLET PO PRN (03:17)
[2019-05-07 05:13] LABS: Hematocrit 43.2 % (35.3-44.9); Mean Corpuscular HGB Conc 32.4 g/dL (31.6-35.5); Mean Corpuscular Hemoglobin 33.7 pg (28.0-33.3); Mean Corpuscular Volume 104.1 fL (83.0-100.0); Mean Platelet Volume 12.5 fL (9.4-12.4); Platelet Count 245 K/mcL (140-400); Red Blood Count 4.15 M/mcL (3.82-4.97); Red Cell Distribution Width 15.1 % (11.5-14.5); White Blood Count 14.1 K/mcL (4.3-11.1)
[2019-05-07 05:47] LABS: Calcium 8.9 mg/dL (8.6-10.3); Magnesium 1.7 mg/dL (1.6-2.6); Potassium 4.8 mEq/L (3.5-5.1)
[2019-05-07] MEDS: Metoprolol 100 MG TABLET PO SCH ×2 (09:04→21:27)
[2019-05-07] MEDS: Magnesium Oxide 400 MG TABLET PO SCH ×3 (09:04→21:29)
[2019-05-07] MEDS: Apixaban 5 MG TABLET PO SCH ×2 (09:05→21:29)
[2019-05-07] MEDS: Insulin LISPRO 300 UNITS/3 ML VIAL SQ SCH ×4 (09:05→21:34)
[2019-05-08] MEDS: Magnesium Oxide 400 MG TABLET PO SCH ×3 (09:24→20:32)
[2019-05-08] MEDS: Apixaban 5 MG TABLET PO SCH ×2 (09:25→20:32)
[2019-05-08] MEDS: Metoprolol 100 MG TABLET PO SCH ×2 (09:25→20:32)
[2019-05-08] MEDS: Insulin LISPRO 300 UNITS/3 ML VIAL SQ SCH ×4 (09:26→20:33)
[2019-05-08 10:30] LABS: Hematocrit 42.8 % (35.3-44.9); Hemoglobin 14.2 g/dL (11.5-15.4); Mean Corpuscular HGB Conc 33.2 g/dL (31.6-35.5); Mean Corpuscular Hemoglobin 33.2 pg (28.0-33.3); Platelet Count 247 K/mcL (140-400); Red Blood Count 4.28 M/mcL (3.82-4.97)
[2019-05-08 10:49] LABS: Calcium 9.3 mg/dL (8.6-10.3); Magnesium 1.8 mg/dL (1.6-2.6)
[2019-05-09] MEDS: Insulin LISPRO 300 UNITS/3 ML VIAL SQ SCH ×2 (08:24→13:15)
[2019-05-09] MEDS: Magnesium Oxide 400 MG TABLET PO SCH (10:52)
[2019-05-09] MEDS: Metoprolol 100 MG TABLET PO SCH (10:52)
[2019-05-09] MEDS: Apixaban 5 MG TABLET PO SCH (10:53)
[2019-05-09 11:08] VITALS: BP 157/73
== END 2019-05-09 14:46 | DRG 64 ==
LOC: EMEROOARM 00:12 → 3BNU 00:12 → SUATTDRO 02:08 → 3BNU 02:54 → SUATTDRO 05-06 11:14
PROVIDERS: ADMIT Internal Medicine; ATTEND Internal Medicine

== ENCOUNTER 2019-05-18 08:49 | Inpatient (IN) ==
[2019-05-18] MEDS ORDERED: Isovue-370 500 ML BOTTLE IVP ONE (09:53)
[2019-05-18 09:54] LABS: INR 1.9; Prothrombin Time 21.2 Seconds (9.4-12.1)
[2019-05-18 09:55] LABS: Hematocrit 43.9 % (35.3-44.9); Hemoglobin 14.1 g/dL (11.5-15.4); Mean Corpuscular HGB Conc 32.1 g/dL (31.6-35.5); Mean Corpuscular Hemoglobin 32.6 pg (28.0-33.3); Mean Corpuscular Volume 101.6 fL (83.0-100.0); Platelet Count 295 K/mcL (140-400); Red Blood Count 4.32 M/mcL (3.82-4.97); Red Cell Distribution Width 14.4 % (11.5-14.5)
[2019-05-18 09:57] LABS: Activated Partial Thrombo Time 43.7 Seconds (26.0-36.0)
[2019-05-18 09:59] LABS: White Blood Count 34.2 K/mcL (4.3-11.1)
[2019-05-18] MEDS ORDERED: Acetaminophen 650 MG RECTAL SUPP RC ONE (10:01)
[2019-05-18] MEDS ORDERED: cefTRIAXone 2,000 MG in Water for inj. (sterile) 10 ML IVP ONE (10:03)
[2019-05-18 10:12] LABS: Calcium 9.5 mg/dL (8.6-10.3); Potassium 4.8 mEq/L (3.5-5.1)
[2019-05-18 10:17] LABS: Bilirubin,Urine Negative (Negative); Blood,Urine Small (Negative); Clarity,Urine Cloudy (Clear); Color,Urine Yellow (Yellow); Glucose,Urine (UA) 100 mg/dL (Normal); Ketones,Urine Negative (Negative); Leukocyte Esterase,Urine Negative (Negative); Nitrite,Urine Negative (Negative); Protein,Urine >=300 mg/dL (Neg-Trace); Specific Gravity,Urine 1.026 (1.010-1.025); Urobilinogen,Urine Normal (Normal)
[2019-05-18 10:20] LABS: Bacteria,Urine None Seen per hpf (None-Few); Squamous Epithelial Cell,Urine Many per lpf (None-Few); WBC,Urine 0-3 per hpf (0-3)
[2019-05-18 10:22] LABS: Troponin I 0.04 ng/mL (< 0.04)
[2019-05-18] MEDS ORDERED: 0.9 % Sodium Chloride 1,000 ML IVC ONE (10:35)
[2019-05-18] MEDS ORDERED: MetroNIDAZOLE 500 MG/100 ML 500 MG/100 ML BAG IVPB ONE (12:27)
[2019-05-18] MEDS ORDERED: Naloxone 0.4 MG/ML INJ IVP PRN (13:49)
[2019-05-18] MEDS ORDERED: Ondansetron 4 MG/2 ML VIAL IVP PRN (13:49)
[2019-05-18] MEDS ORDERED: Acetaminophen 650 MG RECTAL SUPP RC PRN (13:55)
[2019-05-18] MEDS ORDERED: Ampicillin 2 GM in 0.9 % Sodium Chloride Mini Bag 100 ML IVPB SCH (15:30)
[2019-05-18] MEDS ORDERED: Acyclovir 500 MG in D5% in Water 250 ML IVPB SCH (16:00)
[2019-05-18] MEDS: Ampicillin 2 GM in 0.9 % Sodium Chloride Mini Bag 100 ML IVPB SCH (18:17)
[2019-05-18] MEDS: Ringers Solution, Lactated 1,000 ML IVC SCH (18:18)
[2019-05-19] MEDS: Ampicillin 2 GM in 0.9 % Sodium Chloride Mini Bag 100 ML IVPB SCH ×3 (00:36→06:41)
[2019-05-19 05:59] LABS: Mean Corpuscular Hemoglobin 33.2 pg (28.0-33.3); Mean Platelet Volume 12.2 fL (9.4-12.4); Red Cell Distribution Width 14.6 % (11.5-14.5)
[2019-05-19 06:00] LABS: Basophils % 0.4 %; Hematocrit 41.3 % (35.3-44.9); Hemoglobin 13.5 g/dL (11.5-15.4); Immature Granulocytes % 1.8 % (0-4); Lymphocytes # 1.2 K/mcL (0.6-4.6); Lymphocytes % 3.3 %; Mean Corpuscular HGB Conc 32.7 g/dL (31.6-35.5); Mean Corpuscular Volume 101.5 fL (83.0-100.0); Monocytes # 2.6 K/mcL (0.0-1.3); Neutrophils # 32.3 K/mcL (1.6-8.9); Platelet Count 261 K/mcL (140-400); Red Blood Count 4.07 M/mcL (3.82-4.97); Segmented Neutrophils % 87.5 %
[2019-05-19 06:03] LABS: Basophils # 0.2 K/mcL (0.0-0.2); White Blood Count 36.9 K/mcL (4.3-11.1)
[2019-05-19 06:06] LABS: INR 1.8; Prothrombin Time 20.9 Seconds (9.4-12.1)
[2019-05-19 06:19] LABS: Calcium 8.9 mg/dL (8.6-10.3)
[2019-05-19] MEDS: Ringers Solution, Lactated 1,000 ML IVC SCH (06:41)
[2019-05-19] MEDS ORDERED: Aminoglycoside Consult 1 EACH MC ONE (07:35)
[2019-05-19] MEDS ORDERED: *HR* Dextrose 50 % in Water (Syg) 50 ML SYRINGE IVP PRN (08:07)
[2019-05-19] MEDS ORDERED: D5% in Water 1,000 ML IVC PRN (08:07)
[2019-05-19] MEDS ORDERED: Dextrose Gel 15 GM/37.5 ML TUBE PO PRN ×2 (08:07)
[2019-05-19] MEDS ORDERED: D5% in Lactated Ringers 1,000 ML IVC SCH (08:15)
[2019-05-19 08:28] LABS: Albumin/Globulin Ratio 0.8 (1.1-2.2); Bilirubin,Direct 0.1 mg/dL (0.0-0.2); Bilirubin,Indirect 0.5 mg/dL (0.0-1.0); Bilirubin,Total 0.6 mg/dL (0.3-1.0); Globulin 3.6 g/dL (2.4-3.5); Total Protein 6.6 g/dL (6.4-8.9)
[2019-05-19] MEDS ORDERED: Acyclovir 500 MG in D5% in Water 250 ML IVPB SCH (09:00)
[2019-05-19] MEDS ORDERED: Apixaban 5 MG TABLET PO SCH (09:00)
[2019-05-19] MEDS ORDERED: Vancomycin 1 EACH in 0.9 % Sodium Chloride 250 ML IVPB PRN (09:00)
[2019-05-19] MEDS ORDERED: Vancomycin 500 MG, Sodium Chloride IRRigation 250 ML RC SCH (09:00)
[2019-05-19] MEDS: MetroNIDAZOLE 500 MG/100 ML 500 MG/100 ML BAG IVPB SCH ×3 (09:14→23:54)
[2019-05-19] MEDS ORDERED: *HR* Metoprolol 5 MG/5 ML VIAL IVP PRN (09:33)
[2019-05-19] MEDS ORDERED: *HR* Heparin 5,000 UNIT/ML VIAL IVP ONE (09:34)
[2019-05-19] MEDS ORDERED: *HR* Heparin 5,000 UNIT/ML VIAL IVP PRN ×2 (09:34)
[2019-05-19] MEDS ORDERED: Heparin 25,000 UNIT/250 ML D5W 25,000 UNIT/250 ML IV.SOLN IVC SCH ×2 (09:45→10:15)
[2019-05-19] MEDS ORDERED: VANCOMYCIN 500 MG RC SCH (10:01)
[2019-05-19] MEDS ORDERED: SODIUM CHLORIDE IRRIGATION RC SCH (10:01)
[2019-05-19 10:08] LABS: Heparin anti-factor XA UFH 0.63 IU/mL (0.30-0.70); INR 1.7; Prothrombin Time 19.1 Seconds (9.4-12.1)
[2019-05-19 10:09] LABS: Hematocrit 38.1 % (35.3-44.9); Hemoglobin 12.1 g/dL (11.5-15.4); Mean Corpuscular HGB Conc 31.8 g/dL (31.6-35.5); Mean Corpuscular Volume 103.8 fL (83.0-100.0); Mean Platelet Volume 12.3 fL (9.4-12.4); Platelet Count 262 K/mcL (140-400); Red Blood Count 3.67 M/mcL (3.82-4.97); Red Cell Distribution Width 14.6 % (11.5-14.5)
[2019-05-19 10:15] LABS: White Blood Count 40.2 K/mcL (4.3-11.1)
[2019-05-19] MEDS ORDERED: Acetaminophen IV 500 MG/50 ML INFUS..BTL IVPB PRN (11:02)
[2019-05-19 11:08] LABS: INR 1.8; Prothrombin Time 19.9 Seconds (9.4-12.1)
[2019-05-19] MEDS: Insulin LISPRO 300 UNITS/3 ML VIAL SQ SCH ×2 (11:16→18:58)
[2019-05-19] MEDS ORDERED: cefTRIAXone 2,000 MG in Water for inj. (sterile) 20 ML IVP SCH (15:00)
[2019-05-19] MEDS: Vancomycin Oral Soln 125 MG/2.5 ML UDC PO SCH ×3 (15:06→20:37)
[2019-05-19] MEDS: Apixaban 2.5 MG TABLET PO SCH ×2 (18:54→19:34)
[2019-05-20 04:15] LABS: Eosinophils % 0.5 %; Segmented Neutrophils % 86.9 %
[2019-05-20 04:16] LABS: Basophils # 0.1 K/mcL (0.0-0.2); Basophils % 0.2 %; Eosinophils # 0.2 K/mcL (0.0-0.6); Hemoglobin 10.6 g/dL (11.5-15.4); Immature Granulocytes % 3.2 % (0-4); Lymphocytes # 1.2 K/mcL (0.6-4.6); Lymphocytes % 3.2 %; Mean Corpuscular HGB Conc 32.1 g/dL (31.6-35.5); Mean Corpuscular Volume 102.8 fL (83.0-100.0); Mean Platelet Volume 12.3 fL (9.4-12.4); Monocytes # 2.3 K/mcL (0.0-1.3); Neutrophils # 33.2 K/mcL (1.6-8.9); Platelet Count 270 K/mcL (140-400); Red Blood Count 3.21 M/mcL (3.82-4.97); Red Cell Distribution Width 14.4 % (11.5-14.5)
[2019-05-20 04:34] LABS: Calcium 8.1 mg/dL (8.6-10.3); Magnesium 1.3 mg/dL (1.6-2.6); Potassium 3.2 mEq/L (3.5-5.1); White Blood Count 38.2 K/mcL (4.3-11.1)
[2019-05-20 04:57] LABS: Platelet Estimate Normal (Normal)
[2019-05-20] MEDS ORDERED: Ringers Solution, Lactated 1,000 ML IVC SCH (07:30)
[2019-05-20] MEDS: MetroNIDAZOLE 500 MG/100 ML 500 MG/100 ML BAG IVPB SCH (09:01)
[2019-05-20] MEDS: Apixaban 2.5 MG TABLET PO SCH ×2 (09:01→20:09)
[2019-05-20] MEDS: Metoprolol 100 MG TABLET PO SCH ×2 (09:01→20:10)
[2019-05-20] MEDS: Vancomycin Oral Soln 125 MG/2.5 ML UDC PO SCH ×4 (09:02→20:11)
[2019-05-20] MEDS: Insulin LISPRO 300 UNITS/3 ML VIAL SQ SCH ×4 (09:20→20:07)
[2019-05-21] MEDS: Insulin LISPRO 300 UNITS/3 ML VIAL SQ SCH ×4 (08:14→23:04)
[2019-05-21] MEDS: Apixaban 2.5 MG TABLET PO SCH ×2 (08:18→20:00)
[2019-05-21] MEDS: Metoprolol 100 MG TABLET PO SCH ×2 (08:18→20:00)
[2019-05-21] MEDS: Vancomycin Oral Soln 125 MG/2.5 ML UDC PO SCH ×4 (08:20→19:59)
[2019-05-21 08:57] LABS: Red Cell Distribution Width 14.5 % (11.5-14.5)
[2019-05-21 08:58] LABS: Hematocrit 35.7 % (35.3-44.9); Hemoglobin 11.8 g/dL (11.5-15.4); Mean Corpuscular HGB Conc 33.1 g/dL (31.6-35.5); Mean Corpuscular Hemoglobin 33.1 pg (28.0-33.3); Mean Platelet Volume 12.9 fL (9.4-12.4); Platelet Count 326 K/mcL (140-400); Red Blood Count 3.57 M/mcL (3.82-4.97)
[2019-05-21] MEDS ORDERED: Melatonin 3 MG TABLET PO SCH (09:00)
[2019-05-21 09:01] LABS: White Blood Count 32.4 K/mcL (4.3-11.1)
[2019-05-21 09:05] LABS: Albumin 2.5 g/dL (3.5-5.7); Albumin/Globulin Ratio 0.7 (1.1-2.2); Bilirubin,Total 0.5 mg/dL (0.3-1.0); Calcium 8.7 mg/dL (8.6-10.3); Globulin 3.5 g/dL (2.4-3.5); Magnesium 1.5 mg/dL (1.6-2.6); Potassium 3.5 mEq/L (3.5-5.1)
[2019-05-21 09:29] LABS: Monocytes # 1.9 K/mcL (0.0-1.3); Neutrophils # 30.5 K/mcL (1.6-8.9)
[2019-05-21 09:30] LABS: Anisocytosis 1+ (Not Present); Macrocytosis Present (Not Present); Platelet Estimate Normal (Normal); Toxic Granulation Present (Not Present)
[2019-05-21] MEDS: MetroNIDAZOLE 500 MG/100 ML 500 MG/100 ML BAG IVPB SCH (15:52)
[2019-05-21] MEDS: Nystatin SUSP 5 ML UD.LIQ PO SCH ×2 (17:50→19:58)
[2019-05-21] MEDS ORDERED: D5 IVC SCH (19:15)
[2019-05-21] MEDS ORDERED: SODIUM BICARBONATE IVC SCH (19:15)
[2019-05-21] MEDS ORDERED: WATER IVC SCH (19:15)
[2019-05-21] MEDS ORDERED: POTASSIUM CHLORIDE IVC SCH (19:15)
[2019-05-21] MEDS: Melatonin 3 MG TABLET PO SCH (20:00)
[2019-05-22] MEDS: MetroNIDAZOLE 500 MG/100 ML 500 MG/100 ML BAG IVPB SCH ×4 (01:53→23:58)
[2019-05-22 04:21] LABS: Basophils # 0.1 K/mcL (0.0-0.2); Basophils % 0.3 %; Eosinophils # 0.4 K/mcL (0.0-0.6); Eosinophils % 1.7 %; Hematocrit 33.6 % (35.3-44.9); Hemoglobin 10.7 g/dL (11.5-15.4); Immature Granulocytes % 1.6 % (0-4); Lymphocytes # 1.1 K/mcL (0.6-4.6); Lymphocytes % 5.1 %; Mean Corpuscular HGB Conc 31.8 g/dL (31.6-35.5); Mean Corpuscular Hemoglobin 32.7 pg (28.0-33.3); Mean Corpuscular Volume 102.8 fL (83.0-100.0); Mean Platelet Volume 12.5 fL (9.4-12.4); Monocytes # 1.4 K/mcL (0.0-1.3); Neutrophils # 19.3 K/mcL (1.6-8.9); Platelet Count 282 K/mcL (140-400); Red Blood Count 3.27 M/mcL (3.82-4.97); Red Cell Distribution Width 14.5 % (11.5-14.5); Segmented Neutrophils % 85.3 %; White Blood Count 22.6 K/mcL (4.3-11.1)
[2019-05-22 04:48] LABS: Calcium 8.3 mg/dL (8.6-10.3); Magnesium 1.9 mg/dL (1.6-2.6); Phosphorous 2.1 mg/dL (2.7-4.5); Potassium 3.5 mEq/L (3.5-5.1)
[2019-05-22] MEDS: Metoprolol 100 MG TABLET PO SCH ×2 (09:30→20:59)
[2019-05-22] MEDS: D5 IVC SCH (09:30)
[2019-05-22] MEDS: Apixaban 2.5 MG TABLET PO SCH ×2 (09:30→20:58)
[2019-05-22] MEDS: Vancomycin Oral Soln 125 MG/2.5 ML UDC PO SCH ×4 (09:30→20:59)
[2019-05-22] MEDS: Insulin LISPRO 300 UNITS/3 ML VIAL SQ SCH ×4 (09:30→21:06)
[2019-05-22] MEDS: SODIUM BICARBONATE IVC SCH (09:30)
[2019-05-22] MEDS: WATER IVC SCH (09:30)
[2019-05-22] MEDS: POTASSIUM CHLORIDE IVC SCH (09:30)
[2019-05-22] MEDS: Nystatin SUSP 5 ML UD.LIQ PO SCH ×4 (09:30→20:58)
[2019-05-22] MEDS: Melatonin 3 MG TABLET PO SCH (20:59)
[2019-05-23 04:34] LABS: Basophils # 0.1 K/mcL (0.0-0.2); Basophils % 0.5 %; Eosinophils # 0.3 K/mcL (0.0-0.6); Eosinophils % 1.4 %; Hemoglobin 11.4 g/dL (11.5-15.4); Immature Granulocytes % 2.7 % (0-4); Lymphocytes # 1.6 K/mcL (0.6-4.6); Lymphocytes % 7.4 %; Mean Corpuscular HGB Conc 33.5 g/dL (31.6-35.5); Mean Corpuscular Hemoglobin 32.5 pg (28.0-33.3); Mean Corpuscular Volume 96.9 fL (83.0-100.0); Mean Platelet Volume 12.2 fL (9.4-12.4); Monocytes # 1.3 K/mcL (0.0-1.3); Monocytes % 6.2 %; Neutrophils # 17.6 K/mcL (1.6-8.9); Platelet Count 326 K/mcL (140-400); Red Blood Count 3.51 M/mcL (3.82-4.97); Red Cell Distribution Width 14.5 % (11.5-14.5); Segmented Neutrophils % 81.8 %; White Blood Count 21.5 K/mcL (4.3-11.1)
[2019-05-23 04:46] LABS: Calcium 7.9 mg/dL (8.6-10.3); Magnesium 1.5 mg/dL (1.6-2.6); Potassium 4.1 mEq/L (3.5-5.1)
[2019-05-23] MEDS: POTASSIUM CHLORIDE IVC SCH (08:22)
[2019-05-23] MEDS: WATER IVC SCH (08:22)
[2019-05-23] MEDS: D5 IVC SCH (08:22)
[2019-05-23] MEDS: SODIUM BICARBONATE IVC SCH (08:22)
[2019-05-23] MEDS: MetroNIDAZOLE 500 MG/100 ML 500 MG/100 ML BAG IVPB SCH ×2 (08:24→15:37)
[2019-05-23] MEDS: Apixaban 2.5 MG TABLET PO SCH ×2 (08:28→22:19)
[2019-05-23] MEDS: Nystatin SUSP 5 ML UD.LIQ PO SCH ×4 (08:35→22:20)
[2019-05-23] MEDS: Metoprolol 100 MG TABLET PO SCH ×2 (08:35→22:20)
[2019-05-23] MEDS: Insulin LISPRO 300 UNITS/3 ML VIAL SQ SCH ×3 (08:36→18:25)
[2019-05-23] MEDS: Vancomycin Oral Soln 125 MG/2.5 ML UDC PO SCH ×4 (08:37→22:19)
[2019-05-23] MEDS ORDERED: Insulin DETEMIR 100 UNIT/ML X5UNITS SQ SCH ×2 (21:00)
[2019-05-23] MEDS: Melatonin 3 MG TABLET PO SCH (22:20)
[2019-05-24] MEDS: MetroNIDAZOLE 500 MG/100 ML 500 MG/100 ML BAG IVPB SCH ×3 (00:23→18:19)
[2019-05-24 04:55] LABS: Basophils # 0.1 K/mcL (0.0-0.2); Basophils % 0.5 %; Eosinophils # 0.6 K/mcL (0.0-0.6); Eosinophils % 2.3 %; Hematocrit 37.3 % (35.3-44.9); Hemoglobin 11.9 g/dL (11.5-15.4); Immature Granulocytes % 2.9 % (0-4); Lymphocytes # 1.8 K/mcL (0.6-4.6); Lymphocytes % 7.3 %; Mean Corpuscular HGB Conc 31.9 g/dL (31.6-35.5); Mean Corpuscular Hemoglobin 32.7 pg (28.0-33.3); Mean Corpuscular Volume 102.5 fL (83.0-100.0); Monocytes # 1.7 K/mcL (0.0-1.3); Monocytes % 6.9 %; Neutrophils # 19.2 K/mcL (1.6-8.9); Nucleated Red Blood Cells 0.1 /100 WBC (0); Platelet Count 355 K/mcL (140-400); Red Blood Count 3.64 M/mcL (3.82-4.97); Red Cell Distribution Width 14.6 % (11.5-14.5); Segmented Neutrophils % 80.1 %
[2019-05-24 05:08] LABS: Calcium 8.3 mg/dL (8.6-10.3); Magnesium 1.8 mg/dL (1.6-2.6); Potassium 4.3 mEq/L (3.5-5.1)
[2019-05-24] MEDS: Metoprolol 100 MG TABLET PO SCH ×2 (11:45→20:56)
[2019-05-24] MEDS: Nystatin SUSP 5 ML UD.LIQ PO SCH ×4 (11:45→20:55)
[2019-05-24] MEDS: Vancomycin Oral Soln 125 MG/2.5 ML UDC PO SCH ×4 (11:46→20:56)
[2019-05-24] MEDS: Apixaban 2.5 MG TABLET PO SCH ×2 (11:46→20:56)
[2019-05-24] MEDS: Insulin LISPRO 300 UNITS/3 ML VIAL SQ SCH ×3 (11:51→18:17)
[2019-05-24] MEDS: POTASSIUM CHLORIDE IVC SCH (18:02)
[2019-05-24] MEDS: D5 IVC SCH (18:02)
[2019-05-24] MEDS: WATER IVC SCH (18:02)
[2019-05-24] MEDS: SODIUM BICARBONATE IVC SCH (18:02)
[2019-05-24] MEDS: amLODIPine 5 MG TABLET PO SCH (18:20)
[2019-05-24] MEDS: Insulin DETEMIR 100 UNIT/ML X5UNITS SQ SCH (20:55)
[2019-05-24] MEDS: Melatonin 3 MG TABLET PO SCH (20:56)
[2019-05-25 03:36] LABS: Basophils # 0.1 K/mcL (0.0-0.2); Basophils % 0.5 %; Eosinophils # 0.6 K/mcL (0.0-0.6); Eosinophils % 2.5 %; Hematocrit 36.5 % (35.3-44.9); Hemoglobin 11.7 g/dL (11.5-15.4); Immature Granulocytes % 3.2 % (0-4); Lymphocytes # 1.9 K/mcL (0.6-4.6); Lymphocytes % 8.2 %; Mean Corpuscular HGB Conc 32.1 g/dL (31.6-35.5); Mean Corpuscular Hemoglobin 31.9 pg (28.0-33.3); Mean Corpuscular Volume 99.5 fL (83.0-100.0); Monocytes # 1.5 K/mcL (0.0-1.3); Monocytes % 6.6 %; Nucleated Red Blood Cells 0.1 /100 WBC (0); Platelet Count 382 K/mcL (140-400); Red Blood Count 3.67 M/mcL (3.82-4.97); Red Cell Distribution Width 14.6 % (11.5-14.5); White Blood Count 22.7 K/mcL (4.3-11.1)
[2019-05-25 03:52] LABS: Calcium 8.3 mg/dL (8.6-10.3); Magnesium 1.6 mg/dL (1.6-2.6); Potassium 4.2 mEq/L (3.5-5.1)
[2019-05-25] MEDS: Metoprolol 100 MG TABLET PO SCH ×2 (09:32→21:09)
[2019-05-25] MEDS: Apixaban 2.5 MG TABLET PO SCH ×2 (09:32→21:09)
[2019-05-25] MEDS: Vancomycin Oral Soln 125 MG/2.5 ML UDC PO SCH ×4 (09:32→21:09)
[2019-05-25] MEDS: Nystatin SUSP 5 ML UD.LIQ PO SCH ×4 (09:32→21:09)
[2019-05-25] MEDS: amLODIPine 5 MG TABLET PO SCH (09:32)
[2019-05-25] MEDS: Insulin LISPRO 300 UNITS/3 ML VIAL SQ SCH ×2 (10:09→12:21)
[2019-05-25] MEDS: MetroNIDAZOLE 500 MG/100 ML 500 MG/100 ML BAG IVPB SCH ×3 (15:08→17:40)
[2019-05-25] MEDS: Melatonin 3 MG TABLET PO SCH (21:09)
[2019-05-25] MEDS: Insulin DETEMIR 100 UNIT/ML X5UNITS SQ SCH (21:09)
[2019-05-26] MEDS: MetroNIDAZOLE 500 MG/100 ML 500 MG/100 ML BAG IVPB SCH ×3 (00:21→16:16)
[2019-05-26 00:44] LABS: Basophils # 0.1 K/mcL (0.0-0.2); Basophils % 0.6 %; Eosinophils # 0.4 K/mcL (0.0-0.6); Eosinophils % 1.9 %; Hematocrit 35.5 % (35.3-44.9); Hemoglobin 11.8 g/dL (11.5-15.4); Immature Granulocytes % 2.4 % (0-4); Lymphocytes # 1.5 K/mcL (0.6-4.6); Mean Corpuscular HGB Conc 33.2 g/dL (31.6-35.5); Mean Corpuscular Hemoglobin 33.2 pg (28.0-33.3); Monocytes # 1.2 K/mcL (0.0-1.3); Monocytes % 5.5 %; Nucleated Red Blood Cells 0.1 /100 WBC (0); Platelet Count 404 K/mcL (140-400); Red Blood Count 3.55 M/mcL (3.82-4.97); Red Cell Distribution Width 14.6 % (11.5-14.5); Segmented Neutrophils % 82.6 %; White Blood Count 21.7 K/mcL (4.3-11.1)
[2019-05-26 01:02] LABS: Calcium 8.3 mg/dL (8.6-10.3); Magnesium 1.4 mg/dL (1.6-2.6); Potassium 4.2 mEq/L (3.5-5.1)
[2019-05-26] MEDS: Vancomycin Oral Soln 125 MG/2.5 ML UDC PO SCH ×4 (08:26→21:16)
[2019-05-26] MEDS: Nystatin SUSP 5 ML UD.LIQ PO SCH ×4 (08:26→21:15)
[2019-05-26] MEDS: amLODIPine 5 MG TABLET PO SCH (08:26)
[2019-05-26] MEDS: Metoprolol 100 MG TABLET PO SCH ×2 (08:26→21:15)
[2019-05-26] MEDS: Apixaban 2.5 MG TABLET PO SCH ×2 (08:27→21:15)
[2019-05-26] MEDS ORDERED: D5% in Water 1,000 ML IVC PRN (11:47)
[2019-05-26] MEDS ORDERED: *HR* Dextrose 50 % in Water (Syg) 50 ML SYRINGE IVP PRN (11:47)
[2019-05-26] MEDS ORDERED: Dextrose Gel 15 GM/37.5 ML TUBE PO PRN ×2 (11:47)
[2019-05-26] MEDS: Acetaminophen 325 MG TABLET PO PRN (12:37)
[2019-05-26] MEDS: Insulin LISPRO 300 UNITS/3 ML VIAL SQ SCH ×2 (12:40→17:34)
[2019-05-26] MEDS: Melatonin 3 MG TABLET PO SCH (21:15)
[2019-05-26] MEDS: Insulin DETEMIR 100 UNIT/ML X5UNITS SQ SCH (21:15)
[2019-05-27] MEDS: MetroNIDAZOLE 500 MG/100 ML 500 MG/100 ML BAG IVPB SCH ×3 (00:38→18:02)
[2019-05-27 04:19] LABS: Basophils # 0.1 K/mcL (0.0-0.2); Basophils % 0.4 %; Eosinophils # 0.6 K/mcL (0.0-0.6); Eosinophils % 3.2 %; Hematocrit 35.4 % (35.3-44.9); Hemoglobin 11.2 g/dL (11.5-15.4); Immature Granulocytes % 2.6 % (0-4); Lymphocytes # 1.6 K/mcL (0.6-4.6); Lymphocytes % 8.8 %; Mean Corpuscular HGB Conc 31.6 g/dL (31.6-35.5); Mean Corpuscular Hemoglobin 32.5 pg (28.0-33.3); Mean Corpuscular Volume 102.6 fL (83.0-100.0); Mean Platelet Volume 11.6 fL (9.4-12.4); Monocytes # 1.1 K/mcL (0.0-1.3); Monocytes % 5.9 %; Neutrophils # 14.7 K/mcL (1.6-8.9); Platelet Count 402 K/mcL (140-400); Red Blood Count 3.45 M/mcL (3.82-4.97); Red Cell Distribution Width 14.8 % (11.5-14.5); Segmented Neutrophils % 79.1 %; White Blood Count 18.6 K/mcL (4.3-11.1)
[2019-05-27 04:42] LABS: Calcium 8.3 mg/dL (8.6-10.3); Magnesium 1.8 mg/dL (1.6-2.6); Potassium 4.2 mEq/L (3.5-5.1)
[2019-05-27] MEDS: Nystatin SUSP 5 ML UD.LIQ PO SCH ×4 (09:29→21:25)
[2019-05-27] MEDS: Insulin LISPRO 300 UNITS/3 ML VIAL SQ SCH ×3 (09:30→18:03)
[2019-05-27] MEDS: amLODIPine 5 MG TABLET PO SCH (09:30)
[2019-05-27] MEDS: Metoprolol 100 MG TABLET PO SCH ×2 (09:30→21:24)
[2019-05-27] MEDS: Apixaban 2.5 MG TABLET PO SCH ×2 (09:30→21:24)
[2019-05-27] MEDS: Vancomycin Oral Soln 125 MG/2.5 ML UDC PO SCH ×4 (09:30→21:25)
[2019-05-27] MEDS: Acetaminophen 325 MG TABLET PO PRN (14:28)
[2019-05-27] MEDS: Melatonin 3 MG TABLET PO SCH (21:24)
[2019-05-27] MEDS: Insulin DETEMIR 100 UNIT/ML X5UNITS SQ SCH (21:25)
[2019-05-28] MEDS: MetroNIDAZOLE 500 MG/100 ML 500 MG/100 ML BAG IVPB SCH ×3 (00:41→18:09)
[2019-05-28 01:09] LABS: Basophils # 0.1 K/mcL (0.0-0.2); Basophils % 0.3 %; Eosinophils # 0.4 K/mcL (0.0-0.6); Eosinophils % 1.9 %; Hematocrit 35.3 % (35.3-44.9); Hemoglobin 11.5 g/dL (11.5-15.4); Immature Granulocytes % 1.5 % (0-4); Lymphocytes # 1.3 K/mcL (0.6-4.6); Lymphocytes % 6.3 %; Mean Corpuscular HGB Conc 32.6 g/dL (31.6-35.5); Mean Corpuscular Hemoglobin 33.2 pg (28.0-33.3); Mean Platelet Volume 11.7 fL (9.4-12.4); Monocytes % 4.8 %; Platelet Count 433 K/mcL (140-400); Red Blood Count 3.46 M/mcL (3.82-4.97); Segmented Neutrophils % 85.2 %
[2019-05-28 01:32] LABS: Calcium 8.4 mg/dL (8.6-10.3); Magnesium 1.7 mg/dL (1.6-2.6); Potassium 4.3 mEq/L (3.5-5.1)
[2019-05-28] MEDS: Acetaminophen 325 MG TABLET PO PRN ×2 (02:04→20:05)
[2019-05-28] MEDS: Insulin LISPRO 300 UNITS/3 ML VIAL SQ SCH ×3 (07:34→16:27)
[2019-05-28] MEDS: Nystatin SUSP 5 ML UD.LIQ PO SCH ×4 (07:41→20:06)
[2019-05-28] MEDS: Vancomycin Oral Soln 125 MG/2.5 ML UDC PO SCH ×4 (07:41→20:07)
[2019-05-28] MEDS: amLODIPine 5 MG TABLET PO SCH (07:41)
[2019-05-28] MEDS: Metoprolol 100 MG TABLET PO SCH (07:41)
[2019-05-28] MEDS: Apixaban 2.5 MG TABLET PO SCH ×2 (07:41→20:06)
[2019-05-28] MEDS: 0.9 % Sodium Chloride 1,000 ML IVC SCH (14:09)
[2019-05-28] MEDS: Insulin DETEMIR 100 UNIT/ML X5UNITS SQ SCH (20:06)
[2019-05-28] MEDS: Melatonin 3 MG TABLET PO SCH (20:06)
[2019-05-29] MEDS: 0.9 % Sodium Chloride 1,000 ML IVC SCH ×3 (01:59→21:39)
[2019-05-29] MEDS: MetroNIDAZOLE 500 MG/100 ML 500 MG/100 ML BAG IVPB SCH ×3 (01:59→16:26)
[2019-05-29] MEDS: Acetaminophen 325 MG TABLET PO PRN ×2 (02:50→08:25)
[2019-05-29 03:28] LABS: Basophils # 0.1 K/mcL (0.0-0.2); Basophils % 0.6 %; Eosinophils # 0.4 K/mcL (0.0-0.6); Eosinophils % 2.3 %; Hematocrit 34.5 % (35.3-44.9); Hemoglobin 11.2 g/dL (11.5-15.4); Immature Granulocytes % 1.1 % (0-4); Lymphocytes # 1.5 K/mcL (0.6-4.6); Lymphocytes % 8.5 %; Mean Corpuscular HGB Conc 32.5 g/dL (31.6-35.5); Mean Corpuscular Hemoglobin 32.6 pg (28.0-33.3); Mean Corpuscular Volume 100.3 fL (83.0-100.0); Mean Platelet Volume 11.8 fL (9.4-12.4); Monocytes # 0.9 K/mcL (0.0-1.3); Monocytes % 4.7 %; Platelet Count 467 K/mcL (140-400); Red Blood Count 3.44 M/mcL (3.82-4.97); Red Cell Distribution Width 15.4 % (11.5-14.5); Segmented Neutrophils % 82.8 %; White Blood Count 18.1 K/mcL (4.3-11.1)
[2019-05-29 03:31] LABS: Calcium 7.7 mg/dL (8.6-10.3); Magnesium 1.4 mg/dL (1.6-2.6); Potassium 4.2 mEq/L (3.5-5.1)
[2019-05-29] MEDS: Apixaban 2.5 MG TABLET PO SCH ×2 (08:07→21:40)
[2019-05-29] MEDS: amLODIPine 5 MG TABLET PO SCH (08:08)
[2019-05-29] MEDS: Insulin LISPRO 300 UNITS/3 ML VIAL SQ SCH ×3 (08:08→16:32)
[2019-05-29] MEDS: Nystatin SUSP 5 ML UD.LIQ PO SCH ×4 (08:13→21:40)
[2019-05-29] MEDS: Vancomycin Oral Soln 125 MG/2.5 ML UDC PO SCH ×4 (08:16→21:41)
[2019-05-29] MEDS: Metoprolol XL (24 HR) Succ 50 MG TAB.ER.24H PO SCH (11:57)
[2019-05-29] MEDS: Insulin DETEMIR 100 UNIT/ML X5UNITS SQ SCH (21:40)
[2019-05-29] MEDS: Melatonin 3 MG TABLET PO SCH (21:40)
[2019-05-30] MEDS: MetroNIDAZOLE 500 MG/100 ML 500 MG/100 ML BAG IVPB SCH ×2 (00:13→08:15)
[2019-05-30] MEDS: Acetaminophen 325 MG TABLET PO PRN (00:21)
[2019-05-30 04:20] LABS: Basophils # 0.1 K/mcL (0.0-0.2); Basophils % 0.6 %; Eosinophils # 0.6 K/mcL (0.0-0.6); Eosinophils % 3.2 %; Hematocrit 33.2 % (35.3-44.9); Hemoglobin 10.7 g/dL (11.5-15.4); Immature Granulocytes % 1.1 % (0-4); Lymphocytes # 1.3 K/mcL (0.6-4.6); Lymphocytes % 7.6 %; Mean Corpuscular HGB Conc 32.2 g/dL (31.6-35.5); Mean Corpuscular Hemoglobin 32.8 pg (28.0-33.3); Mean Corpuscular Volume 101.8 fL (83.0-100.0); Mean Platelet Volume 11.4 fL (9.4-12.4); Monocytes % 5.9 %; Neutrophils # 13.8 K/mcL (1.6-8.9); Platelet Count 453 K/mcL (140-400); Red Blood Count 3.26 M/mcL (3.82-4.97); Red Cell Distribution Width 15.4 % (11.5-14.5); Segmented Neutrophils % 81.6 %; White Blood Count 16.9 K/mcL (4.3-11.1)
[2019-05-30 04:39] LABS: Albumin 2.3 g/dL (3.5-5.7); Albumin/Globulin Ratio 0.7 (1.1-2.2); Bilirubin,Total 0.3 mg/dL (0.3-1.0); Calcium 8.2 mg/dL (8.6-10.3); Globulin 3.1 g/dL (2.4-3.5); Magnesium 2.3 mg/dL (1.6-2.6); Potassium 4.6 mEq/L (3.5-5.1); Total Protein 5.4 g/dL (6.4-8.9)
[2019-05-30] MEDS: Vancomycin Oral Soln 125 MG/2.5 ML UDC PO SCH ×4 (08:16→22:03)
[2019-05-30] MEDS: Apixaban 2.5 MG TABLET PO SCH ×2 (08:16→22:03)
[2019-05-30] MEDS: Metoprolol XL (24 HR) Succ 50 MG TAB.ER.24H PO SCH (08:16)
[2019-05-30] MEDS: amLODIPine 5 MG TABLET PO SCH (08:17)
[2019-05-30] MEDS: Insulin LISPRO 300 UNITS/3 ML VIAL SQ SCH ×3 (08:17→16:59)
[2019-05-30] MEDS: Nystatin SUSP 5 ML UD.LIQ PO SCH ×4 (08:28→22:13)
[2019-05-30] MEDS ORDERED: Cefepime HCl 2,000 MG in 0.9 % Sodium Chloride Mini Bag 100 ML IVPB ONE (11:21)
[2019-05-30] MEDS: metroNIDAZOLE 500 MG TABLET PO SCH ×2 (14:44→22:02)
[2019-05-30] MEDS: Cefepime HCl 1,000 MG in 0.9 % Sodium Chloride Mini Bag 100 ML IVPB SCH (16:58)
[2019-05-30] MEDS ORDERED: Cefepime HCl 1,000 MG in Water for inj. (sterile) 10 ML IVP SCH (18:00)
[2019-05-30] MEDS: Insulin DETEMIR 100 UNIT/ML X5UNITS SQ SCH (22:03)
[2019-05-30] MEDS: Melatonin 3 MG TABLET PO SCH (22:03)
[2019-05-31 03:22] LABS: Basophils # 0.1 K/mcL (0.0-0.2); Basophils % 0.6 %; Eosinophils # 0.7 K/mcL (0.0-0.6); Eosinophils % 3.1 %; Hematocrit 35.7 % (35.3-44.9); Hemoglobin 11.7 g/dL (11.5-15.4); Immature Granulocytes % 0.7 % (0-4); Lymphocytes % 4.5 %; Mean Corpuscular HGB Conc 32.8 g/dL (31.6-35.5); Mean Corpuscular Hemoglobin 33.4 pg (28.0-33.3); Mean Platelet Volume 11.1 fL (9.4-12.4); Monocytes % 4.8 %; Neutrophils # 18.6 K/mcL (1.6-8.9); Platelet Count 501 K/mcL (140-400); Red Cell Distribution Width 15.7 % (11.5-14.5); Segmented Neutrophils % 86.3 %; White Blood Count 21.5 K/mcL (4.3-11.1)
[2019-05-31 03:44] LABS: Calcium 8.7 mg/dL (8.6-10.3); Magnesium 1.9 mg/dL (1.6-2.6); Potassium 4.6 mEq/L (3.5-5.1)
[2019-05-31] MEDS: Cefepime HCl 1,000 MG in 0.9 % Sodium Chloride Mini Bag 100 ML IVPB SCH ×2 (05:27→17:20)
[2019-05-31] MEDS: Insulin LISPRO 300 UNITS/3 ML VIAL SQ SCH ×3 (07:28→17:16)
[2019-05-31] MEDS: Nystatin SUSP 5 ML UD.LIQ PO SCH ×4 (08:41→21:43)
[2019-05-31] MEDS: Apixaban 2.5 MG TABLET PO SCH ×2 (08:41→21:44)
[2019-05-31] MEDS: Metoprolol XL (24 HR) Succ 50 MG TAB.ER.24H PO SCH (08:41)
[2019-05-31] MEDS: amLODIPine 5 MG TABLET PO SCH (08:41)
[2019-05-31] MEDS: metroNIDAZOLE 500 MG TABLET PO SCH ×3 (08:41→21:44)
[2019-05-31] MEDS: Vancomycin Oral Soln 125 MG/2.5 ML UDC PO SCH ×4 (09:52→21:44)
[2019-05-31 10:05] LABS: Adenovirus Not Detected (Not Detect); Bordetella Pertussis Not Detected (Not Detect); Chlamydophila pneumoniae Not Detected (Not Detect); Coronavirus 229E Not Detected (Not Detect); Coronavirus HKU1 Not Detected (Not Detect); Coronavirus NL63 Not Detected (Not Detect); Coronavirus OC43 Not Detected (Not Detect); Human Metapneumovirus Not Detected (Not Detect); Human Rhinovirus/Enterovirus Not Detected (Not Detect); Influenza A Subtype 2009 H1 Not Detected (Not Detect); Influenza A Untypeable Not Detected (Not Detect); Influenza B Not Detected (Not Detect); Mycoplasma pneumoniae Not Detected (Not Detect); Parainfluenza Virus 1 Not Detected (Not Detect); Parainfluenza Virus 2 Not Detected (Not Detect); Parainfluenza Virus 3 Not Detected (Not Detect); Parainfluenza Virus 4 Not Detected (Not Detect); Respiratory Syncytial Virus Not Detected (Not Detect)
[2019-05-31 17:53] LABS: Bilirubin,Urine Negative (Negative); Blood,Urine Negative (Negative); Clarity,Urine Clear (Clear); Color,Urine Yellow (Yellow); Glucose,Urine (UA) Normal (Normal); Ketones,Urine Negative (Negative); Leukocyte Esterase,Urine Negative (Negative); Nitrite,Urine Negative (Negative); Protein,Urine 100 mg/dL (Neg-Trace); Specific Gravity,Urine 1.022 (1.010-1.025); Urobilinogen,Urine Normal (Normal)
[2019-05-31 17:56] LABS: Bacteria,Urine None Seen per hpf (None-Few); Hyaline Casts,Urine None Seen per lpf (None-Few); RBC,Urine 0-3 per hpf (0-3); Squamous Epithelial Cell,Urine Many per lpf (None-Few); WBC,Urine 0-3 per hpf (0-3)
[2019-05-31] MEDS: Melatonin 3 MG TABLET PO SCH (21:44)
[2019-05-31] MEDS: Insulin DETEMIR 100 UNIT/ML X5UNITS SQ SCH (21:44)
[2019-06-01 01:30] LABS: Basophils # 0.1 K/mcL (0.0-0.2); Basophils % 0.7 %; Eosinophils # 0.8 K/mcL (0.0-0.6); Eosinophils % 5.5 %; Hematocrit 34.6 % (35.3-44.9); Immature Granulocytes % 0.7 % (0-4); Lymphocytes # 1.1 K/mcL (0.6-4.6); Lymphocytes % 7.4 %; Mean Corpuscular HGB Conc 31.8 g/dL (31.6-35.5); Mean Corpuscular Hemoglobin 32.5 pg (28.0-33.3); Mean Corpuscular Volume 102.4 fL (83.0-100.0); Mean Platelet Volume 11.3 fL (9.4-12.4); Monocytes # 1.1 K/mcL (0.0-1.3); Monocytes % 7.4 %; Neutrophils # 11.6 K/mcL (1.6-8.9); Platelet Count 483 K/mcL (140-400); Red Blood Count 3.38 M/mcL (3.82-4.97); Red Cell Distribution Width 15.8 % (11.5-14.5); Segmented Neutrophils % 78.3 %; White Blood Count 14.8 K/mcL (4.3-11.1)
[2019-06-01 01:52] LABS: Calcium 8.6 mg/dL (8.6-10.3); Potassium 4.6 mEq/L (3.5-5.1)
[2019-06-01] MEDS ORDERED: Haloperidol Lactate 5 MG/ML VIAL IVP ONE (02:56)
[2019-06-01] MEDS ORDERED: *HR* Promethazine 25 MG/ML VIAL IVP ONE (02:57)
[2019-06-01] MEDS: Cefepime HCl 1,000 MG in 0.9 % Sodium Chloride Mini Bag 100 ML IVPB SCH ×2 (05:16→18:03)
[2019-06-01] MEDS: Insulin LISPRO 300 UNITS/3 ML VIAL SQ SCH ×3 (10:02→18:11)
[2019-06-01] MEDS: amLODIPine 5 MG TABLET PO SCH (10:03)
[2019-06-01] MEDS: Apixaban 2.5 MG TABLET PO SCH ×2 (10:03→20:12)
[2019-06-01] MEDS: metroNIDAZOLE 500 MG TABLET PO SCH ×3 (10:03→20:11)
[2019-06-01] MEDS: Metoprolol XL (24 HR) Succ 50 MG TAB.ER.24H PO SCH (10:03)
[2019-06-01] MEDS: Nystatin SUSP 5 ML UD.LIQ PO SCH ×4 (10:04→20:10)
[2019-06-01] MEDS: Vancomycin Oral Soln 125 MG/2.5 ML UDC PO SCH ×4 (10:04→20:11)
[2019-06-01] MEDS: Insulin DETEMIR 100 UNIT/ML X5UNITS SQ SCH (20:10)
[2019-06-01] MEDS: traZODone 50 MG TABLET PO SCH (20:11)
[2019-06-01] MEDS: Melatonin 3 MG TABLET PO SCH (20:12)
[2019-06-02 03:32] LABS: Basophils # 0.1 K/mcL (0.0-0.2); Basophils % 0.7 %; Eosinophils # 0.8 K/mcL (0.0-0.6); Eosinophils % 5.4 %; Hematocrit 33.8 % (35.3-44.9); Immature Granulocytes % 0.7 % (0-4); Lymphocytes # 1.5 K/mcL (0.6-4.6); Lymphocytes % 10.1 %; Mean Corpuscular HGB Conc 32.5 g/dL (31.6-35.5); Mean Corpuscular Hemoglobin 32.4 pg (28.0-33.3); Mean Corpuscular Volume 99.7 fL (83.0-100.0); Mean Platelet Volume 11.4 fL (9.4-12.4); Monocytes # 1.2 K/mcL (0.0-1.3); Monocytes % 8.1 %; Platelet Count 503 K/mcL (140-400); Red Blood Count 3.39 M/mcL (3.82-4.97); White Blood Count 14.7 K/mcL (4.3-11.1)
[2019-06-02 03:47] LABS: Calcium 8.6 mg/dL (8.6-10.3); Potassium 4.7 mEq/L (3.5-5.1)
[2019-06-02] MEDS: Cefepime HCl 1,000 MG in 0.9 % Sodium Chloride Mini Bag 100 ML IVPB SCH ×2 (06:32→17:34)
[2019-06-02] MEDS: Apixaban 2.5 MG TABLET PO SCH ×2 (08:42→21:05)
[2019-06-02] MEDS: amLODIPine 5 MG TABLET PO SCH (08:42)
[2019-06-02] MEDS: metroNIDAZOLE 500 MG TABLET PO SCH ×3 (08:42→21:05)
[2019-06-02] MEDS: Metoprolol XL (24 HR) Succ 50 MG TAB.ER.24H PO SCH (08:42)
[2019-06-02] MEDS: Vancomycin Oral Soln 125 MG/2.5 ML UDC PO SCH ×4 (08:43→21:04)
[2019-06-02] MEDS: Insulin LISPRO 300 UNITS/3 ML VIAL SQ SCH ×3 (08:43→16:35)
[2019-06-02] MEDS: Nystatin SUSP 5 ML UD.LIQ PO SCH ×3 (08:43→16:29)
[2019-06-02] MEDS ORDERED: Metoprolol XL (24 HR) Succ 50 MG TAB.ER.24H PO SCH (09:00)
[2019-06-02] MEDS: Lactobacillus 1 EACH CAP.SPRINK PO SCH ×2 (12:03→21:05)
[2019-06-02] MEDS ORDERED: Furosemide 20 MG/2 ML VIAL IVP ONE (12:26)
[2019-06-02] MEDS: Insulin DETEMIR 100 UNIT/ML X5UNITS SQ SCH (21:04)
[2019-06-02] MEDS: Melatonin 3 MG TABLET PO SCH (21:05)
[2019-06-02] MEDS: traZODone 50 MG TABLET PO SCH (21:05)
[2019-06-03 02:16] LABS: Basophils # 0.1 K/mcL (0.0-0.2); Basophils % 0.8 %; Eosinophils # 0.8 K/mcL (0.0-0.6); Eosinophils % 5.8 %; Hematocrit 34.3 % (35.3-44.9); Hemoglobin 11.1 g/dL (11.5-15.4); Immature Granulocytes % 0.5 % (0-4); Lymphocytes # 1.7 K/mcL (0.6-4.6); Lymphocytes % 12.8 %; Mean Corpuscular HGB Conc 32.4 g/dL (31.6-35.5); Mean Corpuscular Hemoglobin 32.6 pg (28.0-33.3); Mean Corpuscular Volume 100.9 fL (83.0-100.0); Mean Platelet Volume 11.4 fL (9.4-12.4); Monocytes # 1.1 K/mcL (0.0-1.3); Monocytes % 8.7 %; Neutrophils # 9.3 K/mcL (1.6-8.9); Platelet Count 504 K/mcL (140-400); Red Cell Distribution Width 15.8 % (11.5-14.5); Segmented Neutrophils % 71.4 %
[2019-06-03 02:34] LABS: Albumin 2.6 g/dL (3.5-5.7); Albumin/Globulin Ratio 0.8 (1.1-2.2); Bilirubin,Total 0.3 mg/dL (0.3-1.0); Calcium 8.8 mg/dL (8.6-10.3); Globulin 3.2 g/dL (2.4-3.5); Magnesium 1.6 mg/dL (1.6-2.6); Phosphorous 3.2 mg/dL (2.7-4.5); Potassium 4.7 mEq/L (3.5-5.1); Total Protein 5.8 g/dL (6.4-8.9)
[2019-06-03] MEDS: Cefepime HCl 1,000 MG in 0.9 % Sodium Chloride Mini Bag 100 ML IVPB SCH ×2 (06:09→18:36)
[2019-06-03] MEDS: Insulin LISPRO 300 UNITS/3 ML VIAL SQ SCH ×3 (08:09→17:00)
[2019-06-03] MEDS: Acetaminophen 325 MG TABLET PO PRN ×2 (08:46→13:51)
[2019-06-03] MEDS: metroNIDAZOLE 500 MG TABLET PO SCH ×3 (08:46→21:39)
[2019-06-03] MEDS: Apixaban 2.5 MG TABLET PO SCH ×2 (08:46→21:39)
[2019-06-03] MEDS: Lactobacillus 1 EACH CAP.SPRINK PO SCH ×2 (08:46→21:38)
[2019-06-03] MEDS: Metoprolol XL (24 HR) Succ 50 MG TAB.ER.24H PO SCH (08:46)
[2019-06-03] MEDS: amLODIPine 5 MG TABLET PO SCH (08:46)
[2019-06-03] MEDS: Vancomycin Oral Soln 125 MG/2.5 ML UDC PO SCH ×4 (08:46→21:41)
[2019-06-03] MEDS: traZODone 50 MG TABLET PO SCH (21:39)
[2019-06-03] MEDS: Insulin DETEMIR 100 UNIT/ML X5UNITS SQ SCH (21:40)
[2019-06-03] MEDS: Melatonin 3 MG TABLET PO SCH (21:40)
[2019-06-04 04:32] LABS: Hematocrit 36.1 % (35.3-44.9); Hemoglobin 11.6 g/dL (11.5-15.4); Mean Corpuscular HGB Conc 32.1 g/dL (31.6-35.5); Mean Corpuscular Hemoglobin 32.7 pg (28.0-33.3); Mean Corpuscular Volume 101.7 fL (83.0-100.0); Mean Platelet Volume 11.2 fL (9.4-12.4); Platelet Count 512 K/mcL (140-400); Red Blood Count 3.55 M/mcL (3.82-4.97); Red Cell Distribution Width 15.6 % (11.5-14.5); White Blood Count 13.8 K/mcL (4.3-11.1)
[2019-06-04 04:53] LABS: Calcium 8.9 mg/dL (8.6-10.3); Potassium 4.6 mEq/L (3.5-5.1)
[2019-06-04] MEDS: Cefepime HCl 1,000 MG in 0.9 % Sodium Chloride Mini Bag 100 ML IVPB SCH ×2 (06:30→17:05)
[2019-06-04] MEDS: Insulin LISPRO 300 UNITS/3 ML VIAL SQ SCH ×3 (08:07→17:05)
[2019-06-04] MEDS: amLODIPine 5 MG TABLET PO SCH (08:19)
[2019-06-04] MEDS: Apixaban 2.5 MG TABLET PO SCH ×2 (08:19→22:10)
[2019-06-04] MEDS: Lactobacillus 1 EACH CAP.SPRINK PO SCH ×2 (08:19→22:10)
[2019-06-04] MEDS: metroNIDAZOLE 500 MG TABLET PO SCH ×3 (08:19→22:10)
[2019-06-04] MEDS: Metoprolol XL (24 HR) Succ 50 MG TAB.ER.24H PO SCH (08:20)
[2019-06-04] MEDS: Vancomycin Oral Soln 125 MG/2.5 ML UDC PO SCH ×4 (09:39→23:33)
[2019-06-04] MEDS: Insulin DETEMIR 100 UNIT/ML X5UNITS SQ SCH (22:03)
[2019-06-04] MEDS: traZODone 50 MG TABLET PO SCH (22:10)
[2019-06-04] MEDS: Melatonin 3 MG TABLET PO SCH ×2 (22:14→22:18)
[2019-06-05 05:15] LABS: Basophils # 0.1 K/mcL (0.0-0.2); Basophils % 1.2 %; Eosinophils # 0.4 K/mcL (0.0-0.6); Eosinophils % 3.6 %; Hematocrit 35.8 % (35.3-44.9); Hemoglobin 11.9 g/dL (11.5-15.4); Immature Granulocytes % 0.6 % (0-4); Lymphocytes # 1.8 K/mcL (0.6-4.6); Lymphocytes % 15.3 %; Mean Corpuscular HGB Conc 33.2 g/dL (31.6-35.5); Mean Corpuscular Hemoglobin 32.6 pg (28.0-33.3); Mean Corpuscular Volume 98.1 fL (83.0-100.0); Mean Platelet Volume 11.1 fL (9.4-12.4); Monocytes % 8.7 %; Neutrophils # 8.4 K/mcL (1.6-8.9); Platelet Count 512 K/mcL (140-400); Red Blood Count 3.65 M/mcL (3.82-4.97); Red Cell Distribution Width 15.9 % (11.5-14.5); Segmented Neutrophils % 70.6 %; White Blood Count 11.9 K/mcL (4.3-11.1)
[2019-06-05 05:36] LABS: Calcium 8.8 mg/dL (8.6-10.3); Potassium 5.1 mEq/L (3.5-5.1)
[2019-06-05] MEDS: Cefepime HCl 1,000 MG in 0.9 % Sodium Chloride Mini Bag 100 ML IVPB SCH ×2 (05:57→17:23)
[2019-06-05] MEDS: Vancomycin Oral Soln 125 MG/2.5 ML UDC PO SCH ×4 (08:27→21:21)
[2019-06-05] MEDS: metroNIDAZOLE 500 MG TABLET PO SCH ×3 (08:27→21:20)
[2019-06-05] MEDS: Metoprolol XL (24 HR) Succ 50 MG TAB.ER.24H PO SCH (08:28)
[2019-06-05] MEDS: Lactobacillus 1 EACH CAP.SPRINK PO SCH ×2 (08:28→21:20)
[2019-06-05] MEDS: amLODIPine 5 MG TABLET PO SCH (08:29)
[2019-06-05] MEDS: Insulin LISPRO 300 UNITS/3 ML VIAL SQ SCH ×3 (08:29→17:24)
[2019-06-05] MEDS: Apixaban 2.5 MG TABLET PO SCH ×2 (08:29→21:20)
[2019-06-05] MEDS ORDERED: Ipratropium/Albuterol Neb 3 ML IH PRN (13:44)
[2019-06-05] MEDS ORDERED: Furosemide 20 MG/2 ML VIAL IVP ONE (17:42)
[2019-06-05] MEDS: Insulin DETEMIR 100 UNIT/ML X5UNITS SQ SCH (21:19)
[2019-06-05] MEDS: Melatonin 3 MG TABLET PO SCH (21:20)
[2019-06-05] MEDS: traZODone 50 MG TABLET PO SCH (21:20)
[2019-06-05] MEDS: Acetaminophen 325 MG TABLET PO PRN (23:02)
[2019-06-06] MEDS: Cefepime HCl 1,000 MG in 0.9 % Sodium Chloride Mini Bag 100 ML IVPB SCH (05:11)
[2019-06-06] MEDS: Insulin LISPRO 300 UNITS/3 ML VIAL SQ SCH ×2 (08:00→12:21)
[2019-06-06 08:10] VITALS: BP 156/88
[2019-06-06 09:06] LABS: Basophils # 0.2 K/mcL (0.0-0.2); Basophils % 1.4 %; Eosinophils # 0.4 K/mcL (0.0-0.6); Eosinophils % 3.3 %; Hematocrit 38.3 % (35.3-44.9); Hemoglobin 12.7 g/dL (11.5-15.4); Immature Granulocytes % 0.7 % (0-4); Lymphocytes # 1.7 K/mcL (0.6-4.6); Lymphocytes % 14.2 %; Mean Corpuscular HGB Conc 33.2 g/dL (31.6-35.5); Mean Corpuscular Hemoglobin 32.4 pg (28.0-33.3); Mean Corpuscular Volume 97.7 fL (83.0-100.0); Mean Platelet Volume 11.2 fL (9.4-12.4); Monocytes # 1.2 K/mcL (0.0-1.3); Monocytes % 9.7 %; Neutrophils # 8.4 K/mcL (1.6-8.9); Platelet Count 500 K/mcL (140-400); Red Blood Count 3.92 M/mcL (3.82-4.97); Red Cell Distribution Width 15.9 % (11.5-14.5); Segmented Neutrophils % 70.7 %; White Blood Count 11.9 K/mcL (4.3-11.1)
[2019-06-06 09:15] LABS: Calcium 8.9 mg/dL (8.6-10.3); Potassium 4.1 mEq/L (3.5-5.1)
[2019-06-06] MEDS: Metoprolol XL (24 HR) Succ 50 MG TAB.ER.24H PO SCH (10:42)
[2019-06-06] MEDS: metroNIDAZOLE 500 MG TABLET PO SCH (10:43)
[2019-06-06] MEDS: Apixaban 2.5 MG TABLET PO SCH (10:43)
[2019-06-06] MEDS: Lactobacillus 1 EACH CAP.SPRINK PO SCH (10:43)
[2019-06-06] MEDS: amLODIPine 5 MG TABLET PO SCH (10:43)
[2019-06-06] MEDS: Vancomycin Oral Soln 125 MG/2.5 ML UDC PO SCH (10:44)
[2019-06-06] MEDS ORDERED: Furosemide 20 MG/2 ML VIAL IVP STA (11:31)
[2019-06-06] MEDS: Acetaminophen 325 MG TABLET PO PRN (12:24)
[2019-06-07] MEDS ORDERED: Furosemide Oral Soln 40 MG/4 ML UDC PO SCH (09:00)
== END 2019-06-06 16:30 | DRG 871 ==
LOC: EMEROOARM 08:49 → 3BNU 08:49 → SUATTDRO 14:12 → 3BNU 14:30 → 2NENU 15:26 → SUATTDRO 05-19 15:42
PROVIDERS: ADMIT Internal Medicine; ATTEND Student in an Organized Health Care Education/Training Program

== ENCOUNTER 2019-08-24 15:27 | Inpatient (IN) ==
[2019-08-24] MEDS ORDERED: *HR* FentaNYL (PF) 100 MCG/2 ML VIAL IVP STA (15:38)
[2019-08-24] MEDS ORDERED: 0.9 % Sodium Chloride 500 ML IVC ONE (15:38)
[2019-08-24] MEDS ORDERED: Ondansetron 4 MG/2 ML VIAL IVP ONE (15:39)
[2019-08-24 16:10] LABS: Basophils # 0.1 K/mcL (0.0-0.2); Basophils % 0.5 %; Eosinophils # 0.1 K/mcL (0.0-0.6); Eosinophils % 0.7 %; Hematocrit 35.6 % (35.3-44.9); Hemoglobin 10.8 g/dL (11.5-15.4); Immature Granulocytes % 1.1 % (0-4); Lymphocytes # 0.9 K/mcL (0.6-4.6); Mean Corpuscular HGB Conc 30.3 g/dL (31.6-35.5); Mean Corpuscular Hemoglobin 31.2 pg (28.0-33.3); Mean Corpuscular Volume 102.9 fL (83.0-100.0); Mean Platelet Volume 10.9 fL (9.4-12.4); Monocytes # 1.1 K/mcL (0.0-1.3); Monocytes % 7.2 %; Neutrophils # 12.8 K/mcL (1.6-8.9); Nucleated Red Blood Cells 1.1 /100 WBC (0); Platelet Count 479 K/mcL (140-400); Red Blood Count 3.46 M/mcL (3.82-4.97); Red Cell Distribution Width 17.1 % (11.5-14.5); Segmented Neutrophils % 84.5 %; White Blood Count 15.1 K/mcL (4.3-11.1)
[2019-08-24 16:20] LABS: INR 2.1; Prothrombin Time 24.4 Seconds (9.4-12.1)
[2019-08-24 16:38] LABS: Alanine Aminotransferase 7 Units/L (7-52); Albumin 3.1 g/dL (3.5-5.7); Albumin/Globulin Ratio 0.6 (1.1-2.2); Alkaline Phosphatase 125 Units/L (34-104); Aspartate Amino Transferase 11 Units/L (13-39); BUN/Creatinine Ratio 22 (6-26); Bilirubin,Direct 0.1 mg/dL (0.0-0.2); Bilirubin,Indirect 0.3 mg/dL (0.0-1.0); Bilirubin,Total 0.4 mg/dL (0.3-1.0); Blood Urea Nitrogen 44 mg/dL (8-23); Calcium 9.6 mg/dL (8.6-10.3); Carbon Dioxide 16 mEq/L (23-29); Chloride 108 mEq/L (98-107); Globulin 5.1 g/dL (2.4-3.5); Glucose 174 mg/dL (70-105); Lipase 13 Units/L (11-82); Osmolality,Calculated 295 (280-300); Potassium 5.8 mEq/L (3.5-5.1); Sodium 135 mEq/L (136-145); Total Protein 8.2 g/dL (6.4-8.9); Troponin I < 0.03 ng/mL (< 0.04); eGFR For African Americans 29 (> 60); eGFR For Non-African Americans 24 (> 60)
[2019-08-24 17:12] LABS: Bilirubin,Urine Small (Negative); Blood,Urine Large (Negative); Clarity,Urine Turbid (Clear); Color,Urine Orange (Yellow); Glucose,Urine (UA) Normal (Normal); Ketones,Urine Negative (Negative); Leukocyte Esterase,Urine Large (Negative); Nitrite,Urine Positive (Negative); Protein,Urine 100 mg/dL (Neg-Trace); Specific Gravity,Urine 1.021 (1.010-1.025); Urobilinogen,Urine Normal (Normal)
[2019-08-24 17:15] LABS: Bacteria,Urine Few per hpf (None-Few); RBC,Urine 50-100 per hpf (0-3); Squamous Epithelial Cell,Urine Moderate per lpf (None-Few); WBC,Urine TNTC per hpf (0-3)
[2019-08-24] MEDS ORDERED: Naloxone 0.4 MG/ML INJ IVP PRN (17:52)
[2019-08-24] MEDS ORDERED: Ipratropium/Albuterol Neb 3 ML IH ONE (18:40)
[2019-08-24] MEDS ORDERED: Insulin Human Regular 10 UNIT in 0.9 % Sodium Chloride 10 ML IV ONE (18:47)
[2019-08-24] MEDS ORDERED: Calcium Gluconate 1gm/50mL 1 GM/50 ML BAG IVPB ONE (18:48)
[2019-08-24] MEDS ORDERED: *HR* Dextrose 50 % in Water (Vial) 50 ML VIAL IVP ONE (18:52)
[2019-08-24] MEDS ORDERED: *HR* Dextrose 50 % in Water (Syg) 50 ML SYRINGE IVP PRN (18:55)
[2019-08-24] MEDS ORDERED: Dextrose Gel 15 GM/37.5 ML TUBE PO PRN ×2 (18:55)
[2019-08-24] MEDS ORDERED: D5% in Water 1,000 ML IVC PRN (18:55)
[2019-08-24] MEDS ORDERED: Sodium Bicarbonate 150 MEQ in D5% in Water 1,000 ML IVC SCH (19:00)
[2019-08-24] MEDS: Metoprolol 100 MG TABLET PO SCH (20:10)
[2019-08-24] MEDS: Apixaban 2.5 MG TABLET PO SCH (20:10)
[2019-08-24] MEDS ORDERED: *HR* Dextrose 50 % in Water (Syg) 50 ML SYRINGE IVP ONE (20:12)
[2019-08-24 21:31] LABS: Calcium 9.4 mg/dL (8.6-10.3); Potassium 4.7 mEq/L (3.5-5.1)
[2019-08-25 05:57] LABS: Basophils # 0.1 K/mcL (0.0-0.2); Basophils % 0.5 %; Eosinophils # 0.2 K/mcL (0.0-0.6); Eosinophils % 1.7 %; Hematocrit 30.9 % (35.3-44.9); Hemoglobin 9.7 g/dL (11.5-15.4); Immature Granulocytes % 0.9 % (0-4); Lymphocytes # 1.1 K/mcL (0.6-4.6); Lymphocytes % 8.5 %; Mean Corpuscular HGB Conc 31.4 g/dL (31.6-35.5); Mean Corpuscular Hemoglobin 31.8 pg (28.0-33.3); Mean Corpuscular Volume 101.3 fL (83.0-100.0); Mean Platelet Volume 10.9 fL (9.4-12.4); Monocytes # 1.4 K/mcL (0.0-1.3); Monocytes % 10.7 %; Neutrophils # 10.4 K/mcL (1.6-8.9); Nucleated Red Blood Cells 0.7 /100 WBC (0); Platelet Count 396 K/mcL (140-400); Red Blood Count 3.05 M/mcL (3.82-4.97); Red Cell Distribution Width 17.2 % (11.5-14.5); Segmented Neutrophils % 77.7 %; White Blood Count 13.4 K/mcL (4.3-11.1)
[2019-08-25 06:32] LABS: Calcium 8.8 mg/dL (8.6-10.3); Potassium 4.3 mEq/L (3.5-5.1)
[2019-08-25] MEDS: Metoprolol 100 MG TABLET PO SCH ×2 (09:39→20:16)
[2019-08-25] MEDS: Apixaban 2.5 MG TABLET PO SCH ×2 (09:39→20:16)
[2019-08-25] MEDS: Insulin LISPRO 300 UNITS/3 ML VIAL SQ SCH ×3 (09:39→18:27)
[2019-08-25 17:24] LABS: Enterococcus by PCR Not Detected (Not Detect); Staphylococcus by PCR DETECTED (Not Detect); blaKPC Carbapenem-Resist Gene Not Detected (Not Detect); mecA Methicillin-Resist Gene DETECTED (Not Detect); vanA/B Vancomycin-Resist Genes Not Detected (Not Detect)
[2019-08-25 17:25] LABS: Acinetobacter baumannii by PCR Not Detected (Not Detect); Candida albicans by PCR Not Detected (Not Detect); Candida glabrata by PCR Not Detected (Not Detect); Candida krusei by PCR Not Detected (Not Detect); Candida parapsilosis by PCR Not Detected (Not Detect); Candida tropicalis by PCR Not Detected (Not Detect); Enterobacter cloacae Cmplx PCR Not Detected (Not Detect); Enterobacteriaceae by PCR Not Detected (Not Detect); Escherichia coli by PCR Not Detected (Not Detect); Klebsiella oxytoca by PCR Not Detected (Not Detect); Klebsiella pneumoniae by PCR Not Detected (Not Detect); Proteus by PCR Not Detected (Not Detect); Pseudomonas aeruginosa by PCR Not Detected (Not Detect); Serratia marcescens by PCR Not Detected (Not Detect); Staphylococcus aureus by PCR Not Detected (Not Detect); Streptococcus agalactiae(B)PCR Not Detected (Not Detect); Streptococcus by PCR Not Detected (Not Detect); Streptococcus pneumoniae PCR Not Detected (Not Detect); Streptococcus pyogenes (A) PCR Not Detected (Not Detect)
[2019-08-25] MEDS: 0.9 % Sodium Chloride 1,000 ML IVC SCH ×3 (18:04→20:22)
[2019-08-26] MEDS: 0.9 % Sodium Chloride 1,000 ML IVC SCH (03:16)
[2019-08-26] MEDS: Insulin LISPRO 300 UNITS/3 ML VIAL SQ SCH ×3 (08:07→18:03)
[2019-08-26] MEDS: Metoprolol 100 MG TABLET PO SCH ×2 (08:28→20:50)
[2019-08-26] MEDS: Apixaban 2.5 MG TABLET PO SCH ×2 (08:28→20:50)
[2019-08-26] MEDS ORDERED: Methyl Salicylate/Menthol 28 GM TUBE TP PRN (08:40)
[2019-08-26 09:21] LABS: Basophils # 0.1 K/mcL (0.0-0.2); Basophils % 0.5 %; Eosinophils # 0.5 K/mcL (0.0-0.6); Eosinophils % 2.8 %; Hematocrit 31.6 % (35.3-44.9); Hemoglobin 9.8 g/dL (11.5-15.4); Immature Granulocytes % 0.9 % (0-4); Lymphocytes # 1.8 K/mcL (0.6-4.6); Lymphocytes % 11.3 %; Mean Corpuscular Hemoglobin 31.8 pg (28.0-33.3); Mean Corpuscular Volume 102.6 fL (83.0-100.0); Mean Platelet Volume 11.3 fL (9.4-12.4); Monocytes # 1.4 K/mcL (0.0-1.3); Monocytes % 8.5 %; Neutrophils # 12.2 K/mcL (1.6-8.9); Nucleated Red Blood Cells 0.8 /100 WBC (0); Platelet Count 390 K/mcL (140-400); Red Blood Count 3.08 M/mcL (3.82-4.97); Red Cell Distribution Width 17.4 % (11.5-14.5)
[2019-08-26] MEDS ORDERED: Methyl Salicylate/Menthol 57 APPL/57 GM TUBE TP PRN (09:30)
[2019-08-26 09:39] LABS: Calcium 8.6 mg/dL (8.6-10.3); Potassium 4.1 mEq/L (3.5-5.1)
[2019-08-26] MEDS ORDERED: Furosemide 20 MG/2 ML VIAL IVP ONE (09:53)
[2019-08-26] MEDS: Acetaminophen 325 MG TABLET PO PRN (20:50)
[2019-08-27 06:56] LABS: Basophils # 0.1 K/mcL (0.0-0.2); Basophils % 0.4 %; Eosinophils # 0.4 K/mcL (0.0-0.6); Eosinophils % 2.4 %; Hematocrit 32.4 % (35.3-44.9); Hemoglobin 9.9 g/dL (11.5-15.4); Immature Granulocytes % 0.8 % (0-4); Lymphocytes # 1.6 K/mcL (0.6-4.6); Lymphocytes % 8.8 %; Mean Corpuscular HGB Conc 30.6 g/dL (31.6-35.5); Mean Corpuscular Hemoglobin 31.6 pg (28.0-33.3); Mean Corpuscular Volume 103.5 fL (83.0-100.0); Mean Platelet Volume 11.1 fL (9.4-12.4); Monocytes # 1.5 K/mcL (0.0-1.3); Monocytes % 8.1 %; Neutrophils # 14.8 K/mcL (1.6-8.9); Nucleated Red Blood Cells 0.7 /100 WBC (0); Platelet Count 357 K/mcL (140-400); Red Blood Count 3.13 M/mcL (3.82-4.97); Red Cell Distribution Width 17.1 % (11.5-14.5); Segmented Neutrophils % 79.5 %; White Blood Count 18.6 K/mcL (4.3-11.1)
[2019-08-27 07:49] LABS: Calcium 8.4 mg/dL (8.6-10.3); Potassium 4.3 mEq/L (3.5-5.1)
[2019-08-27] MEDS: Metoprolol 100 MG TABLET PO SCH ×2 (08:22→20:18)
[2019-08-27] MEDS: Apixaban 2.5 MG TABLET PO SCH ×2 (08:22→20:18)
[2019-08-27] MEDS: Insulin LISPRO 300 UNITS/3 ML VIAL SQ SCH ×3 (08:24→17:18)
[2019-08-27] MEDS: Acetaminophen 325 MG TABLET PO PRN (14:37)
[2019-08-28] MEDS: Insulin LISPRO 300 UNITS/3 ML VIAL SQ SCH ×2 (08:29→11:25)
[2019-08-28] MEDS: Apixaban 2.5 MG TABLET PO SCH (08:33)
[2019-08-28] MEDS: Metoprolol 100 MG TABLET PO SCH (08:33)
[2019-08-28 08:36] LABS: Basophils # 0.1 K/mcL (0.0-0.2); Basophils % 0.4 %; Eosinophils # 0.5 K/mcL (0.0-0.6); Eosinophils % 3.2 %; Hematocrit 33.8 % (35.3-44.9); Hemoglobin 10.2 g/dL (11.5-15.4); Immature Granulocytes % 0.9 % (0-4); Lymphocytes # 1.5 K/mcL (0.6-4.6); Lymphocytes % 10.3 %; Mean Corpuscular HGB Conc 30.2 g/dL (31.6-35.5); Mean Corpuscular Hemoglobin 30.7 pg (28.0-33.3); Mean Corpuscular Volume 101.8 fL (83.0-100.0); Mean Platelet Volume 11.3 fL (9.4-12.4); Monocytes # 1.1 K/mcL (0.0-1.3); Monocytes % 7.6 %; Neutrophils # 11.5 K/mcL (1.6-8.9); Nucleated Red Blood Cells 0.5 /100 WBC (0); Platelet Count 370 K/mcL (140-400); Red Blood Count 3.32 M/mcL (3.82-4.97); Red Cell Distribution Width 17.2 % (11.5-14.5); Segmented Neutrophils % 77.6 %; White Blood Count 14.8 K/mcL (4.3-11.1)
[2019-08-28 08:52] LABS: Calcium 8.8 mg/dL (8.6-10.3)
[2019-08-28 11:22] VITALS: BP 133/75
== END 2019-08-28 17:38 | DRG 193 ==
LOC: EMEROOARM 15:27 → 2ANU 15:27 → SUATTDRO 18:04 → 3ANU 18:36 → SUATTDRO 08-25 12:21
PROVIDERS: ADMIT Internal Medicine; ATTEND Student in an Organized Health Care Education/Training Program

== ENCOUNTER 2019-09-30 12:36 | Inpatient (IN) ==
[2019-09-30] MEDS ORDERED: Furosemide 40 MG/4 ML VIAL IVP ONE (12:44)
[2019-09-30 13:13] LABS: Basophils # 0.1 K/mcL (0.0-0.2); Basophils % 0.6 %; Eosinophils # 0.3 K/mcL (0.0-0.6); Eosinophils % 2.4 %; Hemoglobin 10.1 g/dL (11.5-15.4); Immature Granulocytes % 0.4 % (0-4); Lymphocytes # 0.8 K/mcL (0.6-4.6); Lymphocytes % 6.5 %; Mean Corpuscular HGB Conc 30.6 g/dL (31.6-35.5); Mean Corpuscular Hemoglobin 31.9 pg (28.0-33.3); Mean Corpuscular Volume 104.1 fL (83.0-100.0); Mean Platelet Volume 12.4 fL (9.4-12.4); Monocytes # 0.8 K/mcL (0.0-1.3); Monocytes % 7.1 %; Neutrophils # 9.9 K/mcL (1.6-8.9); Nucleated Red Blood Cells 0.6 /100 WBC (0); Platelet Count 245 K/mcL (140-400); Red Blood Count 3.17 M/mcL (3.82-4.97); Red Cell Distribution Width 17.6 % (11.5-14.5); White Blood Count 11.9 K/mcL (4.3-11.1)
[2019-09-30 13:18] LABS: Bilirubin,Urine Negative (Negative); Blood,Urine Large (Negative); Clarity,Urine Turbid (Clear); Color,Urine Yellow (Yellow); Glucose,Urine (UA) Normal (Normal); Ketones,Urine Trace mg/dL (Negative); Leukocyte Esterase,Urine Large (Negative); Nitrite,Urine Negative (Negative); PH,Urine 5.5 pH Units (5.0-8.0); Protein,Urine 100 mg/dL (Neg-Trace); Specific Gravity,Urine 1.017 (1.010-1.025); Urobilinogen,Urine Normal (Normal)
[2019-09-30 13:21] LABS: Squamous Epithelial Cell,Urine Many per lpf (None-Few); WBC,Urine TNTC per hpf (0-3)
[2019-09-30 13:32] LABS: Alanine Aminotransferase 9 Units/L (7-52); Albumin 3.5 g/dL (3.5-5.7); Albumin/Globulin Ratio 0.8 (1.1-2.2); Alkaline Phosphatase 89 Units/L (34-104); Aspartate Amino Transferase 12 Units/L (13-39); BUN/Creatinine Ratio 10 (6-26); Bilirubin,Total 0.3 mg/dL (0.3-1.0); Blood Urea Nitrogen 52 mg/dL (8-23); Calcium 9.6 mg/dL (8.6-10.3); Carbon Dioxide 24 mEq/L (23-29); Chloride 101 mEq/L (98-107); Globulin 4.2 g/dL (2.4-3.5); Glucose 250 mg/dL (70-105); Osmolality,Calculated 306 (280-300); Potassium 5.5 mEq/L (3.5-5.1); Sodium 137 mEq/L (136-145); Total Protein 7.7 g/dL (6.4-8.9); Troponin I < 0.03 ng/mL (< 0.04); eGFR For African Americans 9 (> 60); eGFR For Non-African Americans 8 (> 60)
[2019-09-30 13:37] LABS: Bacteria,Urine Few per hpf (None-Few); Yeast,Urine Few per hpf (None Seen)
[2019-09-30] MEDS ORDERED: cefTRIAXone 1,000 MG in 0.9 % Sodium Chloride Mini Bag 100 ML IVPB ONE (13:56)
[2019-09-30] MEDS ORDERED: cefTRIAXone 1,000 MG in Water for inj. (sterile) 10 ML IVP ONE (14:10)
[2019-09-30] MEDS ORDERED: Naloxone 0.4 MG/ML INJ IVP PRN (14:21)
[2019-09-30] MEDS ORDERED: Ondansetron ODT 4 MG TAB.RAPDIS SL PRN (14:21)
[2019-09-30 14:28] LABS: Activated Partial Thrombo Time 45.4 Seconds (26.0-36.0); INR 1.9; Prothrombin Time 21.3 Seconds (9.4-12.1)
[2019-09-30] MEDS ORDERED: Furosemide 40 MG/4 ML VIAL IVP STA (17:02)
[2019-09-30 17:06] LABS: Magnesium 1.7 mg/dL (1.6-2.6); Phosphorous 5.3 mg/dL (2.7-4.5)
[2019-09-30 17:21] LABS: Calcium 9.4 mg/dL (8.6-10.3); Potassium 5.6 mEq/L (3.5-5.1)
[2019-09-30 17:27] LABS: ABG Base Excess 1 mEq/L (-2 to 3); ABG HCO3 28 mEq/L (21-27); ABG Oxygen Saturation 91 % (95-98); ABG PCO2 55 mmHg (35-45); ABG PH 7.32 pH Units (7.32-7.45); ABG PO2 67 mmHg (85-104); ABG TCO2 30 mEq/L (20-26); Blood Gas Modality ST
[2019-09-30] MEDS: Calcium Gluconate 1gm/50mL 1 GM/50 ML BAG IVPB SCH ×2 (18:06→18:44)
[2019-09-30 19:40] LABS: ABG Base Excess 2 mEq/L (-2 to 3); ABG HCO3 29 mEq/L (21-27); ABG Oxygen Saturation 94 % (95-98); ABG PCO2 55 mmHg (35-45); ABG PH 7.32 pH Units (7.32-7.45); ABG PO2 78 mmHg (85-104); ABG TCO2 30 mEq/L (20-26); Blood Gas VT 400 cc
[2019-09-30] MEDS ORDERED: Apixaban 2.5 MG TABLET PO SCH (21:00)
[2019-09-30] MEDS: Lactobacillus 1 EACH CAP.SPRINK PO SCH (21:34)
[2019-09-30] MEDS: Furosemide 40 MG/4 ML VIAL IVP SCH (21:34)
[2019-09-30 21:55] LABS: Calcium 9.7 mg/dL (8.6-10.3); Potassium 5.8 mEq/L (3.5-5.1)
[2019-10-01 01:34] LABS: Hematocrit 28.4 % (35.3-44.9); Hemoglobin 8.9 g/dL (11.5-15.4); Mean Corpuscular HGB Conc 31.3 g/dL (31.6-35.5); Mean Corpuscular Hemoglobin 32.2 pg (28.0-33.3); Mean Corpuscular Volume 102.9 fL (83.0-100.0); Mean Platelet Volume 12.6 fL (9.4-12.4); Platelet Count 218 K/mcL (140-400); Red Blood Count 2.76 M/mcL (3.82-4.97); Red Cell Distribution Width 17.6 % (11.5-14.5)
[2019-10-01 01:39] LABS: INR 1.7; Prothrombin Time 19.6 Seconds (9.4-12.1)
[2019-10-01 01:54] LABS: Albumin 2.7 g/dL (3.5-5.7); Calcium 9.5 mg/dL (8.6-10.3); Magnesium 1.6 mg/dL (1.6-2.6); Uric Acid 6.6 mg/dL (2.3-7.6)
[2019-10-01 02:33] LABS: Protein/Creatinine Ratio,Urine 1.75 mg/mg (0.00-0.20); Sodium, Urine 103.7 mEq/L
[2019-10-01] MEDS ORDERED: *HR* Dextrose 50 % in Water (Syg) 50 ML SYRINGE IVP ONE ×2 (03:30→07:35)
[2019-10-01] MEDS ORDERED: Calcium Gluconate 1,000 MG/10 ML VIAL IVPB ONE (03:30)
[2019-10-01] MEDS ORDERED: Insulin Human Regular 10 UNIT in 0.9 % Sodium Chloride 10 ML IV ONE ×2 (03:30→07:34)
[2019-10-01] MEDS ORDERED: Calcium Gluconate 1gm/50mL 1 GM/50 ML BAG IVPB ONE (04:00)
[2019-10-01] MEDS ORDERED: Albumin 25% 25gram/100mL 25 GM/100 ML IV.SOLN IVPB PRN (06:48)
[2019-10-01] MEDS ORDERED: 0.9 % Sodium Chloride 250 ML IVC PRN (06:48)
[2019-10-01] MEDS ORDERED: *HR* Heparin 10,000 UNIT/10 ML VIAL IV PRN (06:48)
[2019-10-01] MEDS ORDERED: 0.9 % Sodium Chloride 1,000 ML PRIME SCH (07:00)
[2019-10-01] MEDS ORDERED: Heparin 1,000 UNITS/500 mL 500 ML ONE (07:12)
[2019-10-01] MEDS ORDERED: Albuterol 2.5 MG/3 ML NEBULIZER IH ONE (07:36)
[2019-10-01 07:56] LABS: Hepatitis B Surface Antibody < 3.10 mIU/mL
[2019-10-01 08:07] LABS: Hepatitis B Surface Antigen Nonreactive (Nonreactive)
[2019-10-01] MEDS ORDERED: *HR* Heparin 5,000 UNIT/ML VIAL ONE (08:27)
[2019-10-01] MEDS ORDERED: Metoprolol 100 MG TABLET PO SCH (09:00)
[2019-10-01 09:45] LABS: Calcium 9.7 mg/dL (8.6-10.3); Potassium 5.3 mEq/L (3.5-5.1)
[2019-10-01] MEDS ORDERED: Dextrose Gel 15 GM/37.5 ML TUBE PO PRN ×2 (10:41)
[2019-10-01] MEDS ORDERED: *HR* Dextrose 50 % in Water (Syg) 50 ML SYRINGE IVP PRN (10:41)
[2019-10-01] MEDS ORDERED: D5% in Water 1,000 ML IVC PRN (10:41)
[2019-10-01] MEDS: Furosemide 40 MG/4 ML VIAL IVP SCH (11:12)
[2019-10-01] MEDS: Insulin LISPRO 300 UNITS/3 ML VIAL SQ SCH ×3 (11:14→20:26)
[2019-10-01 11:32] LABS: Estimated Average Glucose 166 mg/dl
[2019-10-01] MEDS: Metoprolol 100 MG TABLET PO SCH (12:31)
[2019-10-01] MEDS: amLODIPine 5 MG TABLET PO SCH (12:31)
[2019-10-01] MEDS: Lactobacillus 1 EACH CAP.SPRINK PO SCH ×2 (12:31→20:32)
[2019-10-01] MEDS: allopurinoL 100 MG TABLET PO SCH (12:32)
[2019-10-01] MEDS: Vancomycin Oral Soln 125 MG/2.5 ML UDC PO SCH ×3 (13:17→20:33)
[2019-10-01] MEDS: *HR* HYDROcodone/Acet 5/325 mg TABLET PO PRN ×2 (15:52→23:48)
[2019-10-01] MEDS: Apixaban 2.5 MG TABLET PO SCH (20:32)
[2019-10-01] MEDS: Acetaminophen 325 MG TABLET PO PRN (20:32)
[2019-10-02 04:57] LABS: Basophils # 0.1 K/mcL (0.0-0.2); Basophils % 0.8 %; Eosinophils # 0.5 K/mcL (0.0-0.6); Eosinophils % 4.8 %; Hemoglobin 9.2 g/dL (11.5-15.4); Immature Granulocytes % 0.4 % (0-4); Lymphocytes # 1.2 K/mcL (0.6-4.6); Lymphocytes % 12.5 %; Mean Corpuscular HGB Conc 29.7 g/dL (31.6-35.5); Mean Corpuscular Hemoglobin 30.9 pg (28.0-33.3); Mean Platelet Volume 12.4 fL (9.4-12.4); Monocytes # 0.9 K/mcL (0.0-1.3); Monocytes % 9.4 %; Neutrophils # 7.1 K/mcL (1.6-8.9); Nucleated Red Blood Cells 0.5 /100 WBC (0); Platelet Count 219 K/mcL (140-400); Red Blood Count 2.98 M/mcL (3.82-4.97); Red Cell Distribution Width 17.8 % (11.5-14.5); Segmented Neutrophils % 72.1 %; White Blood Count 9.9 K/mcL (4.3-11.1)
[2019-10-02 05:12] LABS: Potassium 4.4 mEq/L (3.5-5.1)
[2019-10-02 05:13] LABS: % Iron Saturation 12 % (15-50); Iron 35 mcg/dL (50-170); Transferrin 207 mg/dL (203-362)
[2019-10-02] MEDS ORDERED: 0.9 % Sodium Chloride 250 ML IVC PRN (07:22)
[2019-10-02] MEDS: Insulin LISPRO 300 UNITS/3 ML VIAL SQ SCH ×4 (09:08→20:20)
[2019-10-02] MEDS: Vancomycin Oral Soln 125 MG/2.5 ML UDC PO SCH ×4 (09:09→20:20)
[2019-10-02] MEDS: Iron Sucrose Complex 200 MG in 0.9 % Sodium Chloride 100 ML IVPB SCH (09:09)
[2019-10-02] MEDS: Folic Acid 1 MG TABLET PO SCH (09:10)
[2019-10-02] MEDS: Apixaban 2.5 MG TABLET PO SCH ×2 (09:10→20:21)
[2019-10-02] MEDS: Lactobacillus 1 EACH CAP.SPRINK PO SCH ×2 (09:10→20:21)
[2019-10-02] MEDS: Cyanocobalamin (B-12) 1,000 MCG TABLET PO SCH (09:10)
[2019-10-02] MEDS: allopurinoL 100 MG TABLET PO SCH (09:10)
[2019-10-02] MEDS: *HR* HYDROcodone/Acet 5/325 mg TABLET PO PRN ×2 (11:50→20:28)
[2019-10-02] MEDS: amLODIPine 5 MG TABLET PO SCH (11:51)
[2019-10-02] MEDS: Metoprolol 100 MG TABLET PO SCH (11:51)
[2019-10-02 12:21] LABS: Magnesium 1.6 mg/dL (1.6-2.6)
[2019-10-02 21:47] LABS: Kappa Qnt Free Light Chains 152.16 mg/L (3.30-19.40); Lambda Qnt Free Light Chains 103.77 mg/L (5.71-26.30)
[2019-10-03 07:13] LABS: Basophils # 0.1 K/mcL (0.0-0.2); Basophils % 0.5 %; Eosinophils # 0.6 K/mcL (0.0-0.6); Eosinophils % 4.9 %; Hematocrit 32.2 % (35.3-44.9); Hemoglobin 9.5 g/dL (11.5-15.4); Immature Granulocytes % 0.4 % (0-4); Lymphocytes # 1.1 K/mcL (0.6-4.6); Mean Corpuscular HGB Conc 29.5 g/dL (31.6-35.5); Mean Corpuscular Hemoglobin 30.9 pg (28.0-33.3); Mean Corpuscular Volume 104.9 fL (83.0-100.0); Monocytes # 1.1 K/mcL (0.0-1.3); Monocytes % 9.4 %; Neutrophils # 8.5 K/mcL (1.6-8.9); Platelet Count 182 K/mcL (140-400); Red Blood Count 3.07 M/mcL (3.82-4.97); Red Cell Distribution Width 17.6 % (11.5-14.5); Segmented Neutrophils % 74.8 %; White Blood Count 11.4 K/mcL (4.3-11.1)
[2019-10-03] MEDS ORDERED: 0.9 % Sodium Chloride 250 ML IVC PRN (07:16)
[2019-10-03 07:33] LABS: Magnesium 2.8 mg/dL (1.6-2.6); Potassium 4.2 mEq/L (3.5-5.1)
[2019-10-03 08:23] LABS: Serine Protease-3 Antibody 0 AU/mL (0-19)
[2019-10-03] MEDS: Insulin LISPRO 300 UNITS/3 ML VIAL SQ SCH ×4 (10:16→20:44)
[2019-10-03] MEDS: Vancomycin Oral Soln 125 MG/2.5 ML UDC PO SCH ×4 (10:27→20:44)
[2019-10-03] MEDS: Cyanocobalamin (B-12) 1,000 MCG TABLET PO SCH (10:27)
[2019-10-03] MEDS: allopurinoL 100 MG TABLET PO SCH (10:27)
[2019-10-03] MEDS: Folic Acid 1 MG TABLET PO SCH (10:27)
[2019-10-03] MEDS: Lactobacillus 1 EACH CAP.SPRINK PO SCH ×2 (10:27→20:44)
[2019-10-03] MEDS: Iron Sucrose Complex 200 MG in 0.9 % Sodium Chloride 100 ML IVPB SCH (10:33)
[2019-10-03 11:09] LABS: Lactate Dehydrogenase 158 Units/L (140-271); Total Protein 6.9 g/dL (6.4-8.9)
[2019-10-03] MEDS: Metoprolol 100 MG TABLET PO SCH ×2 (12:59→20:45)
[2019-10-03] MEDS: amLODIPine 5 MG TABLET PO SCH (12:59)
[2019-10-03 13:10] LABS: INR 1.4; Prothrombin Time 16.2 Seconds (9.4-12.1)
[2019-10-03] MEDS: *HR* HYDROcodone/Acet 5/325 mg TABLET PO PRN (14:41)
[2019-10-03 15:01] LABS: Appearance of Pleural Fl Hazy (Clear); RBC,Pleural Fluid 0.002 M/mcL
[2019-10-03 15:26] LABS: Basophils,Pleural Fluid 0 %; Eosinophils,Pleural Fluid 0 %
[2019-10-03 15:41] LABS: Glucose,Pleural Fluid 121 mg/dL (No Ref Range); LDH,Pleural Fluid 52 Units/L (No Ref Range); Total Protein,Pleural Fluid < 3.0 g/dL
[2019-10-04] MEDS ORDERED: *HR* LORazepam 2 MG/ML VIAL IVP ONE (00:22)
[2019-10-04 00:57] LABS: ABG Base Excess 4 mEq/L (-2 to 3); ABG HCO3 30 mEq/L (21-27); ABG Oxygen Saturation 86 % (95-98); ABG PCO2 50 mmHg (35-45); ABG PH 7.38 pH Units (7.32-7.45); ABG PO2 54 mmHg (85-104); ABG TCO2 31 mEq/L (20-26)
[2019-10-04 04:03] LABS: Basophils # 0.1 K/mcL (0.0-0.2); Basophils % 0.4 %; Eosinophils # 0.3 K/mcL (0.0-0.6); Eosinophils % 2.9 %; Hematocrit 30.7 % (35.3-44.9); Hemoglobin 9.2 g/dL (11.5-15.4); Immature Granulocytes % 0.5 % (0-4); Lymphocytes # 1.2 K/mcL (0.6-4.6); Mean Corpuscular Hemoglobin 31.4 pg (28.0-33.3); Mean Corpuscular Volume 104.8 fL (83.0-100.0); Mean Platelet Volume 11.8 fL (9.4-12.4); Monocytes # 1.1 K/mcL (0.0-1.3); Monocytes % 9.7 %; Neutrophils # 8.8 K/mcL (1.6-8.9); Nucleated Red Blood Cells 1.7 /100 WBC (0); Platelet Count 178 K/mcL (140-400); Red Blood Count 2.93 M/mcL (3.82-4.97); Red Cell Distribution Width 17.6 % (11.5-14.5); Segmented Neutrophils % 76.5 %; White Blood Count 11.5 K/mcL (4.3-11.1)
[2019-10-04 04:22] LABS: Calcium 8.7 mg/dL (8.6-10.3); Potassium 4.1 mEq/L (3.5-5.1)
[2019-10-04] MEDS: Insulin LISPRO 300 UNITS/3 ML VIAL SQ SCH ×4 (08:42→21:30)
[2019-10-04] MEDS: Folic Acid 1 MG TABLET PO SCH (08:55)
[2019-10-04] MEDS: Lactobacillus 1 EACH CAP.SPRINK PO SCH ×2 (08:56→21:29)
[2019-10-04] MEDS: amLODIPine 5 MG TABLET PO SCH (08:56)
[2019-10-04] MEDS: Vancomycin Oral Soln 125 MG/2.5 ML UDC PO SCH ×4 (08:56→21:29)
[2019-10-04] MEDS: Metoprolol 100 MG TABLET PO SCH ×2 (08:56→21:27)
[2019-10-04] MEDS: Iron Sucrose Complex 200 MG in 0.9 % Sodium Chloride 100 ML IVPB SCH (08:56)
[2019-10-04] MEDS: Cyanocobalamin (B-12) 1,000 MCG TABLET PO SCH (08:56)
[2019-10-04] MEDS: allopurinoL 100 MG TABLET PO SCH (08:57)
[2019-10-04] MEDS ORDERED: 0.9 % Sodium Chloride 250 ML IVC PRN (11:26)
[2019-10-04] MEDS ORDERED: Albumin 25% 25gram/100mL 25 GM/100 ML IV.SOLN IVPB PRN (11:26)
[2019-10-04] MEDS ORDERED: *HR* Heparin 10,000 UNIT/10 ML VIAL IV PRN (11:26)
[2019-10-04] MEDS ORDERED: 0.9 % Sodium Chloride 1,000 ML PRIME SCH (11:30)
[2019-10-04 12:58] LABS: Alpha 2 Globulin (PEP) 0.77 g/dL (0.48-1.05); Beta Globulin (PEP) 1.17 g/dL (0.48-1.10)
[2019-10-04 13:58] LABS: IFE Reflexed IFE Done; Immunoglobulin A 791 mg/dL (68-408); Immunoglobulin G 1450 mg/dL (768-1632); Immunoglobulin M 24 mg/dL (35-263)
[2019-10-04] MEDS: cefTRIAXone 1,000 MG in Water for inj. (sterile) 10 ML IVP SCH (16:41)
[2019-10-04] MEDS: Acetaminophen 325 MG TABLET PO PRN (17:39)
[2019-10-04] MEDS: Doxycycline 100 MG in 0.9 % Sodium Chloride Mini Bag 100 ML IVPB SCH (17:39)
[2019-10-05 03:52] LABS: Basophils % 0.3 %; Eosinophils # 0.2 K/mcL (0.0-0.6); Eosinophils % 1.7 %; Hematocrit 27.8 % (35.3-44.9); Hemoglobin 8.6 g/dL (11.5-15.4); Immature Granulocytes % 0.8 % (0-4); Lymphocytes # 1.2 K/mcL (0.6-4.6); Lymphocytes % 8.8 %; Mean Corpuscular HGB Conc 30.9 g/dL (31.6-35.5); Mean Corpuscular Hemoglobin 32.3 pg (28.0-33.3); Mean Corpuscular Volume 104.5 fL (83.0-100.0); Monocytes # 1.3 K/mcL (0.0-1.3); Monocytes % 10.1 %; Neutrophils # 10.3 K/mcL (1.6-8.9); Nucleated Red Blood Cells 1.4 /100 WBC (0); Platelet Count 152 K/mcL (140-400); Red Blood Count 2.66 M/mcL (3.82-4.97); Red Cell Distribution Width 17.8 % (11.5-14.5); Segmented Neutrophils % 78.3 %; White Blood Count 13.1 K/mcL (4.3-11.1)
[2019-10-05 04:16] LABS: Calcium 9.2 mg/dL (8.6-10.3)
[2019-10-05] MEDS: Doxycycline 100 MG in 0.9 % Sodium Chloride Mini Bag 100 ML IVPB SCH ×2 (05:34→17:09)
[2019-10-05] MEDS: Insulin LISPRO 300 UNITS/3 ML VIAL SQ SCH ×4 (08:05→20:24)
[2019-10-05] MEDS: Lactobacillus 1 EACH CAP.SPRINK PO SCH ×2 (08:15→20:25)
[2019-10-05] MEDS: amLODIPine 5 MG TABLET PO SCH (08:15)
[2019-10-05] MEDS: Metoprolol 100 MG TABLET PO SCH ×2 (08:15→20:25)
[2019-10-05] MEDS: Folic Acid 1 MG TABLET PO SCH (08:15)
[2019-10-05] MEDS: Cyanocobalamin (B-12) 1,000 MCG TABLET PO SCH (08:15)
[2019-10-05] MEDS: Vancomycin Oral Soln 125 MG/2.5 ML UDC PO SCH ×4 (08:15→20:25)
[2019-10-05] MEDS: cefTRIAXone 1,000 MG in Water for inj. (sterile) 10 ML IVP SCH (08:15)
[2019-10-05] MEDS: allopurinoL 100 MG TABLET PO SCH (08:28)
[2019-10-05] MEDS: *HR* HYDROcodone/Acet 5/325 mg TABLET PO PRN (20:32)
[2019-10-06 04:06] LABS: Basophils # 0.1 K/mcL (0.0-0.2); Basophils % 0.5 %; Eosinophils # 0.4 K/mcL (0.0-0.6); Eosinophils % 2.6 %; Hematocrit 30.8 % (35.3-44.9); Hemoglobin 9.3 g/dL (11.5-15.4); Immature Granulocytes % 0.7 % (0-4); Lymphocytes # 1.2 K/mcL (0.6-4.6); Lymphocytes % 9.2 %; Mean Corpuscular HGB Conc 30.2 g/dL (31.6-35.5); Mean Corpuscular Hemoglobin 31.8 pg (28.0-33.3); Mean Corpuscular Volume 105.5 fL (83.0-100.0); Mean Platelet Volume 12.4 fL (9.4-12.4); Monocytes # 1.4 K/mcL (0.0-1.3); Monocytes % 10.4 %; Neutrophils # 10.2 K/mcL (1.6-8.9); Nucleated Red Blood Cells 0.6 /100 WBC (0); Platelet Count 201 K/mcL (140-400); Red Blood Count 2.92 M/mcL (3.82-4.97); Segmented Neutrophils % 76.6 %; White Blood Count 13.3 K/mcL (4.3-11.1)
[2019-10-06 04:26] LABS: Calcium 9.6 mg/dL (8.6-10.3); Potassium 4.3 mEq/L (3.5-5.1)
[2019-10-06] MEDS: Doxycycline 100 MG in 0.9 % Sodium Chloride Mini Bag 100 ML IVPB SCH ×2 (05:30→17:41)
[2019-10-06] MEDS ORDERED: 0.9 % Sodium Chloride 250 ML IVC PRN (07:42)
[2019-10-06] MEDS ORDERED: *HR* Heparin 10,000 UNIT/10 ML VIAL IV PRN (07:42)
[2019-10-06] MEDS ORDERED: 0.9 % Sodium Chloride 1,000 ML PRIME SCH (07:45)
[2019-10-06] MEDS: cefTRIAXone 1,000 MG in Water for inj. (sterile) 10 ML IVP SCH (09:26)
[2019-10-06] MEDS: Insulin LISPRO 300 UNITS/3 ML VIAL SQ SCH ×4 (12:29→22:11)
[2019-10-06] MEDS: Vancomycin Oral Soln 125 MG/2.5 ML UDC PO SCH ×4 (12:31→22:14)
[2019-10-06] MEDS: Cyanocobalamin (B-12) 1,000 MCG TABLET PO SCH (12:40)
[2019-10-06] MEDS: allopurinoL 100 MG TABLET PO SCH (12:41)
[2019-10-06] MEDS: Folic Acid 1 MG TABLET PO SCH (12:41)
[2019-10-06] MEDS: Metoprolol 100 MG TABLET PO SCH ×2 (12:41→22:14)
[2019-10-06] MEDS: amLODIPine 5 MG TABLET PO SCH (12:41)
[2019-10-06] MEDS: Lactobacillus 1 EACH CAP.SPRINK PO SCH ×2 (12:41→22:13)
[2019-10-06] MEDS: Trolamine Salicylate/Aloe Vera 85 APPL/85 GM TUBE TP PRN (13:11)
[2019-10-06] MEDS: *HR* HYDROcodone/Acet 5/325 mg TABLET PO PRN (16:06)
[2019-10-06] MEDS: Cefdinir 300 MG CAPSULE PO SCH (22:13)
[2019-10-07 06:15] LABS: Basophils % 0.2 %; Eosinophils # 0.4 K/mcL (0.0-0.6); Eosinophils % 2.9 %; Hematocrit 31.2 % (35.3-44.9); Hemoglobin 9.3 g/dL (11.5-15.4); Immature Granulocytes % 0.7 % (0-4); Lymphocytes # 1.5 K/mcL (0.6-4.6); Lymphocytes % 11.5 %; Mean Corpuscular HGB Conc 29.8 g/dL (31.6-35.5); Mean Platelet Volume 11.6 fL (9.4-12.4); Monocytes # 1.4 K/mcL (0.0-1.3); Monocytes % 10.3 %; Neutrophils # 9.9 K/mcL (1.6-8.9); Nucleated Red Blood Cells 0.4 /100 WBC (0); Platelet Count 198 K/mcL (140-400); Red Cell Distribution Width 18.2 % (11.5-14.5); Segmented Neutrophils % 74.4 %; White Blood Count 13.4 K/mcL (4.3-11.1)
[2019-10-07] MEDS: Doxycycline 100 MG in 0.9 % Sodium Chloride Mini Bag 100 ML IVPB SCH ×2 (06:15→17:17)
[2019-10-07 06:21] LABS: INR 1.3; Prothrombin Time 14.2 Seconds (9.4-12.1)
[2019-10-07 06:35] LABS: Calcium 9.4 mg/dL (8.6-10.3); Potassium 3.9 mEq/L (3.5-5.1)
[2019-10-07] MEDS: Insulin LISPRO 300 UNITS/3 ML VIAL SQ SCH ×4 (08:13→21:40)
[2019-10-07] MEDS: Lactobacillus 1 EACH CAP.SPRINK PO SCH ×2 (08:14→23:00)
[2019-10-07] MEDS: amLODIPine 5 MG TABLET PO SCH (08:14)
[2019-10-07] MEDS: allopurinoL 100 MG TABLET PO SCH (08:14)
[2019-10-07] MEDS: Cefdinir 300 MG CAPSULE PO SCH ×2 (08:14→23:00)
[2019-10-07] MEDS: Cyanocobalamin (B-12) 1,000 MCG TABLET PO SCH (08:14)
[2019-10-07] MEDS: Metoprolol 100 MG TABLET PO SCH ×2 (08:14→21:41)
[2019-10-07] MEDS: Vancomycin Oral Soln 125 MG/2.5 ML UDC PO SCH ×4 (08:15→23:04)
[2019-10-07] MEDS: Folic Acid 1 MG TABLET PO SCH (08:15)
[2019-10-07] MEDS: *HR* HYDROcodone/Acet 5/325 mg TABLET PO PRN (16:30)
[2019-10-07] MEDS: *HR* Heparin 5,000 UNIT/ML VIAL SQ SCH (17:16)
[2019-10-08] MEDS: Doxycycline 100 MG in 0.9 % Sodium Chloride Mini Bag 100 ML IVPB SCH (05:58)
[2019-10-08] MEDS: *HR* Heparin 5,000 UNIT/ML VIAL SQ SCH ×2 (06:00→18:00)
[2019-10-08 06:36] LABS: Basophils # 0.1 K/mcL (0.0-0.2); Basophils % 0.3 %; Eosinophils # 0.7 K/mcL (0.0-0.6); Eosinophils % 4.9 %; Hemoglobin 9.7 g/dL (11.5-15.4); Immature Granulocytes % 0.7 % (0-4); Lymphocytes # 1.3 K/mcL (0.6-4.6); Lymphocytes % 8.7 %; Mean Corpuscular HGB Conc 30.3 g/dL (31.6-35.5); Mean Corpuscular Hemoglobin 31.2 pg (28.0-33.3); Mean Corpuscular Volume 102.9 fL (83.0-100.0); Mean Platelet Volume 12.2 fL (9.4-12.4); Monocytes # 1.5 K/mcL (0.0-1.3); Monocytes % 10.3 %; Neutrophils # 11.1 K/mcL (1.6-8.9); Nucleated Red Blood Cells 0.3 /100 WBC (0); Platelet Count 231 K/mcL (140-400); Red Blood Count 3.11 M/mcL (3.82-4.97); Red Cell Distribution Width 18.1 % (11.5-14.5); Segmented Neutrophils % 75.1 %; White Blood Count 14.8 K/mcL (4.3-11.1)
[2019-10-08 06:47] LABS: INR 1.2; Prothrombin Time 13.8 Seconds (9.4-12.1)
[2019-10-08 07:03] LABS: Calcium 9.8 mg/dL (8.6-10.3); Potassium 4.1 mEq/L (3.5-5.1)
[2019-10-08] MEDS ORDERED: 0.9 % Sodium Chloride 250 ML IVC PRN (07:28)
[2019-10-08] MEDS ORDERED: *HR* Heparin 10,000 UNIT/10 ML VIAL IV PRN (07:28)
[2019-10-08] MEDS ORDERED: 0.9 % Sodium Chloride 1,000 ML PRIME SCH (07:30)
[2019-10-08] MEDS: Insulin LISPRO 300 UNITS/3 ML VIAL SQ SCH ×4 (07:45→21:38)
[2019-10-08] MEDS: Cefdinir 300 MG CAPSULE PO SCH (11:21)
[2019-10-08] MEDS: allopurinoL 100 MG TABLET PO SCH (11:21)
[2019-10-08] MEDS: Cyanocobalamin (B-12) 1,000 MCG TABLET PO SCH (11:21)
[2019-10-08] MEDS: Lactobacillus 1 EACH CAP.SPRINK PO SCH ×2 (11:21→21:37)
[2019-10-08] MEDS: Folic Acid 1 MG TABLET PO SCH (11:21)
[2019-10-08] MEDS: amLODIPine 5 MG TABLET PO SCH (11:22)
[2019-10-08] MEDS: Vancomycin Oral Soln 125 MG/2.5 ML UDC PO SCH ×4 (11:22→21:38)
[2019-10-08] MEDS: Metoprolol 100 MG TABLET PO SCH ×2 (11:28→21:38)
[2019-10-08] MEDS: Trolamine Salicylate/Aloe Vera 85 APPL/85 GM TUBE TP PRN (11:32)
[2019-10-08] MEDS ORDERED: Cefdinir 300 MG CAPSULE PO SCH (16:00)
[2019-10-08] MEDS ORDERED: Doxycycline 100 MG in 0.9 % Sodium Chloride Mini Bag 100 ML IVPB SCH (18:00)
[2019-10-08] MEDS: *HR* HYDROcodone/Acet 5/325 mg TABLET PO PRN (18:02)
[2019-10-09] MEDS: Acetaminophen 325 MG TABLET PO PRN
[2019-10-09] MEDS: *HR* Heparin 5,000 UNIT/ML VIAL SQ SCH ×2 (06:22→17:34)
[2019-10-09 06:43] LABS: Basophils # 0.1 K/mcL (0.0-0.2); Basophils % 0.4 %; Eosinophils # 0.9 K/mcL (0.0-0.6); Eosinophils % 7.3 %; Hematocrit 31.3 % (35.3-44.9); Hemoglobin 9.5 g/dL (11.5-15.4); Immature Granulocytes % 0.7 % (0-4); Lymphocytes # 1.9 K/mcL (0.6-4.6); Mean Corpuscular HGB Conc 30.4 g/dL (31.6-35.5); Mean Corpuscular Hemoglobin 31.3 pg (28.0-33.3); Mean Platelet Volume 11.7 fL (9.4-12.4); Monocytes # 1.3 K/mcL (0.0-1.3); Monocytes % 10.5 %; Neutrophils # 8.4 K/mcL (1.6-8.9); Nucleated Red Blood Cells 0.2 /100 WBC (0); Platelet Count 216 K/mcL (140-400); Red Blood Count 3.04 M/mcL (3.82-4.97); Red Cell Distribution Width 18.3 % (11.5-14.5); Segmented Neutrophils % 66.1 %; White Blood Count 12.7 K/mcL (4.3-11.1)
[2019-10-09 07:03] LABS: Calcium 9.3 mg/dL (8.6-10.3); Potassium 3.8 mEq/L (3.5-5.1)
[2019-10-09] MEDS: Insulin LISPRO 300 UNITS/3 ML VIAL SQ SCH ×4 (07:10→21:12)
[2019-10-09] MEDS: allopurinoL 100 MG TABLET PO SCH (09:30)
[2019-10-09] MEDS: Vancomycin Oral Soln 125 MG/2.5 ML UDC PO SCH ×4 (09:30→21:29)
[2019-10-09] MEDS: Folic Acid 1 MG TABLET PO SCH (09:30)
[2019-10-09] MEDS: Lactobacillus 1 EACH CAP.SPRINK PO SCH ×2 (09:30→21:29)
[2019-10-09] MEDS: Metoprolol 100 MG TABLET PO SCH ×2 (09:30→21:29)
[2019-10-09] MEDS: Cyanocobalamin (B-12) 1,000 MCG TABLET PO SCH (09:30)
[2019-10-10] MEDS ORDERED: Acetaminophen IV 1,000 MG/100 ML INFUS..BTL IVPB ONE (03:54)
[2019-10-10] MEDS: *HR* Heparin 5,000 UNIT/ML VIAL SQ SCH ×2 (06:29→16:29)
[2019-10-10 07:13] LABS: Basophils # 0.1 K/mcL (0.0-0.2); Basophils % 0.5 %; Eosinophils # 0.7 K/mcL (0.0-0.6); Eosinophils % 5.8 %; Hematocrit 32.2 % (35.3-44.9); Hemoglobin 9.7 g/dL (11.5-15.4); Immature Granulocytes % 0.9 % (0-4); Lymphocytes # 1.8 K/mcL (0.6-4.6); Lymphocytes % 15.8 %; Mean Corpuscular HGB Conc 30.1 g/dL (31.6-35.5); Mean Corpuscular Volume 102.9 fL (83.0-100.0); Mean Platelet Volume 12.1 fL (9.4-12.4); Monocytes # 1.2 K/mcL (0.0-1.3); Monocytes % 10.5 %; Neutrophils # 7.5 K/mcL (1.6-8.9); Platelet Count 253 K/mcL (140-400); Red Blood Count 3.13 M/mcL (3.82-4.97); Segmented Neutrophils % 66.5 %; White Blood Count 11.3 K/mcL (4.3-11.1)
[2019-10-10] MEDS: Insulin LISPRO 300 UNITS/3 ML VIAL SQ SCH ×4 (07:17→22:46)
[2019-10-10] MEDS: allopurinoL 100 MG TABLET PO SCH (07:23)
[2019-10-10] MEDS: Folic Acid 1 MG TABLET PO SCH (07:23)
[2019-10-10] MEDS: Cyanocobalamin (B-12) 1,000 MCG TABLET PO SCH (07:23)
[2019-10-10] MEDS: Vancomycin Oral Soln 125 MG/2.5 ML UDC PO SCH ×4 (07:24→22:46)
[2019-10-10] MEDS: Metoprolol 100 MG TABLET PO SCH ×2 (07:24→22:42)
[2019-10-10] MEDS: Lactobacillus 1 EACH CAP.SPRINK PO SCH ×2 (07:24→22:45)
[2019-10-10 07:31] LABS: Calcium 9.6 mg/dL (8.6-10.3)
[2019-10-10] MEDS ORDERED: *HR* Heparin 10,000 UNIT/10 ML VIAL IV PRN (07:42)
[2019-10-10] MEDS ORDERED: 0.9 % Sodium Chloride 250 ML IVC PRN (07:42)
[2019-10-10] MEDS ORDERED: 0.9 % Sodium Chloride 1,000 ML PRIME SCH (07:45)
[2019-10-10] MEDS ORDERED: Heparin 1,000 UNITS/500 mL 500 ML ONE (08:26)
[2019-10-10] MEDS ORDERED: *HR* FentaNYL (PF) 100 MCG/2 ML VIAL IVP ONE (08:32)
[2019-10-10] MEDS ORDERED: *HR* Midazolam HCl 2 MG/2 ML VIAL IVP ONE (08:32)
[2019-10-10] MEDS ORDERED: ceFAZolin 2,000 MG in 0.9 % Sodium Chloride 100 ML IVPB ONE (08:33)
[2019-10-10] MEDS ORDERED: *HR* Heparin 5,000 UNIT/ML VIAL ONE (08:36)
[2019-10-10] MEDS ORDERED: 0.9 % Sodium Chloride 500 ML ONE (08:37)
[2019-10-10] MEDS ORDERED: CeFAZolin 2,000 MG/50 ML BAG IVPB ONE (08:45)
[2019-10-10] MEDS: *HR* HYDROcodone/Acet 5/325 mg TABLET PO PRN ×2 (16:35→22:46)
[2019-10-11 01:57] LABS: Basophils # 0.1 K/mcL (0.0-0.2); Basophils % 0.5 %; Eosinophils # 0.8 K/mcL (0.0-0.6); Eosinophils % 7.4 %; Hematocrit 32.1 % (35.3-44.9); Hemoglobin 9.8 g/dL (11.5-15.4); Lymphocytes # 1.4 K/mcL (0.6-4.6); Lymphocytes % 12.5 %; Mean Corpuscular HGB Conc 30.5 g/dL (31.6-35.5); Mean Corpuscular Hemoglobin 31.6 pg (28.0-33.3); Mean Corpuscular Volume 103.5 fL (83.0-100.0); Mean Platelet Volume 12.2 fL (9.4-12.4); Monocytes # 1.3 K/mcL (0.0-1.3); Monocytes % 11.4 %; Neutrophils # 7.3 K/mcL (1.6-8.9); Nucleated Red Blood Cells 0.2 /100 WBC (0); Platelet Count 239 K/mcL (140-400); Red Cell Distribution Width 18.1 % (11.5-14.5); Segmented Neutrophils % 67.2 %; White Blood Count 10.9 K/mcL (4.3-11.1)
[2019-10-11 05:40] LABS: Calcium 9.7 mg/dL (8.6-10.3); Potassium 4.9 mEq/L (3.5-5.1)
[2019-10-11] MEDS ORDERED: 0.9 % Sodium Chloride 1,000 ML PRIME SCH (07:00)
[2019-10-11] MEDS ORDERED: 0.9 % Sodium Chloride 250 ML IVC PRN (07:00)
[2019-10-11] MEDS: Folic Acid 1 MG TABLET PO SCH (10:16)
[2019-10-11] MEDS: Lactobacillus 1 EACH CAP.SPRINK PO SCH ×2 (10:16→20:02)
[2019-10-11] MEDS: allopurinoL 100 MG TABLET PO SCH (10:16)
[2019-10-11] MEDS: Cyanocobalamin (B-12) 1,000 MCG TABLET PO SCH (10:17)
[2019-10-11] MEDS: Insulin LISPRO 300 UNITS/3 ML VIAL SQ SCH ×4 (10:17→20:29)
[2019-10-11] MEDS: Apixaban 5 MG TABLET PO SCH (10:17)
[2019-10-11] MEDS: Metoprolol 100 MG TABLET PO SCH ×2 (13:26→20:02)
[2019-10-11] MEDS: *HR* HYDROcodone/Acet 5/325 mg TABLET PO PRN (13:34)
[2019-10-11] MEDS: *HR* Heparin 5,000 UNIT/ML VIAL SQ SCH (17:43)
[2019-10-11] MEDS: *HR* OxyCODONE Immed Rel 5 MG TABLET PO PRN (20:13)
[2019-10-12 01:02] LABS: Basophils # 0.1 K/mcL (0.0-0.2); Basophils % 0.6 %; Eosinophils # 0.6 K/mcL (0.0-0.6); Eosinophils % 6.2 %; Hematocrit 34.8 % (35.3-44.9); Hemoglobin 10.4 g/dL (11.5-15.4); Immature Granulocytes % 1.5 % (0-4); Lymphocytes # 1.5 K/mcL (0.6-4.6); Lymphocytes % 14.7 %; Mean Corpuscular HGB Conc 29.9 g/dL (31.6-35.5); Mean Corpuscular Hemoglobin 31.2 pg (28.0-33.3); Mean Corpuscular Volume 104.5 fL (83.0-100.0); Mean Platelet Volume 12.4 fL (9.4-12.4); Neutrophils # 6.6 K/mcL (1.6-8.9); Nucleated Red Blood Cells 0.2 /100 WBC (0); Platelet Count 172 K/mcL (140-400); Red Blood Count 3.33 M/mcL (3.82-4.97); Red Cell Distribution Width 17.8 % (11.5-14.5); White Blood Count 9.9 K/mcL (4.3-11.1)
[2019-10-12 01:23] LABS: Calcium 9.5 mg/dL (8.6-10.3)
[2019-10-12] MEDS: *HR* Heparin 5,000 UNIT/ML VIAL SQ SCH ×2 (05:16→17:10)
[2019-10-12] MEDS: Folic Acid 1 MG TABLET PO SCH (08:19)
[2019-10-12] MEDS: Insulin LISPRO 300 UNITS/3 ML VIAL SQ SCH ×4 (08:19→22:04)
[2019-10-12] MEDS: Metoprolol 100 MG TABLET PO SCH ×2 (08:19→22:02)
[2019-10-12] MEDS: Cyanocobalamin (B-12) 1,000 MCG TABLET PO SCH (08:19)
[2019-10-12] MEDS: Lactobacillus 1 EACH CAP.SPRINK PO SCH ×2 (08:19→22:02)
[2019-10-12] MEDS: allopurinoL 100 MG TABLET PO SCH (08:19)
[2019-10-13 04:32] LABS: Basophils # 0.1 K/mcL (0.0-0.2); Basophils % 0.6 %; Eosinophils # 0.5 K/mcL (0.0-0.6); Eosinophils % 4.7 %; Hematocrit 33.6 % (35.3-44.9); Hemoglobin 10.3 g/dL (11.5-15.4); Immature Granulocytes % 1.4 % (0-4); Lymphocytes # 1.7 K/mcL (0.6-4.6); Lymphocytes % 15.5 %; Mean Corpuscular HGB Conc 30.7 g/dL (31.6-35.5); Mean Corpuscular Hemoglobin 31.9 pg (28.0-33.3); Mean Platelet Volume 12.4 fL (9.4-12.4); Monocytes # 1.3 K/mcL (0.0-1.3); Monocytes % 11.9 %; Neutrophils # 7.2 K/mcL (1.6-8.9); Nucleated Red Blood Cells 0.2 /100 WBC (0); Platelet Count 198 K/mcL (140-400); Red Blood Count 3.23 M/mcL (3.82-4.97); Red Cell Distribution Width 17.7 % (11.5-14.5); Segmented Neutrophils % 65.9 %; White Blood Count 10.9 K/mcL (4.3-11.1)
[2019-10-13 04:39] LABS: Calcium 9.6 mg/dL (8.6-10.3); Potassium 4.7 mEq/L (3.5-5.1)
[2019-10-13] MEDS: *HR* Heparin 5,000 UNIT/ML VIAL SQ SCH ×2 (06:10→17:54)
[2019-10-13] MEDS ORDERED: 0.9 % Sodium Chloride 250 ML IVC PRN (07:07)
[2019-10-13] MEDS ORDERED: *HR* Heparin 5,000 UNIT/ML VIAL ONE ×2 (09:10→09:45)
[2019-10-13] MEDS ORDERED: Heparin 1,000 UNITS/500 mL 500 ML ONE (09:11)
[2019-10-13] MEDS ORDERED: *HR* Heparin 5,000 UNIT/ML VIAL IVP ONE (09:57)
[2019-10-13] MEDS: Insulin LISPRO 300 UNITS/3 ML VIAL SQ SCH ×4 (10:34→20:28)
[2019-10-13] MEDS: allopurinoL 100 MG TABLET PO SCH (11:02)
[2019-10-13] MEDS: Folic Acid 1 MG TABLET PO SCH (11:02)
[2019-10-13] MEDS: Lactobacillus 1 EACH CAP.SPRINK PO SCH ×2 (11:02→20:27)
[2019-10-13] MEDS: Cyanocobalamin (B-12) 1,000 MCG TABLET PO SCH (11:03)
[2019-10-13] MEDS: Metoprolol 100 MG TABLET PO SCH ×2 (11:18→22:45)
[2019-10-13] MEDS: *HR* HYDROcodone/Acet 5/325 mg TABLET PO PRN (14:26)
[2019-10-13] MEDS: *HR* OxyCODONE Immed Rel 5 MG TABLET PO PRN (20:28)
[2019-10-14 03:48] LABS: Basophils # 0.1 K/mcL (0.0-0.2); Basophils % 0.7 %; Eosinophils # 0.5 K/mcL (0.0-0.6); Eosinophils % 4.2 %; Hemoglobin 10.1 g/dL (11.5-15.4); Immature Granulocytes % 1.7 % (0-4); Lymphocytes # 2.2 K/mcL (0.6-4.6); Lymphocytes % 18.5 %; Mean Corpuscular HGB Conc 30.6 g/dL (31.6-35.5); Mean Corpuscular Volume 104.4 fL (83.0-100.0); Mean Platelet Volume 11.8 fL (9.4-12.4); Monocytes # 1.3 K/mcL (0.0-1.3); Monocytes % 10.6 %; Neutrophils # 7.7 K/mcL (1.6-8.9); Nucleated Red Blood Cells 0.2 /100 WBC (0); Platelet Count 197 K/mcL (140-400); Red Blood Count 3.16 M/mcL (3.82-4.97); Red Cell Distribution Width 17.7 % (11.5-14.5); Segmented Neutrophils % 64.3 %
[2019-10-14 04:10] LABS: Calcium 9.2 mg/dL (8.6-10.3)
[2019-10-14] MEDS: Metoprolol 100 MG TABLET PO SCH (08:36)
[2019-10-14] MEDS: Insulin LISPRO 300 UNITS/3 ML VIAL SQ SCH ×2 (08:36→11:36)
[2019-10-14] MEDS: Cyanocobalamin (B-12) 1,000 MCG TABLET PO SCH (08:38)
[2019-10-14] MEDS: Lactobacillus 1 EACH CAP.SPRINK PO SCH (08:38)
[2019-10-14] MEDS: allopurinoL 100 MG TABLET PO SCH (08:38)
[2019-10-14] MEDS: Apixaban 5 MG TABLET PO SCH (08:38)
[2019-10-14] MEDS: Folic Acid 1 MG TABLET PO SCH (08:44)
[2019-10-14 11:27] VITALS: BP 101/62
== END 2019-10-14 15:23 | DRG 682 ==
LOC: 2ANU 12:36 → EMEROOARM 12:36 → 2ANU 15:20 → SUATTDRO 15:37
PROVIDERS: ADMIT Family Medicine; ATTEND Student in an Organized Health Care Education/Training Program
PROC: IRPERMA (2019-10-10 12:00)